=== PATIENT | male | born 1930 | race Hispanic/Latino ===

== ENCOUNTER 2018-07-12 16:24 | Emergency (ER) | payer MEDICARE ==
[~2018-07-12] VITALS: Ht 170.2 cm; Wt 61.2 kg
[2018-07-12] MEDS ORDERED: PENICILLIN V POTASSIUM 500 MG TAB PO SCH (18:15)
== END 2018-07-12 18:11 | disposition home or self-care (01) ==
LOC: ER 16:24
DX: N48.1 Balanitis (principal); I10 Essential (primary) hypertension
CPT/HCPCS: 99283

== ENCOUNTER 2018-07-18 12:27 | Emergency (ER) | payer MEDICARE ==
[~2018-07-18] VITALS: Ht 170.2 cm; Wt 61.2 kg
[2018-07-18 17:08] LABS: BILIRUBIN,URINE NEGATIVE (NEGATIVE); CLARITY,URINE CLEAR (CLEAR); COLOR,URINE YELLOW (YELLOW); KETONES,URINE NEGATIVE (NEGATIVE); LEUKOCYTE ESTERASE ,URINE NEGATIVE (NEGATIVE); NITRITE,URINE NEGATIVE (NEGATIVE); PROTEIN,URINE DIPSTICK NEGATIVE (NEGATIVE); URINE UROBILINOGEN 0.2 mg/dL (0.2 - 1)
[2018-07-18 17:22] LABS: BACTERIA,URINE RARE /HPF; EPITHELIAL CELLS,URINE RARE /LPF; RBC,URINE 21-50 /HPF (0-5); WBC,URINE (MAN) 0-5 /HPF (0-5)
== END 2018-07-18 16:30 | disposition home or self-care (01) ==
LOC: ER 12:27
DX: N48.1 Balanitis (principal); I10 Essential (primary) hypertension; Z94.4 Liver transplant status
CPT/HCPCS: 81001; 87086; 99283

== ENCOUNTER 2018-07-26 19:55 | Emergency (ER) | payer MEDICARE ==
[~2018-07-26] VITALS: Ht 170.2 cm; Wt 61.2 kg
[2018-07-26 22:54] LABS: CLARITY,URINE CLOUDY (CLEAR); COLOR,URINE YELLOW (YELLOW); LEUKOCYTE ESTERASE ,URINE 2+ (NEGATIVE); NITRITE,URINE POSITIVE (NEGATIVE); PROTEIN,URINE DIPSTICK 2+ (NEGATIVE)
[2018-07-26 22:55] LABS: BACTERIA,URINE MANY /HPF; BILIRUBIN,URINE NEGATIVE (NEGATIVE); EPITHELIAL CELLS,URINE FEW /LPF; KETONES,URINE NEGATIVE (NEGATIVE); URINE UROBILINOGEN 0.2 mg/dL (0.2 - 1); WBC,URINE (MAN) >50 /HPF (0-5)
[2018-07-26 23:17] LABS: BASOPHILS % 0.4 % (0.0-1.0); EOSINOPHILS # (AUTO) 0.2 (0.0-0.4); EOSINOPHILS % 2.7 % (0.0-6.0); HEMOGLOBIN 10.3 g/dL (14.0-18.0); LYMPHOCYTES # (AUTO) 0.8 (1.0-3.2); LYMPHOCYTES % 14.1 % (18.0-39.1); MEAN CORPUSCULAR HGB CONC 32.2 g/dL (31-35); MEAN CORPUSCULAR VOLUME 83.8 fL (81-99); MONOCYTES # (AUTO) 0.4 (0.2-0.8); MONOCYTES % 6.6 % (4.4-11.3); NEUTROPHILS # (AUTO) 4.2 (2.1-6.9); NEUTROPHILS % 75.8 % (38.7-80.0); PLATELET COUNT 92 x10e3/uL (140-360); RED BLOOD COUNT 3.82 x10e6/uL (4.3-5.7); RED CELL DISTRIBUTION WIDTH 17.1 % (11.7-14.4)
[2018-07-26 23:48] LABS: ALBUMIN 3.4 g/dL (3.5-5.0); ALBUMIN/GLOBULIN RATIO 0.9 (0.8-2.0); ANION GAP 19.1 mmol/L (8-16); CALCIUM 9.8 mg/dL (8.4-10.2); CREATININE, SERUM 2.17 mg/dL (0.72-1.25); POTASSIUM 4.1 mmol/L (3.5-5.1)
[2018-07-27 00:14] VITALS: BP 171/87
[2018-07-29] MEDS ORDERED: PROPRANOLOL HCL10 MG PO (16:08)
[2018-07-29] MEDS ORDERED: CALCIUM CITRAT200 MG (16:08)
[2018-07-29] MEDS ORDERED: FENOFIBRATE145 MG (16:08)
[2018-07-29] MEDS ORDERED: ZINC SULFATE220 M1 (16:08)
[2018-07-29] MEDS ORDERED: RAPAMUNE0.5 MG PO (16:08)
[2018-07-29] MEDS ORDERED: [UNRECOGNIZED DRUG - OTHER] (16:08)
[2018-07-29] MEDS ORDERED: ASPIRIN81 MG PO (16:08)
[2018-07-29] MEDS ORDERED: ACETYLCYST100 MG/1 M (16:08)
[2018-07-29] MEDS ORDERED: ATORVASTATIN CA10 MG PO (16:08)
[2018-07-29] MEDS ORDERED: HYDROXYZINE HCL25 MG PO (16:08)
[2018-07-29] MEDS ORDERED: BENZONATATE100 MG PO (16:08)
[2018-07-29] MEDS ORDERED: QUESTRAN PACKET4 GM PO (16:08)
[2018-07-29] MEDS ORDERED: FINASTERIDE5 MG PO (16:08)
[2018-07-29] MEDS ORDERED: CLONIDINE1 EAC1 (16:08)
[2018-07-29] MEDS ORDERED: POTASSIUM CHLO10 ME1 PO (16:08)
[2018-07-29] MEDS ORDERED: VORICONAZOLE50 MG (16:08)
[2018-07-29] MEDS ORDERED: VITAMIN B-121000 MCG PO (16:08)
[2018-07-29] MEDS ORDERED: POLYETHYLENE GL17 GM PO (16:08)
[2018-07-29] MEDS ORDERED: FUROSEMIDE40 MG PO (16:08)
[2018-07-29] MEDS ORDERED: CENTRUM SILVER1 EAC3 (16:08)
[2018-07-29] MEDS ORDERED: SODIUM CHLORID250 M1 IV (16:08)
[2018-07-29] MEDS ORDERED: SODIUM BICARBO650 MG PO (16:08)
[2018-07-29] MEDS ORDERED: IPRATROPIU0.2 MG/1 M NEB (16:08)
[2018-07-29] MEDS ORDERED: HYDROCORTISONE10 MG PO (16:08)
--- OUTSIDE RECORDS SUMMARY | 2018-07-30 13:38 | XMS REPORT | Clinical Summary ---
Author Author [facility] Address Unknown Phone Unavailable Care Team Providers Care Hand Collator Name Role Phone PCP Unavailable Allergies No Known Allergies Current Medications Prescription Sig. Disp. Refills Start End Date Status Date aspirin 81 MG EC tablet Take 81 mg by mouth Active daily. propranolol (INDERAL) 40 Take 40 mg by mouth 2 Active MG tablet (two) times daily. ranitidine (ZANTAC) 150 Take 150 mg by mouth Active MG tablet daily. flunisolide (NASALIDE) 25 2 sprays by Each Nare Active mcg (0.025 %) [place] route as needed. hydrOXYzine (ATARAX) 25 Take 25 mg by mouth every Active MG tablet 6 (six) hours as needed. diphenhydrAMINE Take 25 mg by mouth as Active (BENADRYL) 25 mg tablet needed. calcium citrate 500 mg Take 500 mg by mouth. Active TbEF MULTIVITAMIN Take 1 tablet by mouth Active W-MINERALS/LUTEIN daily. (CENTRUM SILVER ORAL) coenzyme Q10 200 mg Take 200 mg by mouth Active capsule daily. fenofibrate (TRICOR) 48 Take 48 mg by mouth Active MG tabletIndications: daily. hypercholesterolemia sirolimus (RAPAMUNE) 0.5 Take 1 tablet (0.5 mg 30 tablet 0 05/29/20 Active mg Tab tablet total) by mouth daily. 18 RAPAMUNE 1 mg Take 2 tablets (2 mg 60 tablet 5 04/13/20 10/12/20 Discontin tabletIndications: Liver total) by mouth daily. 17 17 ued replaced by transplant (HCC), Status post liver transplantation (HCC), Immunosuppression (HCC) RAPAMUNE 1 mg Take 2 tablets (2 mg 60 tablet 11 10/12/20 02/16/20 Discontin tabletIndications: Liver total) by mouth daily. 17 18 ued replaced by transplant (HCC), Status post liver transplantation (HCC), Immunosuppression (HCC) sirolimus (RAPAMUNE) 1 MG Take 2 tablets (2 mg 60 tablet 02/16/20 02/19/20 Discontin tablet total) by mouth daily. 18 18 ued sirolimus (RAPAMUNE) 1 MG Take 2 tablets (2 mg 60 tablet 02/19/20 07/04/20 Discontin tablet total) by mouth daily. 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 No recurrent HCV infection currently with undetectable HCV RNA. No major issues of acute or chronic rejection or biliary stricture. Continue current care plan. 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 Will continue cardiology follow up. Normal porcine valve auscultation. Healthcare maintenance 11/25/2013 Last Assessment & Plan: Current with colonoscopy 2011; dermatology q 6 mos ongoing; needs annual influenza vaccine. GERD (gastroesophageal reflux disease) 11/25/2013 Last Assessment & Plan: Dual PPI and ranitidine therapy for reflux. Continue current care plan. If symptoms persistent, may need EGD to assess for Frazier's changes and/or manometry for LES dysfunction. Immunosuppression ([facility]) 11/25/2013 Last Assessment & Plan: Sirolimus monotherapy with excellent graft function. Continue current care plan. Hypertension 11/25/2013 Last Assessment & Plan: Mildly hypertensive today; however, did not take antihypertensive meds before fasting labs today. He will continue monitoring with his prescribing physician and should avoid weight gain. Encounters Date Type Specialty Care Team Description 07/24/2018 Telephone Transplant Hepatology Bridget Cortes RN Labs Only 07/23/2018 Telephone Transplant Hepatology Bridget Cortes RN returning phone call 07/12/2018 Telephone Transplant Hepatology Gem Danielson, EDMUND Follow-up 07/12/2018 Telephone Transplant Hepatology Gem Danielson, EDMUND Follow-up 07/12/2018 Telephone Transplant Hepatology Gem Danielson, EDMUND Follow-up 07/04/2018 Orders Only Transplant Hepatology Bridget Cortes RN 07/04/2018 Telephone Transplant Hepatology Bridget Cortes, EDMUND urologist clearance 07/02/2018 Telephone Transplant Hepatology Bridget Cortes, RN prostate 06/25/2018 Telephone Transplant Hepatology Anat Walker Labs Only (SPK W PTN RE: LAB/RX RESULTS; NO MED CHANGES; REPEAT BLD WK X3 MTHS; 09/20/2018; [facility]; GGT;) 06/20/2018 Telephone Transplant Hepatology Bridget Cortes RN Labs Only 06/20/2018 Telephone Transplant Hepatology Bridget Cortes RN lab work 06/19/2018 Documentation Transplant Hepatology Beba Walkerria 06/12/2018 Telephone Transplant Hepatology Beba Walkerria Labs Only (SPK W SPOUSE RE: LAB/RX RESULTS; NO MED CHANGES; REPEAT BLD WK X2 WKS; 06/18/2018; [facility]; GGT;) 06/12/2018 Telephone Transplant Hepatology Bridget Cortes RN Medication Problem 06/12/2018 Telephone Transplant Hepatology Bridget Cortes, EDMUND questions about medication 06/07/2018 Telephone Transplant Hepatology Bridget Cortes, EDMUND question re: medication 05/31/2018 Telephone Transplant Hepatology Bridget Cortes, EDMUND question for coordinator 05/30/2018 Telephone Transplant Hepatology Bridget Cortes RN rapamune 0.5 05/30/2018 Telephone Transplant Hepatology Bridget Cortes, EDMUND question re: [facility] bloodwork 05/29/2018 Telephone Transplant Hepatology Bridget Cortes, cleaning laborer Dose Change 04/22/2018 Orders Only Transplant Hepatology David Dodge MD 02/18/2018 Orders Only Transplant Hepatology Bridget Cortes, EDMUND 02/18/2018 Documentation Transplant Hepatology Anat Walker 02/15/2018 Telephone Transplant Hepatology Bridget Cortes, EDMUND generic OK 02/14/2018 Telephone Transplant Hepatology Bridget Cotres, EDMUND brand name medication 02/07/2018 Abstract Transplant Hepatology Bridget Cortes, EDMUND 12/24/2017 Telephone Transplant Hepatology Maral Freeman Labs Only (No change in current medications, repeat labs in 4 months 04/22/18 @ [facility]. ) 12/20/2017 Follow-Up Transplant Hepatology Afshan Fernandez MD Status post liver transplantation (HCC) (Primary Dx);Status post aortic valve replacement with tissue;Immunosuppression (HCC);Stage 3 chronic kidney disease;Screening for malignant neoplasm 12/20/2017 Orders Only Transplant Hepatology Dani Montelongo, Status post liver MD transplantation (HCC);Immunosuppression (HCC) 11/12/2017 Telephone Transplant Hepatology Maral Freeman Mailed updated itinerary (Mailed updated itinerary, with RS appt info. from Sunday clinic to clinic.) 10/19/2017 Orders Only Transplant Hepatology Gem Danielson, EDMUND Status post liver transplantation (HCC) (Primary Dx);Immunosuppression (HCC) 10/12/2017 Orders Only Transplant Hepatology Gem Danielson RN Liver replaced by transplant (HCC);Status post liver transplantation (HCC);Immunosuppression (HCC) 10/10/2017 Telephone Transplant Hepatology Maral Freeman Labs Only (No change in current meds, repeat labs 11/2017 @ annual f/u.) 10/01/2017 Orders Only Transplant Hepatology David Dodge MD after 07/25/2017 Social History Tobacco Use Types Packs/Day Years Used Date Former Smoker Cigarettes Quit: 10/15/1973 Smokeless Tobacco: Never Used Sex Assigned at Date Recorded Not on file Last Filed Vital Signs Vital Sign Reading Time Taken Blood Pressure 155/75 12/20/2017 9:32 AM [employer] Pulse 55 12/20/2017 9:32 AM [employer] Temperature 36.4 C (97.5 F) 12/20/2017 9:32 AM [employer] Respiratory Rate 18 12/20/2017 9:32 AM [employer] Oxygen Saturation 98% 12/20/2017 9:32 AM [employer] Inhaled Oxygen - - Concentration Weight 59.6 kg (131 lb 8 oz) 12/20/2017 9:32 AM [employer] Height 163.8 cm (5' 4.5") 12/20/2017 9:32 AM [employer] Body Mass Index 22.22 12/20/2017 9:32 AM [employer] Plan of Treatment Health Maintenance Due Date Last Done Comments INFLUENZA VACCINE 07/15/2018 Results * Sirolimus level (04/22/2018 9:22 AM) Only the most recent of 3 results within the time period is included. Component Value Ref Range Rapamycin Trough 14.1 3.0 - 18.0 mcg/L Comment: This test was developed and its analytical performance characteristics have been determined by [employer] [facility]. It has not been cleared or approved by the [place] Food and Drug Administration. This assay has been validated pursuant to the CLIA regulations and is used for clinical purposes. Specimen Performing Laboratory [address] [place] [address] Narrative FASTING:YES FASTING: YES * CBC with platelet count + automated diff (04/22/2018 9:22 AM) Only the most recent of 3 results within the time period is included. Component Value Ref Range WBC 5.3 3.8 - 10.8 Thousand/uL RBC 4.38 4.20 - 5.80 Million/uL Hemoglobin 11.8 (L) 13.2 - 17.1 g/dL Hematocrit 34.9 (L) 38.5 - 50.0 % MCV 79.7 (L) 80.0 - 100.0 fL MCH 26.9 (L) 27.0 - 33.0 pg MCHC 33.8 32.0 - 36.0 g/dL RDW 16.9 (H) 11.0 - 15.0 % Platelets 153 140 - 400 Thousand/uL MPV 10.6 7.5 - 12.5 fL # Neutros 3588 1500 - 7800 cells/uL # Lymphs 1145 850 - 3900 cells/uL # Monos 419 200 - 950 cells/uL # Eos 127 15 - 500 cells/uL # Baso 21 0 - 200 cells/uL % Neutros 67.7 % % Lymphs 21.6 % % Monos 7.9 % % Eos 2.4 % % Baso 0.4 % Specimen Performing Laboratory [facility] [address] [place] [address], [place] [address] Narrative FASTING:YES FASTING: YES * Bilirubin, total and direct (04/22/2018 9:22 AM) Only the most recent of 2 results within the time period is included. Component Value Ref Range Bilirubin, Direct 0.1 < OR=0.2 mg/dL Specimen Performing Laboratory [address] [place] [address] Narrative FASTING:YES FASTING: YES * Magnesium (04/22/2018 9:22 AM) Only the most recent of 3 results within the time period is included. Component Value Ref Range Magnesium, Serum 2.1 1.5 - 2.5 mg/dL Specimen Performing Laboratory [facility] [address] [place], [place] [address], [place] [address] Narrative FASTING:YES FASTING: YES * Comprehensive metabolic panel (04/22/2018 9:22 AM) Only the most recent of 3 results within the time period is included. Component Value Ref Range Glucose 101 (H) 65 - 99 mg/dL Comment: Fasting reference interval For someone without known diabetes, a glucose value between 100 and 125 mg/dL is consistent with prediabetes and should be confirmed with a follow-up test. BUN 16 7 - 25 mg/dL Creatinine 1.42 (H) 0.70 - 1.11 mg/dL Comment: For patients >49 years of age, the reference limit for Creatinine is approximately 13% higher for people identified as -[place]. eGFR If NonAfricn Am 44 (L) > OR=60 mL/min/1.73m2 eGFR If Africn Am 51 (L) > OR=60 mL/min/1.73m2 BUN/Creatinine Ratio 11 6 - 22 (calc) Sodium 143 135 - 146 mmol/L Potassium, Serum 4.3 3.5 - 5.3 mmol/L Chloride 103 98 - 110 mmol/L Carbon Dioxide, Total 31 20 - 31 mmol/L Calcium, Serum 9.7 8.6 - 10.3 mg/dL Protein, Total, Serum 6.6 6.1 - 8.1 g/dL Albumin 3.9 3.6 - 5.1 g/dL GLOBULIN ([facility]) 2.7 1.9 - 3.7 g/dL (calc) Albumin Globulin Ratio 1.4 1.0 - 2.5 (calc) Bilirubin, Total 0.5 0.2 - 1.2 mg/dL Alkaline Phosphatase, S 165 (H) 40 - 115 U/L AST (SGOT) 25 10 - 35 U/L ALT (SGPT) 33 9 - 46 U/L Specimen Performing Laboratory [facility] [address] [facility] [place] [address] Narrative FASTING:YES FASTING: YES * CBC with platelet count + automated diff (12/20/2017 9:20 AM) Component Value Ref Range WBC 7.4 3.5 - 10.5 K/L RBC 4.00 (L) 4.63 - 6.08 M/L Hemoglobin 11.0 (L) 13.7 - 17.5 GM/DL Hematocrit 35.2 (L) 40.1 - 51.0 % MCV 88.0 79.0 - 92.2 fL MCH 27.5 25.7 - 32.2 pg MCHC 31.3 (L) 32.3 - 36.5 GM/DL RDW 15.1 (H) 11.6 - 14.4 % Platelets 137 (L) 150 - 450 K/CU MM MPV 10.8 9.4 - 12.4 fL nRBC 0 0 - 0 /100 WBC % Neutros 80 % % Lymphs 10 % % Monos 7 % % Eos 3 % % Baso 0 % # Neutros 5.93 (H) 1.78 - 5.38 K/L # Lymphs 0.73 (L) 1.32 - 3.57 K/L # Monos 0.49 0.30 - 0.82 K/L # Eos 0.19 0.04 - 0.54 K/L # Baso 0.03 0.01 - 0.08 K/L Immature 1 0 - 1 % Granulocytes-Relative Specimen Performing Laboratory Blood [address] [address] * Bilirubin, direct (12/20/2017 9:20 AM) Component Value Ref Range Bilirubin, Direct 0.3 0.1 - 0.5 mg/dL Specimen Performing Laboratory Blood [address] [address] after 07/25/2017
--- OUTSIDE RECORDS SUMMARY | 2018-07-30 13:38 | XMS REPORT | Clinical Summary ---
Author Author [facility] Organization [facility] Address Unknown Phone Unavailable Care Team Providers Care Recreation Coordinator Name Role Phone Donato Mccallum MD PCP Allergies Active Allergy Reactions Severity Noted Date Comments No Known Drug Allergies 07/25/2016 Current Medications Prescription Sig. Disp. Refills Start End Date Status Date fenofibrate (TRICOR) 48 Take 48 mg by mouth Active MG tablet daily. hydrOXYzine (VISTARIL) Take 100 mg by mouth Active 100 MG capsule nightly. 1 tablet nightly omeprazole (PriLOSEC) 20 Take 20 mg by mouth Active MG capsule daily. propranolol (INDERAL) 40 Take 40 mg by mouth 2 Active MG tablet (two) times a day. terazosin (HYTRIN) 5 MG Take 5 mg by mouth Active capsule nightly. CALCIUM CITRATE ORAL Take by mouth. Active FOLIC Take 1 tablet by mouth. Active ACID/MULTIVIT-MIN/LUTEIN (CENTRUM SILVER ORAL) cholestyramine (QUESTRAN) Take 1 packet by mouth. Active 4 gram packet cyanocobalamin 100 MCG Take 100 mcg by mouth Active tablet daily. finasteride (PROSCAR) 5 Take 5 mg by mouth daily. Active mg tablet zinc sulfate (ZINCATE) Take 220 mg by mouth Active 220 (50) mg capsule daily. atorvastatin (LIPITOR) 20 Take 20 mg by mouth Active MG tablet daily. Default OP ins gabapentin (NEURONTIN) Take 100 mg by mouth 3 Active 100 mg capsule (three) times a day. aspirin (ECOTRIN) 81 MG Take 81 mg by mouth Active enteric coated tablet daily. hydrocortisone (CORTEF) Take 3 tablets (30 mg 180 tablet 11 03/28/20 03/28/20 Active 10 MG tablet total) by mouth 2 (two) 18 19 times a day. benzonatate (TESSALON) Take 1 capsule (100 mg 30 capsule 1 05/28/20 Active 100 MG capsule total) by mouth 3 (three) 18 times a day as needed for cough for up to 30 doses. sirolimus (RAPAMUNE) 0.5 Take 1 tablet (0.5 mg 30 tablet 11 05/28/20 06/27/20 Active MG tablet total) by mouth daily. 18 22 ipratropium (ATROVENT) Take 2.5 mL (0.5 mg 225 mL 0 06/25/20 Active 0.02 % nebulizer solution total) by nebulization 3 18 (three) times a day as needed for shortness of breath for up to 30 days. furosemide (LASIX) 20 mg TAKE ONE TABLET BY MOUTH 90 tablet 3 07/08/20 Active tablet ONCE DAILY 18 ranitidine (ZANTAC) 150 Take 150 mg by mouth 11/06/19 Discontin MG tablet daily. 18 ued ursodiol (ACTIGALL) 500 Take 250 mg by mouth 2 06/25/20 Discontin MG tablet (two) times a day. 18 ued diphenhydrAMINE Take 25 mg by mouth. 11/06/19 Discontin (BENADRYL) 25 mg tablet 18 ued RAPAMUNE 1 mg tablet TAKE 2 TABLETS BY MOUTH 6 02/16/20 05/28/20 Discontin DAILY *Z94.4* 17 18 ued zolpidem (AMBIEN) 10 mg Take 10 mg by mouth 05/28/20 Discontin tablet nightly as needed for 18 [address]ed sleep. testosterone 20.25 [address] on the skin. 05/28/20 Discontin mg/1.25 gram (1.62 %) gel 18 ued in metered-dose pump testosterone 10 mg/0.5 Place 1 applicator on the 1 g 0 04/03/20 04/03/20 gram /actuation gel in skin daily. 17 18 metered-dose pump furosemide (LASIX) 20 mg Take 1 tablet (20 mg 90 tablet 3 04/30/20 07/06/20 Discontin tablet total) by mouth daily. 17 18 ued meclizine (ANTIVERT) 25 Take 1 tablet (25 mg 90 tablet 3 11/06/19 12/06/19 mg tabletIndications: total) by mouth 3 (three) 18 18 Aortic valve disorder, times a day as needed for Vertigo, Weight loss dizziness for up to 30 days. tobramycin 80 mg/mL Take 1.88 mL (150 mg 37.6 mL 0 05/28/20 05/28/20 Discontin solution for nebulization total) by nebulization 18 18 ued every 12 (twelve) hours for 20 doses. ipratropium (ATROVENT) Take 2.5 mL (0.5 mg 225 mL 0 05/28/20 06/25/20 Discontin 0.02 % nebulizer solution total) by nebulization 3 18 18 ued (three) times a day for 30 days. voriconazole (VFEND) 200 Take 1 tablet (200 mg 60 tablet 0 05/28/20 06/18/20 MG tablet total) by mouth 2 (two) 18 18 times a day for 21 days. clonIDINE (CATAPRES) 0.1 Take 1 tablet (0.1 mg 60 tablet 1 05/28/20 06/27/20 MG tablet total) by mouth every 6 18 18 (six) hours as needed for high blood pressure (Give for a SBP > than 150) for up to 30 days. amLODIPine (NORVASC) 5 mg Take 1 tablet (5 mg 60 tablet 0 05/28/20 06/27/20 tablet total) by mouth 2 (two) 18 18 times a day for 30 days. polyethylene glycol Take 17 g by mouth daily 30 packet 0 05/28/20 06/27/20 (MIRALAX) 17 gram packet as needed for 18 18 constipation for up to 30 days. Don't take if stools loose or too soft acetylcysteine (MUCOMYST) Take 2 mL by nebulization 120 mL 0 05/28/20 06/27/20 200 mg/mL (20 %) 2 (two) times a day for 18 18 nebulizer solution 30 days. cefpodoxime (VANTIN) 200 Take 1 tablet (200 mg 14 tablet 0 06/11/20 06/18/20 MG tablet total) by mouth 2 (two) 18 18 times a day for 7 days. 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 Will continue cardiology follow up. Normal porcine valve auscultation. Hyperlipidemia 07/25/2016 Aortic valve disorder 07/25/2016 Hypertension 07/25/2016 Overview: Last Assessment & Plan: Mildly hypertensive today; however, did not take antihypertensive meds before fasting labs today. He will continue monitoring with his prescribing physician and should avoid weight gain. 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 Continue current care plan. If symptoms persistent, may need EGD to assess for Frazier's changes and/or manometry for LES dysfunction. Immunosuppression ([facility]) 11/25/2013 Overview: Last Assessment & Plan: Sirolimus monotherapy with excellent graft function. Continue current care plan. Status post liver transplantation ([facility]) 11/25/2013 Overview: Overview: ICD9 DX Fern Cutter Last Assessment & Plan: OLT Date: 04/29/2003 Dx: HCV genotype 2a. No recurrent HCV infection currently with undetectable HCV RNA. No major issues of acute or chronic rejection or biliary stricture. Continue current care plan. Encounters Date Type Specialty Care Team Description 07/06/2018 Refill Cardiology Darius Jiménez MD PhD Med Refill 06/25/2018 Orders Only Intensive Care Abdiel Giraldo Jr., MD Cryptogenic organizing pneumonia (Primary Dx) 06/20/2018 Hospital Radiology Abdiel Giraldo Jr., MD Pneumonia, bacterial Encounter 06/19/2018 Transcribe Access Abdiel Giraldo Jr., MD Pneumonia, bacterial Orders (Primary Dx) 06/11/2018 Emergency Emergency Medicine Rehrer, Walt Rocha, Urinary tract infection without hematuria, site unspecified (Primary Dx); Urinary retention 05/17/2018 Hospital Transplant Abdiel Giraldo Jr., MD Pneumonia of left lower - Encounter lobe due to Pseudomonas 05/28/2018 species (Primary Dx); Acute urinary obstruction; Aortic valve disorder; Vertigo; Weight loss; Status post liver transplantation 05/17/2018 Procedure Pass Pulmonology 05/17/2018 Surgery Pulmonology Abdiel Giraldo Jr., MD BRONCHOSCOPY W/ BIOPSY 05/15/2018 Lab Lab Abdiel Giraldo Jr., MD 05/15/2018 Lab Lab Abdiel Giraldo Jr., MD Primary immune deficiency disorder (Primary Dx) 05/15/2018 Prep for Intensive Care Abdiel Giraldo Jr., MD Pneumonia due to organism Surgery (Primary Dx); Coagulopathy 05/15/2018 Documentation Intensive Care Abdiel Giraldo Jr., MD 05/14/2018 Lab Lab Abdiel Giraldo Jr., MD 05/06/2018 Office Visit Cardiology Darius Jiménez MD PhD Hyperlipidemia, unspecified hyperlipidemia type (Primary Dx); Atherosclerosis of coronary artery of augustine heart without angina pectoris, unspecified vessel or lesion type 03/28/2018 Office Visit Cardiology Darius Jiménez MD PhD Atherosclerosis of coronary artery of augustine heart without angina pectoris, unspecified vessel or lesion type (Primary Dx); S/P AVR (aortic valve replacement); Fatigue, unspecified type 11/06/2017 Office Visit Cardiology Darius Jiménez MD PhD Aortic valve disorder (Primary Dx); Vertigo; Weight loss after 07/25/2017 Family History Medical History Relation Name Comments Heart attack Father Heart failure Mother Relation Name Status Comments Father (Age 77) Mother Social History Tobacco Use Types Packs/Day Years Used Date Former Smoker 40 Smokeless Tobacco: Never Used Alcohol Use Drinks/Week oz/Week Comments No occasional Sex Assigned at Date Recorded Not on file Last Filed Vital Signs Vital Sign Reading Time Taken Blood Pressure 169/80 06/11/2018 5:52 PM CDT Pulse 87 06/11/2018 5:52 PM CDT Temperature 36.9 C (98.4 F) 06/11/2018 5:52 PM CDT Respiratory Rate 18 06/11/2018 5:52 PM CDT Oxygen Saturation 96% 06/11/2018 5:52 PM CDT Inhaled Oxygen - - Concentration Weight 59.1 kg (130 lb 3 oz) 05/27/2018 5:16 AM CDT Height 170.2 cm (5' 7") 05/17/2018 12:12 PM CDT Body Mass Index 20.39 05/27/2018 5:16 AM CDT Plan of Treatment Date Type Specialty Care Team Description 11/07/2018 Office Visit Cardiology Darius Jiménez MD PhD [address] [place] [address] [facility] [place] [address] Health Maintenance Due Date Last Done Comments SHINGRIX VACCINE (#1) 1981 ZOSTER VACCINE 1991 PNEUMOCOCCAL 01/16/1996 POLYSACCHARIDE VACCINE AGE 65 AND OVER PNEUMOCOCCAL-13 01/16/1996 INFLUENZA VACCINE 05/15/2018 Procedures Procedure Name Priority Date/Time Associated Diagnosis Comments XR CHEST 2 VW Routine 06/20/2018 Pneumonia, bacterial Results for this 11:11 AM CDT procedure are in the results section. B NATRIURETIC PEPTIDE STAT 06/11/2018 Results for this 6:22 PM CDT procedure are in the results section. BLOOD CULTURE, AEROBIC & Routine 06/11/2018 Results for this ANAEROBIC 6:22 PM CDT procedure are in the results section. GRAM STAIN STAT 06/11/2018 Results for this 6:10 PM CDT procedure are in the results section. URINE CULTURE STAT 06/11/2018 Results for this 6:10 PM CDT procedure are in the results section. TROPONIN STAT 06/11/2018 Results for this 6:09 PM CDT procedure are in the results section. CREATINE KINASE, TOTAL STAT 06/11/2018 Results for this (CPK) 6:09 PM CDT procedure are in the results section. ZZESTIMATED GFR STAT 06/11/2018 Results for this 6:09 PM CDT procedure are in the results section. URINALYSIS SCREEN AND STAT 06/11/2018 Results for this MICROSCOPY, WITH REFLEX 6:09 PM CDT procedure are in the TO CULTURE results section. LIPASE LEVEL STAT 06/11/2018 Results for this 6:09 PM CDT procedure are in the results section. COMPREHENSIVE METABOLIC STAT 06/11/2018 Results for this PANEL 6:09 PM CDT procedure are in the results section. HC COMPLETE BLD COUNT STAT 06/11/2018 Results for this W/AUTO DIFF 6:09 PM CDT procedure are in the results section. ZZESTIMATED GFR Routine 05/28/2018 Results for this 6:41 AM CDT procedure are in the results section. MAGNESIUM LEVEL Routine 05/28/2018 Results for this 6:41 AM CDT procedure are in the results section. PHOSPHORUS LEVEL Routine 05/28/2018 Results for this 6:41 AM CDT procedure are in the results section. COMPREHENSIVE METABOLIC Routine 05/28/2018 Results for this PANEL 6:41 AM CDT procedure are in the results section. FK506 LEVEL Routine 05/28/2018 Results for this 5:30 AM CDT procedure are in the results section. SIROLIMUS LEVEL Routine 05/28/2018 Results for this 5:30 AM CDT procedure are in the results section. HC COMPLETE BLD COUNT Routine 05/28/2018 Results for this W/AUTO DIFF 5:30 AM CDT procedure are in the results section. URINALYSIS SCREEN AND Routine 05/27/2018 Results for this MICROSCOPY, WITH REFLEX 8:28 PM CDT procedure are in the TO CULTURE results section. URINE CULTURE Routine 05/27/2018 Results for this 8:28 PM CDT procedure are in the results section. HC COMPLETE BLD COUNT Routine 05/27/2018 Results for this W/AUTO DIFF 5:05 AM CDT procedure are in the results section. ZZESTIMATED GFR Routine 05/27/2018 Results for this 5:05 AM CDT procedure are in the results section. BASIC METABOLIC PANEL Routine 05/27/2018 Results for this 5:05 AM CDT procedure are in the results section. SIROLIMUS LEVEL Routine 05/27/2018 Results for this 5:05 AM CDT procedure are in the results section. HEPATIC FUNCTION PANEL Routine 05/27/2018 Results for this 5:05 AM CDT procedure are in the results section. ZZESTIMATED GFR Routine 05/26/2018 Results for this 5:10 AM CDT procedure are in the results section. BASIC METABOLIC PANEL Routine 05/26/2018 Results for this 5:10 AM CDT procedure are in the results section. HC COMPLETE BLD COUNT Routine 05/26/2018 Results for this W/AUTO DIFF 5:10 AM CDT procedure are in the results section. FK506 LEVEL Routine 05/26/2018 Results for this 5:10 AM CDT procedure are in the results section. XR CHEST 1 VW PORTABLE Routine 05/26/2018 Results for this 12:21 AM CDT procedure are in the results section. ZZESTIMATED GFR Routine 05/25/2018 Results for this 5:30 AM CDT procedure are in the results section. BASIC METABOLIC PANEL Routine 05/25/2018 Results for this 5:30 AM CDT procedure are in the results section. HC COMPLETE BLD COUNT Routine 05/25/2018 Results for this W/AUTO DIFF 5:30 AM CDT procedure are in the results section. SIROLIMUS LEVEL Routine 05/25/2018 Results for this 5:30 AM CDT procedure are in the results section. ECG 12-LEAD Routine 05/24/2018 Results for this 10:47 AM CDT procedure are in the results section. ZZESTIMATED GFR Routine 05/24/2018 Results for this 6:34 AM CDT procedure are in the results section. COMPREHENSIVE METABOLIC Routine 05/24/2018 Results for this PANEL 6:34 AM CDT procedure are in the results section. HC COMPLETE BLD COUNT Routine 05/24/2018 Results for this W/AUTO DIFF 5:47 AM CDT procedure are in the results section. SIROLIMUS LEVEL Routine 05/24/2018 Results for this 5:43 AM CDT procedure are in the results section. SIROLIMUS LEVEL Routine 05/23/2018 Results for this 6:06 AM CDT procedure are in the results section. HC COMPLETE BLD COUNT Routine 05/23/2018 Results for this W/AUTO DIFF 6:05 AM CDT procedure are in the results section. ZZESTIMATED GFR Routine 05/23/2018 Results for this 4:00 AM CDT procedure are in the results section. COMPREHENSIVE METABOLIC Routine 05/23/2018 Results for this PANEL 4:00 AM CDT procedure are in the results section. XR CHEST 2 VW Routine 05/22/2018 Results for this 7:03 PM CDT procedure are in the results section. ZZESTIMATED GFR Routine 05/22/2018 Results for this 5:55 AM CDT procedure are in the results section. SIROLIMUS LEVEL Routine 05/22/2018 Results for this 5:55 AM CDT procedure are in the results section. HC COMPLETE BLD COUNT Routine 05/22/2018 Results for this W/AUTO DIFF 5:55 AM CDT procedure are in the results section. COMPREHENSIVE METABOLIC Routine 05/22/2018 Results for this PANEL 5:55 AM CDT procedure are in the results section. IMMUNOGLOBULIN E Routine 05/22/2018 Results for this 5:55 AM CDT procedure are in the results section. IMMUNOGLOBULIN M Routine 05/22/2018 Results for this 5:55 AM CDT procedure are in the results section. IMMUNOGLOBULIN G Routine 05/22/2018 Results for this 5:55 AM CDT procedure are in the results section. IMMUNOGLOBULIN A Routine 05/22/2018 Results for this 5:55 AM CDT procedure are in the results section. ZZESTIMATED GFR Routine 05/21/2018 Results for this 6:12 AM CDT procedure are in the results section. COMPREHENSIVE METABOLIC Routine 05/21/2018 Results for this PANEL 6:12 AM CDT procedure are in the results section. SIROLIMUS LEVEL Routine 05/21/2018 Results for this 6:06 AM CDT procedure are in the results section. HC COMPLETE BLD COUNT Routine 05/21/2018 Results for this W/AUTO DIFF 6:06 AM CDT procedure are in the results section. XR CHEST 2 VW Routine 05/20/2018 Results for this 5:43 PM CDT procedure are in the results section. ZZESTIMATED GFR Routine 05/20/2018 Results for this 5:40 AM CDT procedure are in the results section. SIROLIMUS LEVEL Routine 05/20/2018 Results for this 5:40 AM CDT procedure are in the results section. HC COMPLETE BLD COUNT Routine 05/20/2018 Results for this W/AUTO DIFF 5:40 AM CDT procedure are in the results section. COMPREHENSIVE METABOLIC Routine 05/20/2018 Results for this PANEL 5:40 AM CDT procedure are in the results section. XR ABDOMEN 1 VW PORTABLE Routine 05/19/2018 Results for this 4:33 PM CDT procedure are in the results section. SIROLIMUS LEVEL Routine 05/19/2018 Results for this 5:30 AM CDT procedure are in the results section. ZZESTIMATED GFR Routine 05/19/2018 Results for this 5:30 AM CDT procedure are in the results section. HC COMPLETE BLD COUNT Routine 05/19/2018 Results for this W/AUTO DIFF 5:30 AM CDT procedure are in the results section. COMPREHENSIVE METABOLIC Routine 05/19/2018 Results for this PANEL 5:30 AM CDT procedure are in the results section. XR CHEST 1 VW PORTABLE STAT 05/18/2018 Results for this 6:35 AM CDT procedure are in the results section. SIROLIMUS LEVEL Routine 05/18/2018 Results for this 6:00 AM CDT procedure are in the results section. ZZESTIMATED GFR Routine 05/18/2018 Results for this 6:00 AM CDT procedure are in the results section. URIC ACID LEVEL Routine 05/18/2018 Results for this 6:00 AM CDT procedure are in the results section. HEPATIC FUNCTION PANEL Routine 05/18/2018 Results for this 6:00 AM CDT procedure are in the results section. THYROID STIMULATING Routine 05/18/2018 Results for this HORMONE 6:00 AM CDT procedure are in the results section. BASIC METABOLIC PANEL Routine 05/18/2018 Results for this 6:00 AM CDT procedure are in the results section. CBC HEMOGRAM Routine 05/18/2018 Results for this 6:00 AM CDT procedure are in the results section. ECG 12-LEAD Routine 05/17/2018 Results for this 5:29 PM CDT procedure are in the results section. SURGICAL PATHOLOGY Routine 05/17/2018 Results for this REQUEST 4:44 PM CDT procedure are in the results section. SURGICAL PATHOLOGY Routine 05/17/2018 Results for this REQUEST 4:44 PM CDT procedure are in the results section. CYTOLOGY Routine 05/17/2018 Results for this (NON-GYNECOLOGICAL) 3:21 PM CDT procedure are in the REQUEST results section. CYTOLOGY Routine 05/17/2018 Results for this (NON-GYNECOLOGICAL) 3:21 PM CDT procedure are in the REQUEST results section. HERPES SIMPLEX VIRUS BY Routine 05/17/2018 Results for this PCR 3:21 PM CDT procedure are in the results section. VARICELLA ZOSTER BY PCR Routine 05/17/2018 Results for this 3:21 PM CDT procedure are in the results section. CYTOMEGALOVIRUS BY PCR Routine 05/17/2018 Results for this 3:21 PM CDT procedure are in the results section. BAL CELL COUNT AND Routine 05/17/2018 Results for this DIFFERENTIAL 3:21 PM CDT procedure are in the results section. RESPIRATORY CULTURE Routine 05/17/2018 Results for this 3:21 PM CDT procedure are in the results section. GRAM STAIN Routine 05/17/2018 Results for this 3:21 PM CDT procedure are in the results section. GRAM STAIN Routine 05/17/2018 Results for this 3:21 PM CDT procedure are in the results section. RESPIRATORY CULTURE Routine 05/17/2018 Results for this 3:21 PM CDT procedure are in the results section. RESPIRATORY CULTURE Routine 05/17/2018 Results for this 3:21 PM CDT procedure are in the results section. FUNGUS SMEAR Routine 05/17/2018 Results for this 3:21 PM CDT procedure are in the results section. AFB STAIN Routine 05/17/2018 Results for this 3:21 PM CDT procedure are in the results section. FUNGUS SMEAR Routine 05/17/2018 Results for this 3:21 PM CDT procedure are in the results section. AFB STAIN Routine 05/17/2018 Results for this 3:21 PM CDT procedure are in the results section. NOCARDIA CULTURE Routine 05/17/2018 Results for this 3:21 PM CDT procedure are in the results section. FUNGUS CULTURE Routine 05/17/2018 Results for this 3:21 PM CDT procedure are in the results section. AFB CULTURE Routine 05/17/2018 Results for this 3:21 PM CDT procedure are in the results section. RESPIRATORY PATHOGEN Routine 05/17/2018 Results for this PANEL 3:21 PM CDT procedure are in the results section. LEGIONELLA CULTURE Routine 05/17/2018 Results for this 3:21 PM CDT procedure are in the results section. NOCARDIA CULTURE Routine 05/17/2018 Results for this 3:21 PM CDT procedure are in the results section. FUNGUS CULTURE Routine 05/17/2018 Results for this 3:21 PM CDT procedure are in the results section. AFB CULTURE Routine 05/17/2018 Results for this 3:21 PM CDT procedure are in the results section. BRONCHOSCOPY 05/17/2018 Pneumonia 2:00 PM CDT HISTOPLASMA ANTIGEN, STAT 05/17/2018 Results for this SERUM 12:23 PM CDT procedure are in the results section. BASIC METABOLIC PANEL STAT 05/17/2018 Results for this 11:55 AM CDT procedure are in the results section. ZZESTIMATED GFR STAT 05/17/2018 Results for this 11:55 AM CDT procedure are in the results section. PROTHROMBIN TIME WITH INR STAT 05/17/2018 Results for this 11:55 AM CDT procedure are in the results section. PARTIAL THROMBOPLASTIN STAT 05/17/2018 Results for this TIME (PTT) 11:55 AM CDT procedure are in the results section. HC COMPLETE BLD COUNT STAT 05/17/2018 Results for this W/AUTO DIFF 11:55 AM CDT procedure are in the results section. FUNGUS SMEAR Routine 05/15/2018 Results for this 12:20 PM CDT procedure are in the results section. AFB STAIN Routine 05/15/2018 Results for this 12:20 PM CDT procedure are in the results section. GRAM STAIN Routine 05/15/2018 Results for this 12:20 PM CDT procedure are in the results section. FUNGUS CULTURE Routine 05/15/2018 Primary immune deficiency Results for this 12:20 PM CDT disorder procedure are in the results section. AFB CULTURE Routine 05/15/2018 Primary immune deficiency Results for this 12:20 PM CDT disorder procedure are in the results section. SPUTUM CULTURE Routine 05/15/2018 Primary immune deficiency Results for this 12:20 PM CDT disorder procedure are in the results section. AFB STAIN Routine 05/14/2018 Results for this 5:45 PM CDT procedure are in the results section. AFB CULTURE Routine 05/14/2018 Results for this 5:45 PM CDT procedure are in the results section. GRAM STAIN Routine 05/14/2018 Results for this 5:45 PM CDT procedure are in the results section. SPUTUM CULTURE Routine 05/14/2018 Results for this 5:45 PM CDT procedure are in the results section. ECHOCARDIOGRAM 2D Routine 03/26/2018 Aortic valve disorder Results for this COMPLETE W MMODE SPECTRAL 10:45 AM CDT Vertigo procedure are in the COLOR DOPPLER ([id number]) Weight loss results section. after 07/25/2017 Results * XR Chest 2 Vw (06/20/2018 11:11 AM) Only the most recent of 3 results within the time period is included. Narrative Performed At Examination:XR CHEST 2 VW HM RADIANT Clinical History: J15.9 Unspecified bacterial pneumonia, J15.9 Comparison: May 26, 2018 Technique: Frontal and lateral views of the chest Impression: Peripheral airspace disease in the right upper lobe is resolved. No new infiltrate. Stable reticular markings in the right mid and lower lung zones are likely old postinflammatory. No pleural effusion. Heart size and pulmonary vascularity within normal limits. Status post median sternotomy. Mildly tortuous aorta. [facility]-[id number] Procedure Note Interface, Radiology Results Incoming - 06/20/2018 11:31 AM CDT Examination: XR CHEST 2 VW Clinical History: J15.9 Unspecified bacterial pneumonia, J15.9 Comparison: May 26, 2018 Technique: Frontal and lateral views of the chest Impression: Peripheral airspace disease in the right upper lobe is resolved. No new infiltrate. Stable reticular markings in the right mid and lower lung zones are likely old postinflammatory. No pleural effusion. Heart size and pulmonary vascularity within normal limits. Status post median sternotomy. Mildly tortuous aorta. [facility]-[id number] Performing Organization Address City/[facility]/[place] [address] * Blood culture, aerobic & anaerobic (06/11/2018 6:22 PM) Blood culture isolate No growth after 5 days of [facility] DEPARTMENT OF incubation. PATHOLOGY AND Comment: GENOMIC MEDICINE Specimen Information Specimen Source: Blood Specimen Site: Forearm, left Specimen Blood - Forearm, left Performing Organization Address [facility]/Zipcode Phone Number [facility] DEPARTMENT OF [address] [place] [address] PATHOLOGY AND GENOMIC MEDICINE * B natriuretic peptide (06/11/2018 6:22 PM) BNP 256 (H) 0 - 100 pg/mL [facility] DEPARTMENT OF PATHOLOGY AND GENOMIC MEDICINE Specimen Blood Performing Organization Address [facility] Phone Number [facility] DEPARTMENT OF [address] [place] [address] PATHOLOGY AND GENOMIC MEDICINE * Gram stain (06/11/2018 6:10 PM) Only the most recent of 5 results within the time period is included. Gram stain result Few WBC's [facility] DEPARTMENT OF Many Gram positive cocci in PATHOLOGY AND pairs GENOMIC MEDICINE Comment: Specimen Information Specimen Source: Urine Specimen Site: Clean catch Specimen Urine Performing Organization Address [facility] Phone Number [facility] DEPARTMENT OF [address] [place] [address] PATHOLOGY AND GENOMIC MEDICINE * Urine culture (06/11/2018 6:10 PM) Only the most recent of 2 results within the time period is included. Urine culture isolate Enterococcus faecalis [facility] DEPARTMENT OF >10-5 cfu/ml PATHOLOGY AND The performance GENOMIC MEDICINE characteristics of this assay on this isolate were validated by the Microbiology Laboratory at [facility].This source has not been approved by the U.S. Food and Drug Administration.The results are not intended to be used as the sole means for clinical diagnosis or patient management.The Microbiology Laboratory is authorized under the clinical Laboratory Improvement Amendments of 1988 (CLIA-88) to perform high complexity testing. The performance characteristics of this assay on this isolate were validated by the Microbiology Laboratory at [facility].This source has not been approved by the U.S. Food and Drug Administration.The results are not intended to be used as the sole means for clinical diagnosis or patient management.The Microbiology Laboratory is authorized under the clinical Laboratory Improvement Amendments of 1988 (CLIA-88) to perform high complexity testing. This organism is Vancomycin Sensitive. (A) Comment: Specimen Information Specimen Source: Urine Specimen Site: Clean catch Specimen Urine Organism Antibiotic Method Susceptibility Enterococcus faecalis Ampicillin SHAHBAZ 2 mcg/mL: Susceptible Enterococcus faecalis Nitrofurantoin SHAHBAZ <=16 mcg/mL: Susceptible Enterococcus faecalis Levofloxacin SHAHBAZ >4 mcg/mL: Resistant Enterococcus faecalis Linezolid SHAHBAZ <=1 mcg/mL: Susceptible Enterococcus faecalis Minocycline SHAHBAZ <=1 mcg/mL: Susceptible Enterococcus faecalis Tetracycline SHAHBAZ <=0.5 mcg/mL: Susceptible Enterococcus faecalis Vancomycin SHAHBAZ 1 mcg/mL: Susceptible Performing Organization Address City/State/Zipcode Phone Number [facility] DEPARTMENT OF [address] [place] [phone] PATHOLOGY AND GENOMIC MEDICINE * Urinalysis screen and microscopy, with reflex to culture (06/11/2018 6:09 PM) Only the most recent of 2 results within the time period is included. Specimen site Clean catch [facility] DEPARTMENT OF PATHOLOGY AND GENOMIC MEDICINE Color, UA Rowena [facility] DEPARTMENT OF PATHOLOGY AND GENOMIC MEDICINE Appearance, UA Turbid [facility] DEPARTMENT OF PATHOLOGY AND GENOMIC MEDICINE Specific gravity, UA 1.012 1.001 - 1.035 [facility] DEPARTMENT OF PATHOLOGY AND GENOMIC MEDICINE pH, UA 6.0 5.0 - 8.5 [facility] DEPARTMENT OF PATHOLOGY AND GENOMIC MEDICINE Protein, UA 2+ (A) Negative [facility] DEPARTMENT OF PATHOLOGY AND GENOMIC MEDICINE Glucose, UA Negative Negative [facility] DEPARTMENT OF PATHOLOGY AND GENOMIC MEDICINE Ketones, UA Negative Negative [facility] DEPARTMENT OF PATHOLOGY AND GENOMIC MEDICINE Bilirubin, UA Negative Negative [facility] DEPARTMENT OF PATHOLOGY AND GENOMIC MEDICINE Blood, UA Small (A) Negative [facility] DEPARTMENT OF PATHOLOGY AND GENOMIC MEDICINE Nitrite, UA Negative Negative [facility] DEPARTMENT OF PATHOLOGY AND GENOMIC MEDICINE Urobilinogen, UA <2.0 <2.0 [facility] DEPARTMENT OF PATHOLOGY AND GENOMIC MEDICINE Leukocyte esterase, UA Large (A) Negative [facility] DEPARTMENT OF PATHOLOGY AND GENOMIC MEDICINE WBC, UA >180 (H) 0 - 1 /HPF [facility] DEPARTMENT OF PATHOLOGY AND GENOMIC MEDICINE RBC, UA 27 (H) 0 - 5 /HPF [facility] DEPARTMENT OF PATHOLOGY AND GENOMIC MEDICINE Bacteria, UA Many (A) None seen [facility] DEPARTMENT OF PATHOLOGY AND GENOMIC MEDICINE WBC clumps, UA Few (A) [facility] DEPARTMENT OF PATHOLOGY AND GENOMIC MEDICINE Yeast, UA None seen [facility] DEPARTMENT OF PATHOLOGY AND GENOMIC MEDICINE Yeast with pseudohyphae, None seen [facility] PATHOLOGY AND GENOMIC MEDICINE Specimen Urine Performing Organization Address City/[facility] [place] [address] PATHOLOGY AND GENOMIC MEDICINE * Estimated GFR (06/11/2018 6:09 PM) Only the most recent of 13 results within the time period is included. GFR Non Af Amer 38 (A) mL/min/1.73 m2 [facility] DEPARTMENT OF PATHOLOGY AND GENOMIC MEDICINE GFR Af Amer 46 (A) mL/min/1.73 m2 [facility] DEPARTMENT OF Comment: PATHOLOGY AND Chronic kidney disease: <60 GENOMIC MEDICINE mL/min/1.73m2 Kidney failure: <15 mL/min/1.73m2 The estimated GFR is calculated from the IDMS-traceable Modification of Diet in Renal Disease Equation. The accuracy of the calculation is poor when the creatinine is normal. Calculated values >90 mL/min/1.73m2 are not reported. This equation has not been validated in children (<18 years), women, the elderly (>70 years), or ethnic groups other than Caucasians and Americans. Specimen Plasma specimen Performing Organization Address City/[facility] [place] [address] PATHOLOGY AND GENOMIC MEDICINE * Troponin (06/11/2018 6:09 PM) Troponin <0.30 0.00 - 0.30 ng/mL [facility] DEPARTMENT OF Comment: PATHOLOGY AND 0.30 - 1.49 GENOMIC MEDICINE ng/mlMay indicate increased risk of acute coronary syndrome. >=1.5 ng/ml Consistent with acute myocardial infarction. The diagnostic value of a single normal or non-diagnostic result is questionable.Serial samples at 2-6 hour intervals are required to rule out acute myocardial injury. Specimen Plasma specimen Performing Organization Address City/[facility]/Zipcode Phone Number [address] [address] PATHOLOGY AND GENOMIC MEDICINE * CBC with platelet and differential (06/11/2018 6:09 PM) Only the most recent of 12 results within the time period is included. WBC 7.21 4.50 - 11.00 k/uL [facility] DEPARTMENT OF PATHOLOGY AND GENOMIC MEDICINE RBC 4.27 (L) 4.40 - 6.00 m/uL [facility] DEPARTMENT OF PATHOLOGY AND GENOMIC MEDICINE HGB 11.2 (L) 14.0 - 18.0 g/dL [facility] DEPARTMENT OF PATHOLOGY AND GENOMIC MEDICINE HCT 35.5 (L) 41.0 - 51.0 % [facility] DEPARTMENT OF PATHOLOGY AND GENOMIC MEDICINE MCV 83.1 82.0 - 100.0 fL [facility] DEPARTMENT OF PATHOLOGY AND GENOMIC MEDICINE MCH 26.2 (L) 27.0 - 34.0 pg [facility] DEPARTMENT OF PATHOLOGY AND GENOMIC MEDICINE MCHC 31.5 31.0 - 37.0 g/dL [facility] DEPARTMENT OF PATHOLOGY AND GENOMIC MEDICINE RDW - SD 52.2 37.0 - 55.0 fL [facility] DEPARTMENT OF PATHOLOGY AND GENOMIC MEDICINE MPV 10.1 8.8 - 13.2 fL [facility] DEPARTMENT OF PATHOLOGY AND GENOMIC MEDICINE Platelet count 150 150 - 400 k/uL [facility] DEPARTMENT OF PATHOLOGY AND GENOMIC MEDICINE Nucleated RBC 0.00 /100 WBC [facility] DEPARTMENT OF PATHOLOGY AND GENOMIC MEDICINE Neutrophils 78.6 (H) 39.0 - 69.0 % [facility] DEPARTMENT OF PATHOLOGY AND GENOMIC MEDICINE Lymphocytes 12.9 (L) 25.0 - 45.0 % [facility] DEPARTMENT OF PATHOLOGY AND GENOMIC MEDICINE Monocytes 6.9 0.0 - 10.0 % [facility] DEPARTMENT OF PATHOLOGY AND GENOMIC MEDICINE Eosinophils 0.8 0.0 - 5.0 % [facility] DEPARTMENT OF PATHOLOGY AND GENOMIC MEDICINE Basophils 0.4 0.0 - 1.0 % [facility] DEPARTMENT OF PATHOLOGY AND GENOMIC MEDICINE Immature granulocytes 0.4Comment: "Immature 0.0 - 1.0 % [facility] DEPARTMENT OF granulocytes" (promyelocytes, PATHOLOGY AND myelocytes, metamyelocytes) GENOMIC MEDICINE Specimen Blood Performing Organization Address City/[facility]/Zipcode Phone Number [address] [address] PATHOLOGY AND GENOMIC [facility] * Lipase level (06/11/2018 6:09 PM) Lipase 47 13 - 60 U/L [facility] DEPARTMENT PATHOLOGY AND GENOMIC MEDICINE Specimen Plasma specimen Performing Organization Address City/[facility]/Zipcode Phone Number [address] [address] PATHOLOGY AND GENOMIC MEDICINE * Creatine kinase, total (CPK) (06/11/2018 6:09 PM) Creatine kinase 50 39 - 308 U/L [facility] DEPARTMENT OF PATHOLOGY AND GENOMIC MEDICINE Specimen Plasma specimen Performing Organization Address City/State/Zipcode Phone Number [facility] DEPARTMENT OF [address] [place] [phone] PATHOLOGY AND GENOMIC MEDICINE * Comprehensive metabolic panel (06/11/2018 6:09 PM) Only the most recent of 8 results within the time period is included. Sodium 138 135 - 148 mEq/L [facility] DEPARTMENT OF PATHOLOGY AND GENOMIC MEDICINE Potassium 4.2 3.5 - 5.0 mEq/L [facility] DEPARTMENT OF PATHOLOGY AND GENOMIC MEDICINE Chloride 99 98 - 112 mEq/L [facility] DEPARTMENT OF PATHOLOGY AND GENOMIC MEDICINE CO2 22 (L) 24 - 31 mEq/L [facility] DEPARTMENT OF PATHOLOGY AND GENOMIC MEDICINE Anion gap 17@ANIO (H) 7 - 15 mEq/L [facility] DEPARTMENT OF PATHOLOGY AND GENOMIC MEDICINE BUN 29 (H) 8 - 23 mg/dL [facility] DEPARTMENT OF PATHOLOGY AND GENOMIC MEDICINE Creatinine 1.7 (H) 0.7 - 1.2 mg/dL [facility] DEPARTMENT OF PATHOLOGY AND GENOMIC MEDICINE Glucose 130 (H) 65 - 99 mg/dL [facility] DEPARTMENT OF PATHOLOGY AND GENOMIC MEDICINE Calcium 9.2 8.8 - 10.2 mg/dL [facility] DEPARTMENT OF PATHOLOGY AND GENOMIC MEDICINE Protein 7.2 6.3 - 8.3 g/dL [facility] DEPARTMENT OF Comment: PATHOLOGY AND [place] GENOMIC MEDICINE 4.6-7.0 g/dL 1 week 4.4-7.6 g/dL 7 months-1year 5.1-7.3 g/dL 1-2 years5.6-7 .5 g/dL >3 years6.0-8 .0 g/dL 18-150 6.3-8.3 g/dL Albumin 3.3 (L) 3.5 - 5.0 g/dL [facility] DEPARTMENT OF PATHOLOGY AND GENOMIC MEDICINE A/G ratio 0.8 0.7 - 3.8 [facility] DEPARTMENT OF PATHOLOGY AND GENOMIC MEDICINE Alkaline phosphatase 193 (H) 40 - 129 U/L [facility] DEPARTMENT OF PATHOLOGY AND GENOMIC MEDICINE AST 55 (H) 10 - 50 U/L [facility] DEPARTMENT OF PATHOLOGY AND GENOMIC MEDICINE ALT 40 5 - 50 U/L [facility] DEPARTMENT OF PATHOLOGY AND GENOMIC MEDICINE Total bilirubin 0.5 0.0 - 1.2 mg/dL [facility] DEPARTMENT OF PATHOLOGY AND GENOMIC MEDICINE Specimen Plasma specimen Performing Organization Address [facility] [place] [address] PATHOLOGY AND GENOMIC MEDICINE * Phosphorus level (05/28/2018 6:41 AM) Phosphorus 3.2 2.4 - 4.5 mg/dL [facility] DEPARTMENT OF PATHOLOGY AND [employer] MEDICINE Specimen Plasma specimen Performing Organization Address [facility] [place] [address] PATHOLOGY AND [facility] MEDICINE * Magnesium level (05/28/2018 6:41 AM) Magnesium 2.0 1.6 - 2.4 mg/dL [facility] DEPARTMENT OF PATHOLOGY AND GENOMIC MEDICINE Specimen Plasma specimen Performing Organization Address [facility] [place] [address] PATHOLOGY AND GENOMIC MEDICINE * FK506 level (05/28/2018 5:30 AM) Only the most recent of 2 results within the time period is included. FK506 level <2.0 ng/mL [facility] DEPARTMENT OF Comment: PATHOLOGY AND Therapeutic range 5-20 ng/mL [facility] for 12 hour trough. The range varies depending on the organ transplanted, time after transplantation and co-administered immunosuppressant therapies. Please use clinical judgment to interpret test result. Test performed using [employer] chemiluminescent microparticle immunoassay for Tacrolimus on the [employer] i System. Performing Organization Address [facility] Phone Number [facility] [place] [address] PATHOLOGY AND [employer] MEDICINE * Sirolimus level (05/28/2018 5:30 AM) Only the most recent of 10 results within the time period is included. Sirolimus 7.3 ng/mL [facility] DEPARTMENT OF Comment: PATHOLOGY AND The recommended trough is 4-12 GENOMIC MEDICINE ng/mL while on CNI (calcineurin inhibitors: Cyclcosporine and Tacrolimus). When used without CNI, higher trough concentrations may be desired, typically 12-20 ng/mL. Occasional patients may require 20-30 ng/mL. Test performed using [employer] chemiluminescent microparticle immunoassay for Sirolimus on the [employer] i System Performing Organization Address City/[facility]/[place] [address] PATHOLOGY AND GENOMIC MEDICINE * Hepatic function panel (05/27/2018 5:05 AM) Only the most recent of 2 results within the time period is included. Albumin 2.9 (L) 3.5 - 5.0 g/dL [facility] DEPARTMENT OF PATHOLOGY AND GENOMIC MEDICINE Total bilirubin <0.2 0.0 - 1.2 mg/dL [facility] DEPARTMENT OF PATHOLOGY AND GENOMIC MEDICINE Bilirubin direct <0.2 0.0 - 0.3 mg/dL [facility] DEPARTMENT OF PATHOLOGY AND GENOMIC MEDICINE Alkaline phosphatase 74 40 - 129 U/L [facility] DEPARTMENT OF PATHOLOGY AND GENOMIC MEDICINE Protein 6.5 6.3 - 8.3 g/dL [facility] DEPARTMENT OF Comment: PATHOLOGY AND [place] GENOMIC MEDICINE 4.6-7.0 g/dL 1 week 4.4-7.6 g/dL 7 months-1year 5.1-7.3 g/dL 1-2 years5.6-7 .5 g/dL >3 years6.0-8 .0 g/dL 18-150 6.3-8.3 g/dL ALT 23 5 - 50 U/L [facility] DEPARTMENT OF PATHOLOGY AND GENOMIC MEDICINE AST 22 10 - 50 U/L [facility] DEPARTMENT OF PATHOLOGY AND GENOMIC MEDICINE Specimen Plasma specimen Performing Organization Address City/State/Zipcode Phone Number [place] [phone] PATHOLOGY AND [employer] [facility] * Basic metabolic panel (05/27/2018 5:05 AM) Only the most recent of 5 results within the time period is included. Sodium 141 135 - 148 mEq/L [facility] DEPARTMENT OF PATHOLOGY AND GENOMIC MEDICINE Potassium 3.8 3.5 - 5.0 mEq/L [facility] DEPARTMENT OF PATHOLOGY AND GENOMIC MEDICINE Chloride 97 (L) 98 - 112 mEq/L [facility] DEPARTMENT OF PATHOLOGY AND GENOMIC MEDICINE CO2 32 (H) 24 - 31 mEq/L [facility] DEPARTMENT OF PATHOLOGY AND GENOMIC MEDICINE Anion gap 12@ANIO 7 - 15 mEq/L [facility] DEPARTMENT OF PATHOLOGY AND GENOMIC MEDICINE BUN 24 (H) 8 - 23 mg/dL [facility] DEPARTMENT OF PATHOLOGY AND GENOMIC MEDICINE Creatinine 1.6 (H) 0.7 - 1.2 mg/dL [facility] DEPARTMENT OF PATHOLOGY AND GENOMIC MEDICINE Glucose 131 (H) 65 - 99 mg/dL [facility] DEPARTMENT OF PATHOLOGY AND GENOMIC MEDICINE Calcium 10.4 (H) 8.8 - 10.2 mg/dL [facility] DEPARTMENT OF PATHOLOGY AND GENOMIC MEDICINE Specimen Plasma specimen Performing Organization Address [facility] Phone Number [facility] DEPARTMENT OF [address] [place] [address] PATHOLOGY AND GENOMIC MEDICINE * XR Chest 1 Vw Portable (05/26/2018 12:21 AM) Only the most recent of 2 results within the time period is included. Narrative Performed At EXAMINATION:XR CHEST 1 VW PORTABLE [facility] CLINICAL HISTORY:Shoulder painbursitis or tenosynovitis suspectedxray nondiagnostic, recent pneumonia COMPARISON:05/22/2018 IMPRESSION: Airspace infiltration of the right upper lobe has worsened, compatible with worsening infectious or inflammatory pneumonitis. Chronic interstitial changes are again seen of the lung bases. Blunting of costophrenic sulci bilaterally suggestive of scarring or small effusions. No pneumothorax. Cardiomediastinal silhouette is within normal limits. No acute osseous abnormalities. [facility]-[id number] Procedure Note Hm Interface, Radiology Results Incoming - 05/26/2018 12:43 AM CDT EXAMINATION: XR CHEST 1 VW PORTABLE CLINICAL HISTORY: Shoulder pain bursitis or tenosynovitis suspected xray nondiagnostic, recent pneumonia COMPARISON: 05/22/2018 IMPRESSION: Airspace infiltration of the right upper lobe has worsened, compatible with worsening infectious or inflammatory pneumonitis. Chronic interstitial changes are again seen of the lung bases. Blunting of costophrenic sulci bilaterally suggestive of scarring or small effusions. No pneumothorax. Cardiomediastinal silhouette is within normal limits. No acute osseous abnormalities. [facility]-[id number] Performing Organization Address City/[facility] Phone Number [facility] [address] [place] [address] * ECG 12 lead (05/24/2018 10:47 AM) Only the most recent of 2 results within the time period is included. 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 (cited on or before 17-MAY-2018)-Abnormal ECG- Performing Organization Address City/State/Zipcode Phone Number [facility] MUSE [address] [place] [address] * Immunoglobulin E (05/22/2018 5:55 AM) IgE 10.2 0.0 - 100.0 IU/mL [facility] DEPARTMENT OF PATHOLOGY AND GENOMIC MEDICINE Specimen Plasma specimen Performing Organization Address City/[facility] Phone Number [facility] [place] [address] PATHOLOGY AND GENOMIC MEDICINE * Immunoglobulin A (05/22/2018 5:55 AM) IgA 74 70 - 400 mg/dL [facility] DEPARTMENT OF PATHOLOGY AND GENOMIC MEDICINE Specimen Plasma specimen Performing Organization Address [facility] Phone Number [facility] [place] [address] PATHOLOGY AND GENOMIC MEDICINE * Immunoglobulin M (05/22/2018 5:55 AM) IgM 42 33 - 255 mg/dL [facility] DEPARTMENT OF PATHOLOGY AND GENOMIC MEDICINE Specimen Plasma specimen Performing Organization Address [facility] Phone Number [facility] [place] [address] PATHOLOGY AND GENOMIC MEDICINE * Immunoglobulin G (05/22/2018 5:55 AM) IgG 703 700 - 1,600 mg/dL [facility] DEPARTMENT OF PATHOLOGY AND GENOMIC MEDICINE Specimen Plasma specimen Performing Organization Address [facility] Phone Number [facility] [place] [address] PATHOLOGY AND GENOMIC MEDICINE * XR Abdomen 1 Vw Portable (05/19/2018 4:33 PM) Narrative Performed At Study:XR ABDOMEN 1 VW PORTABLE [facility] History:constipation COMPARISON:July 06, 2012 IMPRESSION: 2 views of the abdomen. No bowel distention or free air. Large amount of stool present in the colon. 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 There is calcification of the abdominal aorta. Bones are stable. [id number] Procedure Note Hm Interface, Radiology Results Incoming - 05/19/2018 4:39 PM CDT Study:XR ABDOMEN 1 VW PORTABLE History:constipation COMPARISON:July 06, 2012 IMPRESSION: 2 views of the abdomen. No bowel distention or free air. Large amount of stool present in the colon. 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 There is calcification of the abdominal aorta. Bones are stable. [id number] Performing Organization Address City/[facility] [place] [address] * CBC hemogram (05/18/2018 6:00 AM) WBC 7.42 4.50 - 11.00 k/uL [facility] DEPARTMENT OF PATHOLOGY AND GENOMIC MEDICINE RBC 4.59 4.40 - 6.00 m/uL [facility] DEPARTMENT OF PATHOLOGY AND GENOMIC MEDICINE HGB 11.9 (L) 14.0 - 18.0 g/dL [facility] DEPARTMENT OF PATHOLOGY AND GENOMIC MEDICINE HCT 37.7 (L) 41.0 - 51.0 % [facility] DEPARTMENT OF PATHOLOGY AND GENOMIC MEDICINE MCV 82.1 82.0 - 100.0 fL [facility] DEPARTMENT OF PATHOLOGY AND GENOMIC MEDICINE MCH 25.9 (L) 27.0 - 34.0 pg [facility] DEPARTMENT OF PATHOLOGY AND GENOMIC MEDICINE MCHC 31.6 31.0 - 37.0 g/dL [facility] DEPARTMENT OF PATHOLOGY AND GENOMIC MEDICINE RDW - SD 53.4 37.0 - 55.0 fL [facility] DEPARTMENT OF PATHOLOGY AND GENOMIC MEDICINE MPV 9.8 8.8 - 13.2 fL [facility] DEPARTMENT OF PATHOLOGY AND GENOMIC MEDICINE Platelet count 156 150 - 400 k/uL [facility] DEPARTMENT OF PATHOLOGY AND GENOMIC MEDICINE Nucleated RBC 0.00 /100 WBC [facility] DEPARTMENT OF PATHOLOGY AND GENOMIC MEDICINE Specimen Blood Performing Organization Address [facility] Phone Number [place] [phone] PATHOLOGY AND GENOMIC MEDICINE * Uric acid level (05/18/2018 6:00 AM) Uric acid 4.4 3.4 - 7.0 mg/dL [facility] DEPARTMENT OF PATHOLOGY AND GENOMIC MEDICINE Specimen Plasma specimen Performing Organization Address [facility] Phone Number [address] [address] PATHOLOGY AND GENOMIC MEDICINE * Thyroid stimulating hormone (05/18/2018 6:00 AM) TSH 1.50 0.27 - 4.20 uIU/mL [facility] DEPARTMENT OF PATHOLOGY AND GENOMIC MEDICINE Specimen Plasma specimen Performing Organization Address City/[facility] Phone Number [facility] DEPARTMENT OF [address] [place] [address] PATHOLOGY AND GENOMIC MEDICINE * Surgical pathology request (05/17/2018 4:44 PM) Only the most recent of 2 results within the time period is included. [facility] DEPARTMENT OF PATHOLOGY AND GENOMIC MEDICINE Surgical pathology report See link below for PDF Lab [facility] DEPARTMENT OF Report PATHOLOGY AND GENOMIC MEDICINE Result status This is Supplemental Report to [facility] DEPARTMENT OF [id number] PATHOLOGY AND GENOMIC MEDICINE Performing Organization Address City/[facility] Phone Number [facility] DEPARTMENT [address] [address] PATHOLOGY AND GENOMIC MEDICINE * Respiratory culture (05/17/2018 3:21 PM) Only the most recent of 3 results within the time period is included. Respiratory culture Normal oral chirag and (A) [facility] DEPARTMENT OF isolate Comment: PATHOLOGY AND Specimen Information GENOMIC MEDICINE Specimen Source: Bronchial Washing Specimen Site: RUL (right upper lobe) Respiratory culture Pseudomonas aeruginosa [facility] DEPARTMENT OF isolate Moderate PATHOLOGY AND , GENOMIC MEDICINE identification/susceptibility to follow This organism is NOT a carbapenemase producing organism. (A) Specimen Bronchial washing - RUL (right upper lobe) Organism Antibiotic Method Susceptibility Pseudomonas aeruginosa Amikacin SHAHBAZ <=4 mcg/mL: Susceptible Pseudomonas aeruginosa Aztreonam SHAHBAZ <=1 mcg/mL: Susceptible Pseudomonas aeruginosa Ceftazidime SHAHBAZ 4 mcg/mL: Susceptible Pseudomonas aeruginosa Ciprofloxacin SHAHBAZ >2 mcg/mL: Resistant Pseudomonas aeruginosa Cefepime SHAHBAZ 2 mcg/mL: Susceptible Pseudomonas aeruginosa Gentamicin SHAHBAZ 1 mcg/mL: Susceptible Pseudomonas aeruginosa Imipenem SHAHBAZ 4 mcg/mL: Resistant Pseudomonas aeruginosa Levofloxacin SHAHBAZ >4 mcg/mL: Resistant Pseudomonas aeruginosa Meropenem SHAHBAZ 2 mcg/mL: Susceptible Pseudomonas aeruginosa Tobramycin SHAHBAZ <=0.5 mcg/mL: Susceptible Pseudomonas aeruginosa Piperacillin/Tazobactam SHAHBAZ 4/4 mcg/mL: Susceptible Performing Organization Address City/[facility] Phone Number [facility] DEPARTMENT [address] [address] PATHOLOGY AND GENOMIC MEDICINE * Fungus smear (05/17/2018 3:21 PM) Only the most recent of 3 results within the time period is included. Fungus smear No fungi observed. [facility] DEPARTMENT OF Comment: PATHOLOGY AND Specimen Information GENOMIC MEDICINE Specimen Source: Bronchial alveolar lavage Specimen Site: RUL (right upper lobe) Specimen Bronchial alveolar lavage - RUL (right upper lobe) Performing Organization Address [facility]/Zipcode Phone Number [place] [phone] PATHOLOGY AND GENOMIC MEDICINE * Respiratory pathogen panel (05/17/2018 3:21 PM) Respiratory pathogen Negative for all pathogens [facility] DEPARTMENT OF panel tested: PATHOLOGY AND Negative for Adenovirus GENOMIC MEDICINE Negative for Coronavirus HKU1 Negative for Coronavirus NL63 Negative for Coronavirus 229E Negative for Coronavirus OC43 Negative for Human Metapneumovirus Negative for Rhinovirus/Enterovirus Negative for Influenza A Negative for Influenza A/H1 Negative for Influenza A/H3 Negative for Influenza A/H1-2009 Negative for Influenza B Negative for Parainfluenza Virus 1 Negative for Parainfluenza Virus 2 Negative for Parainfluenza Virus 3 Negative for Parainfluenza Virus 4 Negative for Respiratory Syncytial Virus Negative for Bordetella pertussis Negative for Chlamydophila pneumoniae Negative for Mycoplasma pneumoniae This real-time PCR assay detects the presence of nucleic acids (RNA or DNA) for the respiratory pathogens listed. A result of "Not-detected" does not exclude the possibility of the presence of one or more pathogens at concentrations less than the detectable limits of the assay. Comment: Specimen Information Specimen Source: Bronchial Washing Specimen Site: RUL (right upper lobe) Specimen Bronchial washing - RUL (right upper lobe) Performing Organization Address [facility] Facility[facility] Phone Number [facility] DEPARTMENT [address] [address] PATHOLOGY AND [employer] MEDICINE * BAL cell count and differential (05/17/2018 3:21 PM) BAL specimen source RUL BAL [facility] DEPARTMENT OF PATHOLOGY AND GENOMIC MEDICINE BAL cell count 0.585 m/mL [facility] DEPARTMENT OF Comment: PATHOLOGY AND Normal ranges: Nonsmokers: GENOMIC MEDICINE 0.007 - 0.363 Smokers: 0 - 1.31 BAL PAMS 4 % [facility] DEPARTMENT OF Comment: PATHOLOGY AND Normal ranges: Nonsmokers: 65 GENOMIC MEDICINE - 100 Smokers: 81 - 100 BAL PMNS 85 % [facility] DEPARTMENT OF Comment: PATHOLOGY AND Normal ranges: Nonsmokers: 0 - GENOMIC MEDICINE 3 Smokers: 0 - 2 BAL eosinophils 4 % [facility] DEPARTMENT OF Comment: PATHOLOGY AND Normal ranges: Nonsmokers: 0 - GENOMIC MEDICINE 1 Smokers: 0 - 1 BAL lymphs 7 % [facility] DEPARTMENT OF Comment: PATHOLOGY AND Normal ranges: Nonsmokers: 0 - GENOMIC MEDICINE 10 Smokers: 0 - 5 Specimen Fluid Narrative Performed At [facility] DEPARTMENT OF PATHOLOGY AND GENOMIC MEDICINE Performing Organization Address City/[facility] Facility[facility] Phone Number [facility] [place] [address] PATHOLOGY AND GENOMIC MEDICINE * Cytomegalovirus by PCR (05/17/2018 3:21 PM) Cytomegalovirus by PCR Indeterminate (A) Not-Detected IU/mL [facility] DEPARTMENT OF PATHOLOGY AND GENOMIC MEDICINE Cytomegalovirus by PCR See link below for PDF Lab [facility] DEPARTMENT OF ReportComment: Case Number: PATHOLOGY AND [id number] GENOMIC MEDICINE Narrative Performed At [facility] DEPARTMENT OF PATHOLOGY AND GENOMIC MEDICINE Performing Organization Address City/[facility] [place] [address] PATHOLOGY AND GENOMIC MEDICINE * Varicella zoster by PCR (05/17/2018 3:21 PM) VZV result Not-Detected Not-Detected copies/mL [facility] DEPARTMENT OF PATHOLOGY AND GENOMIC MEDICINE Varicella zoster, PCR See link below for PDF Lab [facility] DEPARTMENT OF ReportComment: Case Number: PATHOLOGY AND [id number] GENOMIC MEDICINE Narrative Performed At [facility] DEPARTMENT OF PATHOLOGY AND GENOMIC MEDICINE Performing Organization Address City/[facility] Facility[facility] Phone Number [facility] [place] [address] PATHOLOGY AND GENOMIC MEDICINE * Herpes simplex virus by PCR (05/17/2018 3:21 PM) Herpes virus, PCR Not-Detected Not-Detected [facility] DEPARTMENT OF PATHOLOGY AND GENOMIC MEDICINE Herpes virus, PCR See link below for PDF Lab [facility] DEPARTMENT OF ReportComment: Case Number: PATHOLOGY AND [id number] GENOMIC MEDICINE Narrative Performed At [facility] DEPARTMENT OF PATHOLOGY AND GENOMIC MEDICINE Performing Organization Address City/[facility] Facilitycode Phone Number [facility] [place] [address] PATHOLOGY AND GENOMIC MEDICINE * AFB culture (05/17/2018 3:21 PM) Only the most recent of 4 results within the time period is included. AFB culture isolate No growth after 6 weeks of [facility] DEPARTMENT OF incubation. PATHOLOGY AND Comment: GENOMIC MEDICINE Specimen Information Specimen Source: Bronchial alveolar lavage Specimen Site: RUL (right upper lobe) Specimen Bronchial alveolar lavage - RUL (right upper lobe) Performing Organization Address [facility] Facilitycode Phone Number [facility] DEPARTMENT OF [address] [place] [address] PATHOLOGY AND GENOMIC MEDICINE * Nocardia culture (05/17/2018 3:21 PM) Only the most recent of 2 results within the time period is included. Nocardia culture isolate No Nocardia isolated after 7 [facility] DEPARTMENT OF days. PATHOLOGY AND Comment: GENOMIC MEDICINE Specimen Information Specimen Source: Bronchial alveolar lavage Specimen Site: RUL (right upper lobe) Specimen Bronchial alveolar lavage - RUL (right upper lobe) Performing Organization Address [facility] Facilitycode Phone Number [facility] DEPARTMENT OF [address] [place] [phone] PATHOLOGY AND GENOMIC MEDICINE * Legionella culture (05/17/2018 3:21 PM) Legionella culture No Legionella isolated. (A) [facility] DEPARTMENT OF isolate Comment: PATHOLOGY AND Specimen Information GENOMIC MEDICINE Specimen Source: Bronchial Washing Specimen Site: RUL (right upper lobe) Legionella culture Aspergillus flavus (A) [facility] DEPARTMENT OF isolate PATHOLOGY AND GENOMIC MEDICINE Specimen Bronchial washing - RUL (right upper lobe) Performing Organization Address [facility] Phone Number [facility] DEPARTMENT OF [address] [place] [address] PATHOLOGY AND GENOMIC MEDICINE * AFB stain (05/17/2018 3:21 PM) Only the most recent of 4 results within the time period is included. AFB stain No acid fast bacilli (AFB) [facility] DEPARTMENT OF seen. PATHOLOGY AND Comment: GENOMIC MEDICINE Specimen Information Specimen Source: Bronchial alveolar lavage Specimen Site: RUL (right upper lobe) Specimen Bronchial alveolar lavage - RUL (right upper lobe) Performing Organization Address City/[facility] Facilitycode Phone Number [facility] DEPARTMENT OF [address] [place] [phone] PATHOLOGY AND GENOMIC MEDICINE * Fungus culture (05/17/2018 3:21 PM) Only the most recent of 3 results within the time period is included. Fungus culture isolate No growth after 4 weeks of [facility] DEPARTMENT OF incubation. PATHOLOGY AND Comment: GENOMIC MEDICINE Specimen Information Specimen Source: Bronchial alveolar lavage Specimen Site: RUL (right upper lobe) Specimen Bronchial alveolar lavage - RUL (right upper lobe) Performing Organization Address City/[facility]/Zipcode Phone Number [address] [address] PATHOLOGY AND GENOMIC MEDICINE * Cytology (non-gynecological) request (05/17/2018 3:21 PM) Only the most recent of 2 results within the time period is included. [facility] DEPARTMENT OF PATHOLOGY AND GENOMIC MEDICINE Cytology See link below for PDF Lab [facility] DEPARTMENT OF (non-gynecological) Report PATHOLOGY AND report GENOMIC MEDICINE Result status This is Final Report to [facility] DEPARTMENT OF [id number] PATHOLOGY AND GENOMIC MEDICINE Performing Organization Address City/[facility] Phone Number [facility] DEPARTMENT [address] [address] PATHOLOGY AND GENOMIC MEDICINE * Histoplasma antigen, serum (05/17/2018 12:23 PM) Histoplasma antigen, None Detected ng/mL [facility] DEPARTMENT OF serum Comment: PATHOLOGY AND INTERPRETATION: HISTOPLASMA GENOMIC MEDICINE ANTIGEN -Reference interval: None Detected -Results reported as ng/mL in 0.4 - 19.0 ng/mL -Results above the limit of detection but below 0.4 ng/mL are reported as 'Positive, Below the Limit of Quantification' -Results above 19.0 ng/mL are reported as 'Positive, Above the Limit of Quantification' Performing Organization Address [facility] [place] [address] PATHOLOGY AND GENOMIC MEDICINE * Partial thromboplastin time, activated (05/17/2018 11:55 AM) PTT 22.4 (L) 23.0 - 36.0 sec [facility] DEPARTMENT OF Comment: PATHOLOGY AND PTT therapeutic range for GENOMIC MEDICINE unfractionated heparin is 61.0-112.0 seconds which corresponds to Anti-Xa 0.3-0.7 U/ml. Specimen Blood Performing Organization Address City/[facility]/Zipcode Phone Number [address] [address] PATHOLOGY AND GENOMIC MEDICINE * Prothrombin time with INR (05/17/2018 11:55 AM) Prothrombin time 13.4 12.0 - 15.0 sec [facility] DEPARTMENT OF PATHOLOGY AND GENOMIC MEDICINE INR 1.0 [facility] DEPARTMENT OF Comment: PATHOLOGY AND The International Normalized GENOMIC MEDICINE Ratio (INR) is a therapeutic monitoring tool for patients who are stable on oral anticoagulant therapy. An INR of 2.0-3.0 is suggested for deep vein thrombosis/pulmonary embolism. Specimen Blood Performing Organization Address City/State/Zipcode Phone Number [facility] DEPARTMENT OF [address] [place] [address] PATHOLOGY AND GENOMIC MEDICINE * Sputum culture (05/15/2018 12:20 PM) Only the most recent of 2 results within the time period is included. Sputum culture isolate Normal oral chirag and (A) [facility] DEPARTMENT OF Comment: PATHOLOGY AND Specimen Information GENOMIC MEDICINE Specimen Source: Sputum Specimen Site: Expectorated Sputum culture isolate Pseudomonas aeruginosa [facility] DEPARTMENT OF Many PATHOLOGY AND susceptibility to follow GENOMIC MEDICINE This organism is NOT a carbapenemase producing organism. (A) Sputum culture isolate Escherichia coli [facility] DEPARTMENT OF Many PATHOLOGY AND identification/susceptibility GENOMIC MEDICINE to follow This organism is NOT a carbapenemase producing organism. (A) Specimen Sputum - Expectorated Organism Antibiotic Method Susceptibility Pseudomonas aeruginosa Amikacin SHAHBAZ <=4 mcg/mL: Susceptible Pseudomonas aeruginosa Aztreonam SHAHBAZ <=1 mcg/mL: Susceptible Pseudomonas aeruginosa Ceftazidime SHAHBAZ 4 mcg/mL: Susceptible Pseudomonas aeruginosa Ciprofloxacin SHAHBAZ >2 mcg/mL: Resistant Pseudomonas aeruginosa Cefepime SHAHBAZ 1 mcg/mL: Susceptible Pseudomonas aeruginosa Gentamicin SHAHBAZ 1 mcg/mL: Susceptible Pseudomonas aeruginosa Imipenem SHAHBAZ 8 mcg/mL: Resistant Pseudomonas aeruginosa Levofloxacin SHAHBAZ >4 mcg/mL: Resistant Pseudomonas aeruginosa Meropenem SHAHBAZ 2 mcg/mL: Susceptible Pseudomonas aeruginosa Tobramycin SHAHBAZ <=0.5 mcg/mL: Susceptible Pseudomonas aeruginosa Piperacillin/Tazobactam SHAHBAZ 4/4 mcg/mL: Susceptible Escherichia coli Amikacin SHAHBAZ <=4 mcg/mL: Susceptible Escherichia coli Amoxicillin/Clavulanate SHAHBAZ 16/8 mcg/mL: Resistant Escherichia coli Ampicillin/Sulbactam SHAHBAZ >16/8 mcg/mL: Resistant Escherichia coli Ampicillin SHHABAZ >16 mcg/mL: Resistant Escherichia coli Aztreonam SHAHBAZ <=1 mcg/mL: Susceptible Escherichia coli Cefazolin SHAHBAZ >32 mcg/mL: Resistant Escherichia coli Cefoxitin SHAHBAZ <=4 mcg/mL: Susceptible Escherichia coli Ceftazidime SHAHBAZ <=0.5 mcg/mL: Susceptible Escherichia coli Ceftriaxone SHAHBAZ <=0.5 mcg/mL: Susceptible Escherichia coli Cefuroxime Sodium SHAHBAZ <=4 mcg/mL: Susceptible Escherichia coli Ciprofloxacin SHAHBAZ <=0.5 mcg/mL: Susceptible Escherichia coli Ertapenem SHAHBAZ <=0.125 mcg/mL: Susceptible Escherichia coli Gentamicin SHAHBAZ <=1 mcg/mL: Susceptible Escherichia coli Imipenem SHAHBAZ <=0.25 mcg/mL: Susceptible Escherichia coli Levofloxacin SHAHBAZ <=1 mcg/mL: Susceptible Escherichia coli Meropenem SHAHBAZ <=0.125 mcg/mL: Susceptible Escherichia coli Piperacillin/Tazobactam SHAHBAZ 64/4 mcg/mL: Resistant Escherichia coli Tetracycline SHAHBAZ >8 mcg/mL: Resistant Escherichia coli Tigecycline SHAHBAZ <=0.5 mcg/mL: Susceptible Escherichia coli Tobramycin SHAHBAZ 1 mcg/mL: Susceptible Escherichia coli Trimethoprim/Sulfamethoxa SHAHBAZ >2/38 mcg/mL: Resistant zole Escherichia coli Cefepime SHAHBAZ <=0.5 mcg/mL: Susceptible Performing Organization Address City/State/Zipcode Phone Number [facility] DEPARTMENT OF [address] [place] [address] PATHOLOGY AND GENOMIC MEDICINE * Echocardiogram complete w contrast and 3D if needed (03/26/2018 10:45 AM) Narrative Performed At [facility] Echocardiography Report Pat.Name:NATALIA LILLI JR Pat.ID:[id number] .Date: 03/26/2018 Refer.MD:DARIUS JIMÉNEZ MD Exam Time: 10:08:00 AM Study Type:Routine Echo Height:67inWeight:130lb BSA: 1.69 m2 DOBAge:1930,88Y Sex: MALEBP:130/71 HR:71 bpm Sonogrphr: Ina Vásquez, RCS, RCCS, CCT Pat. Stat.:Outpatient[facility] TapeVol: [facility], Study Status:Final Echo Event ID:[id number] Order ID:[id number] Reason for Study:AVR History / Clinical:Hypertension, Liver transplant 2006 Procedures:2D Echo, Colorflow Doppler Race: SUMMARY: LV size is normal. LV EF is normal. Normal prosthetic valve velocity and gradient. FINDINGS: LV: LV size is normal. LV EF is normal. Estimated EF is 55-59%. RV: RV size is normal. RV systolic function is normal. LA: LA volume is moderately enlarged. RA: RA size is normal. AO: Aortic root diameter is normal. MARINA: No pericardial effusion. AV: Bioprosthetic aortic valve. Mild aortic regurgitation. Normalprosthetic valve velocity and gradient. Surgical ProstheticAV Doppler velocity index is 0.49 (normal>0.25). MV: Moderate mitral annular calcification. Mild mitral regurgitation. PV: No structural PV abnormalities noted. TV: No structural TV abnormalities noted. Mild tricuspid regurgitation Ray: Diastolic dysfunction Grade II (Moderate): Impaired relaxationwith elevated LV filling pressures. Other:Insufficient TR jet to estimate PA systolic pressure. MEASUREMENTS: 2D Parasternal Long [place] LA Ds4.3 cmLVPWd0.8 cm LVOT 2 cmAo An2.3 cm LVIDd4.5 cmIndex2.7 cm/m Ao Rtd 3.4 cm Index2 cm/m LVIDs2.9 cm LV Dsik126.1 g(122-174) LV%fs 35.7 % LVM Wcugi345.5 g/m2 IVSd 1.5 cmRWT0.3 LA Volume LA Vol76.9 txDpmvq72.5 ml/m LA Sng Plane LA Area 24.6 cm2(8.8-23.4) LA Vol77.6 ml Index45.9 ml/m LA LngAx 6.6 cm DOPPLER AV For Flow/MARTINEZ AV Area1.5 cm2(3-5)AV ET322 msec AV pkVel 290.3 cm/s (100-170) AV AC/ET 0.3 AV mnVel 194.7 cm/Francy TVI62.8 cm AV pkPG 33.7 mmHgAVpkAcRt 57466.4 cm/s2 AV Mean G 18.7 mmHgAV PzPe444.5 cm/s2 AV AC108 msec (83-118) LVOT For Flow OOGUnsBcv066.2 cm/sHR82.8 bpm LVOTpkPG 4.6 mmHgLVOT CO7.2 l/min LVOTmnPG 2.8 mmHgLVOT CI4.3 l/m/m2 LVOT TVI27.7 cmLVOT Area3.1 cm2 LVOT SV 87 ml WALL MOTION: RESTING WALL MOTION: Basal Inferior, Basal Inferolateral, Mid Inferolateral brito are hypokinetic. Normal in all other brito. Wall Index=1.2 Signed 03/27/2018 05:52 PM Francisco Javier Villela M.D. Procedure Note Interface, Radiology Results In - 03/27/2018 5:53 PM CDT [facility] Echocardiography Report Pat.Name: LILLI GREWAL JR Pat.ID: [id number] .Date: 03/26/2018 Refer.MD: DARIUS JIMÉNEZ MD Exam Time: 10:08:00 AM Study Type:Routine Echo Height: 67in Weight: 130lb BSA: 1.69 m2 Age: 5 1930,88Y Sex: MALE BP: 130/71 HR: 71 bpm Sonogrphr: Ina Vásquez, RCS, RCCS, CCT Pat. Stat.:Outpatient Room: [address] [facility], Study Status:Final Echo Event ID:[id number] Order ID: [id number] Reason for Study:AVR History / Clinical:Hypertension, Liver transplant 2006 Procedures:2D Echo, Colorflow Doppler Race: SUMMARY: LV size is normal. LV EF is normal. Normal prosthetic valve velocity and gradient. FINDINGS: LV: LV size is normal. LV EF is normal. Estimated EF is 55-59%. RV: RV size is normal. RV systolic function is normal. LA: LA volume is moderately enlarged. RA: RA size is normal. AO: Aortic root diameter is normal. MARINA: No pericardial effusion. AV: Bioprosthetic aortic valve. Mild aortic regurgitation. Normal prosthetic valve velocity and gradient. Surgical Prosthetic AV Doppler velocity index is 0.49 (normal>0.25). MV: Moderate mitral annular calcification. Mild mitral regurgitation. PV: No structural PV abnormalities noted. TV: No structural TV abnormalities noted. Mild tricuspid regurgitation Ray: Diastolic dysfunction Grade II (Moderate): Impaired relaxation with elevated LV filling pressures. Other: Insufficient TR jet to estimate PA systolic pressure. MEASUREMENTS: 2D Parasternal Long [place] LA Ds 4.3 cm LVPWd 0.8 cm LVOT 2 cm Ao An 2.3 cm LVIDd 4.5 cm Index 2.7 cm/m Ao Rtd 3.4 cm Index 2 cm/m LVIDs 2.9 cm LV Mass 185.1 g (122-174) LV%fs 35.7 % LVM Index 109.5 g/m2 IVSd 1.5 cm RWT 0.3 LA Volume LA Vol 76.9 ml Index 45.5 ml/m LA Sng Plane LA Area 24.6 cm2 (8.8-23.4) LA Vol 77.6 ml Index 45.9 ml/m LA LngAx 6.6 cm DOPPLER AV For Flow/MARTINEZ AV Area 1.5 cm2 (3-5) AV ET 322 msec AV pkVel 290.3 cm/s (100-170) AV AC/ET 0.3 AV mnVel 194.7 cm/s AV TVI 62.8 cm AV pkPG 33.7 mmHg AVpkAcRt 47277.4 cm/s2 AV Mean G 18.7 mmHg AV DeRt 900.5 cm/s2 AV AC 108 msec (83-118) LVOT For Flow LVOTpkVel 107.2 cm/s HR 82.8 bpm LVOTpkPG 4.6 mmHg LVOT CO 7.2 l/min LVOTmnPG 2.8 mmHg LVOT CI 4.3 l/m/m2 LVOT TVI 27.7 cm LVOT Area 3.1 cm2 LVOT SV 87 ml WALL MOTION: RESTING WALL MOTION: Basal Inferior, Basal Inferolateral, Mid Inferolateral brito are hypokinetic. Normal in all other brito. Wall Index=1.2 Signed 03/27/2018 05:52 PM Francisco Javier Villela M.D. Performing Organization Address City/State/[facility] Phone Number [facility] [address] [place] [address] after 07/25/2017 Insurance Payer Benefit Subscriber ID Type Phone Address Plan / Group MEDICARE MEDICARE xxxxxxxxxx Medicare [place], [place] PART A AND B AARP AARP xxxxxxxxxxx Commercial SUPPLEMENT
== END 2018-07-27 00:24 | disposition home or self-care (01) ==
LOC: ER 19:55
DX: N47.2 Paraphimosis (principal); I10 Essential (primary) hypertension; I25.10 Atherosclerotic heart disease of native coronary artery without angina pectoris
CPT/HCPCS: 36415; 80053; 81001; 85025; 99283

== ENCOUNTER 2018-07-31 05:03 | Inpatient (IN) | payer MEDICARE ==
[2018-07-29 16:14] LABS: INR 0.92; PARTIAL THROMBOPLASTIN TIME 25.3 seconds (23.8-35.5); PROTHROMBIN TIME 13.2 seconds (11.9-14.5)
--- NOTE | 2018-07-29 16:44 | Diagnostic Imaging Report ---
Frontal and lateral views of the chest. HISTORY: Prostatism, PRE ADMIT COMPARISON: None available. DISCUSSION: Lungs: Diffusely increased pulmonary interstitial markings. Minimal bibasilar volume loss. No evidence of a consolidative pneumonia or pulmonary alveolar edema. Pleura: No pleural effusion or pneumothorax. Heart and mediastinum: The cardiac silhouette is partially obscured due to the thoracic kyphosis, likely at the upper limits of normal to slightly increased in size. The central pulmonary vasculature appears prominent. Postsurgical changes within the mediastinum. Bones: Accentuation of the thoracic kyphosis with multilevel mild to moderate degenerative disc changes. Multiple median sternotomy wires. Other: Incidentally, a 1.8 cm curvilinear calcification within the right upper quadrant of the abdomen. IMPRESSION: 1. Central pulmonary vascular congestion and interstitial edema versus chronic interstitial lung disease. 2. Minimal bibasilar atelectasis. 3. Incidental right upper quadrant abdominal 1.8 cm curvilinear calcification, this is suspected to reflect an aneurysm. If this has not been previously characterized via CT, recommend a follow-up nonemergent CT of the abdomen with contrast when feasible for further characterization. Signed by: Dr. Boy Jacinto D.O., M.M.M. on 07/29/2018 4:40 PM
[~2018-07-31] VITALS: Ht 170.2 cm; Wt 59.0 kg
[~2018-07-31 05:03] MED LIST: ACETYLCYST100 MG/1 M; ASPIRIN81 MG PO; ATORVASTATIN CA10 MG PO; BENZONATATE100 MG PO; CALCIUM CITRAT200 MG; CENTRUM SILVER1 EAC3; CLONIDINE1 EAC1; FENOFIBRATE145 MG; FINASTERIDE5 MG PO; FUROSEMIDE40 MG PO; HYDROCORTISONE10 MG PO; HYDROXYZINE HCL25 MG PO; IPRATROPIU0.2 MG/1 M NEB; POLYETHYLENE GL17 GM PO; POTASSIUM CHLO10 ME1 PO; PROPRANOLOL HCL10 MG PO; QUESTRAN PACKET4 GM PO; RAPAMUNE0.5 MG PO; SODIUM BICARBO650 MG PO; SODIUM CHLORID250 M1 IV; VITAMIN B-121000 MCG PO; VORICONAZOLE50 MG; ZINC SULFATE220 M1; [UNRECOGNIZED DRUG - OTHER]
--- OUTSIDE RECORDS SUMMARY | 2018-07-31 05:15 | XMS REPORT | Clinical Summary ---
Author Author Nasir Mandaen Organization [place] Mandaen Address Unknown Phone Unavailable Care Team Providers Care Industrial Electrician Name Role Phone Donato Mccallum MD PCP [...] AVR 23mm Mosaic Valve Overview: ICD9 DX Territory Representative Last Assessment & Plan: S/P porcine AVR. 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 Continue current care plan. If symptoms persistent, may need EGD to assess for Frazier's changes and/or manometry for LES dysfunction. 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 Continue current care plan. Status post liver transplantation ([facility]) 11/25/2013 Overview: Overview: ICD9 DX Territory Representative Last Assessment & Plan: OLT Date: 04/29/2003 [...] (Primary Dx); Atherosclerosis of coronary artery of [place] heart without angina pectoris, unspecified vessel or lesion type 03/28/2018 Office Visit Cardiology Darius Jiménez MD PhD Atherosclerosis of coronary artery of [place] heart without angina pectoris, unspecified vessel or lesion type (Primary Dx); S/P AVR (aortic valve replacement); Fatigue, unspecified type 11/06/2017 Office Visit Cardiology Darius Jiménez MD PhD Aortic valve disorder (Primary Dx); Vertigo; Weight loss after 07/30/2017 Family History Medical History Relation Name Comments [...] Office Visit Cardiology Darius Jiménez MD PhD [address] [facility] [place] [address] Health Maintenance Due Date Last [...] Vertigo procedure are in the COLOR DOPPLER ([id number]) Weight loss results section. after 07/30/2017 Results * XR Chest 2 Vw (06/20/2018 [...] Status post median sternotomy. Mildly tortuous aorta. [facility]-[id number] Procedure Note Interface, Radiology Results Incoming - [...] Status post median sternotomy. Mildly tortuous aorta. [facility]-[id number] Performing Organization Address City/[facility]/[place] [address] * Blood culture, aerobic & anaerobic (06/11/2018 6:22 PM) Blood culture isolate No growth after 5 days of [facility] DEPARTMENT OF incubation. PATHOLOGY AND Comment: GENOMIC MEDICINE Specimen Information Specimen Source: Blood Specimen Site: Forearm, left Specimen Blood - Forearm, left Performing Organization Address [facility]/Zipcode Phone Number [facility] DEPARTMENT OF [address] [place] [address] PATHOLOGY AND GENOMIC MEDICINE * B natriuretic peptide (06/11/2018 6:22 PM) BNP 256 (H) 0 - 100 pg/mL [facility] DEPARTMENT OF PATHOLOGY AND GENOMIC MEDICINE Specimen Blood Performing Organization Address [facility] Phone Number [facility] DEPARTMENT OF [address] [place] [address] PATHOLOGY AND GENOMIC MEDICINE * Gram stain (06/11/2018 6:10 PM) Only the most recent of 5 results within the time period is included. Gram stain result Few WBC's [facility] DEPARTMENT OF Many Gram positive cocci in PATHOLOGY AND pairs GENOMIC MEDICINE Comment: Specimen Information Specimen Source: Urine Specimen Site: Clean catch Specimen Urine Performing Organization Address [facility] [place] [place] Phone Number [facility] DEPARTMENT OF [address] [place] [address] PATHOLOGY AND GENOMIC MEDICINE * Urine culture (06/11/2018 6:10 PM) Only the most recent of 2 results within the time period is included. Urine culture isolate Enterococcus faecalis [facility] DEPARTMENT OF >10-5 cfu/ml PATHOLOGY AND The performance GENOMIC MEDICINE characteristics of this assay on this isolate were validated by the Microbiology Laboratory at [facility].This source has not been approved by the U.S. Food and Drug Administration.The results are not intended to be used as the sole means for clinical diagnosis or patient management.The Microbiology Laboratory is authorized under the clinical Laboratory Improvement Amendments of 1988 (CLIA-88) to perform high complexity testing. The performance characteristics of this assay on this isolate were validated by the Microbiology Laboratory at [facility].This source has not been approved by the [...] Susceptible Performing Organization Address City/State/Zipcode Phone Number [facility] DEPARTMENT OF [address] [place] [address] PATHOLOGY AND GENOMIC MEDICINE * Urinalysis screen and microscopy, with reflex to culture (06/11/2018 6:09 PM) Only the most recent of 2 results within the time period is included. Specimen site Clean catch [facility] DEPARTMENT OF PATHOLOGY AND GENOMIC MEDICINE Color, UA Rowena [facility] DEPARTMENT OF PATHOLOGY AND GENOMIC MEDICINE Appearance, UA Turbid [facility] DEPARTMENT OF PATHOLOGY AND GENOMIC MEDICINE Specific gravity, UA 1.012 1.001 - 1.035 [facility] DEPARTMENT OF PATHOLOGY AND GENOMIC MEDICINE pH, UA 6.0 5.0 - 8.5 [facility] DEPARTMENT OF PATHOLOGY AND GENOMIC MEDICINE Protein, UA 2+ (A) Negative [facility] DEPARTMENT OF PATHOLOGY AND GENOMIC MEDICINE Glucose, UA Negative Negative [facility] DEPARTMENT OF PATHOLOGY AND GENOMIC MEDICINE Ketones, UA Negative Negative [facility] DEPARTMENT OF PATHOLOGY AND GENOMIC MEDICINE Bilirubin, UA Negative Negative [facility] DEPARTMENT OF PATHOLOGY AND GENOMIC MEDICINE Blood, UA Small (A) Negative [facility] DEPARTMENT OF PATHOLOGY AND GENOMIC MEDICINE Nitrite, UA Negative Negative [facility] DEPARTMENT OF PATHOLOGY AND GENOMIC MEDICINE Urobilinogen, UA <2.0 <2.0 [facility] DEPARTMENT OF PATHOLOGY AND GENOMIC MEDICINE Leukocyte esterase, UA Large (A) Negative [facility] DEPARTMENT OF PATHOLOGY AND GENOMIC MEDICINE WBC, UA >180 (H) 0 - 1 /HPF [facility] DEPARTMENT OF PATHOLOGY AND GENOMIC MEDICINE RBC, UA 27 (H) 0 - 5 /HPF [facility] DEPARTMENT OF PATHOLOGY AND GENOMIC MEDICINE Bacteria, UA Many (A) None seen [facility] DEPARTMENT OF PATHOLOGY AND GENOMIC MEDICINE WBC clumps, UA Few (A) [facility] DEPARTMENT OF PATHOLOGY AND GENOMIC MEDICINE Yeast, UA None seen [facility] DEPARTMENT OF PATHOLOGY AND GENOMIC MEDICINE Yeast with pseudohyphae, None seen [facility] PATHOLOGY AND GENOMIC MEDICINE Specimen Urine Performing Organization Address City/[facility] [place] [address] PATHOLOGY AND GENOMIC MEDICINE * Estimated GFR (06/11/2018 6:09 PM) Only the most recent of 13 results within the time period is included. GFR Non Af Amer 38 (A) mL/min/1.73 m2 [facility] DEPARTMENT OF PATHOLOGY AND GENOMIC MEDICINE GFR Af Amer 46 (A) mL/min/1.73 m2 [facility] DEPARTMENT OF Comment: PATHOLOGY AND Chronic [...] Americans. Specimen Plasma specimen Performing Organization Address City/[facility] [place] [address] PATHOLOGY AND GENOMIC MEDICINE * Troponin (06/11/2018 6:09 PM) Troponin <0.30 0.00 - 0.30 ng/mL [facility] DEPARTMENT OF Comment: PATHOLOGY AND 0.30 - 1.49 GENOMIC MEDICINE ng/mlMay indicate increased risk of acute coronary syndrome. >=1.5 ng/ml Consistent with acute myocardial infarction. The diagnostic value of a single normal or non-diagnostic result is questionable.Serial samples at 2-6 hour intervals are required to rule out acute myocardial injury. Specimen Plasma specimen Performing Organization Address City/[facility]/Zipcode Phone Number [address] [address] PATHOLOGY AND GENOMIC MEDICINE * CBC with platelet and differential (06/11/2018 6:09 PM) Only the most recent of 12 results within the time period is included. WBC 7.21 4.50 - 11.00 k/uL [facility] DEPARTMENT OF PATHOLOGY AND GENOMIC MEDICINE RBC 4.27 (L) 4.40 - 6.00 m/uL [facility] DEPARTMENT OF PATHOLOGY AND GENOMIC MEDICINE HGB 11.2 (L) 14.0 - 18.0 g/dL [facility] DEPARTMENT OF PATHOLOGY AND GENOMIC MEDICINE HCT 35.5 (L) 41.0 - 51.0 % [facility] DEPARTMENT OF PATHOLOGY AND GENOMIC MEDICINE MCV 83.1 82.0 - 100.0 fL [facility] DEPARTMENT OF PATHOLOGY AND GENOMIC MEDICINE MCH 26.2 (L) 27.0 - 34.0 pg [facility] DEPARTMENT OF PATHOLOGY AND GENOMIC MEDICINE MCHC 31.5 31.0 - 37.0 g/dL [facility] DEPARTMENT OF PATHOLOGY AND GENOMIC MEDICINE RDW - SD 52.2 37.0 - 55.0 fL [facility] DEPARTMENT OF PATHOLOGY AND GENOMIC MEDICINE MPV 10.1 8.8 - 13.2 fL [facility] DEPARTMENT OF PATHOLOGY AND GENOMIC MEDICINE Platelet count 150 150 - 400 k/uL [facility] DEPARTMENT OF PATHOLOGY AND GENOMIC MEDICINE Nucleated RBC 0.00 /100 WBC [facility] DEPARTMENT OF PATHOLOGY AND GENOMIC MEDICINE Neutrophils 78.6 (H) 39.0 - 69.0 % [facility] DEPARTMENT OF PATHOLOGY AND GENOMIC MEDICINE Lymphocytes 12.9 (L) 25.0 - 45.0 % [facility] DEPARTMENT OF PATHOLOGY AND GENOMIC MEDICINE Monocytes 6.9 0.0 - 10.0 % [facility] DEPARTMENT OF PATHOLOGY AND GENOMIC MEDICINE Eosinophils 0.8 0.0 - 5.0 % [facility] DEPARTMENT OF PATHOLOGY AND GENOMIC MEDICINE Basophils 0.4 0.0 - 1.0 % [facility] DEPARTMENT OF PATHOLOGY AND GENOMIC MEDICINE Immature granulocytes 0.4Comment: "Immature 0.0 - 1.0 % [facility] DEPARTMENT OF granulocytes" (promyelocytes, PATHOLOGY AND myelocytes, metamyelocytes) GENOMIC MEDICINE Specimen Blood Performing Organization Address City/[facility]/Zipcode Phone Number [address] [address] PATHOLOGY AND GENOMIC [facility] * Lipase level (06/11/2018 6:09 PM) Lipase 47 13 - 60 U/L [facility] DEPARTMENT PATHOLOGY AND GENOMIC MEDICINE Specimen Plasma specimen Performing Organization Address City/[facility]/Zipcode Phone Number [address] [address] PATHOLOGY AND GENOMIC MEDICINE * Creatine kinase, total (CPK) (06/11/2018 6:09 PM) Creatine kinase 50 39 - 308 U/L [facility] DEPARTMENT OF PATHOLOGY AND GENOMIC MEDICINE Specimen Plasma specimen Performing Organization Address City/State/Zipcode Phone Number [facility] DEPARTMENT OF [address] [place] [phone] PATHOLOGY AND GENOMIC MEDICINE * Comprehensive metabolic panel (06/11/2018 6:09 PM) Only the most recent of 8 results within the time period is included. Sodium 138 135 - 148 mEq/L [facility] DEPARTMENT OF PATHOLOGY AND GENOMIC MEDICINE Potassium 4.2 3.5 - 5.0 mEq/L [facility] DEPARTMENT OF PATHOLOGY AND GENOMIC MEDICINE Chloride 99 98 - 112 mEq/L [facility] DEPARTMENT OF PATHOLOGY AND GENOMIC MEDICINE CO2 22 (L) 24 - 31 mEq/L [facility] DEPARTMENT OF PATHOLOGY AND GENOMIC MEDICINE Anion gap 17@ANIO (H) 7 - 15 mEq/L [facility] DEPARTMENT OF PATHOLOGY AND GENOMIC MEDICINE BUN 29 (H) 8 - 23 mg/dL [facility] DEPARTMENT OF PATHOLOGY AND GENOMIC MEDICINE Creatinine 1.7 (H) 0.7 - 1.2 mg/dL [facility] DEPARTMENT OF PATHOLOGY AND GENOMIC MEDICINE Glucose 130 (H) 65 - 99 mg/dL [facility] DEPARTMENT OF PATHOLOGY AND GENOMIC MEDICINE Calcium 9.2 8.8 - 10.2 mg/dL [facility] DEPARTMENT OF PATHOLOGY AND GENOMIC MEDICINE Protein 7.2 6.3 - 8.3 g/dL [facility] DEPARTMENT OF Comment: PATHOLOGY AND [employer] GENOMIC MEDICINE 4.6-7.0 g/dL 1 week 4.4-7.6 g/dL 7 months-1year 5.1-7.3 g/dL 1-2 years5.6-7 .5 g/dL >3 years6.0-8 .0 g/dL 18-150 6.3-8.3 g/dL Albumin 3.3 (L) 3.5 - 5.0 g/dL [facility] DEPARTMENT OF PATHOLOGY AND GENOMIC MEDICINE A/G ratio 0.8 0.7 - 3.8 [facility] DEPARTMENT OF PATHOLOGY AND GENOMIC MEDICINE Alkaline phosphatase 193 (H) 40 - 129 U/L [facility] DEPARTMENT OF PATHOLOGY AND GENOMIC MEDICINE AST 55 (H) 10 - 50 U/L [facility] DEPARTMENT OF PATHOLOGY AND GENOMIC MEDICINE ALT 40 5 - 50 U/L [facility] DEPARTMENT OF PATHOLOGY AND GENOMIC MEDICINE Total bilirubin 0.5 0.0 - 1.2 mg/dL [facility] DEPARTMENT OF PATHOLOGY AND GENOMIC MEDICINE Specimen Plasma specimen Performing Organization Address [facility] [place], [place] [address] PATHOLOGY AND GENOMIC MEDICINE * Phosphorus level (05/28/2018 6:41 AM) Phosphorus 3.2 2.4 - 4.5 mg/dL [facility] DEPARTMENT OF PATHOLOGY AND [employer] MEDICINE Specimen Plasma specimen Performing Organization Address [facility] [place], [place] [address] PATHOLOGY AND [facility] MEDICINE * Magnesium level (05/28/2018 6:41 AM) Magnesium 2.0 1.6 - 2.4 mg/dL [facility] DEPARTMENT OF PATHOLOGY AND GENOMIC MEDICINE Specimen Plasma specimen Performing Organization Address [facility] [place], [place] [address] PATHOLOGY AND GENOMIC MEDICINE * FK506 level (05/28/2018 5:30 AM) Only the most recent of 2 results within the time period is included. FK506 level <2.0 ng/mL [facility] DEPARTMENT OF Comment: PATHOLOGY AND Therapeutic range 5-20 ng/mL [facility] for 12 hour trough. The range varies depending on the organ transplanted, time after transplantation and co-administered immunosuppressant therapies. Please use clinical judgment to interpret test result. Test performed using [employer] Analyst chemiluminescent microparticle immunoassay for Tacrolimus on the SUPERVISOR IR[employer]IGATION i System. Performing Organization Address [facility] [place], [place] Phone Number [facility] [place] [address] PATHOLOGY AND [employer] MEDICINE * Sirolimus level (05/28/2018 5:30 AM) Only the most recent of 10 results within the time period is included. Sirolimus 7.3 ng/mL [facility] DEPARTMENT OF Comment: PATHOLOGY AND The recommended trough is 4-12 GENOMIC MEDICINE ng/mL while on CNI (calcineurin inhibitors: Cyclcosporine and Tacrolimus). When used without CNI, higher trough concentrations may be desired, typically 12-20 ng/mL. Occasional patients may require 20-30 ng/mL. Test performed using [employer] Business Analyst chemiluminescent microparticle immunoassay for Sirolimus on the SUPERVISOR IRRIGATION i System Performing Organization Address City/[facility]/[place] [address] PATHOLOGY AND GENOMIC MEDICINE * Hepatic function panel (05/27/2018 5:05 AM) Only the most recent of 2 results within the time period is included. Albumin 2.9 (L) 3.5 - 5.0 g/dL [facility] DEPARTMENT OF PATHOLOGY AND GENOMIC MEDICINE Total bilirubin <0.2 0.0 - 1.2 mg/dL [facility] DEPARTMENT OF PATHOLOGY AND GENOMIC MEDICINE Bilirubin direct <0.2 0.0 - 0.3 mg/dL [facility] DEPARTMENT OF PATHOLOGY AND GENOMIC MEDICINE Alkaline phosphatase 74 40 - 129 U/L [facility] DEPARTMENT OF PATHOLOGY AND GENOMIC MEDICINE Protein 6.5 6.3 - 8.3 g/dL [facility] DEPARTMENT OF Comment: PATHOLOGY AND [place] GENOMIC MEDICINE 4.6-7.0 g/dL 1 week 4.4-7.6 g/dL 7 months-1year 5.1-7.3 g/dL 1-2 years5.6-7 .5 g/dL >3 years6.0-8 .0 g/dL 18-150 6.3-8.3 g/dL ALT 23 5 - 50 U/L [facility] DEPARTMENT OF PATHOLOGY AND GENOMIC MEDICINE AST 22 10 - 50 U/L [facility] DEPARTMENT OF PATHOLOGY AND GENOMIC MEDICINE Specimen Plasma specimen Performing Organization Address City/State/Zipcode Phone Number [place] [phone] PATHOLOGY AND [employer] [facility] * Basic metabolic panel (05/27/2018 5:05 AM) Only the most recent of 5 results within the time period is included. Sodium 141 135 - 148 mEq/L [facility] DEPARTMENT OF PATHOLOGY AND GENOMIC MEDICINE Potassium 3.8 3.5 - 5.0 mEq/L [facility] DEPARTMENT OF PATHOLOGY AND GENOMIC MEDICINE Chloride 97 (L) 98 - 112 mEq/L [facility] DEPARTMENT OF PATHOLOGY AND GENOMIC MEDICINE CO2 32 (H) 24 - 31 mEq/L [facility] DEPARTMENT OF PATHOLOGY AND GENOMIC MEDICINE Anion gap 12@ANIO 7 - 15 mEq/L [facility] DEPARTMENT OF PATHOLOGY AND GENOMIC MEDICINE BUN 24 (H) 8 - 23 mg/dL [facility] DEPARTMENT OF PATHOLOGY AND GENOMIC MEDICINE Creatinine 1.6 (H) 0.7 - 1.2 mg/dL [facility] DEPARTMENT OF PATHOLOGY AND GENOMIC MEDICINE Glucose 131 (H) 65 - 99 mg/dL [facility] DEPARTMENT OF PATHOLOGY AND GENOMIC MEDICINE Calcium 10.4 (H) 8.8 - 10.2 mg/dL [facility] DEPARTMENT OF PATHOLOGY AND GENOMIC MEDICINE Specimen Plasma specimen Performing Organization Address [facility] Phone Number [facility] DEPARTMENT OF [address] [place] [address] PATHOLOGY AND GENOMIC MEDICINE * XR Chest [...] within normal limits. No acute osseous abnormalities. [facility]-[id number] Procedure Note Hm Interface, Radiology Results Incoming [...] within normal limits. No acute osseous abnormalities. [facility]-[id number] Performing Organization Address City/[facility] Phone Number [facility] [address] [place] [address] * ECG 12 lead (05/24/2018 10:47 AM) Only the most recent of 2 results within the time period is included. Ventricular rate 72 [facility] Atrial rate 72 [facility] ND interval 216 [facility] QRSD interval 106 [facility] QT interval 422 [facility] QTC interval 462 [facility] P axis 1 50 [facility] QRS axis 1 15 [facility] T wave axis 107 [facility] EKG impression Sinus rhythm with sinus [facility] MUSE arrhythmia with 1st degree AV block-Inferior infarct (cited on or before 17-MAY-2018)-Abnormal ECG- Performing Organization Address City/State/Zipcode Phone Number [facility] MUSE [address] [place] [address] * Immunoglobulin E (05/22/2018 5:55 AM) IgE 10.2 0.0 - 100.0 IU/mL [facility] DEPARTMENT OF PATHOLOGY AND GENOMIC MEDICINE Specimen Plasma specimen Performing Organization Address City/[facility] Phone Number [facility] [place] [address] PATHOLOGY AND GENOMIC MEDICINE * Immunoglobulin A (05/22/2018 5:55 AM) IgA 74 70 - 400 mg/dL [facility] DEPARTMENT OF PATHOLOGY AND GENOMIC MEDICINE Specimen Plasma specimen Performing Organization Address [facility] Phone Number [facility] [place] [address] PATHOLOGY AND GENOMIC MEDICINE * Immunoglobulin M (05/22/2018 5:55 AM) IgM 42 33 - 255 mg/dL [facility] DEPARTMENT OF PATHOLOGY AND GENOMIC MEDICINE Specimen Plasma specimen Performing Organization Address [facility] Phone Number [facility] [place] [address] PATHOLOGY AND GENOMIC MEDICINE * Immunoglobulin G (05/22/2018 5:55 AM) IgG 703 700 - 1,600 mg/dL [facility] DEPARTMENT OF PATHOLOGY AND GENOMIC MEDICINE Specimen Plasma specimen Performing Organization Address [facility] Phone Number [facility] [place] [address] PATHOLOGY AND GENOMIC MEDICINE * XR Abdomen [...] of the abdominal aorta. Bones are stable. [id number] Procedure Note Hm Interface, Radiology Results Incoming - 05/19/2018 4:39 PM CDT Study:XR ABDOMEN 1 VW PORTABLE History:constipation COMPARISON:July 06, 2012 IMPRESSION: 2 views of the abdomen. No bowel distention or free air. Large amount of stool present in the colon. 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 There is calcification of the abdominal aorta. Bones are stable. [id number] Performing Organization Address City/[facility] [place] [address] * CBC hemogram (05/18/2018 6:00 AM) WBC 7.42 4.50 - 11.00 k/uL [facility] DEPARTMENT OF PATHOLOGY AND GENOMIC MEDICINE RBC 4.59 4.40 - 6.00 m/uL [facility] DEPARTMENT OF PATHOLOGY AND GENOMIC MEDICINE HGB 11.9 (L) 14.0 - 18.0 g/dL [facility] DEPARTMENT OF PATHOLOGY AND GENOMIC MEDICINE HCT 37.7 (L) 41.0 - 51.0 % [facility] DEPARTMENT OF PATHOLOGY AND GENOMIC MEDICINE MCV 82.1 82.0 - 100.0 fL [facility] DEPARTMENT OF PATHOLOGY AND GENOMIC MEDICINE MCH 25.9 (L) 27.0 - 34.0 pg [facility] DEPARTMENT OF PATHOLOGY AND GENOMIC MEDICINE MCHC 31.6 31.0 - 37.0 g/dL [facility] DEPARTMENT OF PATHOLOGY AND GENOMIC MEDICINE RDW - SD 53.4 37.0 - 55.0 fL [facility] DEPARTMENT OF PATHOLOGY AND GENOMIC MEDICINE MPV 9.8 8.8 - 13.2 fL [facility] DEPARTMENT OF PATHOLOGY AND GENOMIC MEDICINE Platelet count 156 150 - 400 k/uL [facility] DEPARTMENT OF PATHOLOGY AND GENOMIC MEDICINE Nucleated RBC 0.00 /100 WBC [facility] DEPARTMENT OF PATHOLOGY AND GENOMIC MEDICINE Specimen Blood Performing Organization Address [facility] Phone Number [place] [phone] PATHOLOGY AND GENOMIC MEDICINE * Uric acid level (05/18/2018 6:00 AM) Uric acid 4.4 3.4 - 7.0 mg/dL [facility] DEPARTMENT OF PATHOLOGY AND GENOMIC MEDICINE Specimen Plasma specimen Performing Organization Address [facility] Centercode Phone Number [address] [address] PATHOLOGY AND GENOMIC MEDICINE * Thyroid stimulating hormone (05/18/2018 6:00 AM) TSH 1.50 0.27 - 4.20 uIU/mL [facility] DEPARTMENT OF PATHOLOGY AND GENOMIC MEDICINE Specimen Plasma specimen Performing Organization Address City/[facility] Phone Number [facility] DEPARTMENT OF [address] [place] [id number] PATHOLOGY AND GENOMIC MEDICINE * Surgical pathology request (05/17/2018 4:44 PM) Only the most recent of 2 results within the time period is included. [facility] DEPARTMENT OF PATHOLOGY AND GENOMIC MEDICINE Surgical pathology report See link below for PDF Lab [facility] DEPARTMENT OF Report PATHOLOGY AND GENOMIC MEDICINE Result status This is Supplemental Report to [facility] DEPARTMENT OF [id number] PATHOLOGY AND GENOMIC MEDICINE Performing Organization Address City/[facility] Cent[facility]ode Phone Number [facility] DEPARTMENT [address] [address] PATHOLOGY AND GENOMIC MEDICINE * Respiratory culture (05/17/2018 3:21 PM) Only the most recent of 3 results within the time period is included. Respiratory culture Normal oral chirag and (A) [facility] DEPARTMENT OF isolate Comment: PATHOLOGY AND Specimen Information GENOMIC MEDICINE Specimen Source: Bronchial Washing Specimen Site: RUL (right upper lobe) Respiratory culture Pseudomonas aeruginosa [facility] DEPARTMENT OF isolate Moderate PATHOLOGY AND [...] SHAHBAZ 4/4 mcg/mL: Susceptible Performing Organization Address City/[facility] Centercode Phone Number [facility] DEPARTMENT [address] [address] PATHOLOGY AND GENOMIC MEDICINE * Fungus smear (05/17/2018 3:21 PM) Only the most recent of 3 results within the time period is included. Fungus smear No fungi observed. [facility] DEPARTMENT OF Comment: PATHOLOGY AND Specimen Information GENOMIC MEDICINE Specimen Source: Bronchial alveolar lavage Specimen Site: RUL (right upper lobe) Specimen Bronchial alveolar lavage - RUL (right upper lobe) Performing Organization Address [facility]/Zipcode Phone Number [place] [phone] PATHOLOGY AND GENOMIC MEDICINE * Respiratory pathogen panel (05/17/2018 3:21 PM) Respiratory pathogen Negative for all pathogens [facility] DEPARTMENT OF panel tested: PATHOLOGY AND [...] RUL (right upper lobe) Performing Organization Address [facility] Centercode Phone Number [facility] DEPARTMENT [address] [address] PATHOLOGY AND [employer] MEDICINE * BAL cell count and differential (05/17/2018 3:21 PM) BAL specimen source RUL BAL [facility] DEPARTMENT OF PATHOLOGY AND GENOMIC MEDICINE BAL cell count 0.585 m/mL [facility] DEPARTMENT OF Comment: PATHOLOGY AND Normal ranges: Nonsmokers: GENOMIC MEDICINE 0.007 - 0.363 Smokers: 0 - 1.31 BAL PAMS 4 % [facility] DEPARTMENT OF Comment: PATHOLOGY AND Normal ranges: Nonsmokers: 65 GENOMIC MEDICINE - 100 Smokers: 81 - 100 BAL PMNS 85 % [facility] DEPARTMENT OF Comment: PATHOLOGY AND Normal ranges: Nonsmokers: 0 - GENOMIC MEDICINE 3 Smokers: 0 - 2 BAL eosinophils 4 % [facility] DEPARTMENT OF Comment: PATHOLOGY AND Normal ranges: Nonsmokers: 0 - GENOMIC MEDICINE 1 Smokers: 0 - 1 BAL lymphs 7 % [facility] DEPARTMENT OF Comment: PATHOLOGY AND Normal ranges: Nonsmokers: 0 - GENOMIC MEDICINE 10 Smokers: 0 - 5 Specimen Fluid Narrative Performed At [facility] DEPARTMENT OF PATHOLOGY AND GENOMIC MEDICINE Performing Organization Address City/[facility]ode Phone Number [facility] [place] [address] PATHOLOGY AND GENOMIC MEDICINE * Cytomegalovirus by PCR (05/17/2018 3:21 PM) Cytomegalovirus by PCR Indeterminate (A) Not-Detected IU/mL [facility] DEPARTMENT OF PATHOLOGY AND GENOMIC MEDICINE Cytomegalovirus by PCR See link below for PDF Lab [facility] DEPARTMENT OF ReportComment: Case Number: PATHOLOGY AND [id number] GENOMIC MEDICINE Narrative Performed At [facility] DEPARTMENT OF PATHOLOGY AND GENOMIC MEDICINE Performing Organization Address City/[facility] [place] [address] PATHOLOGY AND GENOMIC MEDICINE * Varicella zoster by PCR (05/17/2018 3:21 PM) VZV result Not-Detected Not-Detected copies/mL [facility] DEPARTMENT OF PATHOLOGY AND GENOMIC MEDICINE Varicella zoster, PCR See link below for PDF Lab [facility] DEPARTMENT OF ReportComment: Case Number: PATHOLOGY AND [id number] GENOMIC MEDICINE Narrative Performed At [facility] DEPARTMENT OF PATHOLOGY AND GENOMIC MEDICINE Performing Organization Address City/[facility]ercode Phone Number [facility] [place] [address] PATHOLOGY AND GENOMIC MEDICINE * Herpes simplex virus by PCR (05/17/2018 3:21 PM) Herpes virus, PCR Not-Detected Not-Detected [facility] DEPARTMENT OF PATHOLOGY AND GENOMIC MEDICINE Herpes virus, PCR See link below for PDF Lab [facility] DEPARTMENT OF ReportComment: Case Number: PATHOLOGY AND [id number] GENOMIC MEDICINE Narrative Performed At [facility] DEPARTMENT OF PATHOLOGY AND GENOMIC MEDICINE Performing Organization Address City/[facility]ercode Phone Number [facility] [place] [address] PATHOLOGY AND GENOMIC MEDICINE * AFB culture (05/17/2018 3:21 PM) Only the most recent of 4 results within the time period is included. AFB culture isolate No growth after 6 weeks of [facility] DEPARTMENT OF incubation. PATHOLOGY AND Comment: GENOMIC MEDICINE Specimen Information Specimen Source: Bronchial alveolar lavage Specimen Site: RUL (right upper lobe) Specimen Bronchial alveolar lavage - RUL (right upper lobe) Performing Organization Address [facility] Centercode Phone Number [facility] DEPARTMENT OF [address] [place] [address] PATHOLOGY AND GENOMIC MEDICINE * Nocardia culture (05/17/2018 3:21 PM) Only the most recent of 2 results within the time period is included. Nocardia culture isolate No Nocardia isolated after 7 [facility] DEPARTMENT OF days. PATHOLOGY AND Comment: GENOMIC MEDICINE Specimen Information Specimen Source: Bronchial alveolar lavage Specimen Site: RUL (right upper lobe) Specimen Bronchial alveolar lavage - RUL (right upper lobe) Performing Organization Address [facility] Centercode Phone Number [facility] DEPARTMENT OF [address] [place] [phone] PATHOLOGY AND GENOMIC MEDICINE * Legionella culture (05/17/2018 3:21 PM) Legionella culture No Legionella isolated. (A) [facility] DEPARTMENT OF isolate Comment: PATHOLOGY AND Specimen Information GENOMIC MEDICINE Specimen Source: Bronchial Washing Specimen Site: RUL (right upper lobe) Legionella culture Aspergillus flavus (A) [facility] DEPARTMENT OF isolate PATHOLOGY AND GENOMIC MEDICINE Specimen Bronchial washing - RUL (right upper lobe) Performing Organization Address [facility] Centercode Phone Number [facility] DEPARTMENT OF [address] [place] [address] PATHOLOGY AND GENOMIC MEDICINE * AFB stain (05/17/2018 3:21 PM) Only the most recent of 4 results within the time period is included. AFB stain No acid fast bacilli (AFB) [facility] DEPARTMENT OF seen. PATHOLOGY AND Comment: GENOMIC MEDICINE Specimen Information Specimen Source: Bronchial alveolar lavage Specimen Site: RUL (right upper lobe) Specimen Bronchial alveolar lavage - RUL (right upper lobe) Performing Organization Address City/[facility]ercode Phone Number [facility] DEPARTMENT OF [address] [place] [phone] PATHOLOGY AND GENOMIC MEDICINE * Fungus culture (05/17/2018 3:21 PM) Only the most recent of 3 results within the time period is included. Fungus culture isolate No growth after 4 weeks of [facility] DEPARTMENT OF incubation. PATHOLOGY AND Comment: GENOMIC MEDICINE Specimen Information Specimen Source: Bronchial alveolar lavage Specimen Site: RUL (right upper lobe) Specimen Bronchial alveolar lavage - RUL (right upper lobe) Performing Organization Address City/[facility]/Zipcode Phone Number [address] [address] PATHOLOGY AND GENOMIC MEDICINE * Cytology (non-gynecological) request (05/17/2018 3:21 PM) Only the most recent of 2 results within the time period is included. [facility] DEPARTMENT OF PATHOLOGY AND GENOMIC MEDICINE Cytology See link below for PDF Lab [facility] DEPARTMENT OF (non-gynecological) Report PATHOLOGY AND report GENOMIC MEDICINE Result status This is Final Report to [facility] DEPARTMENT OF [id number] PATHOLOGY AND GENOMIC MEDICINE Performing Organization Address City/[facility]ercode Phone Number [facility] DEPARTMENT [address] [address] PATHOLOGY AND GENOMIC MEDICINE * Histoplasma antigen, serum (05/17/2018 12:23 PM) Histoplasma antigen, None Detected ng/mL [facility] DEPARTMENT OF serum Comment: PATHOLOGY AND INTERPRETATION: HISTOPLASMA GENOMIC MEDICINE ANTIGEN -Reference interval: None Detected -Results reported as ng/mL in 0.4 - 19.0 ng/mL -Results above the limit of detection but below 0.4 ng/mL are reported as 'Positive, Below the Limit of Quantification' -Results above 19.0 ng/mL are reported as 'Positive, Above the Limit of Quantification' Performing Organization Address [facility] [place] [address] PATHOLOGY AND GENOMIC MEDICINE * Partial thromboplastin time, activated (05/17/2018 11:55 AM) PTT 22.4 (L) 23.0 - 36.0 sec [facility] DEPARTMENT OF Comment: PATHOLOGY AND PTT therapeutic range for GENOMIC MEDICINE unfractionated heparin is 61.0-112.0 seconds which corresponds to Anti-Xa 0.3-0.7 U/ml. Specimen Blood Performing Organization Address City/[facility]/Zipcode Phone Number [address] [address] PATHOLOGY AND GENOMIC MEDICINE * Prothrombin time with INR (05/17/2018 11:55 AM) Prothrombin time 13.4 12.0 - 15.0 sec [facility] DEPARTMENT OF PATHOLOGY AND GENOMIC MEDICINE INR 1.0 [facility] DEPARTMENT OF Comment: PATHOLOGY AND The International Normalized GENOMIC MEDICINE Ratio (INR) is a therapeutic monitoring tool for patients who are stable on oral anticoagulant therapy. An INR of 2.0-3.0 is suggested for deep vein thrombosis/pulmonary embolism. Specimen Blood Performing Organization Address City/State/Zipcode Phone Number [facility] DEPARTMENT OF [address] [place] [address] PATHOLOGY AND GENOMIC MEDICINE * Sputum culture (05/15/2018 12:20 PM) Only the most recent of 2 results within the time period is included. Sputum culture isolate Normal oral chirag and (A) [facility] DEPARTMENT OF Comment: PATHOLOGY AND Specimen Information GENOMIC MEDICINE Specimen Source: Sputum Specimen Site: Expectorated Sputum culture isolate Pseudomonas aeruginosa [facility] DEPARTMENT OF Many PATHOLOGY AND susceptibility to follow GENOMIC MEDICINE This organism is NOT a carbapenemase producing organism. (A) Sputum culture isolate Escherichia coli [facility] DEPARTMENT OF Many PATHOLOGY AND identification/susceptibility [...] SHAHBAZ >16/8 mcg/mL: Resistant Escherichia coli Ampicillin SHAHBAZ >16 mcg/mL: Resistant Escherichia coli Aztreonam SHAHBAZ [...] Susceptible Performing Organization Address City/State/Zipcode Phone Number [facility] DEPARTMENT OF [address] [place] [address] PATHOLOGY AND GENOMIC MEDICINE * Echocardiogram complete w contrast and 3D if needed (03/26/2018 10:45 AM) Narrative Performed At [facility] Echocardiography Report Pat.Name:NATALIA LILLI JR Pat.ID:[id number] .Date: 03/26/2018 Refer.MD:DARIUS JIMÉNEZ MD Exam Time: 10:08:00 AM Study Type:Routine Echo Height:67inWeight:130lb BSA: 1.69 m2 DOBAge:1930,88Y Sex: MALEBP:130/71 HR:71 bpm Sonogrphr: Ina Vásquez, RCS, RCCS, CCT Pat. Stat.:OutpatientRoom:[facility] TapeVol: [facility], Study Status:Final Echo Event ID:[id number] Order ID:[id number] Reason for Study:AVR History / Clinical:Hypertension, Liver [...] PA systolic pressure. MEASUREMENTS: 2D Parasternal [place] Ds4.3 cmLVPWd0.8 cm LVOT 2 cmAo An2.3 cm LVIDd4.5 cmIndex2.7 cm/m Ao Rtd 3.4 cm Index2 cm/m LVIDs2.9 cm LV Rmxj760.1 g(122-174) LV%fs 35.7 % LVM Xdpxl152.5 g/m2 IVSd 1.5 cmRWT0.3 LA Volume LA Vol76.9 zgOzksh92.5 ml/m LA Sng Plane LA Area 24.6 cm2(8.8-23.4) LA Vol77.6 ml Index45.9 ml/m LA LngAx 6.6 cm DOPPLER AV For Flow/MARTINEZ AV Area1.5 cm2(3-5)AV ET322 msec AV pkVel 290.3 cm/s (100-170) AV AC/ET 0.3 AV mnVel 194.7 cm/Francy TVI62.8 cm AV pkPG 33.7 mmHgAVpkAcRt 73575.4 cm/s2 AV Mean G 18.7 mmHgAV LrJk750.5 cm/s2 AV AC108 msec (83-118) LVOT For Flow AGWPtsQhj316.2 cm/sHR82.8 bpm LVOTpkPG 4.6 mmHgLVOT CO7.2 l/min LVOTmnPG 2.8 mmHgLVOT CI4.3 l/m/m2 LVOT TVI27.7 cmLVOT Area3.1 cm2 LVOT SV 87 ml WALL MOTION: RESTING WALL MOTION: Basal Inferior, Basal Inferolateral, Mid Inferolateral brito are hypokinetic. Normal in all other brito. Wall Index=1.2 Signed 03/27/2018 05:52 PM Francisco Javier Villela M.D. Procedure Note Interface, Radiology Results In - 03/27/2018 5:53 PM CDT [facility] Echocardiography Report Pat.Name: LILLI GREWAL JR Pat.ID: [id number] .Date: 03/26/2018 Refer.MD: DARIUS JIMÉNEZ MD Exam Time: 10:08:00 AM Study Type:Routine Echo Height: 67in Weight: 130lb BSA: 1.69 m2 Age: 5 1930,88Y Sex: MALE BP: 130/71 HR: 71 bpm Sonogrphr: Ina Vásquez, RCS, RCCS, CCT Pat. Stat.:Outpatient Room: [address] Vol: [facility], Study Status:Final Echo Event ID:[id number] Order ID: [id number] Reason for Study:AVR History / Clinical:Hypertension, Liver [...] PA systolic pressure. MEASUREMENTS: 2D Parasternal [place] Ds 4.3 cm LVPWd 0.8 cm [...] 62.8 cm AV pkPG 33.7 mmHg AVpkAcRt 30488.4 cm/s2 AV Mean G 18.7 mmHg AV [...] Francisco Javier Villela M.D. Performing Organization Address City/State/[facility] Phone Number [facility] [address] [place] [address] after 07/30/2017 Insurance Payer Benefit Subscriber ID Type Phone Address Plan / Group MEDICARE MEDICARE xxxxxxxxxx Medicare [place], [place] PART A AND B AARP AARP xxxxxxxxxxx Commercial SUPPLEMENT
--- OUTSIDE RECORDS SUMMARY | 2018-07-31 05:16 | XMS REPORT | Clinical Summary ---
Author Author [facility] Address Unknown Phone Unavailable Care Team Providers Care Screen Printing Loader Unloader Name Role Phone PCP Unavailable Allergies No [...] by Each Nare Active mcg (0.025 %) Burton route as needed. hydrOXYzine (ATARAX) 25 Take [...] liver transplantation (HCC) 11/25/2013 Overview: ICD9 DX Stockfeed Miller L ast Assessment & Plan: OLT Date: 04/29/2003 Dx: HCV genotype 2a. No recurrent HCV infection currently with undetectable HCV RNA. No major issues of acute or chronic rejection or biliary stricture. Continue current care plan. 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 Immunosuppression ([facility]) 11/25/2013 Last Assessment & Plan: Sirolimus monotherapy [...] bloodwork 05/29/2018 Telephone Transplant Hepatology Bridget Cortes, fire prevention captain Dose Change 04/22/2018 Orders Only Transplant Hepatology David Dodge MD 02/18/2018 Orders Only Transplant Hepatology Bridget Cortes, EDMUND 02/18/2018 Documentation Transplant Hepatology Anat Walker 02/15/2018 Telephone Transplant Hepatology Bridget Cortes, EDMUND generic OK 02/14/2018 Telephone Transplant Hepatology Bridget Cortes, EDMUND brand name medication 02/07/2018 Abstract Transplant [...] Only Transplant Hepatology David Dodge MD after 07/30/2017 Social History Tobacco Use Types Packs/Day Years Used Date Former Smoker Cigarettes Quit: 10/15/1973 Smokeless Tobacco: Never Used Sex Assigned at Date Recorded Not on file Last Filed Vital Signs Vital Sign Reading Time Taken Blood Pressure 155/75 12/20/2017 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 Pulse 55 12/20/2017 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 Temperature 36.4 C (97.5 F) 12/20/2017 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 Respiratory Rate 18 12/20/2017 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 Oxygen Saturation 98% 12/20/2017 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 Inhaled Oxygen - - Concentration Weight 59.6 kg (131 lb 8 oz) 12/20/2017 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 Height 163.8 cm (5' 4.5") 12/20/2017 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 Body Mass Index 22.22 12/20/2017 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 Plan of Treatment Health Maintenance Due Date Last Done Comments INFLUENZA VACCINE 07/15/2018 Results * Sirolimus level (04/22/2018 9:22 AM) Only the most recent of 3 results within the time period is included. Component Value Ref Range Rapamycin Trough 14.1 3.0 - 18.0 mcg/L Comment: This test was developed and its analytical performance characteristics have been determined by [facility]. It has not been cleared or approved by the [place] Food and Drug Administration. This assay has been validated pursuant to the CLIA regulations and is used for clinical purposes. Specimen Performing Laboratory [address] [place] [address] Narrative FASTING:YES FASTING: YES * CBC with [...] Baso 0.4 % Specimen Performing Laboratory [facility] [address] [place] [address], [place] [address] Narrative FASTING:YES FASTING: YES * Bilirubin, total and direct (04/22/2018 9:22 AM) Only the most recent of 2 results within the time period is included. Component Value Ref Range Bilirubin, Direct 0.1 < OR=0.2 mg/dL Specimen Performing Laboratory [address] [place] [address] Narrative FASTING:YES FASTING: YES * Magnesium (04/22/2018 9:22 AM) Only the most recent of 3 results within the time period is included. Component Value Ref Range Magnesium, Serum 2.1 1.5 - 2.5 mg/dL Specimen Performing Laboratory [facility] [address] [place], [place] [address], [place] [address] Narrative FASTING:YES FASTING: YES * Comprehensive metabolic [...] approximately 13% higher for people identified as -Austrian. eGFR If NonAfricn Am 44 (L) > [...] - 46 U/L Specimen Performing Laboratory [facility] [address] [facility] [place] [address] Narrative FASTING:YES FASTING: YES * CBC with [...] 1 % Granulocytes-Relative Specimen Performing Laboratory Blood [address] [address] * Bilirubin, direct (12/20/2017 9:20 AM) Component Value Ref Range Bilirubin, Direct 0.3 0.1 - 0.5 mg/dL Specimen Performing Laboratory Blood [address] [address] after 07/30/2017
[2018-07-31] MEDS ORDERED: CEFTRIAXONE SOD 1 GM VIAL ONE (06:24)
[2018-07-31] MEDS ORDERED: GENTAMICIN 80MG/NS 100 ML 100 ML IV ONE (06:24)
[2018-07-31] MEDS ORDERED: IOPAMIDOL 610MG/1ML 300 MG/ML VIAL IV ONE (07:00)
[2018-07-31] MEDS ORDERED: FENTANYL CITRATE/PF 100MCG/2 ML INJ ONE ×2 (09:05→17:44)
[2018-07-31] MEDS ORDERED: MORPHINE SULFATE 2 MG/ML SYR ONE ×2 (09:26→09:46)
[2018-07-31] MEDS ORDERED: ONDANSETRON HCL INJ 2 MG/ML VIAL ONE ×2 (09:31→17:38)
[2018-07-31] MEDS ORDERED: METOCLOPRAMIDE HCL 10 MG/2ML VIAL ONE (09:46)
[2018-07-31] MEDS ORDERED: PROMETHAZINE HCL (IM) 25 MG/ML VIAL ONE (09:56)
[2018-07-31] MEDS ORDERED: DIPHENHYDRAMINE HCL INJ 50 MG/ML VIAL IM PRN (10:45)
[2018-07-31] MEDS ORDERED: ONDANSETRON HCL INJ 2 MG/ML VIAL IV PRN (10:45)
[2018-07-31] MEDS ORDERED: ACETAMINOPHEN/CODEINE 300MG - 30MG TAB PO PRN (10:45)
[2018-07-31] MEDS ORDERED: DIPHENHYDRAMINE HCL 25 MG CAP PO PRN (10:45)
--- OUTSIDE RECORDS SUMMARY | 2018-07-31 11:12 | XMS REPORT | Clinical Summary ---
Author Author [facility] [facility] Address Unknown Phone Unavailable Care Team Providers Care [place] Name Role Phone Donato Mccallum MD PCP [...] AVR 23mm Mosaic Valve Overview: ICD9 DX Biologist Last Assessment & Plan: S/P porcine AVR. 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 Continue current care plan. If symptoms persistent, may need EGD to assess for Frazier's changes and/or manometry for LES dysfunction. 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 Continue current care plan. 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 after 07/30/2017 Results [...] Status post median sternotomy. Mildly tortuous aorta. [facility]-[id number] Procedure Note Interface, Radiology Results Incoming - [...] Status post median sternotomy. Mildly tortuous aorta. [facility]-[id number] Performing Organization Address City/[facility]/[place] [address] * Blood culture, aerobic & anaerobic (06/11/2018 6:22 PM) Blood culture isolate No growth after 5 days of [facility] DEPARTMENT OF incubation. PATHOLOGY AND Comment: GENOMIC MEDICINE Specimen Information Specimen Source: Blood Specimen Site: Forearm, left Specimen Blood - Forearm, left Performing Organization Address [facility]/Zipcode Phone Number [facility] DEPARTMENT OF [address] [place] [address] PATHOLOGY AND GENOMIC MEDICINE * B natriuretic peptide (06/11/2018 6:22 PM) BNP 256 (H) 0 - 100 pg/mL [facility] DEPARTMENT OF PATHOLOGY AND GENOMIC MEDICINE Specimen Blood Performing Organization Address [facility] Phone Number [facility] DEPARTMENT OF [address] [place] [address] PATHOLOGY AND GENOMIC MEDICINE * Gram stain (06/11/2018 6:10 PM) Only the most recent of 5 results within the time period is included. Gram stain result Few WBC's [facility] DEPARTMENT OF Many Gram positive cocci in PATHOLOGY AND pairs GENOMIC MEDICINE Comment: Specimen Information Specimen Source: Urine Specimen Site: Clean catch Specimen Urine Performing Organization Address [facility] Phone Number [facility] DEPARTMENT OF [address] [place] [address] PATHOLOGY AND GENOMIC MEDICINE * Urine culture (06/11/2018 6:10 PM) Only the most recent of 2 results within the time period is included. Urine culture isolate Enterococcus faecalis [facility] DEPARTMENT OF >10-5 cfu/ml PATHOLOGY AND The performance GENOMIC MEDICINE characteristics of this assay on this isolate were validated by the Microbiology Laboratory at [facility].This source has not been approved by the U.S. Food and Drug Administration.The results are not intended to be used as the sole means for clinical diagnosis or patient management.The Microbiology Laboratory is authorized under the clinical Laboratory Improvement Amendments of 1988 (CLIA-88) to perform high complexity testing. The performance characteristics of this assay on this isolate were validated by the Microbiology Laboratory at [facility].This source has not been approved by the [...] Susceptible Performing Organization Address City/State/Zipcode Phone Number [facility] DEPARTMENT OF [address] [place] [address] PATHOLOGY AND GENOMIC MEDICINE * Urinalysis screen and microscopy, with reflex to culture (06/11/2018 6:09 PM) Only the most recent of 2 results within the time period is included. Specimen site Clean catch [facility] DEPARTMENT OF PATHOLOGY AND GENOMIC MEDICINE Color, UA Rowena [facility] DEPARTMENT OF PATHOLOGY AND GENOMIC MEDICINE Appearance, UA Turbid [facility] DEPARTMENT OF PATHOLOGY AND GENOMIC MEDICINE Specific gravity, UA 1.012 1.001 - 1.035 [facility] DEPARTMENT OF PATHOLOGY AND GENOMIC MEDICINE pH, UA 6.0 5.0 - 8.5 [facility] DEPARTMENT OF PATHOLOGY AND GENOMIC MEDICINE Protein, UA 2+ (A) Negative [facility] DEPARTMENT OF PATHOLOGY AND GENOMIC MEDICINE Glucose, UA Negative Negative [facility] DEPARTMENT OF PATHOLOGY AND GENOMIC MEDICINE Ketones, UA Negative Negative [facility] DEPARTMENT OF PATHOLOGY AND GENOMIC MEDICINE Bilirubin, UA Negative Negative [facility] DEPARTMENT OF PATHOLOGY AND GENOMIC MEDICINE Blood, UA Small (A) Negative [facility] DEPARTMENT OF PATHOLOGY AND GENOMIC MEDICINE Nitrite, UA Negative Negative [facility] DEPARTMENT OF PATHOLOGY AND GENOMIC MEDICINE Urobilinogen, UA <2.0 <2.0 [facility] DEPARTMENT OF PATHOLOGY AND GENOMIC MEDICINE Leukocyte esterase, UA Large (A) Negative [facility] DEPARTMENT OF PATHOLOGY AND GENOMIC MEDICINE WBC, UA >180 (H) 0 - 1 /HPF [facility] DEPARTMENT OF PATHOLOGY AND GENOMIC MEDICINE RBC, UA 27 (H) 0 - 5 /HPF [facility] DEPARTMENT OF PATHOLOGY AND GENOMIC MEDICINE Bacteria, UA Many (A) None seen [facility] DEPARTMENT OF PATHOLOGY AND GENOMIC MEDICINE WBC clumps, UA Few (A) [facility] DEPARTMENT OF PATHOLOGY AND GENOMIC MEDICINE Yeast, UA None seen [facility] DEPARTMENT OF PATHOLOGY AND GENOMIC MEDICINE Yeast with pseudohyphae, None seen [facility] PATHOLOGY AND GENOMIC MEDICINE Specimen Urine Performing Organization Address City/[facility] [place] [address] PATHOLOGY AND GENOMIC MEDICINE * Estimated GFR (06/11/2018 6:09 PM) Only the most recent of 13 results within the time period is included. GFR Non Af Amer 38 (A) mL/min/1.73 m2 [facility] DEPARTMENT OF PATHOLOGY AND GENOMIC MEDICINE GFR Af Amer 46 (A) mL/min/1.73 m2 [facility] DEPARTMENT OF Comment: PATHOLOGY AND Chronic [...] Americans. Specimen Plasma specimen Performing Organization Address City/[facility] [place] [address] PATHOLOGY AND GENOMIC MEDICINE * Troponin (06/11/2018 6:09 PM) Troponin <0.30 0.00 - 0.30 ng/mL [facility] DEPARTMENT OF Comment: PATHOLOGY AND 0.30 - 1.49 GENOMIC MEDICINE ng/mlMay indicate increased risk of acute coronary syndrome. >=1.5 ng/ml Consistent with acute myocardial infarction. The diagnostic value of a single normal or non-diagnostic result is questionable.Serial samples at 2-6 hour intervals are required to rule out acute myocardial injury. Specimen Plasma specimen Performing Organization Address City/[facility]/Zipcode Phone Number [address] [address] PATHOLOGY AND GENOMIC MEDICINE * CBC with platelet and differential (06/11/2018 6:09 PM) Only the most recent of 12 results within the time period is included. WBC 7.21 4.50 - 11.00 k/uL [facility] DEPARTMENT OF PATHOLOGY AND GENOMIC MEDICINE RBC 4.27 (L) 4.40 - 6.00 m/uL [facility] DEPARTMENT OF PATHOLOGY AND GENOMIC MEDICINE HGB 11.2 (L) 14.0 - 18.0 g/dL [facility] DEPARTMENT OF PATHOLOGY AND GENOMIC MEDICINE HCT 35.5 (L) 41.0 - 51.0 % [facility] DEPARTMENT OF PATHOLOGY AND GENOMIC MEDICINE MCV 83.1 82.0 - 100.0 fL [facility] DEPARTMENT OF PATHOLOGY AND GENOMIC MEDICINE MCH 26.2 (L) 27.0 - 34.0 pg [facility] DEPARTMENT OF PATHOLOGY AND GENOMIC MEDICINE MCHC 31.5 31.0 - 37.0 g/dL [facility] DEPARTMENT OF PATHOLOGY AND GENOMIC MEDICINE RDW - SD 52.2 37.0 - 55.0 fL [facility] DEPARTMENT OF PATHOLOGY AND GENOMIC MEDICINE MPV 10.1 8.8 - 13.2 fL [facility] DEPARTMENT OF PATHOLOGY AND GENOMIC MEDICINE Platelet count 150 150 - 400 k/uL [facility] DEPARTMENT OF PATHOLOGY AND GENOMIC MEDICINE Nucleated RBC 0.00 /100 WBC [facility] DEPARTMENT OF PATHOLOGY AND GENOMIC MEDICINE Neutrophils 78.6 (H) 39.0 - 69.0 % [facility] DEPARTMENT OF PATHOLOGY AND GENOMIC MEDICINE Lymphocytes 12.9 (L) 25.0 - 45.0 % [facility] DEPARTMENT OF PATHOLOGY AND GENOMIC MEDICINE Monocytes 6.9 0.0 - 10.0 % [facility] DEPARTMENT OF PATHOLOGY AND GENOMIC MEDICINE Eosinophils 0.8 0.0 - 5.0 % [facility] DEPARTMENT OF PATHOLOGY AND GENOMIC MEDICINE Basophils 0.4 0.0 - 1.0 % [facility] DEPARTMENT OF PATHOLOGY AND GENOMIC MEDICINE Immature granulocytes 0.4Comment: "Immature 0.0 - 1.0 % [facility] DEPARTMENT OF granulocytes" (promyelocytes, PATHOLOGY AND myelocytes, metamyelocytes) GENOMIC MEDICINE Specimen Blood Performing Organization Address City/[facility]/Zipcode Phone Number [address] [address] PATHOLOGY AND GENOMIC [facility] * Lipase level (06/11/2018 6:09 PM) Lipase 47 13 - 60 U/L [facility] DEPARTMENT PATHOLOGY AND GENOMIC MEDICINE Specimen Plasma specimen Performing Organization Address City/[facility]/Zipcode Phone Number [address] [address] PATHOLOGY AND GENOMIC MEDICINE * Creatine kinase, total (CPK) (06/11/2018 6:09 PM) Creatine kinase 50 39 - 308 U/L [facility] DEPARTMENT OF PATHOLOGY AND GENOMIC MEDICINE Specimen Plasma specimen Performing Organization Address City/State/Zipcode Phone Number [facility] DEPARTMENT OF [address] [place] [phone] PATHOLOGY AND GENOMIC MEDICINE * Comprehensive metabolic panel (06/11/2018 6:09 PM) Only the most recent of 8 results within the time period is included. Sodium 138 135 - 148 mEq/L [facility] DEPARTMENT OF PATHOLOGY AND GENOMIC MEDICINE Potassium 4.2 3.5 - 5.0 mEq/L [facility] DEPARTMENT OF PATHOLOGY AND GENOMIC MEDICINE Chloride 99 98 - 112 mEq/L [facility] DEPARTMENT OF PATHOLOGY AND GENOMIC MEDICINE CO2 22 (L) 24 - 31 mEq/L [facility] DEPARTMENT OF PATHOLOGY AND GENOMIC MEDICINE Anion gap 17@ANIO (H) 7 - 15 mEq/L [facility] DEPARTMENT OF PATHOLOGY AND GENOMIC MEDICINE BUN 29 (H) 8 - 23 mg/dL [facility] DEPARTMENT OF PATHOLOGY AND GENOMIC MEDICINE Creatinine 1.7 (H) 0.7 - 1.2 mg/dL [facility] DEPARTMENT OF PATHOLOGY AND GENOMIC MEDICINE Glucose 130 (H) 65 - 99 mg/dL [facility] DEPARTMENT OF PATHOLOGY AND GENOMIC MEDICINE Calcium 9.2 8.8 - 10.2 mg/dL [facility] DEPARTMENT OF PATHOLOGY AND GENOMIC MEDICINE Protein 7.2 6.3 - 8.3 g/dL [facility] DEPARTMENT OF Comment: PATHOLOGY AND [place] GENOMIC MEDICINE 4.6-7.0 g/dL 1 week 4.4-7.6 g/dL 7 months-1year 5.1-7.3 g/dL 1-2 years5.6-7 .5 g/dL >3 years6.0-8 .0 g/dL 18-150 6.3-8.3 g/dL Albumin 3.3 (L) 3.5 - 5.0 g/dL [facility] DEPARTMENT OF PATHOLOGY AND GENOMIC MEDICINE A/G ratio 0.8 0.7 - 3.8 [facility] DEPARTMENT OF PATHOLOGY AND GENOMIC MEDICINE Alkaline phosphatase 193 (H) 40 - 129 U/L [facility] DEPARTMENT OF PATHOLOGY AND GENOMIC MEDICINE AST 55 (H) 10 - 50 U/L [facility] DEPARTMENT OF PATHOLOGY AND GENOMIC MEDICINE ALT 40 5 - 50 U/L [facility] DEPARTMENT OF PATHOLOGY AND GENOMIC MEDICINE Total bilirubin 0.5 0.0 - 1.2 mg/dL [facility] DEPARTMENT OF PATHOLOGY AND GENOMIC MEDICINE Specimen Plasma specimen Performing Organization Address [facility] [place] [address] PATHOLOGY AND GENOMIC MEDICINE * Phosphorus level (05/28/2018 6:41 AM) Phosphorus 3.2 2.4 - 4.5 mg/dL [facility] DEPARTMENT OF PATHOLOGY AND [facility] MEDICINE Specimen Plasma specimen Performing Organization Address [facility] [place] [address] PATHOLOGY AND [facility] MEDICINE * Magnesium level (05/28/2018 6:41 AM) Magnesium 2.0 1.6 - 2.4 mg/dL [facility] DEPARTMENT OF PATHOLOGY AND GENOMIC MEDICINE Specimen Plasma specimen Performing Organization Address [facility] [place] [address] PATHOLOGY AND GENOMIC MEDICINE * FK506 level (05/28/2018 5:30 AM) Only the most recent of 2 results within the time period is included. FK506 level <2.0 ng/mL [facility] DEPARTMENT OF Comment: PATHOLOGY AND Therapeutic range 5-20 ng/mL [facility] for 12 hour trough. The range varies depending on the organ transplanted, time after transplantation and co-administered immunosuppressant therapies. Please use clinical judgment to interpret test result. Test performed using [employer] Machine Feeder chemiluminescent microparticle immunoassay for Tacrolimus on the DESIGN TECHNOLOGY PROFESSOR i System. Performing Organization Address [facility] Phone Number [facility] [place] [address] PATHOLOGY AND [facility] MEDICINE * Sirolimus level (05/28/2018 5:30 AM) Only the most recent of 10 results within the time period is included. Sirolimus 7.3 ng/mL [facility] DEPARTMENT OF Comment: PATHOLOGY AND The recommended trough is 4-12 GENOMIC MEDICINE ng/mL while on CNI (calcineurin inhibitors: Cyclcosporine and Tacrolimus). When used without CNI, higher trough concentrations may be desired, typically 12-20 ng/mL. Occasional patients may require 20-30 ng/mL. Test performed using [employer] Machine Feeder chemiluminescent microparticle immunoassay for Sirolimus on the DESIGN TECHNOLOGY PROFESSOR i System Performing Organization Address City/[facility]/[place] [address] PATHOLOGY AND GENOMIC MEDICINE * Hepatic function panel (05/27/2018 5:05 AM) Only the most recent of 2 results within the time period is included. Albumin 2.9 (L) 3.5 - 5.0 g/dL [facility] DEPARTMENT OF PATHOLOGY AND GENOMIC MEDICINE Total bilirubin <0.2 0.0 - 1.2 mg/dL [facility] DEPARTMENT OF PATHOLOGY AND GENOMIC MEDICINE Bilirubin direct <0.2 0.0 - 0.3 mg/dL [facility] DEPARTMENT OF PATHOLOGY AND GENOMIC MEDICINE Alkaline phosphatase 74 40 - 129 U/L [facility] DEPARTMENT OF PATHOLOGY AND GENOMIC MEDICINE Protein 6.5 6.3 - 8.3 g/dL [facility] DEPARTMENT OF Comment: PATHOLOGY AND [place] GENOMIC MEDICINE 4.6-7.0 g/dL 1 week 4.4-7.6 g/dL 7 months-1year 5.1-7.3 g/dL 1-2 years5.6-7 .5 g/dL >3 years6.0-8 .0 g/dL 18-150 6.3-8.3 g/dL ALT 23 5 - 50 U/L [facility] DEPARTMENT OF PATHOLOGY AND GENOMIC MEDICINE AST 22 10 - 50 U/L [facility] DEPARTMENT OF PATHOLOGY AND GENOMIC MEDICINE Specimen Plasma specimen Performing Organization Address City/State/Zipcode Phone Number [place] [phone] PATHOLOGY AND [employer] [facility] * Basic metabolic panel (05/27/2018 5:05 AM) Only the most recent of 5 results within the time period is included. Sodium 141 135 - 148 mEq/L [facility] DEPARTMENT OF PATHOLOGY AND GENOMIC MEDICINE Potassium 3.8 3.5 - 5.0 mEq/L [facility] DEPARTMENT OF PATHOLOGY AND GENOMIC MEDICINE Chloride 97 (L) 98 - 112 mEq/L [facility] DEPARTMENT OF PATHOLOGY AND GENOMIC MEDICINE CO2 32 (H) 24 - 31 mEq/L [facility] DEPARTMENT OF PATHOLOGY AND GENOMIC MEDICINE Anion gap 12@ANIO 7 - 15 mEq/L [facility] DEPARTMENT OF PATHOLOGY AND GENOMIC MEDICINE BUN 24 (H) 8 - 23 mg/dL [facility] DEPARTMENT OF PATHOLOGY AND GENOMIC MEDICINE Creatinine 1.6 (H) 0.7 - 1.2 mg/dL [facility] DEPARTMENT OF PATHOLOGY AND GENOMIC MEDICINE Glucose 131 (H) 65 - 99 mg/dL [facility] DEPARTMENT OF PATHOLOGY AND GENOMIC MEDICINE Calcium 10.4 (H) 8.8 - 10.2 mg/dL [facility] DEPARTMENT OF PATHOLOGY AND GENOMIC MEDICINE Specimen Plasma specimen Performing Organization Address [facility] Phone Number [facility] DEPARTMENT OF [address] [place] [address] PATHOLOGY AND GENOMIC MEDICINE * XR Chest [...] within normal limits. No acute osseous abnormalities. [facility]-[id number] Procedure Note Hm Interface, Radiology Results Incoming [...] within normal limits. No acute osseous abnormalities. [facility]-[id number] Performing Organization Address City/[facility] Phone Number [facility] [address] [place] [address] * ECG 12 lead (05/24/2018 10:47 AM) Only the most recent of 2 results within the time period is included. Ventricular rate 72 [facility] Atrial rate 72 [facility] IN interval 216 [facility] QRSD interval 106 [facility] QT interval 422 [facility] QTC interval 462 [facility] P axis 1 50 [facility] QRS axis 1 15 [facility] T wave axis 107 [facility] MUSE EKG impression Sinus rhythm with sinus [facility] MUSE arrhythmia with 1st degree AV block-Inferior infarct (cited on or before 17-MAY-2018)-Abnormal ECG- Performing Organization Address City/State/Zipcode Phone Number [facility] MUSE [address] [place] [address] * Immunoglobulin E (05/22/2018 5:55 AM) IgE 10.2 0.0 - 100.0 IU/mL [facility] DEPARTMENT OF PATHOLOGY AND GENOMIC MEDICINE Specimen Plasma specimen Performing Organization Address City/[facility] Phone Number [facility] [address] PATHOLOGY AND GENOMIC MEDICINE * Immunoglobulin A (05/22/2018 5:55 AM) IgA 74 70 - 400 mg/dL [facility] DEPARTMENT OF PATHOLOGY AND GENOMIC MEDICINE Specimen Plasma specimen Performing Organization Address [facility] Phone Number [facility] [address] PATHOLOGY AND GENOMIC MEDICINE * Immunoglobulin M (05/22/2018 5:55 AM) IgM 42 33 - 255 mg/dL [facility] DEPARTMENT OF PATHOLOGY AND GENOMIC MEDICINE Specimen Plasma specimen Performing Organization Address [facility] Phone Number [facility] [place] [address] PATHOLOGY AND GENOMIC MEDICINE * Immunoglobulin G (05/22/2018 5:55 AM) IgG 703 700 - 1,600 mg/dL [facility] DEPARTMENT OF PATHOLOGY AND GENOMIC MEDICINE Specimen Plasma specimen Performing Organization Address [facility] Phone Number [facility] [place] [address] PATHOLOGY AND GENOMIC MEDICINE * XR Abdomen [...] of the abdominal aorta. Bones are stable. [id number] Procedure Note Hm Interface, Radiology Results Incoming - 05/19/2018 4:39 PM CDT Study:XR ABDOMEN 1 VW PORTABLE History:constipation COMPARISON:July 06, 2012 IMPRESSION: 2 views of the abdomen. No bowel distention or free air. Large amount of stool present in the colon. 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 There is calcification of the abdominal aorta. Bones are stable. [id number] Performing Organization Address City/[facility] [place] [address] * CBC hemogram (05/18/2018 6:00 AM) WBC 7.42 4.50 - 11.00 k/uL [facility] DEPARTMENT OF PATHOLOGY AND GENOMIC MEDICINE RBC 4.59 4.40 - 6.00 m/uL [facility] DEPARTMENT OF PATHOLOGY AND GENOMIC MEDICINE HGB 11.9 (L) 14.0 - 18.0 g/dL [facility] DEPARTMENT OF PATHOLOGY AND GENOMIC MEDICINE HCT 37.7 (L) 41.0 - 51.0 % [facility] DEPARTMENT OF PATHOLOGY AND GENOMIC MEDICINE MCV 82.1 82.0 - 100.0 fL [facility] DEPARTMENT OF PATHOLOGY AND GENOMIC MEDICINE MCH 25.9 (L) 27.0 - 34.0 pg [facility] DEPARTMENT OF PATHOLOGY AND GENOMIC MEDICINE MCHC 31.6 31.0 - 37.0 g/dL [facility] DEPARTMENT OF PATHOLOGY AND GENOMIC MEDICINE RDW - SD 53.4 37.0 - 55.0 fL [facility] DEPARTMENT OF PATHOLOGY AND GENOMIC MEDICINE MPV 9.8 8.8 - 13.2 fL [facility] DEPARTMENT OF PATHOLOGY AND GENOMIC MEDICINE Platelet count 156 150 - 400 k/uL [facility] DEPARTMENT OF PATHOLOGY AND GENOMIC MEDICINE Nucleated RBC 0.00 /100 WBC [facility] DEPARTMENT OF PATHOLOGY AND GENOMIC MEDICINE Specimen Blood Performing Organization Address [facility] Phone Number [place] [phone] PATHOLOGY AND GENOMIC MEDICINE * Uric acid level (05/18/2018 6:00 AM) Uric acid 4.4 3.4 - 7.0 mg/dL [facility] DEPARTMENT OF PATHOLOGY AND GENOMIC MEDICINE Specimen Plasma specimen Performing Organization Address [facility] Phone Number [address] [address] PATHOLOGY AND GENOMIC MEDICINE * Thyroid stimulating hormone (05/18/2018 6:00 AM) TSH 1.50 0.27 - 4.20 uIU/mL [facility] DEPARTMENT OF PATHOLOGY AND GENOMIC MEDICINE Specimen Plasma specimen Performing Organization Address City/[facility] Phone Number [facility] DEPARTMENT OF [address] [place] [address] PATHOLOGY AND GENOMIC MEDICINE * Surgical pathology request (05/17/2018 4:44 PM) Only the most recent of 2 results within the time period is included. [facility] DEPARTMENT OF PATHOLOGY AND GENOMIC MEDICINE Surgical pathology report See link below for PDF Lab [facility] DEPARTMENT OF Report PATHOLOGY AND GENOMIC MEDICINE Result status This is Supplemental Report [facility] [facility] DEPARTMENT OF [id number] PATHOLOGY AND GENOMIC MEDICINE Performing Organization Address City/[facility] Cent[facility]ode Phone Number [facility] DEPARTMENT [address] [address] PATHOLOGY AND GENOMIC MEDICINE * Respiratory culture (05/17/2018 3:21 PM) Only the most recent of 3 results within the time period is included. Respiratory culture Normal oral chirag and (A) [facility] DEPARTMENT OF isolate Comment: PATHOLOGY AND Specimen Information GENOMIC MEDICINE Specimen Source: Bronchial Washing Specimen Site: RUL (right upper lobe) Respiratory culture Pseudomonas aeruginosa [facility] DEPARTMENT OF isolate Moderate PATHOLOGY AND [...] SHAHBAZ 4/4 mcg/mL: Susceptible Performing Organization Address City/[facility] Cent[facility]ode Phone Number [facility] DEPARTMENT [address] [address] PATHOLOGY AND GENOMIC MEDICINE * Fungus smear (05/17/2018 3:21 PM) Only the most recent of 3 results within the time period is included. Fungus smear No fungi observed. [facility] DEPARTMENT OF Comment: PATHOLOGY AND Specimen Information GENOMIC MEDICINE Specimen Source: Bronchial alveolar lavage Specimen Site: RUL (right upper lobe) Specimen Bronchial alveolar lavage - RUL (right upper lobe) Performing Organization Address [facility]/Zipcode Phone Number [place] [phone] PATHOLOGY AND GENOMIC MEDICINE * Respiratory pathogen panel (05/17/2018 3:21 PM) Respiratory pathogen Negative for all pathogens [facility] DEPARTMENT OF panel tested: PATHOLOGY AND [...] RUL (right upper lobe) Performing Organization Address [facility] Centercode Phone Number [facility] DEPARTMENT [address] [address] PATHOLOGY AND [facility] MEDICINE * BAL cell count and differential (05/17/2018 3:21 PM) BAL specimen source RUL BAL [facility] DEPARTMENT OF PATHOLOGY AND GENOMIC MEDICINE BAL cell count 0.585 m/mL [facility] DEPARTMENT OF Comment: PATHOLOGY AND Normal ranges: Nonsmokers: GENOMIC MEDICINE 0.007 - 0.363 Smokers: 0 - 1.31 BAL PAMS 4 % [facility] DEPARTMENT OF Comment: PATHOLOGY AND Normal ranges: Nonsmokers: 65 GENOMIC MEDICINE - 100 Smokers: 81 - 100 BAL PMNS 85 % [facility] DEPARTMENT OF Comment: PATHOLOGY AND Normal ranges: Nonsmokers: 0 - GENOMIC MEDICINE 3 Smokers: 0 - 2 BAL eosinophils 4 % [facility] DEPARTMENT OF Comment: PATHOLOGY AND Normal ranges: Nonsmokers: 0 - GENOMIC MEDICINE 1 Smokers: 0 - 1 BAL lymphs 7 % [facility] DEPARTMENT OF Comment: PATHOLOGY AND Normal ranges: Nonsmokers: 0 - GENOMIC MEDICINE 10 Smokers: 0 - 5 Specimen Fluid Narrative Performed At [facility] DEPARTMENT OF PATHOLOGY AND GENOMIC MEDICINE Performing Organization Address City/[facility] Cent[facility]ode Phone Number [facility] [place] [place] [address] PATHOLOGY AND GENOMIC MEDICINE * Cytomegalovirus by PCR (05/17/2018 3:21 PM) Cytomegalovirus by PCR Indeterminate (A) Not-Detected IU/mL [facility] DEPARTMENT OF PATHOLOGY AND GENOMIC MEDICINE Cytomegalovirus by PCR See link below for PDF Lab [facility] DEPARTMENT OF ReportComment: Case Number: PATHOLOGY AND [id number] GENOMIC MEDICINE Narrative Performed At [facility] DEPARTMENT OF PATHOLOGY AND GENOMIC MEDICINE Performing Organization Address City/[facility] [place] [address] PATHOLOGY AND GENOMIC MEDICINE * Varicella zoster by PCR (05/17/2018 3:21 PM) VZV result Not-Detected Not-Detected copies/mL [facility] DEPARTMENT OF PATHOLOGY AND GENOMIC MEDICINE Varicella zoster, PCR See link below for PDF Lab [facility] DEPARTMENT OF ReportComment: Case Number: PATHOLOGY AND [id number] GENOMIC MEDICINE Narrative Performed At [facility] DEPARTMENT OF PATHOLOGY AND GENOMIC MEDICINE Performing Organization Address City/[facility] Centercode Phone Number [facility] [place] [address] PATHOLOGY AND GENOMIC MEDICINE * Herpes simplex virus by PCR (05/17/2018 3:21 PM) Herpes virus, PCR Not-Detected Not-Detected [facility] DEPARTMENT OF PATHOLOGY AND GENOMIC MEDICINE Herpes virus, PCR See link below for PDF Lab [facility] DEPARTMENT OF ReportComment: Case Number: PATHOLOGY AND [id number] GENOMIC MEDICINE Narrative Performed At [facility] DEPARTMENT OF PATHOLOGY AND GENOMIC MEDICINE Performing Organization Address City/[facility] Centercode Phone Number [facility] [address] PATHOLOGY AND GENOMIC MEDICINE * AFB culture (05/17/2018 3:21 PM) Only the most recent of 4 results within the time period is included. AFB culture isolate No growth after 6 weeks of [facility] DEPARTMENT OF incubation. PATHOLOGY AND Comment: GENOMIC MEDICINE Specimen Information Specimen Source: Bronchial alveolar lavage Specimen Site: RUL (right upper lobe) Specimen Bronchial alveolar lavage - RUL (right upper lobe) Performing Organization Address [facility] Centercode Phone Number [facility] DEPARTMENT OF [address] [place] [address] PATHOLOGY AND GENOMIC MEDICINE * Nocardia culture (05/17/2018 3:21 PM) Only the most recent of 2 results within the time period is included. Nocardia culture isolate No Nocardia isolated after 7 [facility] DEPARTMENT OF days. PATHOLOGY AND Comment: GENOMIC MEDICINE Specimen Information Specimen Source: Bronchial alveolar lavage Specimen Site: RUL (right upper lobe) Specimen Bronchial alveolar lavage - RUL (right upper lobe) Performing Organization Address [facility] Centercode Phone Number [facility] DEPARTMENT OF [address] [place] [phone] PATHOLOGY AND GENOMIC MEDICINE * Legionella culture (05/17/2018 3:21 PM) Legionella culture No Legionella isolated. (A) [facility] DEPARTMENT OF isolate Comment: PATHOLOGY AND Specimen Information GENOMIC MEDICINE Specimen Source: Bronchial Washing Specimen Site: RUL (right upper lobe) Legionella culture Aspergillus flavus (A) [facility] DEPARTMENT OF isolate PATHOLOGY AND GENOMIC MEDICINE Specimen Bronchial washing - RUL (right upper lobe) Performing Organization Address [facility] Centercode Phone Number [facility] DEPARTMENT OF [address] [place] [address] PATHOLOGY AND GENOMIC MEDICINE * AFB stain (05/17/2018 3:21 PM) Only the most recent of 4 results within the time period is included. AFB stain No acid fast bacilli (AFB) [facility] DEPARTMENT OF seen. PATHOLOGY AND Comment: GENOMIC MEDICINE Specimen Information Specimen Source: Bronchial alveolar lavage Specimen Site: RUL (right upper lobe) Specimen Bronchial alveolar lavage - RUL (right upper lobe) Performing Organization Address City/[facility] Centercode Phone Number [facility] DEPARTMENT OF [address] [place] [phone] PATHOLOGY AND GENOMIC MEDICINE * Fungus culture (05/17/2018 3:21 PM) Only the most recent of 3 results within the time period is included. Fungus culture isolate No growth after 4 weeks of [facility] DEPARTMENT OF incubation. PATHOLOGY AND Comment: GENOMIC MEDICINE Specimen Information Specimen Source: Bronchial alveolar lavage Specimen Site: RUL (right upper lobe) Specimen Bronchial alveolar lavage - RUL (right upper lobe) Performing Organization Address City/[facility]/Zipcode Phone Number [address] [address] PATHOLOGY AND GENOMIC MEDICINE * Cytology (non-gynecological) request (05/17/2018 3:21 PM) Only the most recent of 2 results within the time period is included. [facility] DEPARTMENT OF PATHOLOGY AND GENOMIC MEDICINE Cytology See link below for PDF Lab [facility] DEPARTMENT OF (non-gynecological) Report PATHOLOGY AND report GENOMIC MEDICINE Result status This is Final Report to [facility] DEPARTMENT OF [id number] PATHOLOGY AND GENOMIC MEDICINE Performing Organization Address City/[facility]ercode Phone Number [facility] DEPARTMENT [address] [address] PATHOLOGY AND GENOMIC MEDICINE * Histoplasma antigen, serum (05/17/2018 12:23 PM) Histoplasma antigen, None Detected ng/mL [facility] DEPARTMENT OF serum Comment: PATHOLOGY AND INTERPRETATION: HISTOPLASMA GENOMIC MEDICINE ANTIGEN -Reference interval: None Detected -Results reported as ng/mL in 0.4 - 19.0 ng/mL -Results above the limit of detection but below 0.4 ng/mL are reported as 'Positive, Below the Limit of Quantification' -Results above 19.0 ng/mL are reported as 'Positive, Above the Limit of Quantification' Performing Organization Address [facility] [place] [address] PATHOLOGY AND GENOMIC MEDICINE * Partial thromboplastin time, activated (05/17/2018 11:55 AM) PTT 22.4 (L) 23.0 - 36.0 sec [facility] DEPARTMENT OF Comment: PATHOLOGY AND PTT therapeutic range for GENOMIC MEDICINE unfractionated heparin is 61.0-112.0 seconds which corresponds to Anti-Xa 0.3-0.7 U/ml. Specimen Blood Performing Organization Address City/[facility]/Zipcode Phone Number [address] [address] PATHOLOGY AND GENOMIC MEDICINE * Prothrombin time with INR (05/17/2018 11:55 AM) Prothrombin time 13.4 12.0 - 15.0 sec [facility] DEPARTMENT OF PATHOLOGY AND GENOMIC MEDICINE INR 1.0 [facility] DEPARTMENT OF Comment: PATHOLOGY AND The International Normalized GENOMIC MEDICINE Ratio (INR) is a therapeutic monitoring tool for patients who are stable on oral anticoagulant therapy. An INR of 2.0-3.0 is suggested for deep vein thrombosis/pulmonary embolism. Specimen Blood Performing Organization Address City/State/Zipcode Phone Number [facility] DEPARTMENT OF [address] [place] [address] PATHOLOGY AND GENOMIC MEDICINE * Sputum culture (05/15/2018 12:20 PM) Only the most recent of 2 results within the time period is included. Sputum culture isolate Normal oral chirag and (A) [facility] DEPARTMENT OF Comment: PATHOLOGY AND Specimen Information GENOMIC MEDICINE Specimen Source: Sputum Specimen Site: Expectorated Sputum culture isolate Pseudomonas aeruginosa [facility] DEPARTMENT OF Many PATHOLOGY AND susceptibility to follow GENOMIC MEDICINE This organism is NOT a carbapenemase producing organism. (A) Sputum culture isolate Escherichia coli [facility] DEPARTMENT OF Many PATHOLOGY AND identification/susceptibility [...] Susceptible Performing Organization Address City/State/Zipcode Phone Number [facility] DEPARTMENT OF [address] [place] [address] PATHOLOGY AND GENOMIC MEDICINE * Echocardiogram complete w contrast and 3D if needed (03/26/2018 10:45 AM) Narrative Performed At [facility] Echocardiography Report Pat.Name:NATALIA LILLI JR Pat.ID:[id number] .Date: 03/26/2018 Refer.MD:DARIUS JIMÉNEZ MD Exam Time: 10:08:00 AM Study Type:Routine Echo Height:67inWeight:130lb BSA: 1.69 m2 DOBAge:1930,88Y Sex: MALEBP:130/71 HR:71 bpm Sonogrphr: Ina Vásquez, RCS, RCCS, CCT Pat. Stat.:OutpatientRoom:[facility] TapeVol: [facility], Study Status:Final Echo Event ID:[id number] Order ID:[id number] Reason for Study:AVR History / Clinical:Hypertension, Liver [...] PA systolic pressure. MEASUREMENTS: 2D Parasternal Long [place] LA Ds4.3 cmLVPWd0.8 cm LVOT 2 cmAo An2.3 cm LVIDd4.5 cmIndex2.7 cm/m Ao Rtd 3.4 cm Index2 cm/m LVIDs2.9 cm LV Ztaw556.1 g(122-174) LV%fs 35.7 % LVM Eerun298.5 g/m2 IVSd 1.5 cmRWT0.3 LA Volume LA Vol76.9 ptXmrwk02.5 ml/m LA Sng Plane LA Area 24.6 cm2(8.8-23.4) LA Vol77.6 ml Index45.9 ml/m LA LngAx 6.6 cm DOPPLER AV For Flow/MARTINEZ AV Area1.5 cm2(3-5)AV ET322 msec AV pkVel 290.3 cm/s (100-170) AV AC/ET 0.3 AV mnVel 194.7 cm/Francy TVI62.8 cm AV pkPG 33.7 mmHgAVpkAcRt 49125.4 cm/s2 AV Mean G 18.7 mmHgAV VaXx798.5 cm/s2 AV AC108 msec (83-118) LVOT For Flow KVCXagGoi738.2 cm/sHR82.8 bpm LVOTpkPG 4.6 mmHgLVOT CO7.2 l/min LVOTmnPG 2.8 mmHgLVOT CI4.3 l/m/m2 LVOT TVI27.7 cmLVOT Area3.1 cm2 LVOT SV 87 ml WALL MOTION: RESTING WALL MOTION: Basal Inferior, Basal Inferolateral, Mid Inferolateral brito are hypokinetic. Normal in all other brito. Wall Index=1.2 Signed 03/27/2018 05:52 PM Francisco Javier Villela M.D. Procedure Note Interface, Radiology Results In - 03/27/2018 5:53 PM CDT [facility] Echocardiography Report Pat.Name: LILLI GREWAL JR Pat.ID: [id number] .Date: 03/26/2018 Refer.MD: DARIUS JIMÉNEZ MD Exam Time: 10:08:00 AM Study Type:Routine Echo Height: 67in Weight: 130lb BSA: 1.69 m2 Age: 5 1930,88Y Sex: MALE BP: 130/71 HR: 71 bpm Sonogrphr: Ina Vásquez, RCS, RCCS, CCT Pat. Stat.:Outpatient Room: [address] Vol: [facility], Study Status:Final Echo Event ID:[id number] Order ID: [id number] Reason for Study:AVR History / Clinical:Hypertension, Liver [...] PA systolic pressure. MEASUREMENTS: 2D Parasternal Long [place] LA Ds 4.3 cm LVPWd 0.8 cm [...] 62.8 cm AV pkPG 33.7 mmHg AVpkAcRt 34579.4 cm/s2 AV Mean G 18.7 mmHg AV [...] Francisco Javier Villela M.D. Performing Organization Address City/State/[facility] Phone Number [facility] [address] [place] [address] after 07/30/2017 Insurance Payer Benefit Subscriber ID Type Phone Address Plan / Group MEDICARE MEDICARE xxxxxxxxxx Medicare [place], [place] PART A AND B AARP AARP xxxxxxxxxxx Commercial SUPPLEMENT
--- OUTSIDE RECORDS SUMMARY | 2018-07-31 11:13 | XMS REPORT | Clinical Summary ---
Author Author [facility] Address Unknown Phone Unavailable Care Team Providers Care Sampler Radioactive Waste Name Role Phone PCP Unavailable Allergies No [...] by Each Nare Active mcg (0.025 %) Kulm route as needed. hydrOXYzine (ATARAX) 25 Take [...] liver transplantation (HCC) 11/25/2013 Overview: ICD9 DX Bow Maker Gift Wrapping L ast Assessment & Plan: OLT Date: 04/29/2003 Dx: HCV genotype 2a. No recurrent HCV infection currently with undetectable HCV RNA. No major issues of acute or chronic rejection or biliary stricture. Continue current care plan. 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 Immunosuppression ([facility]) 11/25/2013 Last Assessment & Plan: Sirolimus monotherapy [...] bloodwork 05/29/2018 Telephone Transplant Hepatology Bridget Cortes, filenet architect Dose Change 04/22/2018 Orders Only Transplant Hepatology [...] Taken Blood Pressure 155/75 12/20/2017 9:32 AM [facility] Pulse 55 12/20/2017 9:32 AM [facility] Temperature 36.4 C (97.5 F) 12/20/2017 9:32 AM [facility] Respiratory Rate 18 12/20/2017 9:32 AM [facility] Oxygen Saturation 98% 12/20/2017 9:32 AM [facility] Inhaled Oxygen - - Concentration Weight 59.6 kg (131 lb 8 oz) 12/20/2017 9:32 AM [facility] Height 163.8 cm (5' 4.5") 12/20/2017 9:32 AM [facility] Body Mass Index 22.22 12/20/2017 9:32 AM [facility] Plan of Treatment Health Maintenance Due Date Last Done Comments INFLUENZA VACCINE 07/15/2018 Results * Sirolimus level (04/22/2018 9:22 AM) Only the most recent of 3 results within the time period is included. Component Value Ref Range Rapamycin Trough 14.1 3.0 - 18.0 mcg/L Comment: This test was developed and its analytical performance characteristics have been determined by [facility]. It has not been cleared or approved by the [place] Food and Drug Administration. This assay has been validated pursuant to the CLIA regulations and is used for clinical purposes. Specimen Performing Laboratory [address] [place] [address] Narrative FASTING:YES FASTING: YES * CBC with [...] Baso 0.4 % Specimen Performing Laboratory [facility] [address] [place] [address], [place] [address] Narrative FASTING:YES FASTING: YES * Bilirubin, total and direct (04/22/2018 9:22 AM) Only the most recent of 2 results within the time period is included. Component Value Ref Range Bilirubin, Direct 0.1 < OR=0.2 mg/dL Specimen Performing Laboratory [address] [place] [address] Narrative FASTING:YES FASTING: YES * Magnesium (04/22/2018 9:22 AM) Only the most recent of 3 results within the time period is included. Component Value Ref Range Magnesium, Serum 2.1 1.5 - 2.5 mg/dL Specimen Performing Laboratory [facility] [address] [place], [place] [address], [place] [address] Narrative FASTING:YES FASTING: YES * Comprehensive metabolic [...] approximately 13% higher for people identified as -[place] Islander. eGFR If NonAfricn Am 44 (L) > [...] - 46 U/L Specimen Performing Laboratory [facility] [address] [place] [address] Narrative FASTING:YES FASTING: YES * CBC with [...] 1 % Granulocytes-Relative Specimen Performing Laboratory Blood [address] [address] * Bilirubin, direct (12/20/2017 9:20 AM) Component Value Ref Range Bilirubin, Direct 0.3 0.1 - 0.5 mg/dL Specimen Performing Laboratory Blood [address] [address] after 07/30/2017
[2018-07-31 12:05] VITALS: BP 144/64
[2018-07-31] MEDS: PHENAZOPYRIDINE HCL 100 MG TAB PO SCH ×2 (12:30→17:45)
[2018-07-31] MEDS: CEFTRIAXONE SOD 1 GM VIAL IV SCH (12:30)
[2018-07-31] MEDS: SODIUM CHLORIDE 0.9% 1000ML 1,000 ML IV SCH (12:30)
[2018-07-31 12:52] VITALS: BP 144/64
[2018-07-31 16:14] VITALS: BP 121/60
[2018-07-31] MEDS ORDERED: PROPOFOL IV EMULSION 10 MG/ML 20 ML VIAL ONE (17:38)
[2018-07-31] MEDS ORDERED: DEXAMETHASONE SOD PHOS INJ 4 MG/ML VIAL ONE (17:38)
[2018-07-31] MEDS ORDERED: LIDOCAINE HCL 2% LOCAL INJ 5 ML SDV VIAL INJ ONE (17:38)
[2018-07-31] MEDS ORDERED: EPHEDRINE SULFATE INJ 50 MG/10 ML SYR ONE (17:38)
[2018-07-31] MEDS ORDERED: DESFLURANE 240 ML BTL INH ONE (17:38)
[2018-07-31] MEDS: DOCUSATE SODIUM 100 MG CAP PO SCH (17:45)
[2018-07-31 20:00] VITALS: BP 131/60
[2018-08-01] VITALS (9 sets, daily range): BP systolic 100–144; BP diastolic 45–79
[2018-08-01] MEDS: SODIUM CHLORIDE 0.9% 1000ML 1,000 ML IV SCH ×2 (05:24→07:51)
[2018-08-01 05:30] LABS: BASOPHILS % 0.2 % (0.0-1.0); EOSINOPHILS % 0.2 % (0.0-6.0); HEMATOCRIT 30.4 % (38.2-49.6); HEMOGLOBIN 9.7 g/dL (14.0-18.0); LYMPHOCYTES # (AUTO) 0.6 (1.0-3.2); LYMPHOCYTES % 13.1 % (18.0-39.1); MEAN CORPUSCULAR HEMOGLOBIN 26.8 pg (28-32); MEAN CORPUSCULAR HGB CONC 31.9 g/dL (31-35); MONOCYTES # (AUTO) 0.3 (0.2-0.8); MONOCYTES % 6.9 % (4.4-11.3); NEUTROPHILS # (AUTO) 3.6 (2.1-6.9); NEUTROPHILS % 79.4 % (38.7-80.0); PLATELET COUNT 102 x10e3/uL (140-360); RED BLOOD COUNT 3.62 x10e6/uL (4.3-5.7); RED CELL DISTRIBUTION WIDTH 17.2 % (11.7-14.4)
[2018-08-01 05:48] LABS: ANION GAP 15.7 mmol/L (8-16); CREATININE, SERUM 1.49 mg/dL (0.72-1.25); POTASSIUM 3.7 mmol/L (3.5-5.1)
[2018-08-01] MEDS: DOCUSATE SODIUM 100 MG CAP PO SCH ×2 (07:51→16:40)
[2018-08-01] MEDS: PHENAZOPYRIDINE HCL 100 MG TAB PO SCH ×3 (07:51→16:40)
[2018-08-01 07:56] LABS: LYMPHOCYTES % (MANUAL) 14 % (19-48); MONOCYTES % (MANUAL) 7 % (3.4-9.0); NEUTROPHILS % (MANUAL) 78 % (40-74)
[2018-08-01 07:58] LABS: ANISOCYTOSIS SLIGHT; PLATELET ESTIMATE ADEQUATE; PLATELET MORPHOLOGY COMMENT NORMAL; RBC MORPHOLOGY COMMENT NORMAL
[2018-08-01] MEDS: PROPRANOLOL HCL 10 MG TAB PO SCH ×4 (09:34→21:11)
[2018-08-01] MEDS: CYANOCOBALAMIN 1,000 MCG TAB PO SCH (09:35)
[2018-08-01] MEDS: FINASTERIDE 5 MG TAB PO SCH (09:35)
[2018-08-01] MEDS: SODIUM BICARBONATE 650 MG TAB PO SCH (09:35)
[2018-08-01] MEDS ORDERED: PNEUMOCOCCAL VACCINE POLYVALENT 23 MCG/0.5 ML VIAL IM SCH (11:00)
[2018-08-01] MEDS: CEFTRIAXONE SOD 1 GM VIAL IV SCH (11:59)
[2018-08-01] MEDS ORDERED: PROPRANOLOL HCL40 MG PO (12:03)
[2018-08-01] MEDS ORDERED: OYSTER SHELL 51 EACH PO (12:03)
[2018-08-01] MEDS ORDERED: AMLODIPINE BESYL5 MG PO (12:03)
[2018-08-01] MEDS ORDERED: FINASTERIDE5 MG PO (17:24)
[2018-08-01] MEDS ORDERED: ZINC SULFATE220 MG PO (17:24)
[2018-08-01] MEDS ORDERED: URSODIOL300 MG PO (17:24)
[2018-08-01] MEDS ORDERED: FUROSEMIDE40 MG PO (17:24)
[2018-08-01] MEDS ORDERED: GABAPENTIN100 MG PO (17:26)
[2018-08-02] VITALS: BP 134/66
[2018-08-02 04:00] VITALS: BP 137/63
[2018-08-02 05:46] LABS: BASOPHILS % 0.7 % (0.0-1.0); EOSINOPHILS # (AUTO) 0.3 (0.0-0.4); EOSINOPHILS % 5.4 % (0.0-6.0); HEMOGLOBIN 10.4 g/dL (14.0-18.0); LYMPHOCYTES # (AUTO) 1.1 (1.0-3.2); MEAN CORPUSCULAR HEMOGLOBIN 27.2 pg (28-32); MEAN CORPUSCULAR HGB CONC 32.5 g/dL (31-35); MEAN CORPUSCULAR VOLUME 83.8 fL (81-99); MONOCYTES # (AUTO) 0.5 (0.2-0.8); MONOCYTES % 8.4 % (4.4-11.3); NEUTROPHILS # (AUTO) 3.4 (2.1-6.9); NEUTROPHILS % 64.1 % (38.7-80.0); PLATELET COUNT 120 x10e3/uL (140-360); RED BLOOD COUNT 3.82 x10e6/uL (4.3-5.7); RED CELL DISTRIBUTION WIDTH 17.4 % (11.7-14.4)
[2018-08-02 06:12] LABS: ANION GAP 14.4 mmol/L (8-16); CREATININE, SERUM 1.29 mg/dL (0.72-1.25); POTASSIUM 3.4 mmol/L (3.5-5.1)
[2018-08-02 08:00] VITALS: BP_SYST 152; BP_DIAS 75; BP_DIAS 82
[2018-08-02 08:24] VITALS: BP 152/82
[2018-08-02] MEDS ORDERED: POTASSIUM CHLORIDE 10MEQ EA PO ONE (09:30)
[2018-08-02] MEDS: CYANOCOBALAMIN 1,000 MCG TAB PO SCH (09:54)
[2018-08-02] MEDS: PROPRANOLOL HCL 10 MG TAB PO SCH ×4 (09:54→21:20)
[2018-08-02] MEDS: SODIUM BICARBONATE 650 MG TAB PO SCH (09:54)
[2018-08-02] MEDS: PHENAZOPYRIDINE HCL 100 MG TAB PO SCH ×3 (09:54→17:00)
[2018-08-02] MEDS: FINASTERIDE 5 MG TAB PO SCH (09:54)
[2018-08-02] MEDS: DOCUSATE SODIUM 100 MG CAP PO SCH ×2 (09:54→17:00)
[2018-08-02] MEDS: CEFTRIAXONE SOD 1 GM VIAL IV SCH (11:18)
[2018-08-02 15:58] VITALS: BP 171/78
[2018-08-02 20:00] VITALS: BP 140/69
[2018-08-03] VITALS: BP 140/63
[2018-08-03 04:22] VITALS: BP 119/63
[2018-08-03 06:21] LABS: BASOPHILS % 0.8 % (0.0-1.0); EOSINOPHILS # (AUTO) 0.3 (0.0-0.4); EOSINOPHILS % 4.7 % (0.0-6.0); HEMATOCRIT 33.7 % (38.2-49.6); HEMOGLOBIN 10.8 g/dL (14.0-18.0); MEAN CORPUSCULAR HEMOGLOBIN 27.1 pg (28-32); MEAN CORPUSCULAR VOLUME 84.7 fL (81-99); MONOCYTES # (AUTO) 0.7 (0.2-0.8); MONOCYTES % 13.9 % (4.4-11.3); NEUTROPHILS # (AUTO) 3.2 (2.1-6.9); NEUTROPHILS % 61.2 % (38.7-80.0); PLATELET COUNT 107 x10e3/uL (140-360); RED BLOOD COUNT 3.98 x10e6/uL (4.3-5.7); RED CELL DISTRIBUTION WIDTH 17.1 % (11.7-14.4)
[2018-08-03 06:38] LABS: ANION GAP 15.5 mmol/L (8-16); CALCIUM 9.4 mg/dL (8.4-10.2); CREATININE, SERUM 1.4 mg/dL (0.72-1.25); POTASSIUM 4.5 mmol/L (3.5-5.1)
[2018-08-03 08:14] VITALS: BP 116/57
[2018-08-03] MEDS: PROPRANOLOL HCL 10 MG TAB PO SCH (09:00)
[2018-08-03] MEDS: SODIUM BICARBONATE 650 MG TAB PO SCH (09:00)
[2018-08-03] MEDS: DOCUSATE SODIUM 100 MG CAP PO SCH (09:00)
[2018-08-03] MEDS: FINASTERIDE 5 MG TAB PO SCH (09:00)
[2018-08-03] MEDS: CYANOCOBALAMIN 1,000 MCG TAB PO SCH (09:00)
[2018-08-03] MEDS: PHENAZOPYRIDINE HCL 100 MG TAB PO SCH (09:00)
[2018-08-03 11:56] VITALS: BP 130/71
--- NOTE | 2018-08-04 06:01 | Discharge Summary ---
SHIPPING WEIGHER: Dr. Pepe Zamarripa. FINAL DIAGNOSES 1. Enlarged prostate with urinary retention and associated with recurrent urinary tract infection. 2. Status post cystoscopy and retrograde with TURP done by Dr. Pepe Zamarripa. Procedure was done on July 31, 2018. 3. Postoperative hematuria and urinary retention, resolved. SUMMARY: An 88-year-old male with recurrent urinary tract infection and prostatitis associated with BPH. The patient was electively scheduled for cystoscopy and retrograde along with TURP. The patient postoperatively did well. No complications. He has usual hematuria postoperatively and was unable to tolerate the Carlos catheter. until now. The patient has hematuria, much improved. He is urinating, although he has some urinary incontinence, but there is no retention. The patient is able to tolerate diet. Pain control. At this time, he is stable. He will go home, resume his home medications including medication for his liver transplant history. He will take Tylenol No. 3 as needed for pain and Levaquin 250 mg daily for 7 days. The patient is otherwise stable. He will go home today. Resume home medications. Follow up with Dr. Pepe Zamarripa next week. Patient is stable, discharged home today. Job#: [id number] KEVIN
--- NOTE | 2018-09-19 00:23 | Operative Report ---
DATE OF PROCEDURE: July 31, 2018 PREOPERATIVE DIAGNOSES 1. Obstructive BPH. 2. Urinary tract infections. POSTOPERATIVE DIAGNOSES 1. Obstructive BPH. 2. Urinary tract infections. OPERATIONS PERFORMED 1. Cystourethroscopy with bilateral ureteral catheterization and retrograde ureteropyelography (separate procedure performed for the urinary tract infections). 2. Interpretation of retrograde ureteropyelography. 3. Cystourethroscopy with transurethral resection of the prostate (separate procedure performed for the obstructive BPH). ANESTHESIA: General. COMPLICATIONS: None. CLINICAL SUMMARY: Lilli Grewal Jr., is an 88-year-man with urinary retention and has a Carlos catheter in place. He has had urinary tract infection and is believed to have adequate bladder function to void. He is brought for the above procedures. He is a complicated patient who is status post transplantation. He is aware of the risks of bleeding, infection, injury to adjacent structures and a greatly increased risk of perioperative morbidity and mortality given his complicated medical history. He understood these risks and elected to proceed. OPERATIVE PROCEDURE IN DETAIL: Informed consent was verified. Lilli Grewal Jr., was properly identified, taken to the operating room, placed on the cystoscopy table in supine position. Anesthesia was uneventfully begun. The patient was then carefully and gently re-positioned in the dorsal lithotomy position with all pressure points well padded. His genitalia were prepared and draped in usual sterile fashion. The 22.5-South African cystoscope sheath with the visual obturator in place was atraumatically inserted in the patient's urethra. It was guided down an unremarkable urethra through the normal sphincteric region, through the prostate bed which was significant for visually obstructing bilobar BPH with kissing lateral lobes. Going to the patient's bladder where panendoscopy revealed grade 3 trabeculations with diffuse cellule formation. No suspicious lesions were identified. An 8-South African catheter was used to cannulate each ureter and retrograde ureteropyelograms were performed. Interpretation of retrograde ureteropyelography: Contrast was instilled in retrograde fashion bilaterally. There were no tumors, no stones, and no diverticula. Unobstructed drainage was observed bilaterally fluoroscopically. J-hooking was noted. Cystoscope was withdrawn. We atraumatically placed the resectoscope and a sheath into the patient's bladder. We utilized the plasma button electrode to vaporize the prostate from the bladder neck to but never past the verumontanum and down to the surgical capsule. Pinpoint electrocautery was utilized to achieve hemostasis. A continuous irrigation Carlos catheter was placed, and the patient was uneventfully reversed from anesthesia and taken to the recovery room in stable condition. There were no complications to the procedure. He tolerated the procedure well. We will plan on routine post-TURP care and of course lifelong urological monitoring. Job#: [id number] CF
== END 2018-08-03 12:35 | disposition home or self-care (01) | DRG 713 ==
LOC: OR 05:03 → PACU V 10:34 → MED/SURG 12:12
PROVIDERS: ADMIT Urology; ATTEND Urology
PROC: BT141ZZ Fluoroscopy of Kidneys, Ureters and Bladder using Low Osmolar Contrast (ICD-10-PCS; 2018-07-31)
PROC: 0T788ZZ Dilation of Bilateral Ureters, Via Natural or Artificial Opening Endoscopic (ICD-10-PCS; principal; 2018-07-31 07:00)
PROC: 0V508ZZ Destruction of Prostate, Via Natural or Artificial Opening Endoscopic (ICD-10-PCS; 2018-07-31 07:00)
DX: N40.1 Benign prostatic hyperplasia with lower urinary tract symptoms (principal); N13.8 Other obstructive and reflux uropathy; N39.0 Urinary tract infection, site not specified; N99.820 Postprocedural hemorrhage of a genitourinary system organ or structure following a genitourinary system procedure; Z94.4 Liver transplant status; R33.8 Other retention of urine; R35.1 Nocturia; R31.9 Hematuria, unspecified; K21.9 Gastro-esophageal reflux disease without esophagitis; E78.5 Hyperlipidemia, unspecified; Z79.01 Long term (current) use of anticoagulants; Z95.2 Presence of prosthetic heart valve; D64.9 Anemia, unspecified; E87.6 Hypokalemia; I12.9 Hypertensive chronic kidney disease with stage 1 through stage 4 chronic kidney disease, or unspecified chronic kidney disease; N18.9 Chronic kidney disease, unspecified
CPT/HCPCS: 36415; 71046; 74420; 80048; 83735; 85025; 85610; 85730; 86850; 86900; 93005; J0696; J1100; J1580; J2001; J2270; J2405; J2550; J2765; J7030

== ENCOUNTER 2018-11-10 23:40 | Emergency (ER) | payer MEDICARE ==
[~2018-11-10] VITALS: Ht 170.2 cm; Wt 59.0 kg
[~2018-11-10 23:40] MED LIST changes: +AMLODIPINE BESYL5 MG PO; +GABAPENTIN100 MG PO; +OYSTER SHELL 51 EACH PO; +PROPRANOLOL HCL40 MG PO; +URSODIOL300 MG PO; +ZINC SULFATE220 MG PO
--- OUTSIDE RECORDS SUMMARY | 2018-11-10 23:43 | XMS REPORT | Clinical Summary ---
Author Author [facility] Organization [facility] Address Unknown Phone Unavailable Care Team Providers Care Coverage Specialist Rn Name Role Phone Donato Mccallum MD PCP Allergies Comments Active Allergy Reactions Severity Noted Date No Known Drug Allergies 07/25/2016 Medications End Date Status Medication Sig Dispensed Refills Start Date Active fenofibrate (TRICOR) 48 Take 48 mg by 0 MG tablet mouth daily. Active hydrOXYzine (VISTARIL) Take 100 mg 0 100 MG capsule by mouth nightly. 1 tablet nightly Active omeprazole (PriLOSEC) 20 Take 20 mg by 0 MG capsule mouth daily. Active propranolol (INDERAL) 40 Take 40 mg by 0 MG tablet mouth 2 (two) times a day. Active terazosin (HYTRIN) 5 MG Take 5 mg by 0 capsule mouth nightly. Active CALCIUM CITRATE ORAL Take by 0 mouth. Active FOLIC Take 1 tablet 0 ACID/MULTIVIT-MIN/LUTEIN by mouth. (CENTRUM SILVER ORAL) Active cholestyramine (QUESTRAN) Take 1 packet 0 4 gram packet by mouth. Active cyanocobalamin 100 MCG Take 100 mcg 0 tablet by mouth daily. Active finasteride (PROSCAR) 5 Take 5 mg by 0 mg tablet mouth daily. Active zinc sulfate (ZINCATE) Take 220 mg 0 220 (50) mg capsule by mouth daily. Active atorvastatin (LIPITOR) 20 Take 20 mg by 0 MG tablet mouth daily. Default OP ins Active gabapentin (NEURONTIN) Take 100 mg 0 100 mg capsule by mouth 3 (three) times a day. Active aspirin (ECOTRIN) 81 MG Take 81 mg by 0 enteric coated tablet mouth daily. 03/28/2019 Active hydrocortisone (CORTEF) Take 3 180 tablet 11 10 MG tablet tablets (30 8 mg total) by mouth 2 (two) times a day. Active benzonatate (TESSALON) Take 1 30 capsule 1 100 MG capsule capsule (100 8 mg total) by mouth 3 (three) times a day as needed for cough for up to 30 doses. 06/27/2022 Active sirolimus (RAPAMUNE) 0.5 Take 1 tablet 30 tablet 11 MG tablet (0.5 mg 8 total) by mouth daily. Active ipratropium (ATROVENT) Take 2.5 mL 225 mL 0 0.02 % nebulizer solution (0.5 mg 8 total) by nebulization 3 (three) times a day as needed for shortness of breath for up to 30 days. Active furosemide (LASIX) 20 mg TAKE ONE 90 tablet 3 tablet TABLET BY 8 MOUTH ONCE DAILY 06/25/2018 Discontinued ursodiol (ACTIGALL) 500 Take 250 mg 0 MG tablet by mouth 2 (two) times a day. 05/28/2018 Discontinued RAPAMUNE 1 mg tablet TAKE 2 6 TABLETS BY 7 MOUTH DAILY *Z94.4* 05/28/2018 Discontinued zolpidem (AMBIEN) 10 mg Take 10 mg by 0 tablet mouth nightly as needed for sleep. 05/28/[address] on the 0 mg/1.25 gram (1.62 %) gel skin. in metered-dose pump 04/03/2018 testosterone 10 mg/0.5 Place 1 1 g 0 gram /actuation gel in applicator on 7 metered-dose pump the skin daily. 07/06/2018 Discontinued furosemide (LASIX) 20 mg Take 1 tablet 90 tablet 3 tablet (20 mg total) 7 by mouth daily. 12/06/2017 meclizine (ANTIVERT) 25 Take 1 tablet 90 tablet 3 mg tabletIndications: (25 mg total) 8 Aortic valve disorder, by mouth 3 Vertigo, Weight loss (three) times a day as needed for dizziness for up to 30 days. 05/28/2018 Discontinued tobramycin 80 mg/mL Take 1.88 mL 37.6 mL 0 solution for nebulization (150 mg 8 total) by nebulization every 12 (twelve) hours for 20 doses. 06/25/2018 Discontinued ipratropium (ATROVENT) Take 2.5 mL 225 mL 0 0.02 % nebulizer solution (0.5 mg 8 total) by nebulization 3 (three) times a day for 30 days. 06/18/2018 voriconazole (VFEND) 200 Take 1 tablet 60 tablet 0 MG tablet (200 mg 8 total) by mouth 2 (two) times a day for 21 days. 06/27/2018 clonIDINE (CATAPRES) 0.1 Take 1 tablet 60 tablet 1 MG tablet (0.1 mg 8 total) by mouth every 6 (six) hours as needed for high blood pressure (Give for a SBP > than 150) for up to 30 days. 06/27/2018 amLODIPine (NORVASC) 5 mg Take 1 tablet 60 tablet 0 tablet (5 mg total) 8 by mouth 2 (two) times a day for 30 days. 06/27/2018 polyethylene glycol Take 17 g by 30 packet 0 (MIRALAX) 17 gram packet mouth daily 8 as needed for constipation for up to 30 days. Don't take if stools loose or too soft 06/27/2018 acetylcysteine (MUCOMYST) Take 2 mL by 120 mL 0 200 mg/mL (20 %) nebulization 8 nebulizer solution 2 (two) times a day for 30 days. 06/18/2018 cefpodoxime (VANTIN) 200 Take 1 tablet 14 tablet 0 MG tablet (200 mg 8 total) by mouth 2 (two) times a day for 7 days. 08/23/2018 Discontinued metOLazone (ZAROXOLYN) 5 Take 0.5 30 tablet 2 MG tabletIndications: tablets (2.5 8 Atherosclerosis of mg total) by coronary artery of [place] mouth every heart without angina other day for pectoris, unspecified 20 days. vessel or lesion type, CKD (chronic kidney disease) stage 4, GFR 15-29 ml/min ([facility]) 09/06/2018 metOLazone (ZAROXOLYN) Take 1 tablet 4 tablet 1 2.5 MG tablet (2.5 mg 8 total) by mouth 2 (two) times a week for 4 doses. 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 Will continue cardiology follow up. Normal porcine valve auscultation. Hyperlipidemia 07/25/2016 Aortic valve disorder 07/25/2016 Hypertension 07/25/2016 Overview: Last Assessment & Plan: Mildly hypertensive today; however, did not take antihypertensive meds before fasting labs today. He will continue monitoring with his prescribing physician and should avoid weight gain. 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 Continue current care plan. If symptoms persistent, may need EGD to assess for Frazier's changes and/or manometry for LES dysfunction. Immunosuppression 11/25/2013 Overview: Last Assessment & Plan: Sirolimus monotherapy with excellent graft function. Continue current care plan. Status post liver transplantation 11/25/2013 Overview: Overview: ICD9 DX Billet Inspector Last Assessment & Plan: OLT Date: 04/29/2003 Dx: HCV genotype 2a. No recurrent HCV infection currently with undetectable HCV RNA. No major issues of acute or chronic rejection or biliary stricture. Continue current care plan. Encounters Care Team Description Date Type Specialty Whitney Jansen RN Clinic Follow Up 08/23/2018 Telephone Cardiology Darius Jiménez MD PhD Atherosclerosis of coronary artery of [place] heart without angina pectoris, unspecified vessel or lesion type (Primary Dx); CKD (chronic kidney disease) stage 4, GFR 15-29 ml/min (HCC) 08/22/2018 Office Visit Cardiology Abdiel Giraldo Jr., MD Congestive heart failure, unspecified HF chronicity, unspecified heart failure type (HCC) (Primary Dx); Chronic kidney disease, unspecified CKD stage; Iron deficiency anemia secondary to blood loss (chronic) 08/20/2018 Lab Lab Darius Jiménez MD PhD Med Refill 07/06/2018 Refill Cardiology Abdiel Giraldo Jr., MD Cryptogenic organizing pneumonia (Primary Dx) 06/25/2018 Orders Only Intensive Care Abdiel Giraldo Jr., MD Pneumonia, bacterial 06/20/2018 Hospital Radiology Encounter Abdiel Giraldo Jr., MD Pneumonia, bacterial (Primary Dx) 06/19/2018 Transcribe Access Orders Rehrer, Walt Aj, DO Urinary tract infection without hematuria, site unspecified (Primary Dx); Urinary retention 06/11/2018 Emergency Emergency Medicine Abdiel Giraldo Jr., MD BRONCHOSCOPY W/ BIOPSY 05/17/2018 Surgery Pulmonology Abdiel Giraldo Jr., MD Pneumonia of left lower lobe due to Pseudomonas species (Primary Dx); Acute urinary obstruction; Aortic valve disorder; Vertigo; Weight loss; Status post liver transplantation 05/17/2018 Hospital Transplant - Encounter 05/28/2018 Abdiel Giraldo Jr., MD 05/15/2018 Lab Lab Abdiel Giraldo Jr., MD Primary immune deficiency disorder (Primary Dx) 05/15/2018 Lab Lab Abdiel Giraldo Jr., MD Pneumonia due to organism (Primary Dx); Coagulopathy 05/15/2018 Prep for Intensive Care Surgery Abdiel Giraldo Jr., MD 05/15/2018 Documentation Intensive Care Abdiel Giraldo Jr., MD 05/14/2018 Lab Lab Darius Jiménez MD PhD Hyperlipidemia, unspecified hyperlipidemia type (Primary Dx); Atherosclerosis of coronary artery of [place] heart without angina pectoris, unspecified vessel or lesion type 05/06/2018 Office Visit Cardiology Darius Jiménez MD PhD Atherosclerosis of coronary artery of [place] heart without angina pectoris, unspecified vessel or lesion type (Primary Dx); S/P AVR (aortic valve replacement); Fatigue, unspecified type 03/28/2018 Office Visit Cardiology after 11/09/2017 Family History Medical History Relation Name Comments Heart attack Father Heart failure Mother Relation Name Status Comments Father (Age 77) Mother Social History Date Tobacco Use Types Packs/Day Years Used Former Smoker 40 Smokeless Tobacco: Never Used Alcohol Use Drinks/Week oz/Week Comments No occasional Sex Assigned at Date Recorded Not on file Industry Job Start Date Occupation Not on file Not on file Not on file Travel End Travel History Travel Start No recent travel history available. Last Filed Vital Signs Time Taken Vital Sign Reading 09/16/2018 2:00 PM TUB WASH OPERATOR Blood Pressure 139/69 09/16/2018 2:00 PM TUB WASH OPERATOR Pulse 77 06/11/2018 5:52 PM CDT Temperature 36.9 C (98.4 F) 06/11/2018 5:52 PM CDT Respiratory Rate 18 09/16/2018 2:00 PM TUB WASH OPERATOR Oxygen Saturation 100% - Inhaled Oxygen - Concentration 08/22/2018 4:25 PM TUB WASH OPERATOR Weight 61.2 kg (135 lb) 08/22/2018 4:25 PM TUB WASH OPERATOR Height 170.2 cm (5' 7") 08/22/2018 4:25 PM TUB WASH OPERATOR Body Mass Index 21.14 Plan of Treatment Care Team Description Date Type Specialty Darius Jiménez MD PhD [id number] [facility] [address] [place] [id number] 12/06/2018 Office Visit Cardiology Health Maintenance Due Date Last Done Comments SHINGLES VACCINES (1 of 1981 2) PNEUMOCOCCAL 01/16/1996 POLYSACCHARIDE VACCINE AGE 65 AND OVER PNEUMOCOCCAL-13 01/16/1996 INFLUENZA VACCINE 05/15/2018 Procedures Comments Procedure Name Priority Date/Time Associated Diagnosis ECHOCARDIOGRAM 2D Routine 09/16/2018 COMPLETE W MMODE SPECTRAL 2:43 PM TUB WASH OPERATOR COLOR DOPPLER (16571) ESTIMATED GFR Routine 08/20/2018 2:58 PM TUB WASH OPERATOR B NATRIURETIC PEPTIDE Routine 08/20/2018 Congestive heart failure, 2:58 PM TUB WASH OPERATOR unspecified HF chronicity, unspecified heart failure type (HCC) Chronic kidney disease, unspecified CKD stage Iron deficiency anemia secondary to blood loss (chronic) VITAMIN B12 LEVEL Routine 08/20/2018 Congestive heart failure, 2:58 PM TUB WASH OPERATOR unspecified HF chronicity, unspecified heart failure type (HCC) Chronic kidney disease, unspecified CKD stage Iron deficiency anemia secondary to blood loss (chronic) FERRITIN LEVEL Routine 08/20/2018 Congestive heart failure, 2:58 PM TUB WASH OPERATOR unspecified HF chronicity, unspecified heart failure type (HCC) Chronic kidney disease, unspecified CKD stage Iron deficiency anemia secondary to blood loss (chronic) ALBUMIN LEVEL Routine 08/20/2018 Congestive heart failure, 2:58 PM TUB WASH OPERATOR unspecified HF chronicity, unspecified heart failure type (HCC) Chronic kidney disease, unspecified CKD stage Iron deficiency anemia secondary to blood loss (chronic) HC COMPLETE BLD COUNT Routine 08/20/2018 Congestive heart failure, W/AUTO DIFF 2:58 PM TUB WASH OPERATOR unspecified HF chronicity, unspecified heart failure type (HCC) Chronic kidney disease, unspecified CKD stage Iron deficiency anemia secondary to blood loss (chronic) THYROID STIMULATING Routine 08/20/2018 Congestive heart failure, HORMONE 2:58 PM TUB WASH OPERATOR unspecified HF chronicity, unspecified heart failure type (HCC) Chronic kidney disease, unspecified CKD stage Iron deficiency anemia secondary to blood loss (chronic) BASIC METABOLIC PANEL Routine 08/20/2018 Congestive heart failure, 2:58 PM TUB WASH OPERATOR unspecified HF chronicity, unspecified heart failure type (HCC) Chronic kidney disease, unspecified CKD stage Iron deficiency anemia secondary to blood loss (chronic) XR CHEST 2 VW Routine 06/20/2018 Pneumonia, bacterial 11:11 AM CDT B NATRIURETIC PEPTIDE STAT 06/11/2018 6:22 PM CDT BLOOD CULTURE, AEROBIC & Routine 06/11/2018 ANAEROBIC 6:22 PM CDT GRAM STAIN STAT 06/11/2018 6:10 PM CDT URINE CULTURE STAT 06/11/2018 6:10 PM CDT TROPONIN STAT 06/11/2018 6:09 PM CDT CREATINE KINASE, TOTAL STAT 06/11/2018 (CPK) 6:09 PM CDT ZZESTIMATED GFR STAT 06/11/2018 6:09 PM CDT URINALYSIS SCREEN AND STAT 06/11/2018 MICROSCOPY, WITH REFLEX 6:09 PM CDT TO CULTURE LIPASE LEVEL STAT 06/11/2018 6:09 PM CDT COMPREHENSIVE METABOLIC STAT 06/11/2018 PANEL 6:09 PM CDT HC COMPLETE BLD COUNT STAT 06/11/2018 W/AUTO DIFF 6:09 PM CDT ZZESTIMATED GFR Routine 05/28/2018 6:41 AM CDT MAGNESIUM LEVEL Routine 05/28/2018 6:41 AM CDT PHOSPHORUS LEVEL Routine 05/28/2018 6:41 AM CDT COMPREHENSIVE METABOLIC Routine 05/28/2018 PANEL 6:41 AM CDT FK506 LEVEL Routine 05/28/2018 5:30 AM CDT SIROLIMUS LEVEL Routine 05/28/2018 5:30 AM CDT HC COMPLETE BLD COUNT Routine 05/28/2018 W/AUTO DIFF 5:30 AM CDT URINALYSIS SCREEN AND Routine 05/27/2018 MICROSCOPY, WITH REFLEX 8:28 PM CDT TO CULTURE URINE CULTURE Routine 05/27/2018 8:28 PM CDT HC COMPLETE BLD COUNT Routine 05/27/2018 W/AUTO DIFF 5:05 AM CDT ZZESTIMATED GFR Routine 05/27/2018 5:05 AM CDT BASIC METABOLIC PANEL Routine 05/27/2018 5:05 AM CDT SIROLIMUS LEVEL Routine 05/27/2018 5:05 AM CDT HEPATIC FUNCTION PANEL Routine 05/27/2018 5:05 AM CDT ZZESTIMATED GFR Routine 05/26/2018 5:10 AM CDT BASIC METABOLIC PANEL Routine 05/26/2018 5:10 AM CDT HC COMPLETE BLD COUNT Routine 05/26/2018 W/AUTO DIFF 5:10 AM CDT FK506 LEVEL Routine 05/26/2018 5:10 AM CDT XR CHEST 1 VW PORTABLE Routine 05/26/2018 12:21 AM CDT ZZESTIMATED GFR Routine 05/25/2018 5:30 AM CDT BASIC METABOLIC PANEL Routine 05/25/2018 5:30 AM CDT HC COMPLETE BLD COUNT Routine 05/25/2018 W/AUTO DIFF 5:30 AM CDT SIROLIMUS LEVEL Routine 05/25/2018 5:30 AM CDT ECG 12-LEAD Routine 05/24/2018 10:47 AM CDT ZZESTIMATED GFR Routine 05/24/2018 6:34 AM CDT COMPREHENSIVE METABOLIC Routine 05/24/2018 PANEL 6:34 AM CDT HC COMPLETE BLD COUNT Routine 05/24/2018 W/AUTO DIFF 5:47 AM CDT SIROLIMUS LEVEL Routine 05/24/2018 5:43 AM CDT SIROLIMUS LEVEL Routine 05/23/2018 6:06 AM CDT HC COMPLETE BLD COUNT Routine 05/23/2018 W/AUTO DIFF 6:05 AM CDT ZZESTIMATED GFR Routine 05/23/2018 4:00 AM CDT COMPREHENSIVE METABOLIC Routine 05/23/2018 PANEL 4:00 AM CDT XR CHEST 2 VW Routine 05/22/2018 7:03 PM CDT ZZESTIMATED GFR Routine 05/22/2018 5:55 AM CDT SIROLIMUS LEVEL Routine 05/22/2018 5:55 AM CDT HC COMPLETE BLD COUNT Routine 05/22/2018 W/AUTO DIFF 5:55 AM CDT COMPREHENSIVE METABOLIC Routine 05/22/2018 PANEL 5:55 AM CDT IMMUNOGLOBULIN E Routine 05/22/2018 5:55 AM CDT IMMUNOGLOBULIN M Routine 05/22/2018 5:55 AM CDT IMMUNOGLOBULIN G Routine 05/22/2018 5:55 AM CDT IMMUNOGLOBULIN A Routine 05/22/2018 5:55 AM CDT ZZESTIMATED GFR Routine 05/21/2018 6:12 AM CDT COMPREHENSIVE METABOLIC Routine 05/21/2018 PANEL 6:12 AM CDT SIROLIMUS LEVEL Routine 05/21/2018 6:06 AM CDT HC COMPLETE BLD COUNT Routine 05/21/2018 W/AUTO DIFF 6:06 AM CDT XR CHEST 2 VW Routine 05/20/2018 5:43 PM CDT ZZESTIMATED GFR Routine 05/20/2018 5:40 AM CDT SIROLIMUS LEVEL Routine 05/20/2018 5:40 AM CDT HC COMPLETE BLD COUNT Routine 05/20/2018 W/AUTO DIFF 5:40 AM CDT COMPREHENSIVE METABOLIC Routine 05/20/2018 PANEL 5:40 AM CDT XR ABDOMEN 1 VW PORTABLE Routine 05/19/2018 4:33 PM CDT SIROLIMUS LEVEL Routine 05/19/2018 5:30 AM CDT ZZESTIMATED GFR Routine 05/19/2018 5:30 AM CDT HC COMPLETE BLD COUNT Routine 05/19/2018 W/AUTO DIFF 5:30 AM CDT COMPREHENSIVE METABOLIC Routine 05/19/2018 PANEL 5:30 AM CDT XR CHEST 1 VW PORTABLE STAT 05/18/2018 6:35 AM CDT SIROLIMUS LEVEL Routine 05/18/2018 6:00 AM CDT ZZESTIMATED GFR Routine 05/18/2018 6:00 AM CDT URIC ACID LEVEL Routine 05/18/2018 6:00 AM CDT HEPATIC FUNCTION PANEL Routine 05/18/2018 6:00 AM CDT THYROID STIMULATING Routine 05/18/2018 HORMONE 6:00 AM CDT BASIC METABOLIC PANEL Routine 05/18/2018 6:00 AM CDT CBC HEMOGRAM Routine 05/18/2018 6:00 AM CDT ECG 12-LEAD Routine 05/17/2018 5:29 PM CDT SURGICAL PATHOLOGY Routine 05/17/2018 REQUEST 4:44 PM CDT SURGICAL PATHOLOGY Routine 05/17/2018 REQUEST 4:44 PM CDT CYTOLOGY Routine 05/17/2018 (NON-GYNECOLOGICAL) 3:21 PM CDT REQUEST CYTOLOGY Routine 05/17/2018 (NON-GYNECOLOGICAL) 3:21 PM CDT REQUEST HERPES SIMPLEX VIRUS BY Routine 05/17/2018 PCR 3:21 PM CDT VARICELLA ZOSTER BY PCR Routine 05/17/2018 3:21 PM CDT CYTOMEGALOVIRUS BY PCR Routine 05/17/2018 3:21 PM CDT BAL CELL COUNT AND Routine 05/17/2018 DIFFERENTIAL 3:21 PM CDT RESPIRATORY CULTURE Routine 05/17/2018 3:21 PM CDT GRAM STAIN Routine 05/17/2018 3:21 PM CDT GRAM STAIN Routine 05/17/2018 3:21 PM CDT RESPIRATORY CULTURE Routine 05/17/2018 3:21 PM CDT RESPIRATORY CULTURE Routine 05/17/2018 3:21 PM CDT FUNGUS SMEAR Routine 05/17/2018 3:21 PM CDT AFB STAIN Routine 05/17/2018 3:21 PM CDT FUNGUS SMEAR Routine 05/17/2018 3:21 PM CDT AFB STAIN Routine 05/17/2018 3:21 PM CDT NOCARDIA CULTURE Routine 05/17/2018 3:21 PM CDT FUNGUS CULTURE Routine 05/17/2018 3:21 PM CDT AFB CULTURE Routine 05/17/2018 3:21 PM CDT RESPIRATORY PATHOGEN Routine 05/17/2018 PANEL 3:21 PM CDT LEGIONELLA CULTURE Routine 05/17/2018 3:21 PM CDT NOCARDIA CULTURE Routine 05/17/2018 3:21 PM CDT FUNGUS CULTURE Routine 05/17/2018 3:21 PM CDT AFB CULTURE Routine 05/17/2018 3:21 PM CDT BRONCHOSCOPY 05/17/2018 Pneumonia 2:00 PM CDT HISTOPLASMA ANTIGEN, STAT 05/17/2018 SERUM 12:23 PM CDT BASIC METABOLIC PANEL STAT 05/17/2018 11:55 AM CDT ZZESTIMATED GFR STAT 05/17/2018 11:55 AM CDT PROTHROMBIN TIME WITH INR STAT 05/17/2018 11:55 AM CDT PARTIAL THROMBOPLASTIN STAT 05/17/2018 TIME (PTT) 11:55 AM CDT HC COMPLETE BLD COUNT STAT 05/17/2018 W/AUTO DIFF 11:55 AM CDT FUNGUS SMEAR Routine 05/15/2018 12:20 PM CDT AFB STAIN Routine 05/15/2018 12:20 PM CDT GRAM STAIN Routine 05/15/2018 12:20 PM CDT FUNGUS CULTURE Routine 05/15/2018 Primary immune deficiency 12:20 PM CDT disorder AFB CULTURE Routine 05/15/2018 Primary immune deficiency 12:20 PM CDT disorder SPUTUM CULTURE Routine 05/15/2018 Primary immune deficiency 12:20 PM CDT disorder AFB STAIN Routine 05/14/2018 5:45 PM CDT AFB CULTURE Routine 05/14/2018 5:45 PM CDT GRAM STAIN Routine 05/14/2018 5:45 PM CDT SPUTUM CULTURE Routine 05/14/2018 5:45 PM CDT ECHOCARDIOGRAM 2D Routine 03/26/2018 Aortic valve disorder COMPLETE W MMODE SPECTRAL 10:45 AM CDT Vertigo COLOR DOPPLER (67330) Weight loss after 11/09/2017 Results * Echocardiogram complete w contrast and 3D if needed (09/16/2018 2:43 PM TUB WASH OPERATOR) Narrative Performed At [facility] Echocardiography Report Pat.Name:LILLI GREWAL Pat.ID:[id number] .Date: 09/16/2018 Refer.MD:DARIUS JIMÉNEZ MD Exam Time: 2:00:00 PMStudy Type:Routine Echo Height:67inWeight:135lb BSA: 1.71 m2 DOBAge:1930,88Y Sex: MALEBP:139/69 HR:77 bpm Sonogrphr: Kumuthavally Veerasamy, RDCS, RVS Pat. Stat.:OutpatientRoom:[facility] TapeVol: MDCA, ICD - 9: I35.0, R60.9 Study Status:Final Echo Event ID:[id number] Order ID:[id number] Reason for Study:Atherosclerosis of Coronary Artery Disease Involving [place] Artery, Edema, Aortic Valve Disorders History / Clinical:Hypertension, Liver transplant 2006 Procedures:2D Echo, Colorflow Doppler Race: SUMMARY: Normal LV and RV size and function. Well-seated bioprosthetic aortic valve . Mild aortic regurgitation. Stable prosthetic valve velocity and gradient compared to last echo from 03/2018. FINDINGS: LV: LV size is normal. LV EF is normal. Estimated EF is 60-64%. Septalmotion is paradoxical secondary to cardiac surgery. RV: RV size is normal. RV systolic function is normal. LA: LA volume is moderately enlarged. RA: RA size is normal. AO: Aortic root diameter is normal in size. Ascending aorta diameteris mildly enlarged. MARINA: No pericardial effusion. AV: Well-seated bioprosthetic aortic valve. Mild aortic regurgitation.Stable prosthetic valve velocity and gradientcompared to last echo from 03/2018. Surgical ProstheticAV Doppler velocity index is 0.43 (normal>0.25). MV: Mild mitral annular calcification. PV: No structural PV abnormalities noted. A trace of pulmonic regurgitation. TV: No structural TV abnormalities noted. A trace of tricuspid regurgitation Ray: LV relaxation is impaired. LV filling pressure is normal. Other:Incomplete TR jet precludes accurate assessment of PASP. MEASUREMENTS: 2D Parasternal [place] LVOT 1.7 cmLA Ds4.1 cm LVIDd4.2 cmIndex2.5 cm/m Ao An1.8 cm LVIDs3.1 cmAo Rtd 2.7 cm Index1.6 cm/m LV%fs 27.4 % LV Ndrc382.3 g(122-174) IVSd 1 cmLVM Index 86.7 g/m2 LVPWd1.1 cmRWT0.5 LA Volume LA Vol53.2 ebMygui54.1 ml/m LA Sng Plane LA Area 22.8 cm2(8.8-23.4) LA Vol68.7 ml Index40.2 ml/m LA LngAx 6.4 cm RA Sng Plane RA Area 16.8 cm2(8.3-19.5) RA Vol40.8 ml Index23.9 ml/m RA LngAx 5.9 cm Ascending Aorta Asce Dim 3.6 cm DOPPLER LVOT Stroke Vol LVOT 1.7 cmLVOT CO4.3 l/min LVOT TVI28.4 cmLVOT CI2.5 l/m/m2 LVOT Tm325 yjmuQW41 bpm LVOT SV 64.5 ml AV For Flow/Valve Assess AV pkVel 298.4 cm/s (100-170) AV ET333 msec AV mnVel 198.1 cm/Francy AC/ET 0.3 AV pkPG 35.6 mmHgAV TVI66 cm AV Mean G 19.1 mmHgAVpkAcRt 27279.1 cm/s2 AV AC 89 msec (83-118) MV E/A Ratio MV pkE62.5 cm/s (60-130) MV E/A 1.5 MV pkA42.3 cm/s WALL MOTION: RESTING WALL MOTION: Basal Inferior, Mid Inferior brito are mildly hypokinetic. Normal in all other brito. Wall Index=1.1 Signed 09/17/2018 01:12 PM Ciera Haley M.D. Procedure Note Interface, Radiology Results In - 09/17/2018 1:12 PM TUB WASH OPERATOR [facility] Echocardiography Report Pat.Name: LILLI GREWAL JR Pat.ID: [id number] .Date: 09/16/2018 Refer.MD: DARIUS JIMÉNEZ MD Exam Time: 2:00:00 PM Study Type:Routine Echo Height: 67in Weight: 135lb BSA: 1.71 m2 Age: 5 1930,88Y Sex: MALE BP: 139/69 HR: 77 bpm Sonogrphr: Ivan Snyder, RDCS, RVS Pat. Stat.:Outpatient Room: [address] Vol: [facility], ICD - 9: I35.0, R60.9 Study Status:Final Echo Event ID:[id number] Order ID: [id number] Reason for Study:Atherosclerosis of Coronary Artery Disease Involving [place] Artery, Edema, Aortic Valve Disorders History / Clinical:Hypertension, Liver transplant 2006 Procedures:2D Echo, Colorflow Doppler Race: SUMMARY: Normal LV and RV size and function. Well-seated bioprosthetic aortic valve . Mild aortic regurgitation. Stable prosthetic valve velocity and gradient compared to last echo from 03/2018. FINDINGS: LV: LV size is normal. LV EF is normal. Estimated EF is 60-64%. Septal motion is paradoxical secondary to cardiac surgery. RV: RV size is normal. RV systolic function is normal. LA: LA volume is moderately enlarged. RA: RA size is normal. AO: Aortic root diameter is normal in size. Ascending aorta diameter is mildly enlarged. MARINA: No pericardial effusion. AV: Well-seated bioprosthetic aortic valve. Mild aortic regurgitation. Stable prosthetic valve velocity and gradient compared to last echo from 03/2018. Surgical Prosthetic AV Doppler velocity index is 0.43 (normal>0.25). MV: Mild mitral annular calcification. PV: No structural PV abnormalities noted. A trace of pulmonic regurgitation. TV: No structural TV abnormalities noted. A trace of tricuspid regurgitation Ray: LV relaxation is impaired. LV filling pressure is normal. Other: Incomplete TR jet precludes accurate assessment of PASP. MEASUREMENTS: 2D Parasternal [place] LVOT 1.7 cm LA Ds 4.1 cm LVIDd 4.2 cm Index 2.5 cm/m Ao An 1.8 cm LVIDs 3.1 cm Ao Rtd 2.7 cm Index 1.6 cm/m LV%fs 27.4 % LV Mass 148.3 g (122-174) IVSd 1 cm LVM Index 86.7 g/m2 LVPWd 1.1 cm RWT 0.5 LA Volume LA Vol 53.2 ml Index 31.1 ml/m LA Sng Plane LA Area 22.8 cm2 (8.8-23.4) LA Vol 68.7 ml Index 40.2 ml/m LA LngAx 6.4 cm RA Sng Plane RA Area 16.8 cm2 (8.3-19.5) RA Vol 40.8 ml Index 23.9 ml/m RA LngAx 5.9 cm Ascending Aorta Asce Dim 3.6 cm DOPPLER LVOT Stroke Vol LVOT 1.7 cm LVOT CO 4.3 l/min LVOT TVI 28.4 cm LVOT CI 2.5 l/m/m2 LVOT Tm 325 msec HR 67 bpm LVOT SV 64.5 ml AV For Flow/Valve Assess AV pkVel 298.4 cm/s (100-170) AV ET 333 msec AV mnVel 198.1 cm/s AV AC/ET 0.3 AV pkPG 35.6 mmHg AV TVI 66 cm AV Mean G 19.1 mmHg AVpkAcRt 73713.1 cm/s2 AV AC 89 msec (83-118) MV E/A Ratio MV pkE 62.5 cm/s (60-130) MV E/A 1.5 MV pkA 42.3 cm/s WALL MOTION: RESTING WALL MOTION: Basal Inferior, Mid Inferior brito are mildly hypokinetic. Normal in all other brito. Wall Index=1.1 Signed 09/17/2018 01:12 PM Ciera Haley M.D. Performing Organization Address [facility]/Zipcode Phone Number [facility] [address] [id number] * Estimated GFR (08/20/2018 2:58 PM TUB WASH OPERATOR) Estimated GFR 27 (A) mL/min/1.73 m2 [facility] DEPARTMENT OF Comment: PATHOLOGY AND CatergoryUnitsInte GENOMIC MEDICINE rpretation G1 >=90 Normal or high G2 60-89Mildly decreased [id number] Mildly to moderately decreased [id number] Moderately to severely decreased G4 15-29Severely decreased G5 <15Kidney failure The eGFR was calculated using the Chronic Kidney Disease Epidemiology Collaboration (CKD-EPI) equation. Interpretation is based on recommendations of the National Kidney Foundation-Kidney Disease Outcomes Quality Initiative (NKF-KDOQI) published in 2014. Specimen Plasma specimen Performing Organization Address [facility]/Zipcode Phone Number [facility] DEPARTMENT OF [address] [place] [address] PATHOLOGY AND GENOMIC MEDICINE * CBC with platelet and differential (08/20/2018 2:58 PM TUB WASH OPERATOR) Only the most recent of 13 results within the time period is included. WBC 5.84 4.50 - 11.00 k/uL [facility] DEPARTMENT OF PATHOLOGY AND GENOMIC MEDICINE RBC 4.67 4.40 - 6.00 m/uL [facility] DEPARTMENT OF PATHOLOGY AND GENOMIC MEDICINE HGB 12.7 (L) 14.0 - 18.0 g/dL [facility] DEPARTMENT OF PATHOLOGY AND GENOMIC MEDICINE HCT 40.7 (L) 41.0 - 51.0 % [facility] DEPARTMENT OF PATHOLOGY AND GENOMIC MEDICINE MCV 87.2 82.0 - 100.0 fL [facility] DEPARTMENT OF PATHOLOGY AND GENOMIC MEDICINE MCH 27.2 27.0 - 34.0 pg [facility] DEPARTMENT OF PATHOLOGY AND GENOMIC MEDICINE MCHC 31.2 31.0 - 37.0 g/dL [facility] DEPARTMENT OF PATHOLOGY AND GENOMIC MEDICINE RDW - SD 52.1 37.0 - 55.0 fL [facility] DEPARTMENT OF PATHOLOGY AND GENOMIC MEDICINE MPV 10.6 8.8 - 13.2 fL [facility] DEPARTMENT OF PATHOLOGY AND GENOMIC MEDICINE Platelet count 164 150 - 400 k/uL [facility] DEPARTMENT OF PATHOLOGY AND GENOMIC MEDICINE Nucleated RBC 0.00 /100 WBC [facility] DEPARTMENT OF PATHOLOGY AND GENOMIC MEDICINE Neutrophils 68.5 39.0 - 69.0 % [facility] DEPARTMENT OF PATHOLOGY AND GENOMIC MEDICINE Lymphocytes 19.9 (L) 25.0 - 45.0 % [facility] DEPARTMENT OF PATHOLOGY AND GENOMIC MEDICINE Monocytes 6.7 0.0 - 10.0 % [facility] DEPARTMENT OF PATHOLOGY AND GENOMIC MEDICINE Eosinophils 3.9 0.0 - 5.0 % [facility] DEPARTMENT OF PATHOLOGY AND GENOMIC MEDICINE Basophils 0.7 0.0 - 1.0 % [facility] DEPARTMENT OF PATHOLOGY AND GENOMIC MEDICINE Immature granulocytes 0.3Comment: "Immature 0.0 - 1.0 % [facility] DEPARTMENT OF granulocytes" (promyelocytes, PATHOLOGY AND myelocytes, metamyelocytes) GENOMIC MEDICINE Specimen Blood Performing Organization Address City/[facility] Cent[facility] [address] PATHOLOGY AND GENOMIC MEDICINE * Thyroid stimulating hormone (08/20/2018 2:58 PM TUB WASH OPERATOR) Only the most recent of 2 results within the time period is included. TSH 6.03 (H) 0.27 - 4.20 uIU/mL [facility] DEPARTMENT OF PATHOLOGY AND GENOMIC MEDICINE Specimen Plasma specimen Performing Organization Address City/[facility] Centerc[place] [address] PATHOLOGY AND GENOMIC MEDICINE * B natriuretic peptide (08/20/2018 2:58 PM TUB WASH OPERATOR) Only the most recent of 2 results within the time period is included. BNP 258 (H) 0 - 100 pg/mL [facility] DEPARTMENT OF PATHOLOGY AND GENOMIC MEDICINE Specimen Blood Performing Organization Address City/[facility]ode Phone Number [facility] [place] [address] PATHOLOGY AND GENOMIC MEDICINE * Ferritin level (08/20/2018 2:58 PM TUB WASH OPERATOR) Ferritin level 283 30 - 400 ng/mL [facility] DEPARTMENT OF PATHOLOGY AND GENOMIC MEDICINE Specimen Plasma specimen Performing Organization Address City/[facility] Cent[facility] [address] PATHOLOGY AND GENOMIC MEDICINE * Vitamin B12 level (08/20/2018 2:58 PM TUB WASH OPERATOR) Vitamin B12 1,606 (H) 211 - 946 pg/mL [facility] DEPARTMENT OF Comment: PATHOLOGY AND Significant overlap exists GENOMIC MEDICINE between normal and deficiency states. However, most patients with deficiencies will have Serum B12 <200 pg/mL. Specimen Serum Performing Organization Address [facility] Centerc[place] [address] PATHOLOGY AND [facility] * Albumin level (08/20/2018 2:58 PM TUB WASH OPERATOR) Albumin 4.4 3.5 - 5.0 g/dL [facility] DEPARTMENT OF PATHOLOGY AND GENOMIC MEDICINE Specimen Plasma specimen Performing Organization Address [facility] [place] [address] PATHOLOGY AND GENOMIC MEDICINE * Basic metabolic panel (08/20/2018 2:58 PM TUB WASH OPERATOR) Only the most recent of 6 results within the time period is included. Sodium 139 135 - 148 mEq/L [facility] DEPARTMENT OF PATHOLOGY AND GENOMIC MEDICINE Potassium 4.9 3.5 - 5.0 mEq/L [facility] DEPARTMENT OF PATHOLOGY AND GENOMIC MEDICINE Chloride 99 98 - 112 mEq/L [facility] DEPARTMENT OF PATHOLOGY AND GENOMIC MEDICINE CO2 25 24 - 31 mEq/L [facility] DEPARTMENT OF PATHOLOGY AND GENOMIC MEDICINE Anion gap 15@ANIO 7 - 15 mEq/L [facility] DEPARTMENT OF PATHOLOGY AND GENOMIC MEDICINE BUN 32 (H) 8 - 23 mg/dL [facility] DEPARTMENT OF PATHOLOGY AND GENOMIC MEDICINE Creatinine 2.12 (H) 0.70 - 1.20 mg/dL [facility] DEPARTMENT OF PATHOLOGY AND GENOMIC MEDICINE Glucose 123 (H) 65 - 99 mg/dL [facility] DEPARTMENT OF PATHOLOGY AND GENOMIC MEDICINE Calcium 10.1 8.8 - 10.2 mg/dL [facility] DEPARTMENT OF PATHOLOGY AND GENOMIC MEDICINE Specimen Plasma specimen Performing Organization Address City/State/Zipcode Phone Number [facility] DEPARTMENT OF [address] [place] [address] PATHOLOGY AND GENOMIC MEDICINE * XR Chest 2 Vw (06/20/2018 11:11 AM CDT) Only the most recent of 3 results within the time period is included. Narrative Performed At Examination:XR CHEST 2 VW RADIANT Clinical History: J15.9 Unspecified bacterial pneumonia, [...] Status post median sternotomy. Mildly tortuous aorta. [facility]-[id number] Procedure Note Interface, Radiology Results Incoming - [...] Status post median sternotomy. Mildly tortuous aorta. [facility]-[id number] Performing Organization Address City/[facility]/Zipcode Phone Number [facility] [address] [place] [address] * Blood culture, aerobic & anaerobic (06/11/2018 6:22 PM CDT) Blood culture isolate No growth after 5 days of [facility] DEPARTMENT OF incubation. PATHOLOGY AND Comment: GENOMIC MEDICINE Specimen Information Specimen Source: Blood Specimen Site: Forearm, left Specimen Blood - Forearm, left Performing Organization Address City/State/Zipcode Phone Number [facility] DEPARTMENT OF [address] [place] [id number] PATHOLOGY AND GENOMIC MEDICINE * Gram stain (06/11/2018 6:10 PM CDT) Only the most recent of 5 results within the time period is included. Gram stain result Few WBC's [facility] DEPARTMENT OF Many Gram positive cocci in PATHOLOGY AND pairs GENOMIC MEDICINE Comment: Specimen Information Specimen Source: Urine Specimen Site: Clean catch Specimen Urine Performing Organization Address City/[facility] Phone Number [facility] [place] [address] PATHOLOGY AND GENOMIC MEDICINE * Urine culture (06/11/2018 6:10 PM CDT) Only the most recent of 2 results within the time period is included. Urine culture isolate Enterococcus faecalis [facility] DEPARTMENT OF >10-5 cfu/ml PATHOLOGY AND The performance GENOMIC MEDICINE characteristics of this assay on this isolate were validated by the Microbiology Laboratory at [facility].This source has not been approved by [...] were validated by the Microbiology Laboratory at [facility].This source has not been approved by [...] Urine Specimen Site: Clean catch Specimen Urine Antibiotic Method Susceptibility Organism Ampicillin SHAHBAZ 2 mcg/mL: Susceptible Enterococcus faecalis Nitrofurantoin SHAHBAZ <=16 mcg/mL: Susceptible Enterococcus faecalis Levofloxacin SHAHBAZ >4 mcg/mL: Resistant Enterococcus faecalis Linezolid SHAHBAZ <=1 mcg/mL: Susceptible Enterococcus faecalis Minocycline SHAHBAZ <=1 mcg/mL: Susceptible Enterococcus faecalis Tetracycline SHAHBAZ <=0.5 mcg/mL: Susceptible Enterococcus faecalis Vancomycin SHAHBAZ 1 mcg/mL: Susceptible Enterococcus faecalis Performing Organization Address City/[facility]ode Phone Number [facility] DEPARTMENT OF [address] [place] [phone] PATHOLOGY AND GENOMIC MEDICINE * Urinalysis screen and microscopy, with reflex to culture (06/11/2018 6:09 PM CDT) Only the most recent of 2 results within the time period is included. Specimen site Clean catch [facility] DEPARTMENT OF PATHOLOGY AND GENOMIC MEDICINE Color, UA Rowena [facility] DEPARTMENT OF PATHOLOGY AND GENOMIC MEDICINE Appearance, UA Turbid [facility] DEPARTMENT OF PATHOLOGY AND GENOMIC MEDICINE Specific gravity, UA 1.012 1.001 - 1.035 [facility] DEPARTMENT OF PATHOLOGY AND GENOMIC MEDICINE pH, UA 6.0 5.0 - 8.5 [facility] DEPARTMENT OF PATHOLOGY AND GENOMIC MEDICINE Protein, UA 2+ (A) Negative [facility] DEPARTMENT OF PATHOLOGY AND GENOMIC MEDICINE Glucose, UA Negative Negative [facility] DEPARTMENT OF PATHOLOGY AND GENOMIC MEDICINE Ketones, UA Negative Negative [facility] DEPARTMENT OF PATHOLOGY AND GENOMIC MEDICINE Bilirubin, UA Negative Negative [facility] DEPARTMENT OF PATHOLOGY AND GENOMIC MEDICINE Blood, UA Small (A) Negative [facility] DEPARTMENT OF PATHOLOGY AND GENOMIC MEDICINE Nitrite, UA Negative Negative [facility] DEPARTMENT OF PATHOLOGY AND GENOMIC MEDICINE Urobilinogen, UA <2.0 <2.0 [facility] DEPARTMENT OF PATHOLOGY AND GENOMIC MEDICINE Leukocyte esterase, UA Large (A) Negative [facility] DEPARTMENT OF PATHOLOGY AND GENOMIC MEDICINE WBC, UA >180 (H) 0 - 1 /HPF [facility] DEPARTMENT OF PATHOLOGY AND GENOMIC MEDICINE RBC, UA 27 (H) 0 - 5 /HPF [facility] DEPARTMENT OF PATHOLOGY AND GENOMIC MEDICINE Bacteria, UA Many (A) None seen [facility] DEPARTMENT OF PATHOLOGY AND GENOMIC MEDICINE WBC clumps, UA Few (A) [facility] DEPARTMENT OF PATHOLOGY AND GENOMIC MEDICINE Yeast, UA None seen [facility] DEPARTMENT OF PATHOLOGY AND GENOMIC MEDICINE Yeast with pseudohyphae, None seen [facility] DEPARTMENT OF PATHOLOGY AND GENOMIC MEDICINE Specimen Urine Performing Organization Address City/State/Zipcode Phone Number [facility] DEPARTMENT OF [address] [place] [address] PATHOLOGY AND GENOMIC MEDICINE * Estimated GFR (06/11/2018 6:09 PM CDT) Only the most recent of 13 results within the time period is included. GFR Non Af Amer 38 (A) mL/min/1.73 m2 [facility] DEPARTMENT OF PATHOLOGY AND GENOMIC MEDICINE GFR Af Amer 46 (A) mL/min/1.73 m2 [facility] DEPARTMENT OF Comment: PATHOLOGY AND Chronic kidney [...] Americans. Specimen Plasma specimen Performing Organization Address [facility] Cent[facility] [address] PATHOLOGY AND GENOMIC MEDICINE * Troponin (06/11/2018 6:09 PM CDT) Troponin <0.30 0.00 - 0.30 ng/mL [facility] DEPARTMENT OF Comment: PATHOLOGY AND 0.30 - 1.49 GENOMIC MEDICINE ng/mlMay indicate increased risk of acute coronary syndrome. >=1.5 ng/ml Consistent with acute myocardial infarction. The diagnostic value of a single normal or non-diagnostic result is questionable.Serial samples at 2-6 hour intervals are required to rule out acute myocardial injury. Specimen Plasma specimen Performing Organization Address [facility] [place] [address] PATHOLOGY AND GENOMIC [facility] * Lipase level (06/11/2018 6:09 PM CDT) Lipase 47 13 - 60 U/L [facility] PATHOLOGY AND GENOMIC MEDICINE Specimen Plasma specimen Performing Organization Address [facility] [place] [address] PATHOLOGY AND [facility] * Creatine kinase, total (CPK) (06/11/2018 6:09 PM CDT) Creatine kinase 50 39 - 308 U/L [facility] DEPARTMENT OF PATHOLOGY AND GENOMIC MEDICINE Specimen Plasma specimen Performing Organization Address [facility] [place] [address] PATHOLOGY AND [facility] MEDICINE * Comprehensive metabolic panel (06/11/2018 6:09 PM CDT) Only the most recent of 8 results within the time period is included. Sodium 138 135 - 148 mEq/L [facility] DEPARTMENT OF PATHOLOGY AND GENOMIC MEDICINE Potassium 4.2 3.5 - 5.0 mEq/L [facility] DEPARTMENT OF PATHOLOGY AND GENOMIC MEDICINE Chloride 99 98 - 112 mEq/L [facility] DEPARTMENT OF PATHOLOGY AND GENOMIC MEDICINE CO2 22 (L) 24 - 31 mEq/L [facility] DEPARTMENT OF PATHOLOGY AND GENOMIC MEDICINE Anion gap 17@ANIO (H) 7 - 15 mEq/L [facility] DEPARTMENT OF PATHOLOGY AND GENOMIC MEDICINE BUN 29 (H) 8 - 23 mg/dL [facility] DEPARTMENT OF PATHOLOGY AND GENOMIC MEDICINE Creatinine 1.7 (H) 0.7 - 1.2 mg/dL [facility] DEPARTMENT OF PATHOLOGY AND GENOMIC MEDICINE Glucose 130 (H) 65 - 99 mg/dL [facility] DEPARTMENT OF PATHOLOGY AND GENOMIC MEDICINE Calcium 9.2 8.8 - 10.2 mg/dL [facility] DEPARTMENT OF PATHOLOGY AND GENOMIC MEDICINE Protein 7.2 6.3 - 8.3 g/dL [facility] DEPARTMENT OF Comment: PATHOLOGY AND GENOMIC MEDICINE 4.6-7.0 g/dL 1 week 4.4-7.6 g/dL 7 months-1year 5.1-7.3 g/dL 1-2 years5.6-7 .5 g/dL >3 years6.0-8 .0 g/dL 18-150 6.3-8.3 g/dL Albumin 3.3 (L) 3.5 - 5.0 g/dL [facility] DEPARTMENT OF PATHOLOGY AND GENOMIC MEDICINE A/G ratio 0.8 0.7 - 3.8 [facility] DEPARTMENT OF PATHOLOGY AND GENOMIC MEDICINE Alkaline phosphatase 193 (H) 40 - 129 U/L [facility] DEPARTMENT OF PATHOLOGY AND GENOMIC MEDICINE AST 55 (H) 10 - 50 U/L [facility] DEPARTMENT OF PATHOLOGY AND GENOMIC MEDICINE ALT 40 5 - 50 U/L [facility] DEPARTMENT OF PATHOLOGY AND GENOMIC MEDICINE Total bilirubin 0.5 0.0 - 1.2 mg/dL [facility] DEPARTMENT OF PATHOLOGY AND GENOMIC MEDICINE Specimen Plasma specimen Performing Organization Address City/[facility] [address] PATHOLOGY AND GENOMIC MEDICINE * Phosphorus level (05/28/2018 6:41 AM CDT) Phosphorus 3.2 2.4 - 4.5 mg/dL [facility] DEPARTMENT OF PATHOLOGY AND GENOMIC MEDICINE Specimen Plasma specimen Performing Organization Address City/[facility] [address] PATHOLOGY AND [facility] MEDICINE * Magnesium level (05/28/2018 6:41 AM CDT) Magnesium 2.0 1.6 - 2.4 mg/dL [facility] DEPARTMENT OF PATHOLOGY AND GENOMIC MEDICINE Specimen Plasma specimen Performing Organization Address City/[facility] [address] PATHOLOGY AND [facility] MEDICINE * FK506 level (05/28/2018 5:30 AM CDT) Only the most recent of 2 results within the time period is included. FK506 level <2.0 ng/mL [facility] DEPARTMENT OF Comment: PATHOLOGY AND Therapeutic range 5-20 ng/mL [facility] for 12 hour trough. The range varies depending on the organ transplanted, time after transplantation and co-administered immunosuppressant therapies. Please use clinical judgment to interpret test result. Test performed using [employer] chemiluminescent microparticle immunoassay for Tacrolimus on the [employer]OOK[employer]KER[employer] CLERK i System. Performing Organization Address City/State/[facility] Centercode Phone Number [facility] DEPARTMENT OF [address] [place] [address] PATHOLOGY AND [facility] * Sirolimus level (05/28/2018 5:30 AM CDT) Only the most recent of 10 results within the time period is included. Sirolimus 7.3 ng/mL [facility] DEPARTMENT OF Comment: PATHOLOGY AND The recommended trough is 4-12 GENOMIC MEDICINE ng/mL while on CNI (calcineurin inhibitors: Cyclcosporine and Tacrolimus). When used without CNI, higher trough concentrations may be desired, typically 12-20 ng/mL. Occasional patients may require 20-30 ng/mL. Test performed using [employer] chemiluminescent microparticle immunoassay for Sirolimus on the [employer]OOKMAKER[employer]S CLERK i System Performing Organization Address City/[facility]ercode Phone Number [facility] [place] [address] PATHOLOGY AND [facility] * Hepatic function panel (05/27/2018 5:05 AM CDT) Only the most recent of 2 results within the time period is included. Albumin 2.9 (L) 3.5 - 5.0 g/dL [facility] DEPARTMENT OF PATHOLOGY AND GENOMIC MEDICINE Total bilirubin <0.2 0.0 - 1.2 mg/dL [facility] DEPARTMENT OF PATHOLOGY AND GENOMIC MEDICINE Bilirubin direct <0.2 0.0 - 0.3 mg/dL [facility] DEPARTMENT OF PATHOLOGY AND GENOMIC MEDICINE Alkaline phosphatase 74 40 - 129 U/L [facility] DEPARTMENT OF PATHOLOGY AND GENOMIC MEDICINE Protein 6.5 6.3 - 8.3 g/dL [facility] DEPARTMENT OF Comment: PATHOLOGY AND [employer] GENOMIC MEDICINE 4.6-7.0 g/dL 1 week 4.4-7.6 g/dL 7 months-1year 5.1-7.3 g/dL 1-2 years5.6-7 .5 g/dL >3 years6.0-8 .0 g/dL 18-150 6.3-8.3 g/dL ALT 23 5 - 50 U/L [facility] DEPARTMENT OF PATHOLOGY AND GENOMIC MEDICINE AST 22 10 - 50 U/L [facility] DEPARTMENT OF PATHOLOGY AND GENOMIC MEDICINE Specimen Plasma specimen Performing Organization Address City/[facility] Phone Number [facility] DEPARTMENT OF [address] [place] [id number] PATHOLOGY AND GENOMIC MEDICINE * XR Chest 1 Vw Portable (05/26/2018 12:21 AM CDT) Only the most recent of 2 results [...] within normal limits. No acute osseous abnormalities. [facility]-[id number] Procedure Note Hm Interface, Radiology Results Incoming [...] within normal limits. No acute osseous abnormalities. [facility]-[id number] Performing Organization Address City/[facility] Phone Number [facility] [address] [place] [address] * ECG 12 lead (05/24/2018 10:47 AM CDT) Only the most recent of 2 results within the time period is included. 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 (cited on or before 17-MAY-2018)-Abnormal ECG- Performing Organization Address [facility] Phone Number [facility] MUSE [address] [place] [address] * Immunoglobulin E (05/22/2018 5:55 AM CDT) IgE 10.2 0.0 - 100.0 IU/mL [facility] DEPARTMENT OF PATHOLOGY AND GENOMIC MEDICINE Specimen Plasma specimen Performing Organization Address [facility] [place] [address] PATHOLOGY AND GENOMIC MEDICINE * Immunoglobulin A (05/22/2018 5:55 AM CDT) IgA 74 70 - 400 mg/dL [facility] DEPARTMENT OF PATHOLOGY AND GENOMIC MEDICINE Specimen Plasma specimen Performing Organization Address [facility] Phone Number [facility] [place] [address] PATHOLOGY AND [facility] MEDICINE * Immunoglobulin M (05/22/2018 5:55 AM CDT) IgM 42 33 - 255 mg/dL [facility] DEPARTMENT OF PATHOLOGY AND GENOMIC MEDICINE Specimen Plasma specimen Performing Organization Address [facility] [place] [address] PATHOLOGY AND GENOMIC MEDICINE * Immunoglobulin G (05/22/2018 5:55 AM CDT) IgG 703 700 - 1,600 mg/dL [facility] DEPARTMENT OF PATHOLOGY AND GENOMIC MEDICINE Specimen Plasma specimen Performing Organization Address [facility] Phone Number [facility] [place] [address] PATHOLOGY AND GENOMIC MEDICINE * XR Abdomen 1 Vw Portable (05/19/2018 4:33 PM CDT) Narrative Performed At Study:XR ABDOMEN 1 VW PORTABLE RADIANT History:constipation COMPARISON:July 06, 2012 IMPRESSION: 2 views of the abdomen. No bowel distention or free air. Large amount of stool present in the colon. 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 There is calcification of the abdominal aorta. Bones are stable. [id number] Procedure Note Hm Interface, Radiology Results Incoming - 05/19/2018 4:39 PM CDT Study:XR ABDOMEN 1 VW PORTABLE History:constipation COMPARISON:July 06, 2012 IMPRESSION: 2 views of the abdomen. No bowel distention or free air. Large amount of stool present in the colon. 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 There is calcification of the abdominal aorta. Bones are stable. [id number] Performing Organization Address City/[facility]/Zipcode Phone Number [address] [address] * CBC hemogram (05/18/2018 6:00 AM CDT) WBC 7.42 4.50 - 11.00 k/uL [facility] DEPARTMENT OF PATHOLOGY AND GENOMIC MEDICINE RBC 4.59 4.40 - 6.00 m/uL [facility] DEPARTMENT OF PATHOLOGY AND GENOMIC MEDICINE HGB 11.9 (L) 14.0 - 18.0 g/dL [facility] DEPARTMENT OF PATHOLOGY AND GENOMIC MEDICINE HCT 37.7 (L) 41.0 - 51.0 % [facility] DEPARTMENT OF PATHOLOGY AND GENOMIC MEDICINE MCV 82.1 82.0 - 100.0 fL [facility] DEPARTMENT OF PATHOLOGY AND GENOMIC MEDICINE MCH 25.9 (L) 27.0 - 34.0 pg [facility] DEPARTMENT OF PATHOLOGY AND GENOMIC MEDICINE MCHC 31.6 31.0 - 37.0 g/dL [facility] DEPARTMENT OF PATHOLOGY AND GENOMIC MEDICINE RDW - SD 53.4 37.0 - 55.0 fL [facility] DEPARTMENT OF PATHOLOGY AND GENOMIC MEDICINE MPV 9.8 8.8 - 13.2 fL [facility] DEPARTMENT OF PATHOLOGY AND GENOMIC MEDICINE Platelet count 156 150 - 400 k/uL [facility] DEPARTMENT OF PATHOLOGY AND GENOMIC MEDICINE Nucleated RBC 0.00 /100 WBC [facility] DEPARTMENT OF PATHOLOGY AND GENOMIC MEDICINE Specimen Blood Performing Organization Address City/[facility]/Zipcode Phone Number [address] [address] PATHOLOGY AND [place] MEDICINE * Uric acid level (05/18/2018 6:00 AM CDT) Uric acid 4.4 3.4 - 7.0 mg/dL [facility] DEPARTMENT OF PATHOLOGY AND GENOMIC MEDICINE Specimen Plasma specimen Performing Organization Address City/[facility]/Zipcode Phone Number [address] [address] PATHOLOGY AND GENOMIC MEDICINE * Surgical pathology request (05/17/2018 4:44 PM CDT) Only the most recent of 2 results within the time period is included. [facility] DEPARTMENT OF PATHOLOGY AND GENOMIC MEDICINE Surgical pathology report See link below for PDF Lab [facility] DEPARTMENT OF Report PATHOLOGY AND GENOMIC MEDICINE Result status This is Supplemental Report to [facility] DEPARTMENT OF [id number] PATHOLOGY AND GENOMIC MEDICINE Performing Organization Address City/[facility] Phone Number [facility] DEPARTMENT OF [address] [place] [address] PATHOLOGY AND GENOMIC MEDICINE * Respiratory culture (05/17/2018 3:21 PM CDT) Only the most recent of 3 results within the time period is included. Respiratory culture Normal oral chirag and (A) [facility] DEPARTMENT OF isolate Comment: PATHOLOGY AND Specimen Information GENOMIC MEDICINE Specimen Source: Bronchial Washing Specimen Site: RUL (right upper lobe) Respiratory culture Pseudomonas aeruginosa [facility] DEPARTMENT OF isolate Moderate PATHOLOGY AND , GENOMIC MEDICINE identification/susceptibility to follow This organism is NOT a carbapenemase producing organism. (A) Specimen Bronchial washing - RUL (right upper lobe) Antibiotic Method Susceptibility Organism Amikacin SHAHBAZ <=4 mcg/mL: Susceptible Pseudomonas aeruginosa [...] Pseudomonas aeruginosa Piperacillin/Tazobactam SHAHBAZ 4/4 mcg/mL: Susceptible Pseudomonas aeruginosa Performing Organization Address City/[facility]/Zipcode Phone Number [facility] DEPARTMENT OF [address] [place] [address] PATHOLOGY AND GENOMIC MEDICINE * Fungus smear (05/17/2018 3:21 PM CDT) Only the most recent of 3 results within the time period is included. Fungus smear No fungi observed. [facility] DEPARTMENT OF Comment: PATHOLOGY AND Specimen Information GENOMIC MEDICINE Specimen Source: Bronchial alveolar lavage Specimen Site: RUL (right upper lobe) Specimen Bronchial alveolar lavage - RUL (right upper lobe) Performing Organization Address [facility] Phone Number [facility] DEPARTMENT OF [address] [place] [address] PATHOLOGY AND GENOMIC MEDICINE * Respiratory pathogen panel (05/17/2018 3:21 PM CDT) Respiratory pathogen Negative for all pathogens [facility] DEPARTMENT OF panel tested: PATHOLOGY AND Negative [...] RUL (right upper lobe) Performing Organization Address [facility] Phone Number [facility] DEPARTMENT OF [address] [place] [address] PATHOLOGY AND GENOMIC MEDICINE * BAL cell count and differential (05/17/2018 3:21 PM CDT) BAL specimen source RUL BAL [facility] DEPARTMENT OF PATHOLOGY AND GENOMIC MEDICINE BAL cell count 0.585 m/mL [facility] DEPARTMENT OF Comment: PATHOLOGY AND Normal ranges: Nonsmokers: GENOMIC MEDICINE 0.007 - 0.363 Smokers: 0 - 1.31 BAL PAMS 4 % [facility] DEPARTMENT OF Comment: PATHOLOGY AND Normal ranges: Nonsmokers: 65 GENOMIC MEDICINE - 100 Smokers: 81 - 100 BAL PMNS 85 % [facility] DEPARTMENT OF Comment: PATHOLOGY AND Normal ranges: Nonsmokers: 0 - GENOMIC MEDICINE 3 Smokers: 0 - 2 BAL eosinophils 4 % [facility] DEPARTMENT OF Comment: PATHOLOGY AND Normal ranges: Nonsmokers: 0 - GENOMIC MEDICINE 1 Smokers: 0 - 1 BAL lymphs 7 % [facility] DEPARTMENT OF Comment: PATHOLOGY AND Normal ranges: Nonsmokers: 0 - GENOMIC MEDICINE 10 Smokers: 0 - 5 Specimen Fluid Narrative Performed At [facility] DEPARTMENT OF PATHOLOGY AND GENOMIC MEDICINE Performing Organization Address City/[facility] Phone Number [facility] DEPARTMENT [address] [address] PATHOLOGY AND GENOMIC MEDICINE * Cytomegalovirus by PCR (05/17/2018 3:21 PM CDT) Cytomegalovirus by PCR Indeterminate (A) Not-Detected IU/mL [facility] DEPARTMENT OF PATHOLOGY AND GENOMIC MEDICINE Cytomegalovirus by PCR See link below for PDF Lab [facility] DEPARTMENT OF ReportComment: Case Number: PATHOLOGY AND [id number] GENOMIC MEDICINE Narrative Performed At [facility] DEPARTMENT OF PATHOLOGY AND GENOMIC MEDICINE Performing Organization Address City/[facility] Phone Number [address] [address] PATHOLOGY AND GENOMIC MEDICINE * Varicella zoster by PCR (05/17/2018 3:21 PM CDT) VZV result Not-Detected Not-Detected copies/mL [facility] DEPARTMENT OF PATHOLOGY AND GENOMIC MEDICINE Varicella zoster, PCR See link below for PDF Lab [facility] DEPARTMENT OF ReportComment: Case Number: PATHOLOGY AND [id number] GENOMIC MEDICINE Narrative Performed At [facility] DEPARTMENT OF PATHOLOGY AND GENOMIC MEDICINE Performing Organization Address [facility] Phone Number [facility] DEPARTMENT [address] [address] PATHOLOGY AND GENOMIC MEDICINE * Herpes simplex virus by PCR (05/17/2018 3:21 PM CDT) Herpes virus, PCR Not-Detected Not-Detected [facility] DEPARTMENT OF PATHOLOGY AND GENOMIC MEDICINE Herpes virus, PCR See link below for PDF Lab [facility] DEPARTMENT OF ReportComment: Case Number: PATHOLOGY AND [id number] GENOMIC MEDICINE Narrative Performed At [facility] DEPARTMENT OF PATHOLOGY AND GENOMIC MEDICINE Performing Organization Address City/[facility] Phone Number [facility] DEPARTMENT [address] [address] PATHOLOGY AND GENOMIC MEDICINE * AFB culture (05/17/2018 3:21 PM CDT) Only the most recent of 4 results within the time period is included. AFB culture isolate No growth after 6 weeks of [facility] DEPARTMENT OF incubation. PATHOLOGY AND Comment: GENOMIC MEDICINE Specimen Information Specimen Source: Bronchial alveolar lavage Specimen Site: RUL (right upper lobe) Specimen Bronchial alveolar lavage - RUL (right upper lobe) Performing Organization Address City/[facility] Phone Number [facility] DEPARTMENT OF [address] [place] [phone] PATHOLOGY AND GENOMIC MEDICINE * Nocardia culture (05/17/2018 3:21 PM CDT) Only the most recent of 2 results within the time period is included. Nocardia culture isolate No Nocardia isolated after 7 [facility] DEPARTMENT OF days. PATHOLOGY AND Comment: GENOMIC MEDICINE Specimen Information Specimen Source: Bronchial alveolar lavage Specimen Site: RUL (right upper lobe) Specimen Bronchial alveolar lavage - RUL (right upper lobe) Performing Organization Address City/[facility] Phone Number [facility] DEPARTMENT OF [address] [place] [address] PATHOLOGY AND GENOMIC MEDICINE * Legionella culture (05/17/2018 3:21 PM CDT) Legionella culture No Legionella isolated. (A) [facility] DEPARTMENT OF isolate Comment: PATHOLOGY AND Specimen Information GENOMIC MEDICINE Specimen Source: Bronchial Washing Specimen Site: RUL (right upper lobe) Legionella culture Aspergillus flavus (A) [facility] DEPARTMENT OF isolate PATHOLOGY AND GENOMIC MEDICINE Specimen Bronchial washing - RUL (right upper lobe) Performing Organization Address [facility] Phone Number [facility] DEPARTMENT OF [address] [place] [phone] PATHOLOGY AND GENOMIC MEDICINE * AFB stain (05/17/2018 3:21 PM CDT) Only the most recent of 4 results within the time period is included. AFB stain No acid fast bacilli (AFB) [facility] DEPARTMENT OF seen. PATHOLOGY AND Comment: GENOMIC MEDICINE Specimen Information Specimen Source: Bronchial alveolar lavage Specimen Site: RUL (right upper lobe) Specimen Bronchial alveolar lavage - RUL (right upper lobe) Performing Organization Address City/[facility] Phone Number [facility] DEPARTMENT OF [address] [place] [address] PATHOLOGY AND GENOMIC MEDICINE * Fungus culture (05/17/2018 3:21 PM CDT) Only the most recent of 3 results within the time period is included. Fungus culture isolate No growth after 4 weeks of [facility] DEPARTMENT OF incubation. PATHOLOGY AND Comment: GENOMIC MEDICINE Specimen Information Specimen Source: Bronchial alveolar lavage Specimen Site: RUL (right upper lobe) Specimen Bronchial alveolar lavage - RUL (right upper lobe) Performing Organization Address City/[facility]/Zipcode Phone Number [facility] DEPARTMENT OF [address] [place] [address] PATHOLOGY AND GENOMIC MEDICINE * Cytology (non-gynecological) request (05/17/2018 3:21 PM CDT) Only the most recent of 2 results within the time period is included. [facility] DEPARTMENT OF PATHOLOGY AND GENOMIC MEDICINE Cytology See link below for PDF Lab [facility] DEPARTMENT OF (non-gynecological) Report PATHOLOGY AND report GENOMIC MEDICINE Result status This is Final Report to [facility] DEPARTMENT OF [id number] PATHOLOGY AND GENOMIC MEDICINE Performing Organization Address [facility] Phone Number [facility] DEPARTMENT [address] [address] PATHOLOGY AND GENOMIC MEDICINE * Histoplasma antigen, serum (05/17/2018 12:23 PM CDT) Histoplasma antigen, None Detected ng/mL [facility] DEPARTMENT OF serum Comment: PATHOLOGY AND INTERPRETATION: HISTOPLASMA GENOMIC MEDICINE ANTIGEN -Reference interval: None Detected -Results reported as ng/mL in 0.4 - 19.0 ng/mL -Results above the limit of detection but below 0.4 ng/mL are reported as 'Positive, Below the Limit of Quantification' -Results above 19.0 ng/mL are reported as 'Positive, Above the Limit of Quantification' Performing Organization Address [facility] Phone Number [facility] [place] [address] PATHOLOGY AND GENOMIC MEDICINE * Partial thromboplastin time, activated (05/17/2018 11:55 AM CDT) PTT 22.4 (L) 23.0 - 36.0 sec [facility] DEPARTMENT OF Comment: PATHOLOGY AND PTT therapeutic range for GENOMIC MEDICINE unfractionated heparin is 61.0-112.0 seconds which corresponds to Anti-Xa 0.3-0.7 U/ml. Specimen Blood Performing Organization Address City/[facility]/Zipcode Phone Number [facility] [place] [address] PATHOLOGY AND GENOMIC MEDICINE * Prothrombin time with INR (05/17/2018 11:55 AM CDT) Prothrombin time 13.4 12.0 - 15.0 sec [facility] DEPARTMENT OF PATHOLOGY AND GENOMIC MEDICINE INR 1.0 [facility] DEPARTMENT OF Comment: PATHOLOGY AND The International Normalized GENOMIC MEDICINE Ratio (INR) is a therapeutic monitoring tool for patients who are stable on oral anticoagulant therapy. An INR of 2.0-3.0 is suggested for deep vein thrombosis/pulmonary embolism. Specimen Blood Performing Organization Address City/State/Zipcode Phone Number [facility] DEPARTMENT OF [address] [place] [address] PATHOLOGY AND GENOMIC MEDICINE * Sputum culture (05/15/2018 12:20 PM CDT) Only the most recent of 2 results within the time period is included. Sputum culture isolate Normal oral chirag and (A) [facility] DEPARTMENT OF Comment: PATHOLOGY AND Specimen Information GENOMIC MEDICINE Specimen Source: Sputum Specimen Site: Expectorated Sputum culture isolate Pseudomonas aeruginosa [facility] DEPARTMENT OF Many PATHOLOGY AND susceptibility to follow GENOMIC MEDICINE This organism is NOT a carbapenemase producing organism. (A) Sputum culture isolate Escherichia coli [facility] DEPARTMENT OF Many PATHOLOGY AND identification/susceptibility GENOMIC MEDICINE to follow This organism is NOT a carbapenemase producing organism. (A) Specimen Sputum - Expectorated Antibiotic Method Susceptibility Organism Amikacin SHAHBAZ <=4 mcg/mL: Susceptible Pseudomonas aeruginosa [...] Pseudomonas aeruginosa Piperacillin/Tazobactam SHAHBAZ 4/4 mcg/mL: Susceptible Pseudomonas aeruginosa Amikacin SHAHBAZ <=4 mcg/mL: Susceptible Escherichia coli [...] Tobramycin SHAHBAZ 1 mcg/mL: Susceptible Escherichia coli Trimethoprim/Sulfamethoxazole SHAHBAZ >2/38 mcg/mL: Resistant Escherichia coli Cefepime SHAHBAZ <=0.5 mcg/mL: Susceptible Escherichia coli Performing Organization Address City/State/Zipcode Phone Number [facility] DEPARTMENT OF [address] [place] [address] PATHOLOGY AND GENOMIC MEDICINE * Echocardiogram complete w contrast and 3D if needed (03/26/2018 10:45 AM CDT) Narrative Performed At [facility] Echocardiography Report Pat.Name:LILLI GREWAL JR Pat.ID:[id number] .Date: 03/26/2018 Refer.MD:DARIUS JIMÉNEZ MD Exam Time: 10:08:00 AM Study Type:Routine Echo Height:67inWeight:130lb BSA: 1.69 m2 DOBAge:1930,88Y Sex: MALEBP:130/71 HR:71 bpm Sonogrphr: Ina Vásquez, RCS, RCCS, CCT Pat. Stat.:OutpatientRoom:[facility] TapeVol: [facility], Study Status:Final Echo Event ID:[id number] Order ID:[id number] Reason for Study:AVR History / Clinical:Hypertension, Liver [...] PA systolic pressure. MEASUREMENTS: 2D Parasternal [place] Ds4.3 cmLVPWd0.8 cm LVOT 2 cmAo An2.3 cm LVIDd4.5 cmIndex2.7 cm/m Ao Rtd 3.4 cm Index2 cm/m LVIDs2.9 cm LV Awya246.1 g(122-174) LV%fs 35.7 % LVM Hjrwy221.5 g/m2 IVSd 1.5 cmRWT0.3 LA Volume LA Vol76.9 fkYxtsr27.5 ml/m LA Sng Plane LA Area 24.6 cm2(8.8-23.4) LA Vol77.6 ml Index45.9 ml/m LA LngAx 6.6 cm DOPPLER AV For Flow/MARTINEZ AV Area1.5 cm2(3-5)AV ET322 msec AV pkVel 290.3 cm/s (100-170) AV AC/ET 0.3 AV mnVel 194.7 cm/Francy TVI62.8 cm AV pkPG 33.7 mmHgAVpkAcRt 39617.4 cm/s2 AV Mean G 18.7 mmHgAV JtTu162.5 cm/s2 AV AC108 msec (83-118) LVOT For Flow XYRGeiLxx726.2 cm/sHR82.8 bpm LVOTpkPG 4.6 mmHgLVOT CO7.2 l/min LVOTmnPG 2.8 mmHgLVOT CI4.3 l/m/m2 LVOT TVI27.7 cmLVOT Area3.1 cm2 LVOT SV 87 ml WALL MOTION: RESTING WALL MOTION: Basal Inferior, Basal Inferolateral, Mid Inferolateral brito are hypokinetic. Normal in all other brito. Wall Index=1.2 Signed 03/27/2018 05:52 PM Francisco Javier Villela M.D. Procedure Note Interface, Radiology Results In - 03/27/2018 5:53 PM CDT [facility] Echocardiography Report Pat.Name: LILLI GREWAL JR Pat.ID: [id number] St.Date: 03/26/2018 Refer.MD: DARIUS JIMÉNEZ MD Exam Time: 10:08:00 AM Study Type:Routine Echo Height: 67in Weight: 130lb BSA: 1.69 m2 Age: 5 1930,88Y Sex: MALE BP: 130/71 HR: 71 bpm Sonogrphr: Ina Vásquez, RCS, RCCS, CCT Pat. Stat.:Outpatient Room: [address] Vol: [facility], Study Status:Final Echo Event ID:[id number] Order ID: [id number] Reason for Study:AVR History / Clinical:Hypertension, Liver transplant 2007 Procedures:2D Echo, Colorflow Doppler Race: SUMMARY: LV [...] PA systolic pressure. MEASUREMENTS: 2D Parasternal [place] Ds 4.3 cm LVPWd 0.8 cm [...] 62.8 cm AV pkPG 33.7 mmHg AVpkAcRt 38422.4 cm/s2 AV Mean G 18.7 mmHg AV [...] Francisco Javier Villela M.D. Performing Organization Address City/State/Zipcode Phone Number [address] [place] [address] after 11/09/2017 Insurance Payer Benefit Subscriber ID Type Phone Address Plan / Group MEDICARE MEDICARE xxxxxxxxxxx Medicare [place], [place] PART A AND B AARP AARP xxxxxxxxxxx Commercial SUPPLEMENT Advance Directives Patient has advance care planning documents, and code status on file. For more i nformation, please contact: Nasir Unger [phone] [facility] [place] [address] Date Inactivated Comments Code Status Date Activated 05/22/2018 8:34 AM Full Code 05/17/2018 3:11 PM Code Status decision reached by: Patient
--- OUTSIDE RECORDS SUMMARY | 2018-11-10 23:43 | XMS REPORT | Clinical Summary ---
Author Author [facility] Address Unknown Phone Unavailable Care Team Providers Care Senior Product Engineer Name Role Phone Donato Mccallum MD PCP Allergies No Known Allergies Medications End Date Status Medication Sig Dispensed Refills Start Date Active aspirin 81 MG EC tablet Take 81 mg by 0 mouth daily. Active propranolol (INDERAL) 40 Take 40 mg by 0 MG tablet mouth 2 (two) times daily. Active ranitidine (ZANTAC) 150 Take 150 mg 0 MG tablet by mouth daily. Active flunisolide (NASALIDE) 25 2 sprays by 0 mcg (0.025 %) [place] Each Nare route as needed. Active hydrOXYzine (ATARAX) 25 Take 25 mg by 0 MG tablet mouth every 6 (six) hours as needed. Active diphenhydrAMINE Take 25 mg by 0 (BENADRYL) 25 mg tablet mouth as needed. Active calcium citrate 500 mg Take 500 mg 0 TbEF by mouth. Active MULTIVITAMIN Take 1 tablet 0 W-MINERALS/LUTEIN by mouth (CENTRUM SILVER ORAL) daily. Active coenzyme Q10 200 mg Take 200 mg 0 capsule by mouth daily. Active fenofibrate (TRICOR) 48 Take 48 mg by 0 MG tabletIndications: mouth daily. hypercholesterolemia Active sirolimus (RAPAMUNE) 0.5 Take 1 tablet 30 tablet 0 mg Tab tablet (0.5 mg 8 total) by mouth daily. 02/15/2018 Discontinued RAPAMUNE 1 mg Take 2 60 tablet 11 tabletIndications: Liver tablets (2 mg 7 replaced by transplant total) by (HCC), Status post liver mouth daily. transplantation (HCC), Immunosuppression (HCC) 02/18/2018 Discontinued sirolimus (RAPAMUNE) 1 MG Take 2 60 tablet tablet tablets (2 mg 8 total) by mouth daily. 07/04/2018 Discontinued sirolimus (RAPAMUNE) 1 MG Take 2 60 tablet tablet tablets (2 mg 8 total) by mouth daily. 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 No recurrent HCV infection currently with undetectable HCV RNA. No major issues of acute or chronic rejection or biliary stricture. Continue current care plan. 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 Immunosuppression 11/25/2013 Last Assessment & Plan: Sirolimus monotherapy with excellent graft function. Continue current care plan. Hypertension 11/25/2013 Last Assessment & Plan: Mildly hypertensive today; however, did not take antihypertensive meds before fasting labs today. He will continue monitoring with his prescribing physician and should avoid weight gain. Encounters Care Team Description Date Type Specialty Anat Walker Labs Only (SPK W PTN RE: LAB/RX RESULTS; NO MED CHANGES; REPEAT BLD WK X4 MTHS; 01/16/2019; [facility]; [facility];) 09/25/2018 Telephone Transplant Hepatology David Dodge MD 09/18/2018 Orders Only Transplant Hepatology Bridget Cortes RN Medication Problem 08/30/2018 Telephone Transplant Hepatology Bridget Cortes RN Labs Only 07/24/2018 Telephone Transplant Hepatology Bridget Cortes RN returning phone call 07/23/2018 Telephone Transplant Hepatology Gem Danielson RN Follow-up 07/12/2018 Telephone Transplant Hepatology Gem Danielson RN Follow-up 07/12/2018 Telephone Transplant Hepatology Gem Danielson RN Follow-up 07/12/2018 Telephone Transplant Hepatology Bridget Cortes RN 07/04/2018 Orders Only Transplant Hepatology Bridget Cortes, RN urologist clearance 07/04/2018 Telephone Transplant Hepatology Bridget Cortes RN prostate 07/02/2018 Telephone Transplant Hepatology Anat Walker Labs Only (SPK W PTN RE: LAB/RX RESULTS; NO MED CHANGES; REPEAT BLD WK X3 MTHS; 09/20/2018; [facility]; GGT;) 06/25/2018 Telephone Transplant Hepatology Bridget Cortes RN Labs Only 06/20/2018 Telephone Transplant Hepatology Bridget Cortes, photo lab technician work 06/20/2018 Telephone Transplant Hepatology Anat Walker 06/19/2018 Documentation Transplant Hepatology Anat Walker Labs Only (SPK W SPOUSE RE: LAB/RX RESULTS; NO MED CHANGES; REPEAT BLD WK X2 WKS; 06/18/2018; [facility]; GGT;) 06/12/2018 Telephone Transplant Hepatology Bridget Cortes RN Medication Problem 06/12/2018 Telephone Transplant Hepatology Bridget Cortes, RN questions about medication 06/12/2018 Telephone Transplant Hepatology Bridget Cortes, EDMUND question re: medication 06/07/2018 Telephone Transplant Hepatology Bridget Cortes, EDMUND question for coordinator 05/31/2018 Telephone Transplant Hepatology Bridget Cortes, EDMUND rapamune 0.5 05/30/2018 Telephone Transplant Hepatology Bridget Cortes, EDMUND question re: [facility]work 05/30/2018 Telephone Transplant Hepatology Bridget Cortes, ed tech Dose Change 05/29/2018 Telephone Transplant Hepatology David Dodge MD 04/22/2018 Orders Only Transplant Hepatology Bridget Cortes RN 02/18/2018 Orders Only Transplant Hepatology Anat Walker 02/18/2018 Documentation Transplant Hepatology Bridget Cortes, RN generic OK 02/15/2018 Telephone Transplant Hepatology Bridget Cortes, RN brand name medication 02/14/2018 Telephone Transplant Hepatology Bridget Cortes RN 02/07/2018 Abstract Transplant Hepatology Maral Freeman Labs Only (No change in current medications, repeat labs in 4 months 04/22/18 @ [facility]. ) 12/24/2017 Telephone Transplant Hepatology Afshan Fernandez MD Status post liver transplantation (HCC) (Primary Dx); Status post aortic valve replacement with tissue; Immunosuppression (HCC); Stage 3 chronic kidney disease; Screening for malignant neoplasm 12/20/2017 Follow-Up Transplant Hepatology Dani Montelongo MD Status post liver transplantation (HCC); Immunosuppression (HCC) 12/20/2017 Orders Only Transplant Hepatology Maral Freeman Mailed updated itinerary (Mailed updated itinerary, with RS appt info. from Sunday clinic to clinic.) 11/12/2017 Telephone Transplant Hepatology after 11/09/2017 Social History Date Tobacco Use Types Packs/Day Years Used Quit: 10/15/1973 Former Smoker Cigarettes Smokeless Tobacco: Never Used Sex Assigned at Date Recorded Not on file Industry Job Start Date Occupation Not on file Not on file Not on file Travel End Travel History Travel Start No recent travel history available. Last Filed Vital Signs Time Taken Vital Sign Reading 12/20/2017 9:32 AM CERTIFIED ENDOSCOPY TECHNICIAN Blood Pressure 155/75 12/20/2017 9:32 AM CERTIFIED ENDOSCOPY TECHNICIAN Pulse 55 12/20/2017 9:32 AM CERTIFIED ENDOSCOPY TECHNICIAN Temperature 36.4 C (97.5 F) 12/20/2017 9:32 AM CERTIFIED ENDOSCOPY TECHNICIAN Respiratory Rate 18 12/20/2017 9:32 AM CERTIFIED ENDOSCOPY TECHNICIAN Oxygen Saturation 98% - Inhaled Oxygen - Concentration 12/20/2017 9:32 AM CERTIFIED ENDOSCOPY TECHNICIAN Weight 59.6 kg (131 lb 8 oz) 12/20/2017 9:32 AM CERTIFIED ENDOSCOPY TECHNICIAN Height 163.8 cm (5' 4.5") 12/20/2017 9:32 AM CERTIFIED ENDOSCOPY TECHNICIAN Body Mass Index 22.22 Plan of Treatment Care Team Description Date Type Specialty 01/20/2019 Orders Only Transplant Hepatology Afshan Fernandez MD [id number] [facility] [address] [id number] 01/20/2019 Follow-Up Transplant Hepatology Health Maintenance Due Date Last Done Comments INFLUENZA VACCINE 07/15/2018 Procedures Comments Procedure Name Priority Date/Time Associated Diagnosis SIROLIMUS LEVEL Routine 09/18/2018 10:19 AM CERTIFIED ENDOSCOPY TECHNICIAN CBC W/PLT COUNT & AUTO Routine 09/18/2018 DIFFERENTIAL 10:19 AM CERTIFIED ENDOSCOPY TECHNICIAN COMPREHENSIVE METABOLIC Routine 09/18/2018 PANEL 10:19 AM CERTIFIED ENDOSCOPY TECHNICIAN MAGNESIUM Routine 09/18/2018 10:19 AM CERTIFIED ENDOSCOPY TECHNICIAN BILIRUBIN, TOTAL AND Routine 09/18/2018 DIRECT 10:19 AM CERTIFIED ENDOSCOPY TECHNICIAN SIROLIMUS LEVEL Routine 04/22/2018 9:22 AM CDT CBC W/PLT COUNT & AUTO Routine 04/22/2018 DIFFERENTIAL 9:22 AM CDT COMPREHENSIVE METABOLIC Routine 04/22/2018 PANEL 9:22 AM CDT MAGNESIUM Routine 04/22/2018 9:22 AM CDT BILIRUBIN, TOTAL AND Routine 04/22/2018 DIRECT 9:22 AM CDT CBC W/PLT COUNT & AUTO Routine 12/20/2017 Status post liver DIFFERENTIAL 9:20 AM CERTIFIED ENDOSCOPY TECHNICIAN transplantation (HCC) Immunosuppression (HCC) SIROLIMUS LEVEL Routine 12/20/2017 Status post liver 9:20 AM CERTIFIED ENDOSCOPY TECHNICIAN transplantation (HCC) Immunosuppression (HCC) MAGNESIUM Routine 12/20/2017 Status post liver 9:20 AM CERTIFIED ENDOSCOPY TECHNICIAN transplantation (HCC) Immunosuppression (HCC) CBC W/PLT COUNT & AUTO Routine 12/20/2017 Status post liver DIFFERENTIAL 9:20 AM CERTIFIED ENDOSCOPY TECHNICIAN transplantation (HCC) Immunosuppression (HCC) COMPREHENSIVE METABOLIC Routine 12/20/2017 Status post liver PANEL 9:20 AM CERTIFIED ENDOSCOPY TECHNICIAN transplantation (HCC) Immunosuppression (HCC) BILIRUBIN, DIRECT Routine 12/20/2017 Status post liver 9:20 AM CERTIFIED ENDOSCOPY TECHNICIAN transplantation (HCC) Immunosuppression (HCC) after 11/09/2017 Results * Sirolimus level (09/18/2018 10:19 AM CERTIFIED ENDOSCOPY TECHNICIAN) Only the most recent of 3 results within the time period is included. Rapamycin Trough 8.7 3.0 - 18.0 mcg/L [facility] Comment: This test was developed and its analytical performance characteristics have been determined by [facility]. It has not been cleared or approved by the US Food and Drug Administration. This assay has been validated pursuant to the CLIA regulations and is used for clinical purposes. Narrative Performed At FASTING:YES [facility] FASTING: YES Resulting Agency Comment Performing Organization Information: Site ID: [id number] Name: [facility] Address: [address] [place] [address] Director: Perez Herrera M.D., Ph.D Performing Organization Address City/State/Zipcode Phone Number [facility] [phone] [facility] [place] [address] [facility] * CBC with platelet count + automated diff (09/18/2018 10:19 AM CERTIFIED ENDOSCOPY TECHNICIAN) Only the most recent of 2 results within the time period is included. WBC 6.2 3.8 - 10.8 Thousand/uL [facility] RBC 4.32 4.20 - 5.80 Million/uL [facility] Hemoglobin 12.1 (L) 13.2 - 17.1 g/dL [facility] Hematocrit 36.6 (L) 38.5 - 50.0 % [facility] MCV 84.7 80.0 - 100.0 fL [facility] MCH 28.0 27.0 - 33.0 pg [facility] MCHC 33.1 32.0 - 36.0 g/dL [facility] RDW 15.9 (H) 11.0 - 15.0 % [facility] Platelets 177 140 - 400 Thousand/uL [facility] MPV 10.7 7.5 - 12.5 fL [facility] # Neutros 4,514 1,500 - 7,800 cells/uL [facility] # Lymphs 868 850 - 3,900 cells/uL [facility] # Monos 521 200 - 950 cells/uL [facility] # Eos 260 15 - 500 cells/uL [facility] # Baso 37 0 - 200 cells/uL [facility] % Neutros 72.8 % [facility] % Lymphs 14.0 % [facility] % Monos 8.4 % [facility] % Eos 4.2 % [facility] % Baso 0.6 % [facility] Narrative Performed At FASTING:YES [facility] FASTING: YES Resulting Agency Comment Performing Organization Information: Site ID: [id number] Name: [facility] Address: [address] [place] [phone] Director: Toshia Rahman Performing Organization Address [facility] Phone Number [facility] [address] [place] [address] [facility] * Bilirubin, total and direct (09/18/2018 10:19 AM CERTIFIED ENDOSCOPY TECHNICIAN) Only the most recent of 2 results within the time period is included. Bilirubin, Direct 0.1 < OR=0.2 mg/dL [facility] Narrative Performed At FASTING:YES [facility] FASTING: YES Resulting Agency Comment Performing Organization Information: Site ID: [facility] Name: [facility] Address: [address] [place] [phone] Director: Toshia Rahman Performing Organization Address [facility] Phone Number [facility] [address] [place] [address] [facility] * Magnesium (09/18/2018 10:19 AM CERTIFIED ENDOSCOPY TECHNICIAN) Only the most recent of 3 results within the time period is included. Magnesium, Serum 2.1 1.5 - 2.5 mg/dL [facility] Narrative Performed At FASTING:YES [facility] FASTING: YES Resulting Agency Comment Performing Organization Information: Site ID: [facility] Name: [facility] Address: [address] [place] [phone] Director: Toshia Rahman Performing Organization Address [facility] Phone Number [facility] [address] [place] [address] [facility] * Comprehensive metabolic panel (09/18/2018 10:19 AM CERTIFIED ENDOSCOPY TECHNICIAN) Only the most recent of 3 results within the time period is included. Glucose 112 (H) 65 - 99 mg/dL [facility] Comment: Fasting reference interval For someone without known diabetes, a glucose value between 100 and 125 mg/dL is consistent with prediabetes and should be confirmed with a follow-up test. BUN 27 (H) 7 - 25 mg/dL [facility] Creatinine 1.97 (H) 0.70 - 1.11 mg/dL [facility] Comment: For patients >49 years of age, the reference limit for Creatinine is approximately 13% higher for people identified as -Lib[place]. eGFR If NonAfricn Am 30 (L) > OR=60 mL/min/1.73m2 [facility] eGFR If Africn Am 34 (L) > OR=60 mL/min/1.73m2 [facility] BUN/Creatinine Ratio 14 6 - 22 (calc) [facility] Sodium 142 135 - 146 mmol/L [facility] Potassium, Serum 3.8 3.5 - 5.3 mmol/L [facility] Chloride 97 (L) 98 - 110 mmol/L [facility] Carbon Dioxide, Total 32 20 - 32 mmol/L [facility] Calcium, Serum 9.7 8.6 - 10.3 mg/dL [facility] Protein, Total, Serum 7.1 6.1 - 8.1 g/dL [facility] Albumin 4.2 3.6 - 5.1 g/dL [facility] GLOBULIN ([facility]) 2.9 1.9 - 3.7 g/dL (calc) [facility] Albumin Globulin Ratio 1.4 1.0 - 2.5 (calc) [facility] Bilirubin, Total 0.6 0.2 - 1.2 mg/dL [facility] Alkaline Phosphatase, S 168 (H) 40 - 115 U/L [facility] AST (SGOT) 34 10 - 35 U/L [facility] ALT (SGPT) 37 9 - 46 U/L [facility] Narrative Performed At FASTING:YES [facility] FASTING: YES Resulting Agency Comment Performing Organization Information: Site ID: [id number] Name: [facility] Address: [address] [place] [phone] Director: Toshia Rahman Performing Organization Address City/State/Zipcode Phone Number [facility] [address] [place] [address] [facility] * CBC with platelet count + automated diff (12/20/2017 9:20 AM CERTIFIED ENDOSCOPY TECHNICIAN) WBC 7.4 3.5 - 10.5 K/L [facility] RBC 4.00 (L) 4.63 - 6.08 M/L [facility] Hemoglobin 11.0 (L) 13.7 - 17.5 GM/DL [facility] Hematocrit 35.2 (L) 40.1 - 51.0 % [facility] MCV 88.0 79.0 - 92.2 fL [facility] MCH 27.5 25.7 - 32.2 pg [facility] MCHC 31.3 (L) 32.3 - 36.5 GM/DL [facility] RDW 15.1 (H) 11.6 - 14.4 % [facility] Platelets 137 (L) 150 - 450 K/CU MM [facility] MPV 10.8 9.4 - 12.4 fL [facility] nRBC 0 0 - 0 /100 WBC [facility] % Neutros 80 % [facility] % Lymphs 10 % [facility] % Monos 7 % [facility] % Eos 3 % [facility] % Baso 0 % [facility] # Neutros 5.93 (H) 1.78 - 5.38 K/L [facility] # Lymphs 0.73 (L) 1.32 - 3.57 K/L [facility] # Monos 0.49 0.30 - 0.82 K/L [facility] # Eos 0.19 0.04 - 0.54 K/L [facility] # Baso 0.03 0.01 - 0.08 K/L [facility] Immature 1 0 - 1 % [facility] Granulocytes-Relative [facility] Specimen Blood Performing Organization Address City/State/Zipcode Phone Number [facility] [address] [place] [address] MED[facility]ENTER * Bilirubin, direct (12/20/2017 9:20 AM CERTIFIED ENDOSCOPY TECHNICIAN) Bilirubin, Direct 0.3 0.1 - 0.5 mg/dL [facility] Specimen Blood Performing Organization Address City/State/Zipcode Phone Number [facility] [address] [place] [address] [facility] after 11/09/2017 Insurance Payer Benefit Subscriber ID Type Phone Address Plan / Group MEDICARE MEDICARE A xxxxxxxxxx Medicare B MCR SUPPLEMENT/INDIVIDUAL [place]
--- NOTE | 2018-11-10 23:51 | NUR ---
URINAL GIVEN, INST ON NEED FOR URINE
[2018-11-11 00:18] LABS: BILIRUBIN,URINE NEGATIVE (NEGATIVE); CLARITY,URINE SL CLOUDY (CLEAR); COLOR,URINE YELLOW (YELLOW); KETONES,URINE NEGATIVE (NEGATIVE); LEUKOCYTE ESTERASE ,URINE 2+ (NEGATIVE); NITRITE,URINE NEGATIVE (NEGATIVE); PROTEIN,URINE DIPSTICK NEGATIVE (NEGATIVE); URINE UROBILINOGEN 0.2 mg/dL (0.2 - 1)
[2018-11-11 00:29] LABS: EPITHELIAL CELLS,URINE FEW /LPF; RBC,URINE 0-5 /HPF (0-5); WBC,URINE (MAN) 21-50 /HPF (0-5)
[2018-11-11] MEDS ORDERED: CEFTRIAXONE SOD 1 GM VIAL ONE (00:38)
[2018-11-11] MEDS ORDERED: CEFTRIAXONE SOD 1 GM/NS 50 ML 50 ML IV ONE (00:45)
--- NOTE | 2018-11-11 02:23 | Diagnostic Imaging Report ---
EXAM: Scrotal Ultrasound with Duplex INDICATION: swollen testicles COMPARISON: None TECHNIQUE: Transverse and longitudinal images were obtained of the scrotum with grayscale imaging, color Doppler and spectral waveform analysis. FINDINGS: Right testis: Size: 3.3 x 2.8 x 2.6 cm, normal in size. Echogenicity: Normal Mass/Cysts: None. Tubular ectasia of the rete testis. Left testis: Size: 3.4 x 2.7 x 2.4 cm, normal in size. Echogenicity: Normal Mass/Cysts: None Epididymis: Appearance: Normal in size without increased vascularity. Mass/Cysts: Right epididymal head cysts measuring up to 2 mm. Extratesticular: Masses: None Hydrocele: Small bilateral hydroceles. Varicocele: None Doppler: Normal arterial flow to both testes and symmetrical flow on color Doppler evaluation is seen. No evidence of testicular torsion. Scrotal wall edema without increased vascularity. IMPRESSION: 1. No evidence of testicular torsion. 2. Small bilateral hydroceles. Signed by: DR. Efrain Wu MD on 11/11/2018 2:20 AM
[2018-11-11] MEDS ORDERED: KEFLEX500 MG PO (02:38)
== END 2018-11-11 02:51 | disposition home or self-care (01) ==
LOC: ER 23:40
DX: N50.89 Other specified disorders of the male genital organs (principal); N30.90 Cystitis, unspecified without hematuria
CPT/HCPCS: 76870; 81001; 93976; 99283; J0696

== ENCOUNTER 2019-02-27 16:30 | Emergency (ER) | payer MEDICARE ==
[~2019-02-27] VITALS: Ht 170.2 cm; Wt 59.0 kg
[~2019-02-27 16:30] MED LIST changes: +KEFLEX500 MG PO
--- OUTSIDE RECORDS SUMMARY | 2019-02-27 16:34 | XMS REPORT | Clinical Summary ---
Author Author [facility] Address Unknown Phone Unavailable Care Team Providers Care Manager Business Operations Name Role Phone Donato Mccallum MD PCP [...] 2 sprays by 0 mcg (0.025 %) [place] Each Nare route as needed. Active hydrOXYzine [...] 0.5 Take 1 tablet 30 tablet 0 05/29/201 mg Tab tablet (0.5 mg 8 total) by mouth daily. 07/04/2018 Discontinued sirolimus (RAPAMUNE) 1 MG Take 2 60 tablet 11 tablet tablets (2 mg 8 total) by mouth daily. 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 No recurrent HCV infection currently with undetectable HCV RNA. No major issues of acute or chronic rejection or biliary stricture. Continue current care plan. 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 Overview: ICD9 DX Check Scaler L ast Assessment & Plan: S/P porcine [...] MED CHANGES; REPEAT BLD WK X4 MTHS; 05/22/2019; [facility]; GGT;) 01/21/2019 Telephone Transplant Hepatology Afshan Fernandez MD Status post liver transplantation (HCC) (Primary Dx); Immunosuppression (HCC); Screening for malignant neoplasm; Stage 3 chronic kidney disease (HCC) 01/20/2019 Follow-Up Transplant Hepatology Afshan Fernandez MD Nonspecific findings on examination of blood; Status post liver transplantation (HCC); Encounter for long-term (current) use of high-risk medication; Encounter for therapeutic drug monitoring; Complication of transplanted liver, unspecified complication (HCC); Disorder of magnesium metabolism; Hepatitis C virus infection without hepatic coma, unspecified chronicity 01/20/2019 Orders Only Transplant Hepatology Afshan Fernandez MD 01/20/2019 Abstract Transplant Hepatology Anat Walker 01/20/2019 Documentation Transplant Hepatology Bridget Cortes RN Nonspecific findings on examination of blood (Primary Dx); Status post liver transplantation (HCC); Encounter for long-term (current) use of high-risk medication; Encounter for therapeutic drug monitoring; Complication of transplanted liver, unspecified complication (HCC); Disorder of magnesium metabolism; Hepatitis C virus infection without hepatic coma, unspecified chronicity 01/17/2019 Orders Only Transplant Hepatology Bridget Cortes, RN returning phone call 11/13/2018 Telephone Transplant Hepatology Anat Walker Labs Only (SPK W PTN RE: LAB/RX RESULTS; NO MED CHANGES; REPEAT BLD WK X4 MTHS; 01/16/2019; [facility]; GGT;) 09/25/2018 Telephone Transplant Hepatology David Dodge MD 09/18/2018 Orders Only Transplant Hepatology Bridget Cortes, core drier Problem 08/30/2018 Telephone Transplant Hepatology Bridget Cortes RN Labs Only 07/24/2018 Telephone Transplant Hepatology Bridget Cortes, EDMUND returning phone call 07/23/2018 Telephone Transplant Hepatology Gem Danielson, EDMUND Follow-up 07/12/2018 Telephone Transplant Hepatology Gem Danielson, EDMUND Follow-up 07/12/2018 Telephone Transplant Hepatology Gem Danielson, EDMUND Follow-up 07/12/2018 Telephone Transplant Hepatology Bridget Cortes [...] Only 06/20/2018 Telephone Transplant Hepatology Bridget Cortes, collaborative physician work 06/20/2018 Telephone Transplant Hepatology Anat Walker 06/19/2018 Documentation Transplant Hepatology Anat Walker Labs Only (SPK W SPOUSE RE: LAB/RX RESULTS; NO MED CHANGES; REPEAT BLD WK X2 WKS; 06/18/2018; [facility]; GGT;) 06/12/2018 Telephone Transplant Hepatology Bridget Cortes RN Medication Problem 06/12/2018 Telephone Transplant Hepatology Bridget Cortes RN questions about medication 06/12/2018 Telephone Transplant Hepatology Bridget Cortes RN question re: medication 06/07/2018 Telephone Transplant Hepatology Bridget Cortes RN question for coordinator 05/31/2018 Telephone Transplant Hepatology Bridget Cortes RN rapamune 0.5 05/30/2018 Telephone Transplant Hepatology Bridget Cortes RN question re: [facility] bloodwork 05/30/2018 Telephone Transplant Hepatology Bridget Cortes RN Medication Dose Change 05/29/2018 Telephone Transplant Hepatology David Dodge MD 04/22/2018 Orders Only Transplant Hepatology after 02/26/2018 Social History Date Tobacco Use Types Packs/Day Years Used Quit: 10/15/1973 Former Smoker Cigarettes Smokeless Tobacco: Never Used Sex Assigned at Date Recorded Not on file Industry Job Start Date Occupation Not on file Not on file Not on file Travel End Travel History Travel Start No recent travel history available. Last Filed Vital Signs Time Taken Vital Sign Reading 01/20/2019 10:14 AM CDT Blood Pressure 171/80 01/20/2019 10:14 AM CDT Pulse 64 01/20/2019 10:14 AM CDT Temperature 36.4 C (97.6 F) 01/20/2019 10:14 AM CDT Respiratory Rate 16 01/20/2019 10:14 AM CDT Oxygen Saturation 96% - Inhaled Oxygen - Concentration 01/20/2019 10:14 AM CDT Weight 63.2 kg (139 lb 6.4 oz) 01/20/2019 10:14 AM CDT Height 163.8 cm (5' 4.5") 01/20/2019 10:14 AM CDT Body Mass Index 23.56 Plan of Treatment Not on file Procedures Comments Procedure Name Priority Date/Time Associated Diagnosis CBC W/PLT COUNT & AUTO Routine 01/20/2019 Nonspecific findings on DIFFERENTIAL 9:44 AM CDT examination of blood Status post liver transplantation (HCC) Encounter for long-term (current) use of high-risk medication Encounter for therapeutic drug monitoring Complication of transplanted liver, unspecified complication (HCC) Disorder of magnesium metabolism HEPATITIS C PCR, Routine 01/20/2019 Nonspecific findings on QUANTITATIVE 9:44 AM CDT examination of blood Status post liver transplantation (HCC) Encounter for long-term (current) use of high-risk medication Encounter for therapeutic drug monitoring Complication of transplanted liver, unspecified complication (HCC) Disorder of magnesium metabolism Hepatitis C virus infection without hepatic coma, unspecified chronicity SIROLIMUS LEVEL Routine 01/20/2019 Nonspecific findings on 9:44 AM CDT examination of blood Status post liver transplantation (HCC) Encounter for long-term (current) use of high-risk medication Encounter for therapeutic drug monitoring Complication of transplanted liver, unspecified complication (HCC) Disorder of magnesium metabolism PHOSPHORUS Routine 01/20/2019 Nonspecific findings on 9:44 AM CDT examination of blood Status post liver transplantation (HCC) Encounter for long-term (current) use of high-risk medication Encounter for therapeutic drug monitoring Complication of transplanted liver, unspecified complication (HCC) Disorder of magnesium metabolism MAGNESIUM Routine 01/20/2019 Nonspecific findings on 9:44 AM CDT examination of blood Status post liver transplantation (HCC) Encounter for long-term (current) use of high-risk medication Encounter for therapeutic drug monitoring Complication of transplanted liver, unspecified complication (HCC) Disorder of magnesium metabolism CBC W/PLT COUNT & AUTO Routine 01/20/2019 Nonspecific findings on DIFFERENTIAL 9:44 AM CDT examination of blood Status post liver transplantation (HCC) Encounter for long-term (current) use of high-risk medication Encounter for therapeutic drug monitoring Complication of transplanted liver, unspecified complication (HCC) Disorder of magnesium metabolism COMPREHENSIVE METABOLIC Routine 01/20/2019 Nonspecific findings on PANEL 9:44 AM CDT examination of blood Status post liver transplantation (HCC) Encounter for long-term (current) use of high-risk medication Encounter for therapeutic drug monitoring Complication of transplanted liver, unspecified complication (HCC) Disorder of magnesium metabolism BILIRUBIN, DIRECT Routine 01/20/2019 Nonspecific findings on 9:44 AM CDT examination of blood Status post liver transplantation (HCC) Encounter for long-term (current) use of high-risk medication Encounter for therapeutic drug monitoring Complication of transplanted liver, unspecified complication (HCC) Disorder of magnesium metabolism SIROLIMUS LEVEL Routine 09/18/2018 10:19 AM COSTUME DIRECTOR CBC W/PLT COUNT & AUTO Routine 09/18/2018 DIFFERENTIAL 10:19 AM COSTUME DIRECTOR COMPREHENSIVE METABOLIC Routine 09/18/2018 PANEL 10:19 AM COSTUME DIRECTOR MAGNESIUM Routine 09/18/2018 10:19 AM COSTUME DIRECTOR BILIRUBIN, TOTAL AND Routine 09/18/2018 DIRECT 10:19 AM COSTUME DIRECTOR SIROLIMUS LEVEL Routine 04/22/2018 9:22 AM CDT CBC W/PLT COUNT & AUTO Routine 04/22/2018 DIFFERENTIAL 9:22 AM CDT COMPREHENSIVE METABOLIC Routine 04/22/2018 PANEL 9:22 AM CDT MAGNESIUM Routine 04/22/2018 9:22 AM CDT BILIRUBIN, TOTAL AND Routine 04/22/2018 DIRECT 9:22 AM CDT after 02/26/2018 Results * CBC with platelet count + automated diff (01/20/2019 9:44 AM CDT) WBC 6.0 3.5 - 10.5 K/L [facility] RBC 4.27 (L) 4.63 - 6.08 M/L [facility] Hemoglobin 11.9 (L) 13.7 - 17.5 GM/DL [facility] Hematocrit 38.0 (L) 40.1 - 51.0 % [facility] MCV 89.0 79.0 - 92.2 fL [facility] MCH 27.9 25.7 - 32.2 pg [facility] MCHC 31.3 (L) 32.3 - 36.5 GM/DL [facility] RDW 15.9 (H) 11.6 - 14.4 % [facility] Platelets 131 (L) 150 - 450 K/CU MM [facility] MPV 10.2 9.4 - 12.4 fL [facility] nRBC 0 0 - 0 /100 WBC [facility] % Neutros 69 % [facility] % Lymphs 17 % [facility] % Monos 9 % [facility] % Eos 4 % [facility] % Baso 1 % [facility] # Neutros 4.15 1.78 - 5.38 K/L [facility] # Lymphs 1.01 (L) 1.32 - 3.57 K/L [facility] # Monos 0.53 0.30 - 0.82 K/L [facility] # Eos 0.26 0.04 - 0.54 K/L [facility] # Baso 0.03 0.01 - 0.08 K/L [facility] Immature 0 0 - 1 % [facility] Granulocytes-[facility] Specimen Blood Performing Organization Address City/State/[place]code [place] [address] [phone] [place] [address] * Sirolimus level (01/20/2019 9:44 AM CDT) Only the most recent of 3 results within the time period is included. Sirolimus 7.3 5.0 - 15.0 ng/mL [facility] Specimen Blood Performing Organization Address City/State/[place] [address] [facility] * Hepatitis C PCR, Quantitative (01/20/2019 9:44 AM CDT) HCV PCR, Quantitative HCV RNA not detected HCV RNA not detected [facility] Specimen Blood Narrative Performed At This test uses a Real-Time Polymerase Chain Reaction (RT-PCR) methodology and [facility] was performed using [employer] Ampliprep/CHAITANYA TaqMan HCV test kit version 2.0 [facility] ([employer] Reportable range for this assay is 15 - 100,000,000 IU per mL (1.18 - 8.00 Log IU/mL). Performing Organization Address City/[facility] Phone Number [address] * Phosphorus (01/20/2019 9:44 AM CDT) Phosphorus 3.1Comment: Specimen slightly 2.3 - 4.7 mg/dL [facility] Specimen Blood Performing Organization Address [facility] Phone Number [address] * Magnesium (01/20/2019 9:44 AM CDT) Only the most recent of 3 results within the time period is included. Magnesium 2.2Comment: Specimen slightly 1.6 - 2.6 mg/dL [facility] Specimen Blood Performing Organization Address [facility] Phone Number [address] * Bilirubin, direct (01/20/2019 9:44 AM CDT) Bilirubin, Direct 0.1Comment: Specimen slightly 0.1 - 0.5 mg/dL [facility] Specimen Blood Performing Organization Address [facility] Phone Number [address] * Comprehensive metabolic panel (01/20/2019 9:44 AM CDT) Only the most recent of 3 results within the time period is included. Protein, Total 7.6Comment: Specimen slightly 6.0 - 8.3 gm/dL [facility] Albumin 3.9Comment: Specimen slightly 3.5 - 5.0 g/dL [facility] Alkaline Phosphatase 131 40 - 150 U/L [facility] Total Bilirubin 0.4Comment: Specimen slightly 0.2 - 1.2 mg/dL [facility] Sodium 141 136 - 145 meq/L [facility] Potassium 4.1Comment: Specimen slightly 3.5 - 5.1 meq/L [facility] Chloride 105 98 - 107 meq/L [facility] CO2 26 22 - 29 meq/L [facility] BUN 29 (H) 7 - 21 mg/dL [facility] Creatinine 2.09 (H)Comment: Specimen 0.57 - 1.25 mg/dL [facility] Glucose 99 70 - 105 mg/dL [facility] Calcium 9.7 8.4 - 10.2 mg/dL [facility] AST 40 (H)Comment: Specimen 5 - 34 U/L [facility] hemolyzed [facility] ALT 29Comment: Specimen slightly 6 - 55 U/L [facility] EGFR 30Comment: ESTIMATED GFR IS mL/min/1.73 sq m [facility] NOT ACCURATE CREATININE [facility] CLEARANCE IN PREDICTING GLOMERULAR FILTRATION RATE. ESTIMATED GFR IS NOT APPLICABLE FOR DIALYSIS PATIENTS. Specimen Blood Performing Organization Address City/State/Zipcode Phone Number [facility] [address] [place] [address] [facility] * CBC with platelet count + automated diff (09/18/2018 10:19 AM COSTUME DIRECTOR) Only the most recent of 2 results [...] % [facility] % Baso 0.6 % [facility] Specimen Narrative Performed At FASTING:YES [facility] FASTING: YES Resulting Agency Comment Performing Organization Information: Site ID: [id number] Name: [facility] Address: [address] [place] [id number] Director: Toshia Rahman Performing Organization Address [facility] Phone Number [facility] [address] [place] [phone] [facility] * Bilirubin, total and direct (09/18/2018 10:19 AM COSTUME DIRECTOR) Only the most recent of 2 results within the time period is included. Bilirubin, Direct 0.1 < OR=0.2 mg/dL [facility] Specimen Narrative Performed At FASTING:YES [facility] FASTING: YES Resulting Agency Comment Performing Organization Information: Site ID: [id number] Name: [facility] Address: [address] [place] [id number] Director: Toshia Rahman Performing Organization Address [facility] Phone Number [facility] [address] [place] [phone] [facility] after 02/26/2018 Insurance Payer Benefit Subscriber ID Type Phone Address Plan / Group MEDICARE MEDICARE A xxxxxxxxxxx Medicare B MCR SUPPLEMENT/INDIVIDUAL AARP/UNITE xxxxxxxxxxx [facility] HEALTHCARE
--- OUTSIDE RECORDS SUMMARY | 2019-02-27 16:34 | XMS REPORT | Clinical Summary ---
Author Author [facility] Organization [facility] Address Unknown Phone Unavailable Care Team Providers Care Exchange Operator Name Role Phone Donato Mccallum MD PCP [...] tablet TABLET BY 8 MOUTH ONCE DAILY Active amLODIPine (NORVASC) 5 mg Take 10 mg by 0 tablet mouth daily. Active penicillin v potassium Take 500 mg 0 (VEETID) 500 MG tablet by mouth 3 (three) times a day. Active tolterodine (DETROL) 2 MG Take 4 mg by 0 tablet mouth daily. 06/25/2018 Discontinued ursodiol (ACTIGALL) 500 Take 250 [...] (20 mg total) 7 by mouth daily. 05/28/2018 Discontinued tobramycin 80 mg/mL Take 1.88 [...] of mg total) by coronary artery of tribal mouth every heart without angina other day for pectoris, unspecified 20 days. 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 No recurrent HCV infection currently with undetectable HCV RNA. No major issues of acute or chronic rejection or biliary stricture. Continue current care plan. 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, unspecified vessel or lesion type (Primary Dx) 12/06/2018 Office Visit Cardiology Darius Jiménez MD PhD Chronic diastolic congestive heart failure (HCC); Decreased circulation 12/03/2018 Hospital Procedural Cardiology Encounter Vicki Sprague RN test ordered 11/22/2018 Telephone Cardiology Kevin Lewis NP-C Chronic diastolic congestive heart failure (HCC) (Primary Dx); Decreased circulation 11/18/2018 Office Visit Cardiology Jessie Chavez MD Acute on chronic congestive heart failure, unspecified heart failure type (HCC) 11/18/2018 Hospital Transplant Encounter Vicki Sprague RN Acute on chronic congestive heart failure, unspecified heart failure type (HCC) (Primary Dx) 11/18/2018 Orders Only Cardiology Whitney Jansen RN Leg Swelling 11/15/2018 Telephone Cardiology Whitney Jansen RN Clinic Follow Up 08/23/2018 Telephone Cardiology Darius Jiménez MD PhD 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, unspecified vessel or [...] Dx) 06/19/2018 Transcribe Access Orders Rehrer, Walt Rocha DO Urinary tract infection without hematuria, site [...] (Primary Dx); 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, unspecified vessel or lesion type 05/06/2018 Office Visit Cardiology Darius Jiménez MD PhD 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, unspecified vessel or lesion type (Primary Dx); S/P AVR (aortic valve replacement); Fatigue, unspecified type 03/28/2018 Office Visit Cardiology after 02/26/2018 Family History Medical History Relation Name Comments [...] Vital Signs Time Taken Vital Sign Reading 12/06/2018 10:18 AM TECHNOLOGY PROFESSIONAL Blood Pressure 156/76 12/06/2018 10:18 AM TECHNOLOGY PROFESSIONAL Pulse 81 11/18/2018 10:35 AM TECHNOLOGY PROFESSIONAL Temperature 35 C (95 F) 11/18/2018 10:35 AM TECHNOLOGY PROFESSIONAL Respiratory Rate 16 11/18/2018 10:35 AM TECHNOLOGY PROFESSIONAL Oxygen Saturation 96% - Inhaled Oxygen - Concentration 12/06/2018 10:18 AM TECHNOLOGY PROFESSIONAL Weight 61.7 kg (136 lb) 12/06/2018 10:18 AM TECHNOLOGY PROFESSIONAL Height 170.2 cm (5' 7") 12/06/2018 10:18 AM TECHNOLOGY PROFESSIONAL Body Mass Index 21.3 Plan of Treatment Care Team Description Date Type Specialty Darius Jiménez MD PhD [address] [address] 04/18/2019 Office Visit Cardiology Health Maintenance Due Date Last Done Comments SHINGLES VACCINES (#1) 1981 65+ PNEUMOCOCCAL VACCINE 01/16/1996 (1 of 2 - PCV13) PNEUMOCOCCAL 01/16/1996 POLYSACCHARIDE VACCINE AGE 65 AND OVER INFLUENZA VACCINE 05/15/2019 Procedures Comments Procedure Name Priority Date/Time Associated Diagnosis PV PHYSIOLOGIC ARTERIAL Routine 12/03/2018 Chronic diastolic LOWER EXTREMITY COMPLETE 11:38 AM TECHNOLOGY PROFESSIONAL congestive heart failure (HCC) Decreased circulation ESTIMATED GFR STAT 11/18/2018 10:25 AM TECHNOLOGY PROFESSIONAL MAGNESIUM LEVEL STAT 11/18/2018 Acute on chronic 10:25 AM TECHNOLOGY PROFESSIONAL congestive heart failure, unspecified heart failure type (HCC) COMPREHENSIVE METABOLIC STAT 11/18/2018 Acute on chronic PANEL 10:25 AM TECHNOLOGY PROFESSIONAL congestive heart failure, unspecified heart failure type (HCC) B NATRIURETIC PEPTIDE STAT 11/18/2018 Acute on chronic 10:25 AM TECHNOLOGY PROFESSIONAL congestive heart failure, unspecified heart failure type (HCC) ECHOCARDIOGRAM 2D Routine 09/16/2018 COMPLETE W MMODE SPECTRAL 2:43 PM TECHNOLOGY PROFESSIONAL COLOR DOPPLER ([id number]) ESTIMATED GFR Routine 08/20/2018 2:58 PM TECHNOLOGY PROFESSIONAL B NATRIURETIC PEPTIDE Routine 08/20/2018 Congestive heart failure, 2:58 PM TECHNOLOGY PROFESSIONAL unspecified HF chronicity, unspecified heart failure type (HCC) Chronic kidney disease, unspecified CKD stage Iron deficiency anemia secondary to blood loss (chronic) VITAMIN B12 LEVEL Routine 08/20/2018 Congestive heart failure, 2:58 PM TECHNOLOGY PROFESSIONAL unspecified HF chronicity, unspecified heart failure type (HCC) Chronic kidney disease, unspecified CKD stage Iron deficiency anemia secondary to blood loss (chronic) FERRITIN LEVEL Routine 08/20/2018 Congestive heart failure, 2:58 PM TECHNOLOGY PROFESSIONAL unspecified HF chronicity, unspecified heart failure type (HCC) Chronic kidney disease, unspecified CKD stage Iron deficiency anemia secondary to blood loss (chronic) ALBUMIN LEVEL Routine 08/20/2018 Congestive heart failure, 2:58 PM TECHNOLOGY PROFESSIONAL unspecified HF chronicity, unspecified heart failure type (HCC) Chronic kidney disease, unspecified CKD stage Iron deficiency anemia secondary to blood loss (chronic) HC COMPLETE BLD COUNT Routine 08/20/2018 Congestive heart failure, W/AUTO DIFF 2:58 PM TECHNOLOGY PROFESSIONAL unspecified HF chronicity, unspecified heart failure type (HCC) Chronic kidney disease, unspecified CKD stage Iron deficiency anemia secondary to blood loss (chronic) THYROID STIMULATING Routine 08/20/2018 Congestive heart failure, HORMONE 2:58 PM TECHNOLOGY PROFESSIONAL unspecified HF chronicity, unspecified heart failure type (HCC) Chronic kidney disease, unspecified CKD stage Iron deficiency anemia secondary to blood loss (chronic) BASIC METABOLIC PANEL Routine 08/20/2018 Congestive heart failure, 2:58 PM TECHNOLOGY PROFESSIONAL unspecified HF chronicity, unspecified heart failure type [...] Routine 05/28/2018 PANEL 6:41 AM CDT [id number] TACROLIMUS LEVEL, Routine 05/28/2018 RANDOM 5:30 AM CDT SIROLIMUS LEVEL, RANDOM Routine 05/28/2018 5:30 AM CDT HC COMPLETE BLD COUNT Routine 05/28/2018 W/AUTO DIFF 5:30 AM CDT URINALYSIS SCREEN AND Routine 05/27/2018 MICROSCOPY, WITH REFLEX 8:28 PM CDT TO CULTURE URINE CULTURE Routine 05/27/2018 8:28 PM CDT HC COMPLETE BLD COUNT Routine 05/27/2018 W/AUTO DIFF 5:05 AM CDT ZZESTIMATED GFR Routine 05/27/2018 5:05 AM CDT BASIC METABOLIC PANEL Routine 05/27/2018 5:05 AM CDT SIROLIMUS LEVEL, RANDOM Routine 05/27/2018 5:05 AM CDT HEPATIC FUNCTION PANEL Routine 05/27/2018 5:05 AM CDT ZZESTIMATED GFR Routine 05/26/2018 5:10 AM CDT BASIC METABOLIC PANEL Routine 05/26/2018 5:10 AM CDT HC COMPLETE BLD COUNT Routine 05/26/2018 W/AUTO DIFF 5:10 AM CDT [id number] TACROLIMUS LEVEL, Routine 05/26/2018 RANDOM 5:10 AM CDT XR CHEST 1 VW PORTABLE Routine 05/26/2018 12:21 AM CDT ZZESTIMATED GFR Routine 05/25/2018 5:30 AM CDT BASIC METABOLIC PANEL Routine 05/25/2018 5:30 AM CDT HC COMPLETE BLD COUNT Routine 05/25/2018 W/AUTO DIFF 5:30 AM CDT SIROLIMUS LEVEL, RANDOM Routine 05/25/2018 5:30 AM CDT ECG 12-LEAD Routine 05/24/2018 10:47 AM CDT ZZESTIMATED GFR Routine 05/24/2018 6:34 AM CDT COMPREHENSIVE METABOLIC Routine 05/24/2018 PANEL 6:34 AM CDT HC COMPLETE BLD COUNT Routine 05/24/2018 W/AUTO DIFF 5:47 AM CDT SIROLIMUS LEVEL, RANDOM Routine 05/24/2018 5:43 AM CDT SIROLIMUS LEVEL, RANDOM Routine 05/23/2018 6:06 AM CDT HC COMPLETE BLD COUNT Routine 05/23/2018 W/AUTO DIFF 6:05 AM CDT ZZESTIMATED GFR Routine 05/23/2018 4:00 AM CDT COMPREHENSIVE METABOLIC Routine 05/23/2018 PANEL 4:00 AM CDT XR CHEST 2 VW Routine 05/22/2018 7:03 PM CDT ZZESTIMATED GFR Routine 05/22/2018 5:55 AM CDT SIROLIMUS LEVEL, RANDOM Routine 05/22/2018 5:55 AM CDT HC COMPLETE [...] Routine 05/21/2018 PANEL 6:12 AM CDT SIROLIMUS LEVEL, RANDOM Routine 05/21/2018 6:06 AM CDT HC COMPLETE BLD COUNT Routine 05/21/2018 W/AUTO DIFF 6:06 AM CDT XR CHEST 2 VW Routine 05/20/2018 5:43 PM CDT ZZESTIMATED GFR Routine 05/20/2018 5:40 AM CDT SIROLIMUS LEVEL, RANDOM Routine 05/20/2018 5:40 AM CDT HC COMPLETE BLD COUNT Routine 05/20/2018 W/AUTO DIFF 5:40 AM CDT COMPREHENSIVE METABOLIC Routine 05/20/2018 PANEL 5:40 AM CDT XR ABDOMEN 1 VW PORTABLE Routine 05/19/2018 4:33 PM CDT SIROLIMUS LEVEL, RANDOM Routine 05/19/2018 5:30 AM CDT ZZESTIMATED GFR Routine 05/19/2018 5:30 AM CDT HC COMPLETE BLD COUNT Routine 05/19/2018 W/AUTO DIFF 5:30 AM CDT COMPREHENSIVE METABOLIC Routine 05/19/2018 PANEL 5:30 AM CDT XR CHEST 1 VW PORTABLE STAT 05/18/2018 6:35 AM CDT SIROLIMUS LEVEL, RANDOM Routine 05/18/2018 6:00 AM CDT ZZESTIMATED GFR [...] SPECTRAL 10:45 AM CDT Vertigo COLOR DOPPLER ([id number]) Weight loss after 02/26/2018 Results * Pv physiologic arterial lower extremity complete w josie (12/03/2018 11:38 AM TECHNOLOGY PROFESSIONAL) Narrative Performed At [facility] Vascular Diagnostic Laboratory Physiologic Arterial Leg Report [address] [place] [address] Pat.Name:LILLI GREWAL JR Pat.ID:[id number] .Date: 12/03/2018 Refer.MD:Darius Jiménez MD Exam Time: 10:07:00 AM Study Type:Physiologic Leg Height:67inDOBAge:[birth year]88Y Sex: MALESonogrphr: Ish Bronson RN, RVT Pat. Stat.:OutpatientTapeVol: DP, CPT - 4: 94564 Echo Event ID:[id number] Order ID:[id number] Reason for Study:Bilateral calf pain after walking 1 block, relieved with rest.History of liver transplant 2002.Peripheral neuropathy. History / Clinical:Other,edema Procedures:Ankle/brachial pressures, Digit pressures, Non-imaging continuous wave Doppler, PPG waveform tracing, Segmental pressures Race: SUMMARY: DOPPLER SIGNALS /ANALOG WAVEFORMS: DOPPLER SIGNALS ANALOG WAVEFORMS ARTERY RIGHT LEFT RIGHT LEFT Common Femoral Normal Normal Normal Normal Superficial Femoral Normal NormalNormalNormal PoplitealNormalNormalNormalNormal Posterior Tibial Abnormal Abnormal Abnormal Abnormal Dorsalis Pedis Abnormal Abnormal AbnormalAbnormal SEGMENTAL PRESSURE(mmHg): RIGHT LEFT Brachial 153 * High ThighUnable to tolerate pressures Low Inplm812 135 Calf [id number] Ankle DP 109 105 Ankle [id number] Great Toe 7055 ANKLE/BRACHIAL INDEX: RIGHTLEFT Dorsalis Pedis0.710.69 Posterior Tibial0.89 1.04 TOE/BRACHIAL INDEX: RIGHT LEFT 0.460.36 PRELIMINARY FINDINGS: 1.Bilateral popliteal-tibial artery occlusive , bilaterally. 2.Ankle/brachial indices are mild on the right and normal on the left. PHYSICIAN INTERPRETATION: Bilateral lower extremity arterial exam demonstrates mild-moderate tibial occlusive disease bilaterally. The JOSIE's are mild on the right and normal on the left The TBI's are mild on the right and moderate on the left Monophasic PT/DP waveforms bilaterally Signed 12/03/2018 10:28 PM Sha Salinas MD, RPVI Procedure Note Interface, Radiology Results In - 12/03/2018 10:29 PM [facility] Vascular Diagnostic Laboratory Physiologic Arterial Leg Report [id number] [place] [address] Pat.Name: LILLI GREWAL JR Pat.ID: [id number] .Date: 12/03/2018 Refer.MD: Darius Jiménez MD Exam Time: 10:07:00 AM Study Type:Physiologic Leg Height: 67in Age: 4 1930,88Y Sex: MALE Sonogrphr: Ish Bronson RN, RVT Pat. Stat.:Outpatient Tape Vol: DP, CPT - 4: 45007 Echo Event ID:[id number] Order ID: [id number] Reason for Study:Bilateral calf pain after walking 1 block, relieved with rest. History of liver transplant 2003. Peripheral neuropathy. History / Clinical:Other, edema Procedures:Ankle/brachial pressures, Digit pressures, Non-imaging continuous wave Doppler, PPG waveform tracing, Segmental pressures Race: SUMMARY: DOPPLER SIGNALS / ANALOG WAVEFORMS: DOPPLER SIGNALS ANALOG WAVEFORMS ARTERY RIGHT LEFT RIGHT LEFT Common Femoral Normal Normal Normal Normal Superficial Femoral Normal Normal Normal Normal Popliteal Normal Normal Normal Normal Posterior Tibial Abnormal Abnormal Abnormal Abnormal Dorsalis Pedis Abnormal Abnormal Abnormal Abnormal SEGMENTAL PRESSURE (mmHg): RIGHT LEFT Brachial 153 * High Thigh Unable to tolerate pressures Low Thigh 182 135 Calf 181 130 Ankle DP 109 105 Ankle PT 136 159 Great Toe 70 55 ANKLE/BRACHIAL INDEX: RIGHT LEFT Dorsalis Pedis 0.71 0.69 Posterior Tibial 0.89 1.04 TOE/BRACHIAL INDEX: RIGHT LEFT 0.46 0.36 PRELIMINARY FINDINGS: 1. Bilateral popliteal-tibial artery occlusive , bilaterally. 2. Ankle/brachial indices are mild on the right and normal on the left. PHYSICIAN INTERPRETATION: Bilateral lower extremity arterial exam demonstrates mild-moderate tibial occlusive disease bilaterally. The JOSIE's are mild on the right and normal on the left The TBI's are mild on the right and moderate on the left Monophasic PT/DP waveforms bilaterally Signed 12/03/2018 10:28 PM Sha Salinas MD, RPVI Performing Organization Address City/State/Zipcode Phone Number [facility] [address] [place] [address] * Estimated GFR (11/18/2018 10:25 AM TECHNOLOGY PROFESSIONAL) Only the most recent of 2 results within the time period is included. Estimated GFR 24 (A) mL/min/1.73 m2 [facility] Comment: HOSPITAL CatergoryUnitsInte rpretation G1 >=90 Normal or high G2 60-89Mildly decreased B6q15-89 Mildly to moderately decreased X3v10-43 Moderately to severely decreased G4 15-29Severely decreased G5 <15Kidney failure The eGFR was calculated using the Chronic Kidney Disease Epidemiology Collaboration (CKD-EPI) equation. Interpretation is based on recommendations of the National Kidney Foundation-Kidney Disease Outcomes Quality Initiative (NKF-KDOQI) published in 2014. Specimen Plasma specimen Performing Organization Address City/[facility] Cent[facility] Phone Number [facility] DEPARTMENT OF [address] [place] [address] PATHOLOGY AND [facility] MEDICINE [address] * B natriuretic peptide (11/18/2018 10:25 AM TECHNOLOGY PROFESSIONAL) Only the most recent of 3 results within the time period is included. BNP 158 (H) 0 - 100 pg/mL [facility] Specimen Blood Performing Organization Address City/[facility] Cent[facility]ode Phone Number [facility] DEPARTMENT OF [address] [place] [address] PATHOLOGY AND GENOMIC MEDICINE [address] * Magnesium level (11/18/2018 10:25 AM TECHNOLOGY PROFESSIONAL) Only the most recent of 2 results within the time period is included. Magnesium 2.5 (H) 1.6 - 2.4 mg/dL [facility] Specimen Plasma specimen Performing Organization Address [facility] Phone Number [facility] DEPARTMENT OF [address] [place] [address] PATHOLOGY AND GENOMIC MEDICINE [address] * Comprehensive metabolic panel (11/18/2018 10:25 AM TECHNOLOGY PROFESSIONAL) Only the most recent of 9 results within the time period is included. Sodium 142 135 - 148 mEq/L [facility] Potassium 4.2 3.5 - 5.0 mEq/L [facility] Chloride 101 98 - 112 mEq/L [facility] CO2 26 24 - 31 mEq/L [facility] Anion gap 15@ANIO 7 - 15 mEq/L [facility] BUN 31 (H) 8 - 23 mg/dL [facility] Creatinine 2.33 (H) 0.70 - 1.20 mg/dL [facility] Glucose 123 (H) 65 - 99 mg/dL [facility] Calcium 10.3 (H) 8.8 - 10.2 mg/dL [facility] Protein 7.9 6.3 - 8.3 g/dL [facility] Comment: HOSPITAL 4.6-7.0 g/dL 1 week 4.4-7.6 g/dL 7 months-1year 5.1-7.3 g/dL 1-2 years5.6-7 .5 g/dL >3 years6.0-8 .0 g/dL 18-150 6.3-8.3 g/dL Albumin 3.7 3.5 - 5.0 g/dL [facility] A/G ratio 0.9 0.7 - 3.8 [facility] Alkaline phosphatase 142 (H) 40 - 129 U/L [facility] AST 27 10 - 50 U/L [facility] ALT 27 5 - 50 U/L [facility] Total bilirubin 0.3 0.0 - 1.2 mg/dL [facility] Specimen Plasma specimen Performing Organization Address City/State/Zipcode Phone Number [facility] DEPARTMENT OF [address] [place] [address] PATHOLOGY AND GENOMIC MEDICINE [address] * Echocardiogram complete w contrast and 3D if needed (09/16/2018 2:43 PM TECHNOLOGY PROFESSIONAL) Narrative Performed At [facility] Echocardiography Report Pat.Name:LILLI GREWAL Pat.ID:[id number] .Date: 09/16/2018 Refer.MD:DARIUS JIMÉNEZ MD Exam Time: 2:00:00 PMStudy Type:Routine Echo Height:67inWeight:135lb BSA: 1.71 m2 DOBAge:1930,88Y Sex: MALEBP:139/69 HR:77 bpm Sonogrphr: Kumuthavally Veerasamy, RDCS, RVS Pat. Stat.:OutpatientRoom:[facility] TapeVol: MDCA, ICD - 9: I35.0, R60.9 Study Status:Final Echo Event ID:[id number] Order ID:[id number] Reason for Study:Atherosclerosis of Coronary Artery Disease Involving [place] Artery, Edema, Aortic Valve Disorders History / [...] assessment of PASP. MEASUREMENTS: 2D Parasternal Long Sublimity LVOT 1.7 cmLA Ds4.1 cm LVIDd4.2 cmIndex2.5 cm/m Ao An1.8 cm LVIDs3.1 cmAo Rtd 2.7 cm Index1.6 cm/m LV%fs 27.4 % LV Tmxt158.3 g(122-174) IVSd 1 cmLVM Index 86.7 g/m2 LVPWd1.1 cmRWT0.5 LA Volume LA Vol53.2 swWhrlw02.1 ml/m LA Sng Plane LA Area 22.8 cm2(8.8-23.4) LA Vol68.7 ml Index40.2 ml/m LA LngAx 6.4 cm RA Sng Plane RA Area 16.8 cm2(8.3-19.5) RA Vol40.8 ml Index23.9 ml/m RA LngAx 5.9 cm Ascending Aorta Asce Dim 3.6 cm DOPPLER LVOT Stroke Vol LVOT 1.7 cmLVOT CO4.3 l/min LVOT TVI28.4 cmLVOT CI2.5 l/m/m2 LVOT Tm325 caikZK30 bpm LVOT SV 64.5 ml AV For Flow/Valve Assess AV pkVel 298.4 cm/s (100-170) AV ET333 msec AV mnVel 198.1 cm/Francy AC/ET 0.3 AV pkPG 35.6 mmHgAV TVI66 cm AV Mean G 19.1 mmHgAVpkAcRt 08566.1 cm/s2 AV AC 89 msec (83-118) MV E/A Ratio MV pkE62.5 cm/s (60-130) MV E/A 1.5 MV pkA42.3 cm/s WALL MOTION: RESTING WALL MOTION: Basal Inferior, Mid Inferior brito are mildly hypokinetic. Normal in all other brito. Wall Index=1.1 Signed 09/17/2018 01:12 PM Ciera Haley M.D. Procedure Note Interface, Radiology Results In - 09/17/2018 1:12 PM TECHNOLOGY PROFESSIONAL [facility] Echocardiography Report Pat.Name: LILLI GREWAL JR Pat.ID: [id number] .Date: 09/16/2018 Refer.MD: DARIUS JIMÉNEZ MD Exam Time: 2:00:00 PM Study Type:Routine Echo Height: 67in Weight: 135lb BSA: 1.71 m2 Age: 5 1930,88Y Sex: MALE BP: 139/69 HR: 77 bpm Sonogrphr: Russellromerodilip Snyder, RDCS, RVS Pat. Stat.:Outpatient Room: -[address] [place] [address] Vol: [facility], ICD - 9: I35.0, R60.9 Study Status:Final Echo Event ID:[id number] Order ID: [id number] Reason for Study:Atherosclerosis of Coronary Artery Disease Involving [place] Artery, Edema, Aortic Valve Disorders History / [...] assessment of PASP. MEASUREMENTS: 2D Parasternal Long Sublimity LVOT 1.7 cm LA Ds 4.1 cm [...] cm AV Mean G 19.1 mmHg AVpkAcRt 61912.1 cm/s2 AV AC 89 msec (83-118) MV E/A Ratio MV pkE 62.5 cm/s (60-130) MV E/A 1.5 MV pkA 42.3 cm/s WALL MOTION: RESTING WALL MOTION: Basal Inferior, Mid Inferior brito are mildly hypokinetic. Normal in all other brito. Wall Index=1.1 Signed 09/17/2018 01:12 PM Ciera Haley M.D. Performing Organization Address City/State/[facility] Cent[facility]ode Phone Number [facility] [address] [place] [address] * CBC with platelet and differential (08/20/2018 2:58 PM TECHNOLOGY PROFESSIONAL) Only the most recent of 13 results within the time period is included. WBC 5.84 4.50 - 11.00 k/uL [facility] DEPARTMENT OF PATHOLOGY AND GENOMIC MEDICINE RBC 4.67 4.40 - 6.00 m/uL [facility] DEPARTMENT OF PATHOLOGY AND GENOMIC MEDICINE HGB 12.7 (L) 14.0 - 18.0 g/dL [facility] DEPARTMENT OF PATHOLOGY AND GENOMIC MEDICINE HCT 40.7 (L) 41.0 - 51.0 % [facility] DEPARTMENT OF PATHOLOGY AND GENOMIC MEDICINE MCV 87.2 82.0 - 100.0 fL [facility] DEPARTMENT OF PATHOLOGY AND GENOMIC MEDICINE MCH 27.2 27.0 - 34.0 pg [facility] DEPARTMENT OF PATHOLOGY AND GENOMIC MEDICINE MCHC 31.2 31.0 - 37.0 g/dL [facility] DEPARTMENT OF PATHOLOGY AND GENOMIC MEDICINE RDW - SD 52.1 37.0 - 55.0 fL [facility] DEPARTMENT OF PATHOLOGY AND GENOMIC MEDICINE MPV 10.6 8.8 - 13.2 fL [facility] DEPARTMENT OF PATHOLOGY AND GENOMIC MEDICINE Platelet count 164 150 - 400 k/uL [facility] DEPARTMENT OF PATHOLOGY AND GENOMIC MEDICINE Nucleated RBC 0.00 /100 WBC [facility] DEPARTMENT OF PATHOLOGY AND GENOMIC MEDICINE Neutrophils 68.5 39.0 - 69.0 % [facility] DEPARTMENT OF PATHOLOGY AND GENOMIC MEDICINE Lymphocytes 19.9 (L) 25.0 - 45.0 % [facility] DEPARTMENT OF PATHOLOGY AND GENOMIC MEDICINE Monocytes 6.7 0.0 - 10.0 % [facility] DEPARTMENT OF PATHOLOGY AND GENOMIC MEDICINE Eosinophils 3.9 0.0 - 5.0 % [facility] DEPARTMENT OF PATHOLOGY AND GENOMIC MEDICINE Basophils 0.7 0.0 - 1.0 % [facility] DEPARTMENT OF PATHOLOGY AND GENOMIC MEDICINE Immature granulocytes 0.3Comment: "Immature 0.0 - 1.0 % [facility] DEPARTMENT OF granulocytes" (promyelocytes, PATHOLOGY AND myelocytes, metamyelocytes) [facility] Specimen Blood Performing Organization Address City/[facility] Centercode Phone Number [facility] [place] [address] PATHOLOGY AND GENOMIC MEDICINE * Thyroid stimulating hormone (08/20/2018 2:58 PM TECHNOLOGY PROFESSIONAL) Only the most recent of 2 results within the time period is included. TSH 6.03 (H) 0.27 - 4.20 uIU/mL [facility] DEPARTMENT OF PATHOLOGY AND GENOMIC MEDICINE Specimen Plasma specimen Performing Organization Address [facility] Cent[facility]ode Phone Number [facility] [place] [address] PATHOLOGY AND [facility] * Ferritin level (08/20/2018 2:58 PM TECHNOLOGY PROFESSIONAL) Ferritin level 283 30 - 400 ng/mL [facility] DEPARTMENT OF PATHOLOGY [facility] GENOMIC MEDICINE Specimen Plasma specimen Performing Organization Address [facility] [place] [address] PATHOLOGY AND [facility] * Vitamin B12 level (08/20/2018 2:58 PM TECHNOLOGY PROFESSIONAL) Vitamin B12 1,606 (H) 211 - 946 pg/mL [facility] DEPARTMENT OF Comment: PATHOLOGY AND Significant overlap exists GENOMIC MEDICINE between normal and deficiency states. However, most patients with deficiencies will have Serum B12 <200 pg/mL. Specimen Serum Performing Organization Address [facility] [place] [address] PATHOLOGY AND GENOMIC [facility] * Albumin level (08/20/2018 2:58 PM TECHNOLOGY PROFESSIONAL) Albumin 4.4 3.5 - 5.0 g/dL [facility] DEPARTMENT OF PATHOLOGY AND GENOMIC MEDICINE Specimen Plasma specimen Performing Organization Address [facility] [place] [address] PATHOLOGY AND [employer] MEDICINE * Basic metabolic panel (08/20/2018 2:58 PM TECHNOLOGY PROFESSIONAL) Only the most recent of 6 results within the time period is included. Sodium 139 135 - 148 mEq/L [facility] DEPARTMENT OF PATHOLOGY AND GENOMIC MEDICINE Potassium 4.9 3.5 - 5.0 mEq/L [facility] DEPARTMENT OF PATHOLOGY AND GENOMIC MEDICINE Chloride 99 98 - 112 mEq/L [facility] DEPARTMENT OF PATHOLOGY AND GENOMIC MEDICINE CO2 25 24 - 31 mEq/L [facility] DEPARTMENT OF PATHOLOGY AND GENOMIC MEDICINE Anion gap 15@ANIO 7 - 15 mEq/L [facility] DEPARTMENT OF PATHOLOGY AND GENOMIC MEDICINE BUN 32 (H) 8 - 23 mg/dL [facility] DEPARTMENT OF PATHOLOGY AND GENOMIC MEDICINE Creatinine 2.12 (H) 0.70 - 1.20 mg/dL [facility] DEPARTMENT OF PATHOLOGY AND GENOMIC MEDICINE Glucose 123 (H) 65 - 99 mg/dL [facility] DEPARTMENT OF PATHOLOGY AND GENOMIC MEDICINE Calcium 10.1 8.8 - 10.2 mg/dL [facility] DEPARTMENT OF PATHOLOGY AND GENOMIC MEDICINE Specimen Plasma specimen Performing Organization Address City/[facility] Centercode Phone Number [facility] DEPARTMENT OF [address] [place] [address] PATHOLOGY AND GENOMIC MEDICINE * XR Chest [...] Status post median sternotomy. Mildly tortuous aorta. [facility]-[id number] Procedure Note Interface, Radiology Results Incoming - [...] Status post median sternotomy. Mildly tortuous aorta. [facility]-[id number] Performing Organization Address City/[facility] Centercode Phone Number [facility] [address] [place] [address] * Blood culture, aerobic & anaerobic (06/11/2018 6:22 PM CDT) Blood culture isolate No growth after 5 days of [facility] DEPARTMENT OF incubation. PATHOLOGY AND Comment: GENOMIC MEDICINE Specimen Information Specimen Source: Blood Specimen Site: Forearm, left Specimen Blood - Forearm, left Performing Organization Address City/[facility] Centercode Phone Number [facility] DEPARTMENT OF [address] [place] [address] PATHOLOGY AND GENOMIC MEDICINE * Gram stain (06/11/2018 6:10 PM CDT) Only the most recent of 5 results within the time period is included. Gram stain result Few WBC's [facility] DEPARTMENT OF Many Gram positive cocci in PATHOLOGY AND pairs GENOMIC MEDICINE Comment: Specimen Information Specimen Source: Urine Specimen Site: Clean catch Specimen Urine Performing Organization Address [facility] Phone Number [facility] DEPARTMENT OF [address] [place] [phone] PATHOLOGY AND GENOMIC MEDICINE * Urine culture (06/11/2018 6:10 PM CDT) Only the most recent of 2 results within the time period is included. Urine culture isolate Enterococcus faecalis [facility] DEPARTMENT OF >10-5 cfu/ml PATHOLOGY AND The performance GENOMIC MEDICINE characteristics of this assay on this isolate were validated by the Microbiology Laboratory at [facility].This source has not been approved by [...] were validated by the Microbiology Laboratory at [facility].This source has not been approved by [...] mcg/mL: Susceptible Enterococcus faecalis Performing Organization Address [facility] Centercode Phone Number [facility] DEPARTMENT OF [address] [place] [address] PATHOLOGY AND GENOMIC MEDICINE * Urinalysis screen and microscopy, with reflex to culture (06/11/2018 6:09 PM CDT) Only the most recent of 2 results within the time period is included. Specimen site Clean catch [facility] DEPARTMENT OF PATHOLOGY AND GENOMIC MEDICINE Color, UA Rowena [facility] DEPARTMENT OF PATHOLOGY AND GENOMIC MEDICINE Appearance, UA Turbid [facility] DEPARTMENT OF PATHOLOGY AND GENOMIC MEDICINE Specific gravity, UA 1.012 1.001 - 1.035 [facility] DEPARTMENT OF PATHOLOGY AND GENOMIC MEDICINE pH, UA 6.0 5.0 - 8.5 [facility] DEPARTMENT OF PATHOLOGY AND GENOMIC MEDICINE Protein, UA 2+ (A) Negative [facility] DEPARTMENT OF PATHOLOGY AND GENOMIC MEDICINE Glucose, UA Negative Negative [facility] DEPARTMENT OF PATHOLOGY AND GENOMIC MEDICINE Ketones, UA Negative Negative [facility] DEPARTMENT OF PATHOLOGY AND GENOMIC MEDICINE Bilirubin, UA Negative Negative [facility] DEPARTMENT OF PATHOLOGY AND GENOMIC MEDICINE Blood, UA Small (A) Negative [facility] DEPARTMENT OF PATHOLOGY AND GENOMIC MEDICINE Nitrite, UA Negative Negative [facility] DEPARTMENT OF PATHOLOGY AND GENOMIC MEDICINE Urobilinogen, UA <2.0 <2.0 [facility] DEPARTMENT OF PATHOLOGY AND GENOMIC MEDICINE Leukocyte esterase, UA Large (A) Negative [facility] DEPARTMENT OF PATHOLOGY AND GENOMIC MEDICINE WBC, UA >180 (H) 0 - 1 /HPF [facility] DEPARTMENT OF PATHOLOGY AND GENOMIC MEDICINE RBC, UA 27 (H) 0 - 5 /HPF [facility] DEPARTMENT OF PATHOLOGY AND GENOMIC MEDICINE Bacteria, UA Many (A) None seen [facility] DEPARTMENT OF PATHOLOGY AND GENOMIC MEDICINE WBC clumps, UA Few (A) [facility] DEPARTMENT OF PATHOLOGY AND GENOMIC MEDICINE Yeast, UA None seen [facility] DEPARTMENT OF PATHOLOGY AND GENOMIC MEDICINE Yeast with pseudohyphae, None seen [facility] DEPARTMENT OF PATHOLOGY AND GENOMIC MEDICINE Specimen Urine Performing Organization Address City/State/Zipcode Phone Number [facility] DEPARTMENT OF [address] [place] [address] PATHOLOGY AND GENOMIC MEDICINE * Estimated GFR (06/11/2018 6:09 PM CDT) Only the most recent of 13 results within the time period is included. GFR Non Af Amer 38 (A) mL/min/1.73 m2 [facility] DEPARTMENT OF PATHOLOGY AND GENOMIC MEDICINE GFR Af Amer 46 (A) mL/min/1.73 m2 [facility] DEPARTMENT OF Comment: PATHOLOGY AND Chronic [...] Americans. Specimen Plasma specimen Performing Organization Address [facility] [place] [address] PATHOLOGY AND [employer] MEDICINE * Troponin (06/11/2018 6:09 PM CDT) Troponin <0.30 0.00 - 0.30 ng/mL [facility] DEPARTMENT OF Comment: PATHOLOGY AND 0.30 - 1.49 GENOMIC MEDICINE ng/mlMay indicate increased risk of acute coronary syndrome. >=1.5 ng/ml Consistent with acute myocardial infarction. The diagnostic value of a single normal or non-diagnostic result is questionable.Serial samples at 2-6 hour intervals are required to rule out acute myocardial injury. Specimen Plasma specimen Performing Organization Address [facility] [place] [address] PATHOLOGY AND [employer] MEDICINE * Lipase level (06/11/2018 6:09 PM CDT) Lipase 47 13 - 60 U/L [facility] PATHOLOGY AND GENOMIC MEDICINE Specimen Plasma specimen Performing Organization Address [facility] [place] [address] PATHOLOGY AND [employer] MEDICINE * Creatine kinase, total (CPK) (06/11/2018 6:09 PM CDT) Creatine kinase 50 39 - 308 U/L [facility] PATHOLOGY AND GENOMIC MEDICINE Specimen Plasma specimen Performing Organization [facility] [place] [address] PATHOLOGY AND [employer] [facility] * Phosphorus level (05/28/2018 6:41 AM CDT) Phosphorus 3.2 2.4 - 4.5 mg/dL [facility] DEPARTMENT PATHOLOGY AND GENOMIC MEDICINE Specimen Plasma specimen Performing Organization Address [facility] [place] [address] PATHOLOGY AND [employer] MEDICINE * FK506 level (05/28/2018 5:30 AM CDT) Only the most recent of 2 results within the time period is included. FK506 level <2.0 ng/mL [facility] DEPARTMENT OF Comment: PATHOLOGY AND Therapeutic range 5-20 ng/mL [facility] for 12 hour trough. The range varies depending on the organ transplanted, time after transplantation and co-administered immunosuppressant therapies. Please use clinical judgment to interpret test result. Test performed using [employer] chemiluminescent microparticle immunoassay for Tacrolimus on the SHAPING MACHINE TENDER i System. Performing Organization Address City/State/[facility] Centercode Phone Number [facility] OF [address] [place] [address] PATHOLOGY AND [employer] [facility] * Sirolimus level (05/28/2018 5:30 AM CDT) Only the most recent of 10 results within the time period is included. Sirolimus 7.3 ng/mL [facility] DEPARTMENT OF Comment: PATHOLOGY AND The recommended trough is 4-12 GENOMIC MEDICINE ng/mL while on CNI (calcineurin inhibitors: Cyclcosporine and Tacrolimus). When used without CNI, higher trough concentrations may be desired, typically 12-20 ng/mL. Occasional patients may require 20-30 ng/mL. Test performed using [employer] chemiluminescent microparticle immunoassay for Sirolimus on the SHAPING MACHINE TENDER i System Performing Organization Address City/[facility] Centercode Phone Number [facility] [place] [address] PATHOLOGY AND [employer] [facility] * Hepatic function panel (05/27/2018 5:05 AM CDT) Only the most recent of 2 results within the time period is included. Albumin 2.9 (L) 3.5 - 5.0 g/dL [facility] DEPARTMENT OF PATHOLOGY AND GENOMIC MEDICINE Total bilirubin <0.2 0.0 - 1.2 mg/dL [facility] DEPARTMENT OF PATHOLOGY AND GENOMIC MEDICINE Bilirubin direct <0.2 0.0 - 0.3 mg/dL [facility] DEPARTMENT OF PATHOLOGY AND GENOMIC MEDICINE Alkaline phosphatase 74 40 - 129 U/L [facility] DEPARTMENT OF PATHOLOGY AND GENOMIC MEDICINE Protein 6.5 6.3 - 8.3 g/dL [facility] DEPARTMENT OF Comment: PATHOLOGY AND GENOMIC MEDICINE 4.6-7.0 g/dL 1 week 4.4-7.6 g/dL 7 months-1year 5.1-7.3 g/dL 1-2 years5.6-7 .5 g/dL >3 years6.0-8 .0 g/dL 18-150 6.3-8.3 g/dL ALT 23 5 - 50 U/L [facility] DEPARTMENT OF PATHOLOGY AND GENOMIC MEDICINE AST 22 10 - 50 U/L [facility] DEPARTMENT OF PATHOLOGY AND GENOMIC MEDICINE Specimen Plasma specimen Performing Organization Address [facility] Centercoid Phone Number [facility] DEPARTMENT OF [address] [place] [phone] PATHOLOGY AND GENOMIC MEDICINE * XR Chest [...] within normal limits. No acute osseous abnormalities. [facility]-[id number] Procedure Note Hm Interface, Radiology Results Incoming [...] within normal limits. No acute osseous abnormalities. [facility]-[id number] Performing Organization Address [facility] Centercoid Phone Number [facility] [address] [place] [address] * ECG 12 lead (05/24/2018 10:47 AM CDT) Only the most recent of 2 results within the time period is included. Ventricular rate 72 [facility] Atrial rate 72 [facility] MO interval 216 [facility] QRSD interval 106 [facility] QT interval 422 [facility] QTC interval 462 [facility] P axis 1 50 [facility] MUSE QRS axis 1 15 [facility] MUSE T wave axis 107 [facility] MUSE EKG impression Sinus rhythm with sinus [facility] MUSE arrhythmia with 1st degree AV block-Inferior infarct (cited on or before 17-MAY-2018)-Abnormal ECG- Performing Organization Address [facility] Centercoid Phone Number [facility] MUSE [address] [place] [address] * Immunoglobulin E (05/22/2018 5:55 AM CDT) IgE 10.2 0.0 - 100.0 IU/mL [facility] DEPARTMENT OF PATHOLOGY AND GENOMIC MEDICINE Specimen Plasma specimen Performing Organization Address [facility] [place] [address] PATHOLOGY AND GENOMIC MEDICINE * Immunoglobulin A (05/22/2018 5:55 AM CDT) IgA 74 70 - 400 mg/dL [facility] DEPARTMENT OF PATHOLOGY AND GENOMIC MEDICINE Specimen Plasma specimen Performing Organization Address [facility] Phone Number [facility] [place] [address] PATHOLOGY AND [employer] MEDICINE * Immunoglobulin M (05/22/2018 5:55 AM CDT) IgM 42 33 - 255 mg/dL [facility] DEPARTMENT OF PATHOLOGY AND GENOMIC MEDICINE Specimen Plasma specimen Performing Organization Address [facility] [place] [address] PATHOLOGY AND GENOMIC MEDICINE * Immunoglobulin G (05/22/2018 5:55 AM CDT) IgG 703 700 - 1,600 mg/dL [facility] DEPARTMENT OF PATHOLOGY AND GENOMIC MEDICINE Specimen Plasma specimen Performing Organization Address [facility] Phone Number [facility] [place] [address] PATHOLOGY AND GENOMIC MEDICINE * XR Abdomen [...] of the abdominal aorta. Bones are stable. [id number] Procedure Note Interface, Radiology Results Incoming - 05/19/2018 4:39 PM CDT Study:XR ABDOMEN 1 VW PORTABLE History:constipation COMPARISON:July 06, 2012 IMPRESSION: 2 views of the abdomen. No bowel distention or free air. Large amount of stool present in the colon. 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 There is calcification of the abdominal aorta. Bones are stable. [id number] Performing Organization Address City/[facility]/Zipcode Phone Number [address] [address] * CBC hemogram (05/18/2018 6:00 AM CDT) WBC 7.42 4.50 - 11.00 k/uL [facility] DEPARTMENT OF PATHOLOGY AND GENOMIC MEDICINE RBC 4.59 4.40 - 6.00 m/uL [facility] DEPARTMENT OF PATHOLOGY AND GENOMIC MEDICINE HGB 11.9 (L) 14.0 - 18.0 g/dL [facility] DEPARTMENT OF PATHOLOGY AND GENOMIC MEDICINE HCT 37.7 (L) 41.0 - 51.0 % [facility] DEPARTMENT OF PATHOLOGY AND GENOMIC MEDICINE MCV 82.1 82.0 - 100.0 fL [facility] DEPARTMENT OF PATHOLOGY AND GENOMIC MEDICINE MCH 25.9 (L) 27.0 - 34.0 pg [facility] DEPARTMENT OF PATHOLOGY AND GENOMIC MEDICINE MCHC 31.6 31.0 - 37.0 g/dL [facility] DEPARTMENT OF PATHOLOGY AND GENOMIC MEDICINE RDW - SD 53.4 37.0 - 55.0 fL [facility] DEPARTMENT OF PATHOLOGY AND GENOMIC MEDICINE MPV 9.8 8.8 - 13.2 fL [facility] DEPARTMENT OF PATHOLOGY AND GENOMIC MEDICINE Platelet count 156 150 - 400 k/uL [facility] DEPARTMENT OF PATHOLOGY AND GENOMIC MEDICINE Nucleated RBC 0.00 /100 WBC [facility] DEPARTMENT OF PATHOLOGY AND GENOMIC MEDICINE Specimen Blood Performing Organization Address City/[facility]/Zipcode Phone Number [address] [address] PATHOLOGY AND [employer] MEDICINE * Uric acid level (05/18/2018 6:00 AM CDT) Uric acid 4.4 3.4 - 7.0 mg/dL [facility] DEPARTMENT OF PATHOLOGY AND GENOMIC MEDICINE Specimen Plasma specimen Performing Organization Address City/[facility]/Zipcode Phone Number [address] [address] PATHOLOGY AND GENOMIC MEDICINE * Surgical pathology request (05/17/2018 4:44 PM CDT) Only the most recent of 2 results within the time period is included. [facility] DEPARTMENT OF PATHOLOGY AND GENOMIC MEDICINE Surgical pathology report See link below for PDF Lab [facility] DEPARTMENT OF Report PATHOLOGY AND GENOMIC MEDICINE Result status This is Supplemental Report to [facility] DEPARTMENT OF [id number] PATHOLOGY AND GENOMIC MEDICINE Performing Organization Address City/[facility]ercode Phone Number [facility] DEPARTMENT OF [address] [place] [address] PATHOLOGY AND GENOMIC MEDICINE * Respiratory culture (05/17/2018 3:21 PM CDT) Only the most recent of 3 results within the time period is included. Respiratory culture Normal oral chirag and (A) [facility] DEPARTMENT OF isolate Comment: PATHOLOGY AND Specimen Information GENOMIC MEDICINE Specimen Source: Bronchial Washing Specimen Site: RUL (right upper lobe) Respiratory culture Pseudomonas aeruginosa [facility] DEPARTMENT OF isolate Moderate PATHOLOGY AND [...] mcg/mL: Susceptible Pseudomonas aeruginosa Performing Organization Address City/[facility]/Zipcode Phone Number [facility] DEPARTMENT OF [address] [place] [address] PATHOLOGY AND GENOMIC MEDICINE * Fungus smear (05/17/2018 3:21 PM CDT) Only the most recent of 3 results within the time period is included. Fungus smear No fungi observed. [facility] DEPARTMENT OF Comment: PATHOLOGY AND Specimen Information GENOMIC MEDICINE Specimen Source: Bronchial alveolar lavage Specimen Site: RUL (right upper lobe) Specimen Bronchial alveolar lavage - RUL (right upper lobe) Performing Organization Address [facility] Centercode Phone Number [facility] DEPARTMENT OF [address] [place] [address] PATHOLOGY AND GENOMIC MEDICINE * Respiratory pathogen panel (05/17/2018 3:21 PM CDT) Respiratory pathogen Negative for all pathogens [facility] DEPARTMENT OF panel tested: PATHOLOGY AND [...] RUL (right upper lobe) Performing Organization Address [facility]erc[facility] Phone Number [facility] DEPARTMENT OF [address] [place] [address] PATHOLOGY AND GENOMIC MEDICINE * BAL cell count and differential (05/17/2018 3:21 PM CDT) BAL specimen source RUL BAL [facility] DEPARTMENT OF PATHOLOGY AND GENOMIC MEDICINE BAL cell count 0.585 m/mL [facility] DEPARTMENT OF Comment: PATHOLOGY AND Normal ranges: Nonsmokers: GENOMIC MEDICINE 0.007 - 0.363 Smokers: 0 - 1.31 BAL PAMS 4 % [facility] DEPARTMENT OF Comment: PATHOLOGY AND Normal ranges: Nonsmokers: 65 GENOMIC MEDICINE - 100 Smokers: 81 - 100 BAL PMNS 85 % [facility] DEPARTMENT OF Comment: PATHOLOGY AND Normal ranges: Nonsmokers: 0 - GENOMIC MEDICINE 3 Smokers: 0 - 2 BAL eosinophils 4 % [facility] DEPARTMENT OF Comment: PATHOLOGY AND Normal ranges: Nonsmokers: 0 - GENOMIC MEDICINE 1 Smokers: 0 - 1 BAL lymphs 7 % [facility] DEPARTMENT OF Comment: PATHOLOGY AND Normal ranges: Nonsmokers: 0 - GENOMIC MEDICINE 10 Smokers: 0 - 5 Specimen Fluid Narrative Performed At [facility] DEPARTMENT OF PATHOLOGY AND GENOMIC MEDICINE Performing Organization Address City/[facility] Centercode Phone Number [facility] DEPARTMENT [address] [address] PATHOLOGY AND GENOMIC MEDICINE * Cytomegalovirus by PCR (05/17/2018 3:21 PM CDT) Cytomegalovirus by PCR Indeterminate (A) Not-Detected IU/mL [facility] DEPARTMENT OF PATHOLOGY AND GENOMIC MEDICINE Cytomegalovirus by PCR See link below for PDF Lab [facility] DEPARTMENT OF ReportComment: Case Number: PATHOLOGY AND [id number] GENOMIC MEDICINE Narrative Performed At [facility] DEPARTMENT OF PATHOLOGY AND GENOMIC MEDICINE Performing Organization Address City/[facility] Centercode Phone Number [facility] DEPARTMENT [address] [address] PATHOLOGY AND GENOMIC MEDICINE * Varicella zoster by PCR (05/17/2018 3:21 PM CDT) VZV result Not-Detected Not-Detected copies/mL [facility] DEPARTMENT OF PATHOLOGY AND GENOMIC MEDICINE Varicella zoster, pcr See link below for PDF Lab [facility] DEPARTMENT OF ReportComment: Case Number: PATHOLOGY AND [id number] GENOMIC MEDICINE Narrative Performed At [facility] DEPARTMENT OF PATHOLOGY AND GENOMIC MEDICINE Performing Organization Address [facility]ercode Phone Number [facility] DEPARTMENT [address] [address] PATHOLOGY AND GENOMIC MEDICINE * Herpes simplex virus by PCR (05/17/2018 3:21 PM CDT) Herpes virus, PCR Not-Detected Not-Detected [facility] DEPARTMENT OF PATHOLOGY AND GENOMIC MEDICINE Herpes virus, PCR See link below for PDF Lab [facility] DEPARTMENT OF ReportComment: Case Number: PATHOLOGY AND [id number] GENOMIC MEDICINE Narrative Performed At [facility] DEPARTMENT OF PATHOLOGY AND GENOMIC MEDICINE Performing Organization Address City/[facility]ercode Phone Number [facility] DEPARTMENT [address] [address] PATHOLOGY AND GENOMIC MEDICINE * AFB culture (05/17/2018 3:21 PM CDT) Only the most recent of 4 results within the time period is included. AFB culture isolate No growth after 6 weeks of [facility] DEPARTMENT OF incubation. PATHOLOGY AND Comment: GENOMIC MEDICINE Specimen Information Specimen Source: Bronchial alveolar lavage Specimen Site: RUL (right upper lobe) Specimen Bronchial alveolar lavage - RUL (right upper lobe) Performing Organization Address [facility] Centercode Phone Number [facility] DEPARTMENT OF [address] [place] [address] PATHOLOGY AND GENOMIC MEDICINE * Nocardia culture (05/17/2018 3:21 PM CDT) Only the most recent of 2 results within the time period is included. Nocardia culture isolate No Nocardia isolated after 7 [facility] DEPARTMENT OF days. PATHOLOGY AND Comment: GENOMIC MEDICINE Specimen Information Specimen Source: Bronchial alveolar lavage Specimen Site: RUL (right upper lobe) Specimen Bronchial alveolar lavage - RUL (right upper lobe) Performing Organization Address [facility] Centercode Phone Number [facility] DEPARTMENT OF [address] [place] [address] PATHOLOGY AND GENOMIC MEDICINE * Legionella culture (05/17/2018 3:21 PM CDT) Legionella culture No Legionella isolated. (A) [facility] DEPARTMENT OF isolate Comment: PATHOLOGY AND Specimen Information GENOMIC MEDICINE Specimen Source: Bronchial Washing Specimen Site: RUL (right upper lobe) Legionella culture Aspergillus flavus (A) [facility] DEPARTMENT OF isolate PATHOLOGY AND GENOMIC MEDICINE Specimen Bronchial washing - RUL (right upper lobe) Performing Organization Address [facility] Phone Number [facility] DEPARTMENT OF [address] [place] [address] PATHOLOGY AND GENOMIC MEDICINE * AFB stain (05/17/2018 3:21 PM CDT) Only the most recent of 4 results within the time period is included. AFB stain No acid fast bacilli (AFB) [facility] DEPARTMENT OF seen. PATHOLOGY AND Comment: GENOMIC MEDICINE Specimen Information Specimen Source: Bronchial alveolar lavage Specimen Site: RUL (right upper lobe) Specimen Bronchial alveolar lavage - RUL (right upper lobe) Performing Organization Address City/[facility] Centercode Phone Number [facility] DEPARTMENT OF [address] [place] [phone] PATHOLOGY AND GENOMIC MEDICINE * Fungus culture (05/17/2018 3:21 PM CDT) Only the most recent of 3 results within the time period is included. Fungus culture isolate No growth after 4 weeks of [facility] DEPARTMENT OF incubation. PATHOLOGY AND Comment: GENOMIC MEDICINE Specimen Information Specimen Source: Bronchial alveolar lavage Specimen Site: RUL (right upper lobe) Specimen Bronchial alveolar lavage - RUL (right upper lobe) Performing Organization Address City/[facility]/Zipcode Phone Number [facility] DEPARTMENT OF [address] [place] [phone] PATHOLOGY AND GENOMIC MEDICINE * Cytology (non-gynecological) request (05/17/2018 3:21 PM CDT) Only the most recent of 2 results within the time period is included. [facility] DEPARTMENT OF PATHOLOGY AND GENOMIC MEDICINE Cytology See link below for PDF Lab [facility] DEPARTMENT OF (non-gynecological) Report PATHOLOGY AND report GENOMIC MEDICINE Result status This is Final Report to [facility] DEPARTMENT OF [id number] PATHOLOGY AND GENOMIC MEDICINE Performing Organization Address [facility] Centercoid Phone Number [facility] DEPARTMENT [address] [address] PATHOLOGY AND GENOMIC MEDICINE * Histoplasma antigen, serum (05/17/2018 12:23 PM CDT) Histoplasma antigen, None Detected ng/mL [facility] DEPARTMENT OF serum Comment: PATHOLOGY AND INTERPRETATION: HISTOPLASMA GENOMIC MEDICINE ANTIGEN -Reference interval: None Detected -Results reported as ng/mL in 0.4 - 19.0 ng/mL -Results above the limit of detection but below 0.4 ng/mL are reported as 'Positive, Below the Limit of Quantification' -Results above 19.0 ng/mL are reported as 'Positive, Above the Limit of Quantification' Performing Organization Address [facility]oid Phone Number [facility] [place] [address] PATHOLOGY AND GENOMIC MEDICINE * Partial thromboplastin time, activated (05/17/2018 11:55 AM CDT) PTT 22.4 (L) 23.0 - 36.0 sec [facility] DEPARTMENT OF Comment: PATHOLOGY AND PTT therapeutic range for GENOMIC MEDICINE unfractionated heparin is 61.0-112.0 seconds which corresponds to Anti-Xa 0.3-0.7 U/ml. Specimen Blood Performing Organization Address City/[facility]/Zipcode Phone Number [facility] [place] [address] PATHOLOGY AND GENOMIC MEDICINE * Prothrombin time with INR (05/17/2018 11:55 AM CDT) Prothrombin time 13.4 12.0 - 15.0 sec [facility] DEPARTMENT OF PATHOLOGY AND GENOMIC MEDICINE INR 1.0 [facility] DEPARTMENT OF Comment: PATHOLOGY AND The International Normalized GENOMIC MEDICINE Ratio (INR) is a therapeutic monitoring tool for patients who are stable on oral anticoagulant therapy. An INR of 2.0-3.0 is suggested for deep vein thrombosis/pulmonary embolism. Specimen Blood Performing Organization Address City/State/Zipcode Phone Number [facility] DEPARTMENT OF [address] [place] [address] PATHOLOGY AND GENOMIC MEDICINE * Sputum culture (05/15/2018 12:20 PM CDT) Only the most recent of 2 results within the time period is included. Sputum culture isolate Normal oral chirag and (A) [facility] DEPARTMENT OF Comment: PATHOLOGY AND Specimen Information GENOMIC MEDICINE Specimen Source: Sputum Specimen Site: Expectorated Sputum culture isolate Pseudomonas aeruginosa [facility] DEPARTMENT OF Many PATHOLOGY AND susceptibility to follow GENOMIC MEDICINE This organism is NOT a carbapenemase producing organism. (A) Sputum culture isolate Escherichia coli [facility] DEPARTMENT OF Many PATHOLOGY AND identification/susceptibility [...] coli Performing Organization Address City/State/Zipcode Phone Number [facility] DEPARTMENT OF [address] [place] [address] PATHOLOGY AND GENOMIC MEDICINE * Echocardiogram complete w contrast and 3D if needed (03/26/2018 10:45 AM CDT) Narrative Performed At [facility] Echocardiography Report Pat.Name:LILLI GREWAL JR Pat.ID:[id number] .Date: 03/26/2018 Refer.MD:DARIUS JIMÉNEZ MD Exam Time: 10:08:00 AM Study Type:Routine Echo Height:67inWeight:130lb BSA: 1.69 m2 DOBAge:1930,88Y Sex: MALEBP:130/71 HR:71 bpm Sonogrphr: Ina Vásquez, RCS, RCCS, CCT Pat. Stat.:OutpatientRoom[facility] TapeVol: [facility], Study Status:Final Echo Event ID:[id number] Order ID:[id number] Reason for Study:AVR History / Clinical:Hypertension, Liver [...] PA systolic pressure. MEASUREMENTS: 2D Parasternal Long Sublimity LA Ds4.3 cmLVPWd0.8 cm LVOT 2 cmAo An2.3 cm LVIDd4.5 cmIndex2.7 cm/m Ao Rtd 3.4 cm Index2 cm/m LVIDs2.9 cm LV Rrga102.1 g(122-174) LV%fs 35.7 % LVM Nupoi759.5 g/m2 IVSd 1.5 cmRWT0.3 LA Volume LA Vol76.9 qyZnrki71.5 ml/m LA Sng Plane LA Area 24.6 cm2(8.8-23.4) LA Vol77.6 ml Index45.9 ml/m LA LngAx 6.6 cm DOPPLER AV For Flow/MARTINEZ AV Area1.5 cm2(3-5)AV ET322 msec AV pkVel 290.3 cm/s (100-170) AV AC/ET 0.3 AV mnVel 194.7 cm/Francy TVI62.8 cm AV pkPG 33.7 mmHgAVpkAcRt 19313.4 cm/s2 AV Mean G 18.7 mmHgAV ZsKo949.5 cm/s2 AV AC108 msec (83-118) LVOT For Flow LTEMobDfy111.2 cm/sHR82.8 bpm LVOTpkPG 4.6 mmHgLVOT CO7.2 l/min LVOTmnPG 2.8 mmHgLVOT CI4.3 l/m/m2 LVOT TVI27.7 cmLVOT Area3.1 cm2 LVOT SV 87 ml WALL MOTION: RESTING WALL MOTION: Basal Inferior, Basal Inferolateral, Mid Inferolateral brito are hypokinetic. Normal in all other brito. Wall Index=1.2 Signed 03/27/2018 05:52 PM Francisco Javier Villela M.D. Procedure Note Interface, Radiology Results In - 03/27/2018 5:53 PM CDT [facility] Echocardiography Report Pat.Name: LILLI GREWAL JR Pat.ID: [id number] St.Date: 03/26/2018 Refer.MD: DARIUS JIMÉNEZ MD Exam Time: 10:08:00 AM Study Type:Routine Echo Height: 67in Weight: 130lb BSA: 1.69 m2 Age: 5 1930,88Y Sex: MALE BP: 130/71 HR: 71 bpm Sonogrphr: Ina Vásquez, RCS, RCCS, CCT Pat. Stat.:Outpatient Room: [address] Vol: [facility], Study Status:Final Echo Event ID:[id number] Order ID: [id number] Reason for Study:AVR History / Clinical:Hypertension, Liver [...] PA systolic pressure. MEASUREMENTS: 2D Parasternal Long Sublimity LA Ds 4.3 cm LVPWd 0.8 cm [...] 62.8 cm AV pkPG 33.7 mmHg AVpkAcRt 60422.4 cm/s2 AV Mean G 18.7 mmHg AV [...] Performing Organization Address City/State/Zipcode Phone Number [facility] [address] [place] [address] after 02/26/2018 Insurance Payer Benefit Subscriber ID Type Phone Address Plan / Group MEDICARE MEDICARE xxxxxxxxxxx Medicare [place], [place] PART A AND B AARP AARP xxxxxxxxxxx Commercial SUPPLEMENT Advance Directives Patient has advance care planning documents, and code status on file. For more i nformation, please contact: Nasir Unger [address] [place] [address] Date Inactivated Comments Code Status Date Activated 05/22/2018 8:34 AM Full Code 05/17/2018 3:11 PM Code Status decision reached by: Patient
[2019-02-27] MEDS ORDERED: FUROSEMIDE 40 MG TAB PO ONE (16:45)
[2019-02-27 18:13] LABS: CLARITY,URINE TURBID (CLEAR); COLOR,URINE YELLOW (YELLOW); LEUKOCYTE ESTERASE ,URINE 2+ (NEGATIVE)
[2019-02-27 18:14] LABS: BILIRUBIN,URINE NEGATIVE (NEGATIVE); KETONES,URINE NEGATIVE (NEGATIVE); NITRITE,URINE POSITIVE (NEGATIVE); PROTEIN,URINE DIPSTICK 1+ (NEGATIVE); URINE UROBILINOGEN 0.2 mg/dL (0.2 - 1)
[2019-02-27 18:16] LABS: BACTERIA,URINE MANY /HPF; RBC,URINE 21-50 /HPF (0-5); WBC,URINE (MAN) >50 /HPF (0-5)
[2019-02-27 18:17] LABS: EPITHELIAL CELLS,URINE FEW /LPF
--- NOTE | 2019-02-27 18:44 | Diagnostic Imaging Report ---
SCROTAL ULTRASOUND HISTORY: Scrotal edema, swelling TECHNIQUE: Sonographic evaluation of the scrotum. Color and pulsed wave Doppler ultrasound was used to assess testicular vasculature. COMPARISON: Testicular ultrasound November 11, 2018. DISCUSSION: RIGHT TESTIS: The right testis measures 4.1 x 2.7 x 3.3 cm. 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 LEFT TESTIS: The left testis measures 3.4 x 2 x 2.8 cm. Normal echotexture, without a focal lesion identified. VASCULAR: Increased vascularity throughout the right testicle. EPIDIDYMIDES: Right: 1.7 x 1.2 x 1.8 cm. Markedly increased vascularity. A 0.2 x 0.2 x 0.3 cm anechoic structure, likely a small epididymal head cyst versus per medicine. Left: 1.2 x 0.8 x 1.1 cm. Unremarkable. SCROTUM: Trace right and small left hydroceles. IMPRESSION: 1. Findings compatible with right epididymo-orchitis. 2. Trace right and small left hydroceles. Signed by: Dr. Boy Jacinto D.O., M.M.M. on 02/27/2019 6:41 PM
[2019-02-27] MEDS ORDERED: TYLENOL # 31 EA PO (18:50)
[2019-02-27] MEDS ORDERED: LEVAQUIN500 MG PO (18:50)
[2019-02-27 19:07] VITALS: BP 151/62
== END 2019-02-27 19:05 | disposition home or self-care (01) ==
LOC: ER 16:30
DX: N45.1 Epididymitis (principal); N45.2 Orchitis; N30.91 Cystitis, unspecified with hematuria
CPT/HCPCS: 76870; 81001; 87086; 87186; 99283

== ENCOUNTER 2019-07-01 18:07 | Emergency (ER) | payer MEDICARE ==
[~2019-07-01] VITALS: Ht 170.2 cm; Wt 59.0 kg
[~2019-07-01 18:07] MED LIST changes: +LEVAQUIN500 MG PO; +TYLENOL # 31 EA PO
--- OUTSIDE RECORDS SUMMARY | 2019-07-01 18:10 | XMS REPORT | Clinical Summary ---
Author Author [facility] Organization [facility] Address Unknown Phone Unavailable Care Team Providers Care Master Esthetician Name Role Phone Donato Mccallum MD PCP [...] by 0 MG capsule mouth daily. Active terazosin (HYTRIN) 5 MG Take 5 [...] by 0 enteric coated tablet mouth daily. Active benzonatate (TESSALON) Take 1 30 capsule [...] 4 mg by 0 tablet mouth daily. Active propranolol (INDERAL) 40 Take 1 tablet 14 tablet 1 MG tablet (40 mg total) 9 by mouth 2 (two) times a day. 03/19/2019 Discontinued (Reorder) propranolol (INDERAL) 40 Take 40 mg by 0 MG tablet mouth 2 (two) times a day. 07/06/2018 Discontinued (Reorder) furosemide (LASIX) 20 mg Take 1 tablet 90 tablet 3 tablet (20 mg total) 7 by mouth daily. 03/28/2019 hydrocortisone (CORTEF) Take 3 180 tablet 11 10 MG tablet tablets (30 8 mg total) by mouth 2 (two) times a day. 08/23/2018 Discontinued (Error) metOLazone (ZAROXOLYN) 5 Take 0.5 30 tablet 2 MG tabletIndications: tablets (2.5 8 Atherosclerosis of mg total) by coronary artery of [place] mouth every heart without angina other day for pectoris, unspecified 20 days. vessel or lesion type, CKD (chronic kidney disease) stage 4, GFR 15-29 ml/min ([facility]) 09/06/2018 metOLazone (ZAROXOLYN) Take 1 [...] AVR 23mm Mosaic Valve Overview: ICD9 DX Fur Examiner Last Assessment & Plan: S/P porcine AVR. [...] liver transplantation 11/25/2013 Overview: Overview: ICD9 DX Fur Examiner Last Assessment & Plan: OLT Date: 04/29/2003 Dx: HCV genotype 2a. No recurrent HCV infection currently with undetectable HCV RNA. No major issues of acute or chronic rejection or biliary stricture. Continue current care plan. Encounters Care Team Description Date Type Specialty Mei Rivero ACNP 06/02/2019 Refill Infectious Diseases Mei Rivero ACN 05/09/2019 Refill Infectious Diseases Abdiel Giraldo Jr., MD Bronchiectasis without acute exacerbation (HCC) 05/05/2019 Hospital Radiology Encounter Abdiel Giraldo Jr., MD Bronchiectasis without acute exacerbation (HCC) (Primary Dx) 05/05/2019 Transcribe Access Orders Pat Moulton MA Med Refill 03/19/2019 Refill Cardiology Darius Jiménez MD PhD Atherosclerosis of coronary artery of [place] heart without angina pectoris, unspecified vessel or [...] MD PhD Atherosclerosis of coronary artery of [place] heart without angina pectoris, unspecified vessel or [...] MD PhD Med Refill 07/06/2018 Refill Cardiology after 06/30/2018 Family History Medical History Relation Name Comments Heart attack Father Heart failure Mother Relation Name Status Comments Father (Age 77) Mother Social History Date Tobacco Use Types Packs/Day Years Used Former Smoker 40 Smokeless Tobacco: Never Used Drinks/Week oz/Week Comments Alcohol Use occasional No Sex Assigned at Date Recorded Not on file Industry Job Start Date Occupation Not on file Not on file Not on file Travel End Travel History Travel Start No recent travel history available. Last Filed Vital Signs Reading Time Taken Comments Vital Sign 156/76 12/06/2018 10:18 AM MANAGER NON PROFIT Blood Pressure 81 12/06/2018 10:18 AM MANAGER NON PROFIT Pulse 35 C (95 F) 11/18/2018 10:35 AM MANAGER NON PROFIT Temperature 16 11/18/2018 10:35 AM MANAGER NON PROFIT Respiratory Rate 96% 11/18/2018 10:35 AM MANAGER NON PROFIT Oxygen Saturation - - Inhaled Oxygen Concentration 61.7 kg (136 lb) 12/06/2018 10:18 AM MANAGER NON PROFIT Weight 170.2 cm (5' 7") 12/06/2018 10:18 AM MANAGER NON PROFIT Height 21.3 12/06/2018 10:18 AM MANAGER NON PROFIT Body Mass Index Plan of Treatment Care Team Description Date Type Specialty Darius Jiménez MD PhD [address] [address] 07/31/2019 Office Visit Cardiology Health Maintenance Due Date Last Done Comments SHINGLES VACCINES (#1) 1981 65+ PNEUMOCOCCAL VACCINE 01/16/1996 (1 of 2 - PCV13) INFLUENZA VACCINE 05/15/2019 Procedures Comments Procedure Name Priority Date/Time Associated Diagnosis XR CHEST 2 VW Routine 05/05/2019 Bronchiectasis without 4:51 PM CDT acute exacerbation (HCC) PV PHYSIOLOGIC ARTERIAL Routine 12/03/2018 Chronic diastolic LOWER EXTREMITY COMPLETE 11:38 AM MANAGER NON PROFIT congestive heart failure (HCC) Decreased circulation ESTIMATED GFR STAT 11/18/2018 10:25 AM MANAGER NON PROFIT MAGNESIUM LEVEL STAT 11/18/2018 Acute on chronic 10:25 AM MANAGER NON PROFIT congestive heart failure, unspecified heart failure type (HCC) COMPREHENSIVE METABOLIC STAT 11/18/2018 Acute on chronic PANEL 10:25 AM MANAGER NON PROFIT congestive heart failure, unspecified heart failure type (HCC) B NATRIURETIC PEPTIDE STAT 11/18/2018 Acute on chronic 10:25 AM MANAGER NON PROFIT congestive heart failure, unspecified heart failure type (HCC) ECHOCARDIOGRAM 2D Routine 09/16/2018 COMPLETE W MMODE SPECTRAL 2:43 PM MANAGER NON PROFIT COLOR DOPPLER (12304) ESTIMATED GFR Routine 08/20/2018 2:58 PM MANAGER NON PROFIT B NATRIURETIC PEPTIDE Routine 08/20/2018 Congestive heart failure, 2:58 PM MANAGER NON PROFIT unspecified HF chronicity, unspecified heart failure type (HCC) Chronic kidney disease, unspecified CKD stage Iron deficiency anemia secondary to blood loss (chronic) VITAMIN B12 LEVEL Routine 08/20/2018 Congestive heart failure, 2:58 PM MANAGER NON PROFIT unspecified HF chronicity, unspecified heart failure type (HCC) Chronic kidney disease, unspecified CKD stage Iron deficiency anemia secondary to blood loss (chronic) FERRITIN LEVEL Routine 08/20/2018 Congestive heart failure, 2:58 PM MANAGER NON PROFIT unspecified HF chronicity, unspecified heart failure type (HCC) Chronic kidney disease, unspecified CKD stage Iron deficiency anemia secondary to blood loss (chronic) ALBUMIN LEVEL Routine 08/20/2018 Congestive heart failure, 2:58 PM MANAGER NON PROFIT unspecified HF chronicity, unspecified heart failure type (HCC) Chronic kidney disease, unspecified CKD stage Iron deficiency anemia secondary to blood loss (chronic) HC COMPLETE BLD COUNT Routine 08/20/2018 Congestive heart failure, W/AUTO DIFF 2:58 PM MANAGER NON PROFIT unspecified HF chronicity, unspecified heart failure type (HCC) Chronic kidney disease, unspecified CKD stage Iron deficiency anemia secondary to blood loss (chronic) THYROID STIMULATING Routine 08/20/2018 Congestive heart failure, HORMONE 2:58 PM MANAGER NON PROFIT unspecified HF chronicity, unspecified heart failure type (HCC) Chronic kidney disease, unspecified CKD stage Iron deficiency anemia secondary to blood loss (chronic) BASIC METABOLIC PANEL Routine 08/20/2018 Congestive heart failure, 2:58 PM MANAGER NON PROFIT unspecified HF chronicity, unspecified heart failure type (HCC) Chronic kidney disease, unspecified CKD stage Iron deficiency anemia secondary to blood loss (chronic) after 06/30/2018 Results * XR Chest 2 Vw (05/05/2019 4:51 PM CDT) Specimen Narrative Performed At EXAMINATION:XR CHEST 2 VW HM [facility] CLINICAL HISTORY:J47.9 Bronchiectasisuncomplicated, J47.9 COMPARISON:Chest x-ray 06/20/2018 IMPRESSION: Frontal and lateral views reveal a stable cardiomediastinal silhouette status post median sternotomy. Coarse interstitial markings persist throughout the lungs although without a consolidative process. Pleural margins are sharp. The remainder of the examination is unchanged. [id number] Procedure Note Hm Interface, Radiology Results Incoming - 05/05/2019 5:01 PM CDT EXAMINATION: XR CHEST 2 VW CLINICAL HISTORY: J47.9 Bronchiectasis uncomplicated, J47.9 COMPARISON: Chest x-ray 06/20/2018 IMPRESSION: Frontal and lateral views reveal a stable cardiomediastinal silhouette status post median sternotomy. Coarse interstitial markings persist throughout the lungs although without a consolidative process. Pleural margins are sharp. The remainder of the examination is unchanged. [id number] Performing Organization Address City/State/Zipcode Phone Number [facility] [address] [place] [address] * Pv physiologic arterial lower extremity complete w josie (12/03/2018 11:38 AM MANAGER NON PROFIT) Specimen Narrative Performed At [facility] Physiologic Arterial Leg Report [id number] [facility] [address], [place] [address] Pat.Name:LILLI GREWAL JR Pat.ID:[id number] .Date: 12/03/2018 Refer.MD:Darius Jiménez MD Exam Time: 10:07:00 AM Study Type:Physiologic Leg Height:67inDOBAge:[birth year]88Y Sex: MALESonogrphr: Ish Bronson RN, RVT Pat. Stat.:OutpatientTapeVol: DP, CPT - 4: 77264 Echo Event ID:[id number] Order ID:[id number] Reason for Study:Bilateral calf pain after walking [...] * High ThighUnable to tolerate pressures Low Naegj392 135 Calf 841108 Ankle DP 109 105 Ankle [id number] Great Toe 7055 ANKLE/BRACHIAL INDEX: RIGHTLEFT Dorsalis [...] Radiology Results In - 12/03/2018 10:29 PM [facility] Laboratory Physiologic Arterial Leg Report [address] [place] [address] Pat.Name: LILLI GREWAL JR Pat.ID: [id number] St.Date: 12/03/2018 Refer.MD: Darius Jiménez MD Exam Time: 10:07:00 AM Study Type:Physiologic Leg Height: 67in Age: 5 1930,88Y Sex: MALE Sonogrphr: Ish Bronson RN, RVT Pat. Stat.:Outpatient Tape Vol: DP, CPT - 4: 58360 Echo Event ID:[id number] Order ID: [id number] Reason for Study:Bilateral calf pain after walking 1 block, relieved with rest. History of liver transplant 2002. Peripheral neuropathy. History / Clinical:Other, edema Procedures:Ankle/brachial [...] Sha Salinas MD, RPVI Performing Organization Address [facility] Centercode Phone Number [facility] [address] [place] [address] * Estimated GFR (11/18/2018 10:25 AM MANAGER NON PROFIT) Only the most recent of 2 results within the time period is included. [facility] Estimated GFR 24 (A) mL/min/1.73 m2 [facility] Comment: [facility] rpretation G1 >=90 Normal or high G2 60-89Mildly decreased O6m27-04 Mildly to moderately decreased T9q74-09 Moderately to severely decreased G4 15-29Severely decreased G5 <15Kidney failure The eGFR was calculated using the Chronic Kidney Disease Epidemiology Collaboration (CKD-EPI) equation. Interpretation is based on recommendations of the National Kidney Foundation-Kidney Disease Outcomes Quality Initiative (NKF-KDOQI) published in 2014. Specimen Plasma specimen Performing Organization Address [facility] Centercode Phone Number [facility] DEPARTMENT OF [address] [place] [address] PATHOLOGY AND GENOMIC MEDICINE [address] * B natriuretic peptide (11/18/2018 10:25 AM MANAGER NON PROFIT) Only the most recent of 2 results within the time period is included. [facility] BNP 158 (H) 0 - 100 pg/mL [facility] Specimen Blood Performing Organization Address City/[facility]/Zipcode Phone Number [facility] DEPARTMENT OF [address] [place] [address] PATHOLOGY AND GENOMIC MEDICINE [place] [address] * Magnesium level (11/18/2018 10:25 AM MANAGER NON PROFIT) Magnesium 2.5 (H) 1.6 - 2.4 mg/dL [facility] Specimen Plasma specimen Performing Organization Address City/[facility] Cent[facility]ode Phone Number [facility] DEPARTMENT [address] [address] PATHOLOGY AND GENOMIC MEDICINE [address] * Comprehensive metabolic panel (11/18/2018 10:25 AM MANAGER NON PROFIT) Sodium 142 135 - 148 mEq/L [facility] Potassium 4.2 3.5 - 5.0 mEq/L [facility] Chloride 101 98 - 112 mEq/L [facility] CO2 26 24 - 31 mEq/L [facility] Anion gap 15@ANIO 7 - 15 mEq/L [facility] BUN 31 (H) 8 - 23 mg/dL [facility] Creatinine 2.33 (H) 0.70 - 1.20 mg/dL [facility] Glucose 123 (H) 65 - 99 mg/dL [facility] Calcium 10.3 (H) 8.8 - 10.2 mg/dL [facility] Protein 7.9 6.3 - 8.3 g/dL [facility] Comment: [facility] 4.6-7.0 g/dL 1 week 4.4-7.6 g/dL 7 months-1year 5.1-7.3 g/dL 1-2 years5.6-7 .5 g/dL >3 years6.0-8 .0 g/dL 18-150 6.3-8.3 g/dL Albumin 3.7 3.5 - 5.0 g/dL [facility] A/G ratio 0.9 0.7 - 3.8 [facility] Alkaline 142 (H) 40 - 129 U/L [facility] phosphatase [facility] AST 27 10 - 50 U/L [facility] ALT 27 5 - 50 U/L [facility] Total bilirubin 0.3 0.0 - 1.2 mg/dL [facility] Specimen Plasma specimen Performing Organization Address City/[facility] Centercode Phone Number [facility] DEPARTMENT [address] [address] PATHOLOGY AND GENOMIC MEDICINE [place] [address] * Echocardiogram complete w contrast and 3D if needed (09/16/2018 2:43 PM MANAGER NON PROFIT) Specimen Narrative Performed At [facility] Echocardiography Report Pat.Name:LILLI GREWAL JR Pat.ID:[id number] .Date: 09/16/2018 Refer.MD:DARIUS JIMÉNEZ MD Exam Time: 2:00:00 PMStudy Type:Routine Echo Height:67inWeight:135lb BSA: 1.71 m2 DOBAge:1930,88Y Sex: MALEBP:139/69 HR:77 bpm Sonogrphr: Ivan Snyder, RDCS, RVS Pat. Stat.:OutpatientRoom:[facility] TapeVol: [facility], ICD - 9: I35.0, R60.9 Study Status:Final Echo Event ID:[id number] Order ID:[id number] Reason for Study:Atherosclerosis of Coronary Artery Disease Involving [place] Artery, Edema, Aortic Valve Disorders History / [...] assessment of PASP. MEASUREMENTS: 2D Parasternal Long [place] LVOT 1.7 cmLA Ds4.1 cm LVIDd4.2 cmIndex2.5 cm/m Ao An1.8 cm LVIDs3.1 cmAo Rtd 2.7 cm Index1.6 cm/m LV%fs 27.4 % LV Vtof618.3 g(122-174) IVSd 1 cmLVM Index 86.7 g/m2 LVPWd1.1 cmRWT0.5 LA Volume LA Vol53.2 bkGnfpj92.1 ml/m LA Sng Plane LA Area 22.8 cm2(8.8-23.4) LA Vol68.7 ml Index40.2 ml/m LA LngAx 6.4 cm RA Sng Plane RA Area 16.8 cm2(8.3-19.5) RA Vol40.8 ml Index23.9 ml/m RA LngAx 5.9 cm Ascending Aorta Asce Dim 3.6 cm DOPPLER LVOT Stroke Vol LVOT 1.7 cmLVOT CO4.3 l/min LVOT TVI28.4 cmLVOT CI2.5 l/m/m2 LVOT Tm325 rlpaXU13 bpm LVOT SV 64.5 ml AV For Flow/Valve Assess AV pkVel 298.4 cm/s (100-170) AV ET333 msec AV mnVel 198.1 cm/Francy AC/ET 0.3 AV pkPG 35.6 mmHgAV TVI66 cm AV Mean G 19.1 mmHgAVpkAcRt 92889.1 cm/s2 AV AC 89 msec (83-118) MV E/A Ratio MV pkE62.5 cm/s (60-130) MV E/A 1.5 MV pkA42.3 cm/s WALL MOTION: RESTING WALL MOTION: Basal Inferior, Mid Inferior brito are mildly hypokinetic. Normal in all other brito. Wall Index=1.1 Signed 09/17/2018 01:12 PM Ciera Haley M.D. Procedure Note Interface, Radiology Results In - 09/17/2018 1:12 PM MANAGER NON PROFIT [facility] Echocardiography Report Pat.Name: LILLI GREWAL JR Pat.ID: [id number] St.Date: 09/16/2018 Refer.MD: DARIUS JIMÉNEZ MD Exam Time: 2:00:00 PM Study Type:Routine Echo Height: 67in Weight: 135lb BSA: 1.71 m2 Age: 5 1930,88Y Sex: MALE BP: 139/69 HR: 77 bpm Sonogrphr: Kumuthavally Veerasamy, RDCS, RVS Pat. Stat.:Outpatient Room: [facility] Tape Vol: MDCA, ICD - 9: I35.0, R60.9 Study Status:Final Echo Event ID:[id number] Order ID: [id number] Reason for Study:Atherosclerosis of Coronary Artery Disease Involving [place] Artery, Edema, Aortic Valve Disorders History / [...] assessment of PASP. MEASUREMENTS: 2D Parasternal Long [place] LVOT 1.7 cm LA Ds 4.1 cm [...] cm AV Mean G 19.1 mmHg AVpkAcRt 70216.1 cm/s2 AV AC 89 msec (83-118) MV E/A Ratio MV pkE 62.5 cm/s (60-130) MV E/A 1.5 MV pkA 42.3 cm/s WALL MOTION: RESTING WALL MOTION: Basal Inferior, Mid Inferior brito are mildly hypokinetic. Normal in all other brito. Wall Index=1.1 Signed 09/17/2018 01:12 PM Ciera Haley M.D. Performing Organization Address City/State/Zipcode Phone Number [facility] [address] [place] [address] * CBC with platelet and differential (08/20/2018 2:58 PM MANAGER NON PROFIT) WBC 5.84 4.50 - 11.00 k/uL [facility] DEPARTMENT OF PATHOLOGY AND GENOMIC MEDICINE RBC 4.67 4.40 - 6.00 m/uL [facility] DEPARTMENT OF PATHOLOGY AND GENOMIC MEDICINE HGB 12.7 (L) 14.0 - 18.0 g/dL [facility] DEPARTMENT OF PATHOLOGY AND GENOMIC MEDICINE HCT 40.7 (L) 41.0 - 51.0 % [facility] DEPARTMENT OF PATHOLOGY AND GENOMIC MEDICINE MCV 87.2 82.0 - 100.0 fL [facility] DEPARTMENT OF PATHOLOGY AND GENOMIC MEDICINE MCH 27.2 27.0 - 34.0 pg [facility] DEPARTMENT OF PATHOLOGY AND GENOMIC MEDICINE MCHC 31.2 31.0 - 37.0 g/dL [facility] DEPARTMENT OF PATHOLOGY AND GENOMIC MEDICINE RDW - SD 52.1 37.0 - 55.0 fL [facility] DEPARTMENT OF PATHOLOGY AND GENOMIC MEDICINE MPV 10.6 8.8 - 13.2 fL [facility] DEPARTMENT OF PATHOLOGY AND GENOMIC MEDICINE Platelet count 164 150 - 400 k/uL [facility] DEPARTMENT OF PATHOLOGY AND GENOMIC MEDICINE Nucleated RBC 0.00 /100 WBC [facility] DEPARTMENT OF PATHOLOGY AND GENOMIC MEDICINE Neutrophils 68.5 39.0 - 69.0 % [facility] DEPARTMENT OF PATHOLOGY AND GENOMIC MEDICINE Lymphocytes 19.9 (L) 25.0 - 45.0 % [facility] DEPARTMENT OF PATHOLOGY AND GENOMIC MEDICINE Monocytes 6.7 0.0 - 10.0 % [facility] DEPARTMENT OF PATHOLOGY AND GENOMIC MEDICINE Eosinophils 3.9 0.0 - 5.0 % [facility] DEPARTMENT OF PATHOLOGY AND GENOMIC MEDICINE Basophils 0.7 0.0 - 1.0 % [facility] DEPARTMENT OF PATHOLOGY AND GENOMIC MEDICINE Immature 0.3Comment: "Immature 0.0 - 1.0 % [facility] DEPARTMENT granulocytes granulocytes" (promyelocytes, OF PATHOLOGY myelocytes, metamyelocytes) AND GENOMIC MEDICINE Specimen Blood Performing Organization Address City/State/Zipcode [place] [address] PATHOLOGY AND GENOMIC MEDICINE * Thyroid stimulating hormone (08/20/2018 2:58 PM MANAGER NON PROFIT) TSH 6.03 (H) 0.27 - 4.20 uIU/mL [facility] DEPARTMENT OF PATHOLOGY AND GENOMIC MEDICINE Specimen Plasma specimen Performing Organization Address City/State/Zipcode [place] [address] PATHOLOGY AND GENOMIC MEDICINE * Ferritin level (08/20/2018 2:58 PM MANAGER NON PROFIT) Ferritin level 283 30 - 400 ng/mL [facility] DEPARTMENT OF PATHOLOGY AND GENOMIC MEDICINE Specimen Plasma specimen Performing Organization Address City/[facility]/Zipcode [place] [address] PATHOLOGY AND GENOMIC MEDICINE * Vitamin B12 level (08/20/2018 2:58 PM MANAGER NON PROFIT) Vitamin B12 1,606 (H) 211 - 946 pg/mL [facility] DEPARTMENT Comment: OF PATHOLOGY Significant overlap exists AND GENOMIC between normal and deficiency MEDICINE states. However, most patients with deficiencies will have Serum B12 <200 pg/mL. Specimen Serum Performing Organization Address City/[facility]/Zipcode [place] [address] PATHOLOGY AND GENOMIC MEDICINE * Albumin level (08/20/2018 2:58 PM MANAGER NON PROFIT) Pathologist [facility] Albumin 4.4 3.5 - 5.0 g/dL [facility] DEPARTMENT OF PATHOLOGY AND GENOMIC MEDICINE Specimen Plasma specimen Performing Organization Address City/[facility] Phone Number [facility] [place] [address] PATHOLOGY AND [facility] MEDICINE * Basic metabolic panel (08/20/2018 2:58 PM MANAGER NON PROFIT) Sodium 139 135 - 148 mEq/L [facility] DEPARTMENT OF PATHOLOGY AND GENOMIC MEDICINE Potassium 4.9 3.5 - 5.0 mEq/L [facility] DEPARTMENT OF PATHOLOGY AND GENOMIC MEDICINE Chloride 99 98 - 112 mEq/L [facility] DEPARTMENT OF PATHOLOGY AND GENOMIC MEDICINE CO2 25 24 - 31 mEq/L [facility] DEPARTMENT OF PATHOLOGY AND GENOMIC MEDICINE Anion gap 15@ANIO 7 - 15 mEq/L [facility] DEPARTMENT OF PATHOLOGY AND GENOMIC MEDICINE BUN 32 (H) 8 - 23 mg/dL [facility] DEPARTMENT OF PATHOLOGY AND GENOMIC MEDICINE Creatinine 2.12 (H) 0.70 - 1.20 mg/dL [facility] DEPARTMENT OF PATHOLOGY AND GENOMIC MEDICINE Glucose 123 (H) 65 - 99 mg/dL [facility] DEPARTMENT OF PATHOLOGY AND GENOMIC MEDICINE Calcium 10.1 8.8 - 10.2 mg/dL [facility] DEPARTMENT OF PATHOLOGY AND GENOMIC MEDICINE Specimen Plasma specimen Performing Organization Address City/State/[facility] Centercode Phone Number [facility] DEPARTMENT [place] [id number] PATHOLOGY AND GENOMIC MEDICINE after 06/30/2018 Insurance Type Payer Benefit Subscriber ID Effective Phone Address Plan / Dates Group Medicare MEDICARE MEDICARE xxxxxxxxxxx 1996-P [place], PART A AND resent [place] B Commercial AARP AARP xxxxxxxxxxx 2002- SUPPLEMENT Present Advance Directives For more information, please contact: [phone] Patient Balance Wheel Motion Inspector Explanation Type Date Recorded Advance Directives, 12/12/2006 2:16 PM Living Will and Medical Power of Ton Container Filler Advance Directives, Living Will and Medical Power of Ton Container Filler Date Inactivated Comments Code Status Date Activated 05/22/2018 8:34 AM Full Code 05/17/2018 3:11 PM Code Status decision reached by: Patient
--- OUTSIDE RECORDS SUMMARY | 2019-07-01 18:10 | XMS REPORT | Clinical Summary ---
Author Author [facility] Address Unknown Phone Unavailable Care Team Providers Care Chief Of Police Name Role Phone Donato Mccallum MD PCP [...] 2 sprays by 0 mcg (0.025 %) [place] Each Nare route as needed. Active hydrOXYzine [...] (RAPAMUNE) 0.5 Take 1 tablet 30 tablet 3 06/03/201 mg Tab tablet (0.5 mg 9 total) by mouth daily. 07/04/2018 Discontinued sirolimus (RAPAMUNE) 1 MG Take 2 60 tablet 11 201 tablet tablets (2 mg 8 total) by mouth daily. 06/03/2019 Discontinued sirolimus (RAPAMUNE) 0.5 Take 1 tablet 30 tablet 0 05/29/201 mg Tab tablet (0.5 mg 8 total) by mouth daily. 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 No recurrent HCV infection currently with undetectable HCV RNA. No major issues of acute or chronic rejection or biliary stricture. Continue current care plan. 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 Assessment & Plan: S/P porcine [...] Team Description Date Type Specialty Anat Walker 06/04/2019 Documentation Transplant Hepatology Bridget Cortes RN 06/03/2019 Orders Only Transplant Hepatology Bridget Cortes, EDMUND Status post liver transplantation (HCC) (Primary Dx); Hepatitis C virus infection without hepatic coma, unspecified chronicity 05/27/2019 Orders Only Transplant Hepatology Anat Walker Labs Only (SPK W PTN RE: LAB/RX RESULTS; NO MED CHANGES; REPEAT BLD WK X4 MTHS; 09/18/2019; [facility]; GGT;) 05/26/2019 Telephone Transplant Hepatology Bridget Cortes RN returning call 04/02/2019 Telephone Transplant Hepatology Bridget Cortes RN call back 03/11/2019 Telephone Transplant Hepatology Anat Walker Labs Only [...] chronicity 01/17/2019 Orders Only Transplant Hepatology Bridget Cortes RN returning phone call 11/13/2018 Telephone Transplant Hepatology Anat Walker Labs Only (SPK W PTN RE: LAB/RX RESULTS; NO MED CHANGES; REPEAT BLD WK X4 MTHS; 01/16/2019; [facility]; GGT;) 09/25/2018 Telephone Transplant Hepatology David Dogde MD 09/18/2018 Orders Only Transplant Hepatology Bridget Cortes personal development mentor Problem 08/30/2018 Telephone Transplant Hepatology Bridget Cortes, RN Labs Only 07/24/2018 Telephone Transplant Hepatology Bridget Cortes RN returning phone call 07/23/2018 Telephone Transplant Hepatology Gem Danielson, EDMUND Follow-up 07/12/2018 Telephone Transplant Hepatology Gem Danielson, EDMUND Follow-up 07/12/2018 Telephone Transplant Hepatology Gem Danielson, RN Follow-up 07/12/2018 Telephone Transplant Hepatology Bridget Cortes RN 07/04/2018 Orders Only Transplant Hepatology Bridget Cortes RN urologist clearance 07/04/2018 Telephone Transplant Hepatology Bridget Cortes RN prostate 07/02/2018 Telephone Transplant Hepatology after 06/30/2018 Social History Date Tobacco Use Types Packs/Day [...] Body Mass Index 23.56 Plan of Treatment Care Team Description Date Type Specialty 01/19/2020 Orders Only Transplant Hepatology Afshan Fernandez MD [address] [facility] [address] [place] [address] [phone] 01/19/2020 Follow-Up Transplant Hepatology Procedures Comments Procedure Name Priority Date/Time Associated [...] metabolism SIROLIMUS LEVEL Routine 09/18/2018 10:19 AM [facility] CBC W/PLT COUNT & AUTO Routine 09/18/2018 DIFFERENTIAL 10:19 AM [facility] COMPREHENSIVE METABOLIC Routine 09/18/2018 PANEL 10:19 AM [facility] T[facility] MAGNESIUM Routine 09/18/2018 10:19 AM [facility] T[facility] BILIRUBIN, TOTAL AND Routine 09/18/2018 DIRECT 10:19 AM NUR[facility] TUTOR after 06/30/2018 Results * CBC with platelet count + automated diff (01/20/2019 9:44 AM CDT) WBC 6.0 3.5 - 10.5 K/L [facility] RBC 4.27 (L) 4.63 - 6.08 M/L [facility] Hemoglobin 11.9 (L) 13.7 - 17.5 GM/DL [facility] Hematocrit 38.0 (L) 40.1 - 51.0 % [facility] MCV 89.0 79.0 - 92.[address] [facility] MCH 27.9 25.7 - 32.[address] [facility] MCHC 31.3 (L) 32.3 - 36.5 GM/DL [facility] RDW 15.9 (H) 11.6 - 14.4 % [facility] Platelets 131 (L) 150 - 450 K/CU MM [facility] MPV 10.2 9.4 - 12.[address] [facility] nRBC 0 0 - 0 /[address] [facility] % Neutros 69 % [facility] % Lymphs 17 % [facility] % Monos 9 % [facility] % Eos 4 % [facility] % Baso 1 % [facility] # Neutros 4.15 1.78 - 5.38 K/L [facility] # Lymphs 1.01 (L) 1.32 - 3.57 K/L [facility] # Monos 0.53 0.30 - 0.82 K/L [facility] # Eos 0.26 0.04 - 0.54 K/L [facility] # Baso 0.03 0.01 - 0.08 K/L [facility] Immature 0 0 - 1 % [facility] Granulocytes-Relative [facility] Specimen Blood Performing Organization Address City/[facility]/Zipcode Phone Number [place] [phone] * Sirolimus level (01/20/2019 9:44 AM CDT) Only the most recent of 2 results within the time period is included. Sirolimus 7.3 5.0 - 15.0 ng/mL [facility] Specimen Blood Performing Organization Address [facility] Phone Number [address] * Hepatitis C PCR, Quantitative (01/20/2019 9:44 AM CDT) HCV PCR, Quantitative HCV RNA not detected HCV RNA not detected [facility] Specimen Blood Narrative Performed At This test uses a Real-Time Polymerase Chain Reaction (RT-PCR) methodology and [facility] was performed using [employer] Ampliprep/[employer]A TaqMan HCV test kit version 2.0 [facility] ([employer] Reportable range for this assay is 15 - 100,000,000 IU per mL (1.18 - 8.00 Log IU/mL). Performing Organization Address [facility] Phone Number [place] [phone] * Phosphorus (01/20/2019 9:44 AM CDT) Phosphorus 3.1Comment: Specimen slightly 2.3 - 4.7 mg/dL [facility] hemolyzed [facility] Specimen Blood Performing Organization Address [facility] Phone Number [address] * Magnesium (01/20/2019 9:44 AM CDT) Only the most recent of 2 results within the time period is included. Magnesium 2.2Comment: Specimen slightly 1.6 - 2.6 mg/dL [facility] Specimen Blood Performing Organization Address City/[facility] Phone Number [address] * Bilirubin, direct (01/20/2019 9:44 AM CDT) Bilirubin, Direct 0.1Comment: Specimen slightly 0.1 - 0.5 mg/dL [facility] Specimen Blood Performing Organization Address [facility] [place] Phone Number [address] * Comprehensive metabolic panel (01/20/2019 9:44 AM CDT) Only the most recent of 2 results within the time period is included. Protein, Total 7.6Comment: Specimen slightly 6.0 - 8.3 gm/dL [facility] Albumin 3.9Comment: Specimen slightly 3.5 - 5.0 g/dL [facility] Alkaline Phosphatase 131 40 - 150 U/L [facility] Total Bilirubin 0.4Comment: Specimen slightly 0.2 - 1.2 mg/dL [facility] Sodium 141 136 - 145 meq/L [facility] Potassium 4.1Comment: Specimen slightly 3.5 - 5.1 meq/L [facility] Chloride 105 98 - 107 meq/L [facility] CO2 26 22 - 29 meq/L [facility] BUN 29 (H) 7 - 21 mg/dL [facility] Creatinine 2.09 (H)Comment: Specimen 0.57 - 1.25 mg/dL [facility] slightly hemolyzed [facility] Glucose 99 70 - 105 mg/dL [facility] Calcium 9.7 8.4 - 10.2 mg/dL [facility] AST 40 (H)Comment: Specimen 5 - 34 U/L [facility] slightly hemolyzed [facility] ALT 29Comment: Specimen slightly 6 - 55 U/L [facility] hemolyzed [facility] EGFR 30Comment: ESTIMATED GFR IS mL/min/1.[address] [facility] NOT ACCURATE CREATININE [facility] CLEARANCE IN PREDICTING GLOMERULAR FILTRATION RATE. ESTIMATED GFR IS NOT APPLICABLE FOR DIALYSIS PATIENTS. Specimen Blood Performing Organization Address City/State/Zipcode Phone Number [facility] [address] [place] [address] [facility] * CBC with platelet count + automated diff (09/18/2018 10:19 AM NUR[facility] TUTOR) WBC 6.2 3.8 - 10.8 Thousand/uL [facility] [...] Performing Organization Information: Site ID: A Name: [facility] Address: [address] [place] [id number] Director: Toshia Rahman Performing Organization Address [facility] [place] Phone Number [facility] [address] [place] [address] [facility] * Bilirubin, total and direct (09/18/2018 10:19 AM NUR[facility] TUTOR) Bilirubin, Direct 0.1 < OR=0.2 mg/dL [facility] Specimen Narrative Performed At FASTING:YES [facility] FASTING: YES Resulting Agency Comment Performing Organization Information: Site ID: A Name: [facility] Address: [address] [place] [id number] Director: Toshia Rahman Performing Organization Address [facility] [place] Phone Number [facility] [address] [place] [address] [facility] after 06/30/2018 Insurance Payer Benefit Subscriber ID Type Phone Address Plan / Group MEDICARE MEDICARE A xxxxxxxxxxx Medicare B MCR SUPPLEMENT/INDIVIDUAL AARP/UNITE xxxxxxxxxxx Medigap D HEALTHCARE
[2019-07-01] MEDS ORDERED: LIDOCAINE JELLY 2% 10ML URO-JET TOP STA (21:01)
--- NOTE | 2019-07-01 21:50 | NUR ---
LARGE LEG BAG PLACED ON PATIENT. EMPTIED 450ML FROM RAMIREZ BAG. PT TOLERATED WELL. AWAKE ALERT SKIN W/D RESP NONLAB, NAD NOTED.
[2019-07-01 22:10] LABS: BILIRUBIN,URINE NEGATIVE (NEGATIVE); CLARITY,URINE CLEAR (CLEAR); COLOR,URINE YELLOW (YELLOW); KETONES,URINE NEGATIVE (NEGATIVE); LEUKOCYTE ESTERASE ,URINE SMALL (NEGATIVE); NITRITE,URINE NEGATIVE (NEGATIVE); PROTEIN,URINE DIPSTICK NEGATIVE (NEGATIVE); URINE UROBILINOGEN 0.2 mg/dL (0.2 - 1)
[2019-07-01 22:29] LABS: BACTERIA,URINE MANY /HPF; EPITHELIAL CELLS,URINE FEW /LPF; RBC,URINE 0-5 /HPF (0-5); WBC,URINE (MAN) >50 /HPF (0-5)
== END 2019-07-01 22:00 | disposition home or self-care (01) ==
LOC: ER 18:07
DX: R33.9 Retention of urine, unspecified (principal); N40.1 Benign prostatic hyperplasia with lower urinary tract symptoms
CPT/HCPCS: 51700; 81001; 87086; 99282